=== PATIENT | female | born 1960 | race Hispanic/Latino ===

== ENCOUNTER 2018-11-07 22:07 | Emergency (ER) | payer BC ==
[2018-11-07] MEDS ORDERED: FENTANYL CITR 100 MCG/2 ML ONE (22:47)
[2018-11-07] MEDS ORDERED: ONDANSETRON 4 MG/2 ML VIAL ONE (22:47)
[2018-11-07 23:15] LABS: Protime INR 1.03
[2018-11-07 23:16] LABS: Absolute Lymphocytes (CBC) 1.2 K/uL (0.7-4.9); Absolute Monocytes 0.6 K/uL (0.1-1.3); Absolute Neutrophil 8.6 K/uL (1.8-8.0); Basophils % 0.6 % (0-1.3); Eosinophils % 0.1 % (0-4.4); Hematocrit 49.8 % (36.0-45.0); Lymphocytes % 11.4 % (15.3-44.8); Monocytes % 5.4 % (3.3-12.3); RBC Red Blood Cell Count 5.77 M/uL (3.86-4.86)
[2018-11-07 23:27] LABS: ALT/SGPT 94 U/L (12-78); AST/SGOT 112 U/L (15-37); Albumin 3.6 g/dL (3.4-5.0); Alkaline Phosphatase 303 U/L (45-117); BUN Blood Urea Nitrogen 16 mg/dL (7-18); Bicarbonate 27 mmol/L (21-32); Bilirubin Direct 0.3 mg/dL (0-0.2); Glucose Level 127 mg/dL (74-106); Magnesium 2.2 mg/dL (1.8-2.4); NT PRO-BNP 5080 pg/mL (<125); Potassium 3.8 mmol/L (3.5-5.1); Protein, Total 8.1 g/dL (6.4-8.2); Sodium Level 140 mmol/L (136-145); Troponin (Emerg Dept Use Only) < 0.02 ng/mL (0.0-0.045)
[2018-11-07] MEDS ORDERED: ENALAPRILAT 1.25 MG/ML VIAL IV ONE (23:34)
[2018-11-07] MEDS ORDERED: MEPERIDINE HCL 50 MG/ML AMP ONE (23:48)
[2018-11-08] MEDS ORDERED: Nicardipine/NS 25 MG/250 ML KIT IV ONE ×2 (00:12→02:16)
[2018-11-08] MEDS ORDERED: PROMETHAZINE 25 MG/ML VIAL ONE (00:42)
--- NOTE | 2018-11-08 01:25 | ER ---
Nurse's Notes [facility] Name: Cait Ying Age: 58 yrs Sex: Female : 1960 Arrival Date: 11/07/2018 Time: 22:08 Bed 2 Private MD: Diagnosis: Dissection of thoracoabdominal aorta Presentation: 11/07 22:23 Presenting complaint: Patient states: she was walking through her house about 2100 this aa1 evening and had a sudden onset of of midsternal CP that radiates between her shoulder pain/ C/O stabbing pain 8/10 and nausea. Transition of care: patient was not received from another setting of care. Onset of symptoms was November 07, 2018 at 21:00. Risk Assessment: Do you want to hurt yourself or someone else? Patient reports no desire to harm self or others. Initial Sepsis Screen: Does the patient meet any 2 criteria? No. Patient's initial sepsis screen is negative. Does the patient have a suspected source of infection? No. Patient's initial sepsis screen is negative. Care prior to arrival: Medication(s) given: ASA, 81 mg, x 4, Nitroglycerin, 0.4 mg SL x 1, zofran 4 mg, IV initiated. 20 GA, in the left antecubital area. 22:23 Method Of Arrival: EMS: [facility] aa1 22:23 Acuity: ONEYDA 2 aa1 Historical: - Allergies: 22:28 No Known Allergies; aa1 - Home Meds: 22:28 levothyroxine oral once daily [Active]; metoprolol tartrate 100 mg Oral tab 1 tab 2 aa1 times per day [Active]; - PMHx: 22:28 Hypertension; Hypothyroidism; aa1 - PSHx: 22:28 Cholecystectomy; Leg surgery for osteomyelitis; Knee surgery; aa1 - Immunization history:: Flu vaccine is not up to date. - Social history:: Smoking status: Patient uses tobacco products, smokes one-half pack cigarettes per day. - Ebola Screening: : No symptoms or risks identified at this time. Screenin:31 Abuse screen: Denies threats or abuse. Denies injuries from another. Nutritional aa1 screening: No deficits noted. Tuberculosis screening: No symptoms or risk factors identified. Fall Risk IV access (20 points). Assessment: 22:31 General: Appears in no apparent distress. uncomfortable, Behavior is cooperative, aa1 appropriate for age, restless. Pain: Complains of pain in mid-sternal area Pain radiates to thoracic area Pain currently is 8 out of 10 on a pain scale. Quality of pain is described as stabbing, Pain began suddenly, Is continuous. Neuro: Level of Consciousness is awake, alert, obeys commands, Oriented to person, place, time, situation, Moves all extremities. Speech is normal. Cardiovascular: Reports chest pain, nausea, Denies diaphoresis, lightheadedness, palpitations, Heart tones S1 S2 present Capillary refill < 3 seconds Clubbing of nail beds is absent JVD is absent Patient's skin is warm and dry. Rhythm is regular Chest pain is described as severe, quality is stabbing, is located in substernal area radiates scapula began 1 hour prior to arrival episodes are continuous. Respiratory: Airway is patent Respiratory effort is even, unlabored, Respiratory pattern is regular, symmetrical. GI: Reports nausea. : No signs and/or symptoms were reported regarding the genitourinary system. EENT: No signs and/or symptoms were reported regarding the EENT system. Derm: Skin is intact, is healthy with good turgor, Skin is pink, warm \T\ dry. Musculoskeletal: Circulation, motion, and sensation intact. Capillary refill < 3 seconds, Range of motion: intact in all extremities. 22:37 Reassessment: Pt c/o severe pain between shoulder blades that radiates around to aa1 epigastrium. Bilateral blood pressures obtained at this time. Dr. Mathews notified of pt complaint and negative bilateral BP results. Per MD, CT aorta will be ordered. 23:22 Reassessment: Patient appears in no apparent distress at this time. Patient and/or aa1 family updated on plan of care and expected duration. Pain level reassessed. Patient is alert, oriented x 3, equal unlabored respirations, skin warm/dry/pink. Awaiting lab results. 11/08 00:00 Reassessment: Patient appears in no apparent distress at this time. Patient and/or aa1 family updated on plan of care and expected duration. Pain level reassessed. Patient is alert, oriented x 3, equal unlabored respirations, skin warm/dry/pink. Pt back from CT. Reports pain improved after Demerol. PA notified that pt's BP has increased; will initiate Cardene drip at this time. 00:52 Reassessment: Patient appears in no apparent distress at this time. Patient and/or aa1 family updated on plan of care and expected duration. Pain level reassessed. Patient is alert, oriented x 3, equal unlabored respirations, skin warm/dry/pink. PA at bedside reassessing pt. 01:20 Reassessment: Patient appears in no apparent distress at this time. Patient and/or aa1 family updated on plan of care and expected duration. Pain level reassessed. Patient is alert, oriented x 3, equal unlabored respirations, skin warm/dry/pink. Pt moaning and reports that the pain in her back has returned; provider notified and order for pain medication received. 01:35 Reassessment: Patient appears in no apparent distress at this time. O2 sat decreased to aa1 88% on 2L n/c after dilaudid; provider notified and O2 rate increased to 4L. O2 sat improved to 91%. Pt sleeping but easily aroused. 01:44 Reassessment: Attempted to call report to [facility], was told by Jerrell jung they are still trying to determine which nurse will receive the pt and asked us to call back in 10 mins. 02:01 Reassessment: Patient appears in no apparent distress at this time. Patient and/or aa1 family updated on plan of care and expected duration. Pain level reassessed. Patient is alert, oriented x 3, equal unlabored respirations, skin warm/dry/pink. Report given to Kwasi Cook RN at [facility]. 02:51 Reassessment: Patient appears in no apparent distress at this time. Patient is alert, aa1 oriented x 3, equal unlabored respirations, skin warm/dry/pink. [facility] present for transfer to [facility]. Vital Signs: 11/07 22:28 BP 170 / 86; Pulse 67; Resp 20; Temp 97.1; Pulse Ox 94% on R/A; Weight 81.65 kg; Height aa1 5 ft. 8 in. (172.72 cm); Pain 8/10; 22:37 BP 214 / 96 LA; aa1 22:37 BP 198 / 97 RA; aa1 23:22 BP 182 / 79; Pulse 63; Resp 16; Pulse Ox 93% on R/A; aa1 11/08 00:00 BP 233 / 75; Pulse 62; Resp 16; Pulse Ox 93% on R/A; Pain 6/10; aa1 00:26 BP 164 / 70; Pulse 79; Resp 14; Pulse Ox 90% on 2 lpm NC; Pain 7/10; aa1 00:30 BP 152 / 68; Pulse 73; Resp 14; Pulse Ox 94% on 2 lpm NC; aa1 00:47 BP 166 / 76; Pulse 84; Resp 16; Pulse Ox 96% on 2 lpm NC; aa1 01:10 BP 138 / 72; Pulse 88; Resp 20; Pulse Ox 94% on 2 lpm NC; aa1 02:01 BP 147 / 63; Pulse 78; Resp 20; Temp 97.6; Pulse Ox 93% on 4 lpm NC; aa1 02:25 BP 153 / 62; Pulse 76; Resp 18; Pulse Ox 92% on 4 lpm NC; Pain 7/10; aa1 11/07 22:28 Body Mass Index 27.37 (81.65 kg, 172.72 cm) 1 ED Course: 11/07 22:08 Patient arrived in ED. al2 22:09 shelter monitor on. Pulse ox on. NIBP on. aa1 22:09 Maintain EMS IV. Dressing intact. Site clean \T\ dry. Gauge \T\ site: 20g LAC. aa 1 22:13 Matthew Mathews MD is Attending Physician. [facility] 22:13 [facility] jr8 22:14 Matthew Mathews MD is Attending Physician. jr8 22:20 EKG done, by ED staff, reviewed by Matthew Mathews MD. aa1 22:23 Becky Telles, PAT is Primary Nurse. aa1 22:26 Triage completed. aa1 22:28 Arm band placed on right wrist. aa1 22:31 Patient has correct armband on for positive identification. Placed in gown. Bed in low aa1 position. Call light in reach. Side rails up X2. 22:50 Radiology exam delayed due to lab results not completed at this time. (BUN/Creatinine). 2 11/08 00:04 CT completed. Patient tolerated procedure well. Patient moved to CT via stretcher. eh Patient moved back from CT. 00:05 Oxygen administration via nasal cannula \T\ 2L/min O2 via Pt O2 sat 90-92% on RA, placed aa1 on nasal cannula at this time. 00:10 Missed attempt(s): 20 gauge in right antecubital area. Bleeding controlled, band aid aa1 applied, catheter tip intact. 00:23 Inserted saline lock: 22 gauge in right upper arm, using aseptic technique. aa1 02:20 Assisted to bedside commode. aa1 02:51 No provider procedures requiring assistance completed. Patient transferred, IV remains aa1 in place. 04:13 XRAY Chest (1 view) In Process Unspecified. EDMS 04:14 CT Aorta for Dissection In Process Unspecified. EDMS Administered Medications: 11/07 22:45 Drug: fentaNYL (PF) 50 mcg Route: IVP; Site: left antecubital; aa1 23:42 Follow up: Response: No adverse reaction; Pain is unchanged, physician notified aa1 22:45 Drug: Zofran 4 mg Route: IVP; Site: left antecubital; aa1 23:43 Follow up: Response: No adverse reaction; Nausea is decreased aa1 23:29 Drug: Enalaprilat 1.25 mg Route: IV; Rate: calculated rate; Site: left antecubital; aa1 23:34 Follow up: IV Status: Completed infusion aa1 23:44 Drug: Demerol 50 mg Route: IVP; Site: left antecubital; aa1 11/08 00:39 Follow up: Response: No adverse reaction; Pain is decreased aa1 00:02 CANCELLED (Physician Discretion): Cardene 5 mg/min IV at calculated rate continuous; jr8 5mg/hr 00:05 Drug: Cardene 5 mg/hr Route: IV; Rate: calculated rate; Site: left antecubital; aa1 00:30 Follow up: Rate change 15 mg/hr aa1 02:53 Follow up: IV Status: Infusion continued upon transfer aa1 00:38 Drug: Phenergan 12.5 mg Route: IVP; Site: right upper arm; aa1 01:33 Follow up: Response: No adverse reaction; Nausea is decreased aa1 01:26 Drug: Dilaudid 0.5 mg Route: IVP; Site: right upper arm; aa1 02:00 Follow up: Response: No adverse reaction; Pain is decreased aa1 Outcome: 01:24 ER care complete, transfer ordered by . jr8 02:51 Transferred by ground EMS to [facility], Transfer form completed. aa1 X-rays sent w/ patient. 02:51 Condition: stable 02:51 Discharge instructions given to patient, Instructed on the need for admit, Demonstrated understanding of instructions. 02:56 Patient left the ED. aa1 Signatures: Dispatcher [employer] EDBecky Rojo, PAT RN aa1 Matthew Mathews MD MD cha Hagler, Jonatan Alves PA PA jr8 Lilly Dorsey2 Oma Estrella
--- NOTE | 2018-11-08 01:25 | EDPHYS ---
Physician Documentation [facility] Name: Cait Ying Age: 58 yrs Sex: Female : 1960 Arrival Date: 11/07/2018 Time: 22:08 Bed 2 Private MD: ED Physician Matthew Mathews HPI: 11/07 22:30 This 58 yrs old Female presents to ER via EMS with complaints of chest pain. jr8 22:30 Onset: acutely, today. The pain radiates to back. Associated signs and symptoms: jr8 Pertinent positives: nausea. The chest pain is described as sharp. Duration: The patient or guardian reports a single episode, that is still ongoing, but improving. Modifying factors: The symptoms are alleviated by nothing. the symptoms are aggravated by deep breath, movement. Severity of pain: At its worst the pain was moderate in the emergency department the pain has improved. The patient has not experienced similar symptoms in the past. The patient has not recently seen a physician. Patient stated that she felt sharp pain between shoulder blades that moved to chest. Had no relief at home so called EMS. Now feeling a little better . Historical: - Allergies: 22:28 No Known Allergies; aa1 - Home Meds: 22:28 levothyroxine oral once daily [Active]; metoprolol tartrate 100 mg Oral tab 1 tab 2 aa1 times per day [Active]; - PMHx: 22:28 Hypertension; Hypothyroidism; aa1 - PSHx: 22:28 Cholecystectomy; Leg surgery for osteomyelitis; Knee surgery; aa1 - Immunization history:: Flu vaccine is not up to date. - Social history:: Smoking status: Patient uses tobacco products, smokes one-half pack cigarettes per day. - Ebola Screening: : No symptoms or risks identified at this time. ROS: 22:30 Eyes: Negative for injury, pain, redness, and discharge, ENT: Negative for injury, jr8 pain, and discharge, Neck: Negative for injury, pain, and swelling, Respiratory: Negative for shortness of breath, cough, wheezing, and pleuritic chest pain, Abdomen/GI: Negative for abdominal pain, nausea, vomiting, diarrhea, and constipation, MS/Extremity: Negative for injury and deformity, Skin: Negative for injury, rash, and discoloration, Neuro: Negative for headache, weakness, numbness, tingling, and seizure. 22:30 Cardiovascular: Positive for chest pain, Negative for edema, orthopnea, palpitations, paroxysmal nocturnal dyspnea. 22:30 Back: Positive for pain at rest, of the thoracic area. Exam: 22:32 Eyes: Pupils equal round and reactive to light, extra-ocular motions intact. Lids and jr8 lashes normal. Conjunctiva and sclera are non-icteric and not injected. Cornea within normal limits. Periorbital areas with no swelling, redness, or edema. ENT: Nares patent. No nasal discharge, no septal abnormalities noted. Tympanic membranes are normal and external auditory canals are clear. Oropharynx with no redness, swelling, or masses, exudates, or evidence of obstruction, uvula midline. Mucous membranes moist. Neck: Trachea midline, no thyromegaly or masses palpated, and no cervical lymphadenopathy. Supple, full range of motion without nuchal rigidity, or vertebral point tenderness. No Meningismus. Chest/axilla: Normal chest wall appearance and motion. Nontender with no deformity. No lesions are appreciated. Cardiovascular: Regular rate and rhythm with a normal S1 and S2. No gallops, murmurs, or rubs. Normal PMI, no JVD. No pulse deficits. Respiratory: Lungs have equal breath sounds bilaterally, clear to auscultation and percussion. No rales, rhonchi or wheezes noted. No increased work of breathing, no retractions or nasal flaring. Abdomen/GI: Soft, non-tender, with normal bowel sounds. No distension or tympany. No guarding or rebound. No evidence of tenderness throughout. Skin: Warm, dry with normal turgor. Normal color with no rashes, no lesions, and no evidence of cellulitis. MS/ Extremity: Pulses equal, no cyanosis. Neurovascular intact. Full, normal range of motion. Neuro: Awake and alert, GCS 15, oriented to person, place, time, and situation. Cranial nerves II-XII grossly intact. Motor strength 5/5 in all extremities. Sensory grossly intact. Cerebellar exam normal. Normal gait. 22:32 Back: pain, that is moderate, of the left scapular area, right scapular area, left subscapular area and right subscapular area, ROM is normal, normal spinal alignment noted, CVA tenderness, is absent, vertebral tenderness, is not appreciated. Vital Signs: 22:28 BP 170 / 86; Pulse 67; Resp 20; Temp 97.1; Pulse Ox 94% on R/A; Weight 81.65 kg; Height aa1 5 ft. 8 in. (172.72 cm); Pain 8/10; 22:37 BP 214 / 96 LA; aa1 22:37 BP 198 / 97 RA; aa1 23:22 BP 182 / 79; Pulse 63; Resp 16; Pulse Ox 93% on R/A; aa1 11/08 00:00 BP 233 / 75; Pulse 62; Resp 16; Pulse Ox 93% on R/A; Pain 6/10; aa1 00:26 BP 164 / 70; Pulse 79; Resp 14; Pulse Ox 90% on 2 lpm NC; Pain 7/10; aa1 00:30 BP 152 / 68; Pulse 73; Resp 14; Pulse Ox 94% on 2 lpm NC; aa1 00:47 BP 166 / 76; Pulse 84; Resp 16; Pulse Ox 96% on 2 lpm NC; aa1 01:10 BP 138 / 72; Pulse 88; Resp 20; Pulse Ox 94% on 2 lpm NC; aa1 02:01 BP 147 / 63; Pulse 78; Resp 20; Temp 97.6; Pulse Ox 93% on 4 lpm NC; aa1 02:25 BP 153 / 62; Pulse 76; Resp 18; Pulse Ox 92% on 4 lpm NC; Pain 7/10; aa1 11/07 22:28 Body Mass Index 27.37 (81.65 kg, 172.72 cm) [facility] MDM: 11/07 22:14 Patient medically screened. [facility] 11/08 00:13 Data reviewed: vital signs, nurses notes, lab test result(s), EKG, radiologic studies, [facility] CT scan, plain films. Data interpreted: Pulse oximetry: on room air is 93 %. Interpretation: acceptable. Counseling: I had a detailed discussion with the patient and/or guardian regarding: the historical points, exam findings, and any diagnostic results supporting the discharge/admit diagnosis, lab results, radiology results, the need to transfer to another facility, [facility] does not immediately have the required specialist. 11/07 22:22 Order name: Basic Metabolic Panel [facility] 11/07 22:22 Order name: CBC with Diff [facility] 11/07 22:22 Order name: LFT's [facility] 11/07 22:22 Order name: Magnesium [facility] 11/07 22:22 Order name: NT PRO-BNP [facility] 11/07 22:22 Order name: PT-INR [facility] 11/07 22:22 Order name: Troponin (emerg Dept Use Only) [facility] 11/07 23:17 Order name: Protime (+INR); Complete Time: 23:34 EDMS 11/07 23:28 Order name: Basic Metabolic Panel; Complete Time: 23:34 EDMS 11/07 23:28 Order name: Liver (Hepatic) Function; Complete Time: 23:34 EDMS 11/07 23:28 Order name: Troponin (Emerg Dept Use Only); Complete Time: 23:34 EDMS 11/07 23:28 Order name: NT PRO-BNP; Complete Time: 23:34 EDMS 11/07 23:28 Order name: Magnesium; Complete Time: 23:34 EDMS 11/07 23:33 Order name: CBC with Automated Diff; Complete Time: 23:34 MS 11/07 22:22 Order name: XRAY Chest (1 view) [facility] 11/07 22:22 Order name: EKG; Complete Time: 22:24 [facility] 11/07 22:22 Order name: Cardiac monitoring; Complete Time: 22:23 [facility] 11/07 22:22 Order name: EKG - Nurse/Tech; Complete Time: 22:23 [facility] 11/07 22:22 Order name: IV Saline Lock; Complete Time: 22:23 [facility] 11/07 22:22 Order name: Labs collected and sent; Complete Time: 22:44 [facility] 11/07 22:22 Order name: O2 Per Protocol; Complete Time: 22:23 [facility] 11/07 22:48 Order name: CT Aorta for Dissection [facility] 11/07 22:22 Order name: O2 Sat Monitoring; Complete Time: 22:23 [facility] 11/07 22:48 Order name: Bilateral blood pressure; Complete Time: 22:55 [facility] Administered Medications: 11/07 22:45 Drug: fentaNYL (PF) 50 mcg Route: IVP; Site: left antecubital; aa1 23:42 Follow up: Response: No adverse reaction; Pain is unchanged, physician notified aa1 22:45 Drug: Zofran 4 mg Route: IVP; Site: left antecubital; aa1 23:43 Follow up: Response: No adverse reaction; Nausea is decreased aa1 23:29 Drug: Enalaprilat 1.25 mg Route: IV; Rate: calculated rate; Site: left antecubital; aa1 23:34 Follow up: IV Status: Completed infusion aa1 23:44 Drug: Demerol 50 mg Route: IVP; Site: left antecubital; aa1 11/08 00:39 Follow up: Response: No adverse reaction; Pain is decreased aa1 00:02 CANCELLED (Physician Discretion): Cardene 5 mg/min IV at calculated rate continuous; jr8 5mg/hr 00:05 Drug: Cardene 5 mg/hr Route: IV; Rate: calculated rate; Site: left antecubital; aa1 00:30 Follow up: Rate change 15 mg/hr aa1 02:53 Follow up: IV Status: Infusion continued upon transfer aa1 00:38 Drug: Phenergan 12.5 mg Route: IVP; Site: right upper arm; aa1 01:33 Follow up: Response: No adverse reaction; Nausea is decreased aa1 01:26 Drug: Dilaudid 0.5 mg Route: IVP; Site: right upper arm; aa1 02:00 Follow up: Response: No adverse reaction; Pain is decreased aa1 Disposition: 06:28 Co-signature as Attending Physician, Matthew Mathews MD I agree with the assessment and nidhi plan of care. Disposition: 11/08/18 01:24 Transfer ordered to [facility]. Diagnosis is Dissection of thoracoabdominal aorta. - Reason for transfer: Higher level of care. - Accepting physician is Skyler . - Condition is Fair. - Problem is new. - Symptoms have improved. Signatures: Dispatcher [employer] EDMS Becky Telles RN RN aa1 Anderson, Corey, MD MD cha Roszak, Josh, PA PA jr8 Corrections: (The following items were deleted from the chart) 00:02 00:01 Cardene 5 mg/min IV at calculated rate continuous; 5mg/hr ordered. jr8 jr8 02:56 01:24 11/08/2018 01:24 Transfer ordered to [facility]. Diagnosis is aa1 Dissection of thoracoabdominal aorta. Reason for transfer: Higher level of care. Accepting physician is Skyler . Condition is Fair. Problem is new. Symptoms have improved. jr8
[2018-11-08] MEDS ORDERED: HYDROMORPHONE HCL 0.5 MG/0.5 ML INJ ONE (01:30)
[2018-11-08 03:22] VITALS: TEMP 97.6
[2018-11-08 03:23] VITALS: BP 153/62; O2SAT 92
--- NOTE | 2018-11-08 07:56 | RAD REPORT ---
EXAM DESCRIPTION: Eryn Single View11/07/2018 10:40 pm CLINICAL HISTORY: Chest pain COMPARISON: 2013 FINDINGS: The lungs appear clear of acute infiltrate. The heart is normal size IMPRESSION: No acute abnormalities displayed
--- NOTE | 2018-11-08 08:08 | RAD REPORT ---
EXAM DESCRIPTION: CT - Angio Aorta For Dissection - 11/08/2018 3:29 am CLINICAL HISTORY: . Chest and abdominal pain COMPARISON: CT abdomen 2013 TECHNIQUE: Computed tomography angiography of the chest, abdomen pelvis were obtained. 100 cc Isovue 370 was administered intravenously. Coronal and sagittal reconstruction were performed.A preliminary report was generated by virtual radiologic and review prior to dictation MIP 3D reconstruction was performed All CT scans are performed using dose optimization technique as appropriate and may include automated exposure control or mA/KV adjustment according to patient size. FINDINGS: An aortic dissection involves the aortic arch distal to the takeoff of the left brachioce phalic artery and extends to the level of the diaphragmatic hiatus. Intramural hematoma is present th roughout the extent of the dissection The celiac, SMA and FALGUNI are patent . Moderate plaque is present within the abdominal aorta. A severe stenosis involves the right common il iac artery A lung consolidation is not present. A pericardial effusion is not seen. A pleural effusion is not n oted. The liver,spleen, pancreas adrenals kidneys demonstrate no significant abnormality. The appendix is normal. There no evidence diverticulitis. . 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
--- NOTE | 2018-11-08 10:23 | EKG ---
Test Date: 2018-11-07 Test Time: 22:11:40 Data Integration Developer: KACI MEASUREMENT RESULTS: Intervals: Rate: 72 AK: 160 QRSD: 78 QT: 470 QTc: 514 [place]: P: 46 AK: 160 QRS: 11 T: 60 INTERPRETIVE STATEMENTS: Normal sinus rhythm Prolonged QT Abnormal ECG Compared to ECG 03/05/2014 10:24:43 Prolonged QT interval now present Sinus bradycardia no longer present Sinus arrhythmia no longer present Myocardial infarct finding no longer present Electronically Signed On 11-08-18 10:21:49 MICROBIOLOGY TEACHER by Zaire Reis
== END 2018-11-08 02:56 | disposition short-term general hospital (02) ==
LOC: ER 22:07
DX: I71.03 Dissection of thoracoabdominal aorta (principal); I70.8 Atherosclerosis of other arteries; E03.9 Hypothyroidism, unspecified; I10 Essential (primary) hypertension; Z79.899 Other long term (current) drug therapy; F17.210 Nicotine dependence, cigarettes, uncomplicated
CPT/HCPCS: 36415; 71045; 71275; 74175; 80048; 80076; 83735; 83880; 84484; 85025; 85610; 93005; 99285; J1170; J2175; J2405; J2550; J3010; Q9967

== ENCOUNTER 2018-12-14 19:01 | Emergency (ER) | payer BC, OTHER ==
--- OUTSIDE RECORDS SUMMARY | 2018-12-14 19:04 | XMS REPORT | Clinical Summary ---
:1960 Author Organization [facility] Address [address] [place] [address] Care Team Providers Name Role Phone Lc Floresin Unavailable Allergies No Known Allergies Medications Medication Sig Dispensed Refills Start Date End Date Status levothyroxine Take 25 mcg 0 Active (SYNTHROID, by mouth LEVOTHROID) 25 MCG Every morning tabletIndications: on an empty hypothyroidism stomach. amLODIPine (NORVASC) Take 1 tablet 60 tablet 0 11/16/2018 Active 10 MG tablet (10 mg total) by mouth daily. nebivolol (BYSTOLIC) Take 1 tablet 60 tablet 0 11/16/2018 Active 5 MG tablet (5 mg total) by mouth daily. metoprolol Take 100 mg 0 11/15/2018 Discontinued (LOPRESSOR) 100 MG by mouth 2 tabletIndications: (two) times hypertension daily. 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 HTN (hypertension) chronic arterial 11/08/2018 Encounters Date Type Specialty Care Team Description 12/11/2018 Orders Only Osorio, May I 11/20/2018 Orders Only Osorio, May I 11/15/2018 Orders Only Osorio, May I Descending aortic aneurysm (HCC) (Primary Dx) 11/14/2018 Travel 11/10/2018 Anesthesia Event Itz Storm MD 11/10/2018 Surgery Preventza, REPAIR,TEVAR-THORACI [facility] ENDOVASCULAR MD Michelle ANEURYSM 11/08/2018 - Hospital Encounter Cardiology Quincy Mariee Dissection of 11/15/2018 MD Colette abdominal aorta (HCC) 11/08/2018 Orders Only General Internal Medicine after 12/13/2017 Social History Tobacco Use Types Packs/Day Years Used Date Never Assessed Sex Assigned at Date Recorded Not on file Job Start Date Occupation Industry Not on file Not on file Not on file Travel History Travel Start Travel End No recent travel history available. Last Filed Vital Signs Vital Sign Reading Time Taken Blood Pressure 134/76 11/15/2018 10:26 AM MEDICAL RESEARCH SCIENTIST Pulse 69 11/15/2018 10:26 AM MEDICAL RESEARCH SCIENTIST Temperature 36.4 C (97.6 F) 11/15/2018 7:00 AM MEDICAL RESEARCH SCIENTIST Respiratory Rate 18 11/15/2018 10:26 AM MEDICAL RESEARCH SCIENTIST Oxygen Saturation 93% 11/15/2018 10:26 AM MEDICAL RESEARCH SCIENTIST Inhaled Oxygen Concentration 50% 11/11/2018 6:15 AM MEDICAL RESEARCH SCIENTIST Weight 74.1 kg (163 lb 5.8 oz) 11/10/2018 5:30 AM MEDICAL RESEARCH SCIENTIST Height 172.7 cm (5' 8") 11/13/2018 9:05 AM MEDICAL RESEARCH SCIENTIST Body Mass Index - - Plan of Treatment Not on file Implants Implanted Type Area Terminal Operator Device Shelf Model / Identifier Expiration Serial / Date Lot Carlos Eduardo Ball Endo [id number] - [id number] CV Aneurysm Right: COOK: AORTIC 06/27/2020 [id number] / Implanted: Qty: 1 on 11/10/2018 by Quincy Mariee MD Groin INTERVENTION / [id number] Closure Sys Perclose Progl [id number] - [id number] Cardiovascular Left: FLETCHER LAB:VASC 07/23/2020 [id number] / Implanted: Qty: 2 on 11/10/2018 by Quincy Mariee MD Groin DEV / [id number] Procedures Procedure Name Priority Date/Time Associated Comments Diagnosis VASCULAR DIAGRAM 12/04/2018 2:50 -SCAN PM MEDICAL RESEARCH SCIENTIST RHYTHM STRIP - SCAN 12/04/2018 2:50 PM MEDICAL RESEARCH SCIENTIST XR CHEST 1 VIEW Routine 11/15/2018 9:48 Results for this PORTABLE/BEDSIDE AM MEDICAL RESEARCH SCIENTIST procedure are in the results section. APTT Routine 11/15/2018 4:41 Results for this AM MEDICAL RESEARCH SCIENTIST procedure are in the results section. PROTHROMBIN TIME/INR Routine 11/15/2018 4:41 Results for this AM MEDICAL RESEARCH SCIENTIST procedure are in the results section. PHOSPHORUS Routine 11/15/2018 4:41 Results for this AM MEDICAL RESEARCH SCIENTIST procedure are in the results section. MAGNESIUM Routine 11/15/2018 4:41 Results for this AM MEDICAL RESEARCH SCIENTIST procedure are in the results section. BASIC METABOLIC PANEL Routine 11/15/2018 4:41 Results for this (7) AM MEDICAL RESEARCH SCIENTIST procedure are in the results section. CBC (HEMOGRAM ONLY) Routine 11/15/2018 4:41 Results for this AM MEDICAL RESEARCH SCIENTIST procedure are in the results section. XR CHEST 1 VIEW Routine 11/14/2018 7:43 Results for this PORTABLE/BEDSIDE AM MEDICAL RESEARCH SCIENTIST procedure are in the results section. APTT Routine 11/14/2018 4:37 Results for this AM MEDICAL RESEARCH SCIENTIST procedure are in the results section. PROTHROMBIN TIME/INR Routine 11/14/2018 4:37 Results for this AM MEDICAL RESEARCH SCIENTIST procedure are in the results section. PHOSPHORUS Routine 11/14/2018 4:37 Results for this AM MEDICAL RESEARCH SCIENTIST procedure are in the results section. MAGNESIUM Routine 11/14/2018 4:37 Results for this AM MEDICAL RESEARCH SCIENTIST procedure are in the results section. BASIC METABOLIC PANEL Routine 11/14/2018 4:37 Results for this (7) AM MEDICAL RESEARCH SCIENTIST procedure are in the results section. CBC (HEMOGRAM ONLY) Routine 11/14/2018 4:37 Results for this AM MEDICAL RESEARCH SCIENTIST procedure are in the results section. TRANSFUSION SERVICE 11/13/2018 5:53 REPORT - SCAN PM MEDICAL RESEARCH SCIENTIST T4, FREE Routine 11/13/2018 10:23 Results for this AM MEDICAL RESEARCH SCIENTIST procedure are in the results section. TSH/FREE T4 IF Routine 11/13/2018 10:23 Results for this INDICATED AM MEDICAL RESEARCH SCIENTIST procedure are in the results section. XR CHEST 1 VIEW Routine 11/13/2018 5:41 Results for this PORTABLE/BEDSIDE AM MEDICAL RESEARCH SCIENTIST procedure are in the results section. PROTHROMBIN TIME/INR Routine 11/13/2018 3:35 Results for this AM MEDICAL RESEARCH SCIENTIST procedure are in the results section. APTT Routine 11/13/2018 3:35 Results for this AM MEDICAL RESEARCH SCIENTIST procedure are in the results section. PHOSPHORUS Routine 11/13/2018 3:35 Results for this AM MEDICAL RESEARCH SCIENTIST procedure are in the results section. MAGNESIUM Routine 11/13/2018 3:35 Results for this AM MEDICAL RESEARCH SCIENTIST procedure are in the results section. BASIC METABOLIC PANEL Routine 11/13/2018 3:35 Results for this (7) AM MEDICAL RESEARCH SCIENTIST procedure are in the results section. CBC (HEMOGRAM ONLY) Routine 11/13/2018 3:35 Results for this AM MEDICAL RESEARCH SCIENTIST procedure are in the results section. CTA CHEST,ABDOMEN & STAT 11/12/2018 8:47 Results for this PELVIS - FOR AM MEDICAL RESEARCH SCIENTIST procedure are in DISSECTION the results section. XR CHEST 1 VIEW Routine 11/12/2018 5:55 Results for this PORTABLE/BEDSIDE AM MEDICAL RESEARCH SCIENTIST procedure are in the results section. PROTHROMBIN TIME/INR Routine 11/12/2018 3:21 Results for this AM MEDICAL RESEARCH SCIENTIST procedure are in the results section. APTT Routine 11/12/2018 3:21 Results for this AM MEDICAL RESEARCH SCIENTIST procedure are in the results section. PHOSPHORUS Routine 11/12/2018 3:21 Results for this AM MEDICAL RESEARCH SCIENTIST procedure are in the results section. MAGNESIUM Routine 11/12/2018 3:21 Results for this AM MEDICAL RESEARCH SCIENTIST procedure are in the results section. BASIC METABOLIC PANEL Routine 11/12/2018 3:21 Results for this (7) AM MEDICAL RESEARCH SCIENTIST procedure are in the results section. CBC (HEMOGRAM ONLY) Routine 11/12/2018 3:21 Results for this AM MEDICAL RESEARCH SCIENTIST procedure are in the results section. PREPARE RBC STAT 11/12/2018 12:22 Results for this AM MEDICAL RESEARCH SCIENTIST procedure are in the results section. TRANSFUSION SERVICE 11/11/2018 5:52 REPORT - SCAN PM MEDICAL RESEARCH SCIENTIST XR CHEST 1 VIEW Routine 11/11/2018 5:00 Results for this PORTABLE/BEDSIDE AM MEDICAL RESEARCH SCIENTIST procedure are in the results section. PROTHROMBIN TIME/INR Routine 11/11/2018 4:13 Results for this AM MEDICAL RESEARCH SCIENTIST procedure are in the results section. APTT Routine 11/11/2018 4:13 Results for this AM MEDICAL RESEARCH SCIENTIST procedure are in the results section. BLOOD GAS, ARTERIAL Routine 11/11/2018 4:13 Results for this AM MEDICAL RESEARCH SCIENTIST procedure are in the results section. PHOSPHORUS Routine 11/11/2018 4:13 Results for this AM MEDICAL RESEARCH SCIENTIST procedure are in the results section. MAGNESIUM Routine 11/11/2018 4:13 Results for this AM MEDICAL RESEARCH SCIENTIST procedure are in the results section. BASIC METABOLIC PANEL Routine 11/11/2018 4:13 Results for this (7) AM MEDICAL RESEARCH SCIENTIST procedure are in the results section. CBC (HEMOGRAM ONLY) Routine 11/11/2018 4:13 Results for this AM MEDICAL RESEARCH SCIENTIST procedure are in the results section. PT/APTT Routine 11/10/2018 6:17 Results for this PM MEDICAL RESEARCH SCIENTIST procedure are in the results section. CALCIUM, IONIZED Routine 11/10/2018 6:17 Results for this PM MEDICAL RESEARCH SCIENTIST procedure are in the results section. BASIC METABOLIC PANEL Routine 11/10/2018 6:17 Results for this (7) PM MEDICAL RESEARCH SCIENTIST procedure are in the results section. BLOOD GAS, ARTERIAL Routine 11/10/2018 6:17 Results for this PM MEDICAL RESEARCH SCIENTIST procedure are in the results section. CBC (HEMOGRAM ONLY) STAT 11/10/2018 6:17 Results for this PM MEDICAL RESEARCH SCIENTIST procedure are in the results section. ANESTHESIA SCOOTER Routine 11/10/2018 5:13 Results for this PM MEDICAL RESEARCH SCIENTIST procedure are in the results section. POCT-ACT Routine 11/10/2018 4:58 Results for this PM MEDICAL RESEARCH SCIENTIST procedure are in the results section. POCT-ACT Routine 11/10/2018 4:31 Results for this PM MEDICAL RESEARCH SCIENTIST procedure are in the results section. HGB/HCT (H&H) - STAT STAT 11/10/2018 4:20 Results for this LAB PM MEDICAL RESEARCH SCIENTIST procedure are in the results section. GLUCOSE-STAT LAB STAT 11/10/2018 4:20 Results for this PM MEDICAL RESEARCH SCIENTIST procedure are in the results section. POTASSIUM-STAT LAB STAT 11/10/2018 4:20 Results for this PM MEDICAL RESEARCH SCIENTIST procedure are in the results section. SODIUM NA-STAT LAB STAT 11/10/2018 4:20 Results for this PM MEDICAL RESEARCH SCIENTIST procedure are in the results section. BLOOD GAS, ARTERIAL STAT 11/10/2018 4:20 Results for this PM MEDICAL RESEARCH SCIENTIST procedure are in the results section. RRL CRITICAL LABS STAT 11/10/2018 4:20 Results for this (ABG,NA,K,H&H,GLUCOSE PM MEDICAL RESEARCH SCIENTIST procedure are in ) the results section. HGB/HCT (H&H) - STAT STAT 11/10/2018 2:43 Results for this LAB PM MEDICAL RESEARCH SCIENTIST procedure are in the results section. GLUCOSE-STAT LAB STAT 11/10/2018 2:43 Results for this PM MEDICAL RESEARCH SCIENTIST procedure are in the results section. POTASSIUM-STAT LAB STAT 11/10/2018 2:43 Results for this PM MEDICAL RESEARCH SCIENTIST procedure are in the results section. SODIUM NA-STAT LAB STAT 11/10/2018 2:43 Results for this PM MEDICAL RESEARCH SCIENTIST procedure are in the results section. BLOOD GAS, ARTERIAL STAT 11/10/2018 2:43 Results for this PM MEDICAL RESEARCH SCIENTIST procedure are in the results section. CALCIUM, IONIZED STAT 11/10/2018 2:43 Results for this PM MEDICAL RESEARCH SCIENTIST procedure are in the results section. RRL CRITICAL LABS STAT 11/10/2018 2:43 Results for this (ABG,NA,K,H&H,GLUCOSE PM MEDICAL RESEARCH SCIENTIST procedure are in ) the results section. REPAIR,TEVAR-THORACIC 11/10/2018 11:41 Intramural aortic ENDOVASCULAR ANEURYSM AM MEDICAL RESEARCH SCIENTIST hematoma (HCC) Special Needs CSF XR CHEST 1 VIEW Routine 11/10/2018 3:33 AM MEDICAL RESEARCH SCIENTIST Results for this PORTABLE/BEDSIDE procedure are in the results section. PHOSPHORUS Routine 11/10/2018 3:10 AM MEDICAL RESEARCH SCIENTIST MAGNESIUM Routine 11/10/2018 3:10 AM MEDICAL RESEARCH SCIENTIST BASIC METABOLIC PANEL (7) Routine 11/10/2018 3:10 AM MEDICAL RESEARCH SCIENTIST CBC (HEMOGRAM ONLY) Routine 11/10/2018 3:10 AM MEDICAL RESEARCH SCIENTIST TRANSFUSION SERVICE REPORT - 11/09/2018 6:02 PM MEDICAL RESEARCH SCIENTIST SCAN TSH/FREE T4 IF INDICATED Routine 11/09/2018 10:07 AM MEDICAL RESEARCH SCIENTIST XR CHEST 1 VIEW Routine 11/09/2018 5:41 AM MEDICAL RESEARCH SCIENTIST Results for this PORTABLE/BEDSIDE procedure are in the results section. PHOSPHORUS Routine 11/09/2018 3:22 AM MEDICAL RESEARCH SCIENTIST MAGNESIUM Routine 11/09/2018 3:22 AM MEDICAL RESEARCH SCIENTIST BASIC METABOLIC PANEL (7) Routine 11/09/2018 3:22 AM MEDICAL RESEARCH SCIENTIST CBC (HEMOGRAM ONLY) Routine 11/09/2018 3:22 AM MEDICAL RESEARCH SCIENTIST ECG 12-LEAD Routine 11/08/2018 9:16 AM MEDICAL RESEARCH SCIENTIST Procedure Note - Interface, External Ris In - 11/08/2018 12:01 PM MEDICAL RESEARCH SCIENTIST Ventricular Rate 76 BPM Atrial Rate 76 BPM P-R Interval 170 ms QRS Duration 96 ms Q-T Interval 456 ms QTC Calculation(Bazett) 513 ms P [place] 44 degrees R [place] 13 degrees T [place] 72 degrees Normal sinus rhythm Prolonged QT Abnormal ECG No previous ECGs available ECG 12-LEAD Routine 11/08/2018 9:16 AM MEDICAL RESEARCH SCIENTIST XR CHEST 1 VIEW Routine 11/08/2018 6:17 AM MEDICAL RESEARCH SCIENTIST Results for this PORTABLE/BEDSIDE procedure are in the results section. ABORH, MANUAL STAT 11/08/2018 5:31 AM MEDICAL RESEARCH SCIENTIST CBC W/PLT COUNT & AUTO STAT 11/08/2018 5:06 AM MEDICAL RESEARCH SCIENTIST Results for this DIFFERENTIAL procedure are in the results section. TYPE AND SCREEN, AUTOMATED Routine 11/08/2018 5:06 AM MEDICAL RESEARCH SCIENTIST TROPONIN I Routine 11/08/2018 5:06 AM MEDICAL RESEARCH SCIENTIST HEPATIC FUNCTION PANEL Routine 11/08/2018 5:06 AM MEDICAL RESEARCH SCIENTIST CALCIUM, IONIZED STAT 11/08/2018 5:06 AM MEDICAL RESEARCH SCIENTIST PROTHROMBIN TIME/INR STAT 11/08/2018 5:06 AM MEDICAL RESEARCH SCIENTIST APTT STAT 11/08/2018 5:06 AM MEDICAL RESEARCH SCIENTIST PHOSPHORUS STAT 11/08/2018 5:06 AM MEDICAL RESEARCH SCIENTIST MAGNESIUM STAT 11/08/2018 5:06 AM MEDICAL RESEARCH SCIENTIST CBC W/PLT COUNT & AUTO STAT 11/08/2018 5:06 AM MEDICAL RESEARCH SCIENTIST Results for this DIFFERENTIAL procedure are in the results section. BASIC METABOLIC PANEL (7) STAT 11/08/2018 5:06 AM MEDICAL RESEARCH SCIENTIST after 12/13/2017 Results VASCULAR DIAGRAM -SCAN (12/04/2018 2:50 PM MEDICAL RESEARCH SCIENTIST) Narrative Performed At RHYTHM STRIP - SCAN (12/04/2018 2:50 PM MEDICAL RESEARCH SCIENTIST) Narrative Performed At XR chest 1 view portable / bedside (11/15/2018 9:48 AM MEDICAL RESEARCH SCIENTIST)Only the most recent of8 resultswithin the time period is included. Narrative Performed At FINAL REPORT [facility] Chest x-ray Clinical History: post op Comparison: November 14, 2018 Views: 1 Chest x-ray: The cardiac and mediastinal silhouettes are prominent.There is no evidence of a pneumothorax.There is evidence of a small left pleural effusion.There is no evidence of overt cardiac failure. The visible regional skeleton is intact.There is evidence of a left lower lobe retrocardiac space focal parenchymal opacity. Endovascular changes are visualized overlying the thoracic aorta. A right internal jugular catheter has been removed. Impression: Interval removal of a right internal jugular catheter. Decreased pulmonary vascular congestion. Signed: Alyssa Lee MD Report Verified Date/Time:11/15/2018 10:37:06 Reading Location: [facility] Radiology Reading Room Procedure Note Interface, External Ris In - 11/15/2018 10:39 AM MEDICAL RESEARCH SCIENTIST FINAL REPORT Chest x-ray Clinical History: post op Comparison: November 14, 2018 Views: 1 Chest x-ray: The cardiac and mediastinal silhouettes are prominent. There is no evidence of a pneumothorax. There is evidence of a small left pleural effusion. There is no evidence of overt cardiac failure. The visible regional skeleton is intact. There is evidence of a left lower lobe retrocardiac space focal parenchymal opacity. Endovascular changes are visualized overlying the thoracic aorta. A right internal jugular catheter has been removed. Impression: Interval removal of a right internal jugular catheter. Decreased pulmonary vascular congestion. Signed: Alyssa Lee MD Report Verified Date/Time: 11/15/2018 10:37:06 Reading Location: [facility] Radiology Reading Room Performing Organization Address City/[facility] Phone Number [facility] aPTT (11/15/2018 4:41 AM MEDICAL RESEARCH SCIENTIST)Only the most recent of6 resultswithin the time period is included. PTT 37.7 (H) 22.5 - 36.0 seconds [facility] Specimen Blood - Arm, Right Performing Organization Address City/[facility]/Zipcode Phone Number [facility] [address] [place] [address] CENTER Prothrombin time/INR (11/15/2018 4:41 AM MEDICAL RESEARCH SCIENTIST)Only the most recent of6 resultswithin the time period is included. Protime 13.3 11.7 - 14.7 seconds [facility] INR 1.0 <=5.9 [facility] Specimen Blood - Arm, Right Narrative Performed At RECOMMENDED COUMADIN/WARFARIN INR THERAPY [facility] RANGES STANDARD DOSE: 2.0 - 3.0 Includes: PROPHYLAXIS for venous thrombosis, systemic embolization; TREATMENT for venous thrombosis and/or pulmonary embolus. HIGH RISK: Target INR is 2.5-3.5 for patients with mechanical heart valves. Performing Organization Address [facility] Phone Number [address] [address] CENTER CBC (Hemogram only) (11/15/2018 4:41 AM MEDICAL RESEARCH SCIENTIST)Only the most recent of8 resultswithin the time period is included. WBC 11.4 (H) 3.5 - 10.5 K/L [facility] RBC 4.85 3.93 - 5.22 M/L [facility] Hemoglobin 13.9 11.2 - 15.7 GM/DL [facility] Hematocrit 42.6 34.1 - 44.9 % [facility] MCV 87.8 79.4 - 94.8 fL [facility] MCH 28.7 25.6 - 32.2 pg [facility] MCHC 32.6 32.2 - 35.5 GM/DL [facility] RDW 14.5 (H) 11.7 - 14.4 % [facility] Platelets 301 150 - 450 K/CU MM [facility] MPV 10.0 9.4 - 12.3 fL [facility] nRBC 0 0 - 0 /100 WBC [facility] Specimen Blood - Arm, Right Performing Organization Address City/[facility] Phone Number [facility] [address] [place] [address] [phone] CENTER Phosphorus (11/15/2018 4:41 AM MEDICAL RESEARCH SCIENTIST)Only the most recent of8 resultswithin the time period is included. Phosphorus 3.2 2.3 - 4.7 mg/dL [facility] Specimen Blood - Arm, Right Performing Organization Address City/[facility]/Zipcode Phone Number [address] [address] [place] Magnesium (11/15/2018 4:41 AM MEDICAL RESEARCH SCIENTIST)Only the most recent of8 resultswithin the time period is included. Magnesium 1.8 1.6 - 2.6 mg/dL [facility] Specimen Blood - Arm, Right Performing Organization Address [facility] Phone Number [address] [address] [place] Basic Metabolic Panel (11/15/2018 4:41 AM MEDICAL RESEARCH SCIENTIST)Only the most recent of9 resultswithin the time period is included. Sodium 137 136 - 145 meq/L [facility] Potassium 3.9 3.5 - 5.1 meq/L [facility] Chloride 102 98 - 107 meq/L [facility] CO2 25 22 - 29 meq/L [facility] BUN 14 7 - 21 mg/dL [facility] Creatinine 0.91 0.57 - 1.25 mg/dL [facility] Glucose 102 70 - 105 mg/dL [facility] Calcium 9.3 8.4 - 10.2 mg/dL [facility] EGFR Comment: INSUFFICIENT CLINICAL mL/min/1.73 sq m [facility] DATA TO CALCULATE ESTIMATED [facility] GFR. Specimen Blood - Arm, Right Performing Organization Address [facility] Phone Number [address] [address] [phone] [place] TRANSFUSION SERVICE REPORT - SCAN (11/13/2018 5:53 PM MEDICAL RESEARCH SCIENTIST)Only the most recent of3 resultswithin the time period is included. Narrative Performed At TSH/Free T4 If Indicated (11/13/2018 10:23 AM MEDICAL RESEARCH SCIENTIST)Only the most recent of2 resultswithin the time period is included. TSH 4.97 (H) 0.35 - 4.94 uIU/mL [facility] Specimen Blood Performing Organization Address City/State/Zipcode Phone Number [address] [address] [phone] CENTER T4, free (11/13/2018 10:23 AM MEDICAL RESEARCH SCIENTIST) Free T4 0.93 0.70 - 1.48 ng/dL [facility] Specimen Blood Performing Organization Address City/[facility]/Zipcode Phone Number [address] [phone] [place] CTA chest, abdomen & pelvis - for dissection (11/12/2018 8:47 AM MEDICAL RESEARCH SCIENTIST) Narrative Performed At Addendum Begins [employer] [facility] REPORT STATUS:A Addendum: November 14, 2018 at 2005 hours I have reviewed the CT images for this study and I concur with the nonvascular imaging findings as dictated. Signed: Martina Isbell MD Report Verified Date/Time:11/14/2018 20:11:33 Reading Location: [place] [address] Angio Body Reading Room Addendum Ends FINAL REPORT CT angiography of the thoracoabdominal aorta and pelvic arteries, 12 November 2018 INDICATION: This is a 58 years old female, post stenting presents for assessment.This study is performed in an attempt to avoid an invasive procedure. 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 TECHNIQUE: Spiral acquisition before and during intravenous contrast administration using a Jordon multidetector CT scanner. Images were obtained before and during the dynamic passage of intravenous contrast material.Multi-planar 3-D volume-rendering reconstruction was performed using an independent workstation interactively by the interpreting physician as well as the 3-D specialist for optimal visualisation of the thoracoabdominal aorta, the pelvic arteries as well as its proximal branches. Please refer to the contrast sheet scanned in the EPIC system for the amount and route of contrast given. This exam was performed according to our departmental dose-optimisation programme, which includes automated exposure control, adjustment of the mA and/or kV according to patient size and/or use of iterative reconstruction technique. Dose modulation, iterative reconstruction, and/or weight based adjustment of the mA/kV was utilized to reduce the radiation dose to as low as reasonably achievable. ECG gating was not utilised to minimize radiation exposure to patient. FINDINGS: VASCULAR: A central venous catheter is identified, with tip in the mid SVC. The central pulmonary artery is prominent. No evidence of central pulmonary artery embolism is identified. Correlate with appropriate aetiology. The cardiac chambers demonstrate normal atrioventricular and ventriculoarterial concordance, and systemic and pulmonary venous return. No pericardial effusion is identified. Coronary artery origins are normal. The ascending thoracic aorta and transverse arch is unremarkable. Arch vessel branching pattern is normal and the visualised arch vessels are seen to be widely patent proximally. Scattered calcification is seen in the proximal left subclavian artery. An endostent is identified, commencing at the level of the takeoff of left subclavian artery, extending through the proximal, mid, and terminates in the distal descending thoracic aorta. The endostent is well-positioned. No endoleak is identified. Thereafter, the most distal descending thoracic aorta, and the abdominal aorta is [place] band. There is likely a short segment of intramural haematoma identified in the most distal descending thoracic aorta at the level of the diaphragmatic hiatus, distal to the endostent. In the abdominal aorta, atherosclerosis is seen, and in the distal infrarenal abdominal aorta, some circumferential intraluminal thrombus is identified with no luminal obstruction. In addition, there is likely small atherosclerotic ulceration identified at the takeoff of the SMA, at image 216, posteriorly. No dissection flap is identified in the entire thoracoabdominal aorta. Quantitative dimensions of the aorta are as follows: 3.5 cm at the sinuses of Valsalva (the sino-tubular junction is preserved); 3.0 cm at the proximal ascending thoracic aorta; 3.0cm at the mid ascending aorta; 2.9cm at the distal ascending aorta; 2.6 cm at the mid transverse arch; 2.8 cm at the proximal descending aorta; 3.3 x 3.1 cm at the mid descending aorta; 2.9 cm at the diaphragmatic hiatus. In the abdomen,the aorta measures2.3 cm at the mesenteric segment; 2.2cm at the renal segment,; and 2.1 cm at the aortic bifurcation. The left common iliac artery is patent with calcific and noncalcific atherosclerosis. Increased calcification is seen in the distal left common iliac artery, image 326, with diameter of 5 to 6 mm. The left external iliac artery has some eccentric calcific and noncalcific atherosclerosis identified with [id number] disease present. The distal left common femoral artery has substantial noncalcific atherosclerosis identified, with moderate disease present, image 595, minimum luminal diameter is 4.2 x 3.3 mm. The left SFA also have moderate atherosclerosis identified. Severe stenosis/subtotal occlusion is seen at the takeoff of the right common iliac artery, image 308. Substantial calcification is seen distally. The right external iliac artery is patent with eccentric calcific atherosclerosis identified. The right common femoral artery is is remarkable for mixture of calcific and noncalcific atherosclerosis identified. No focal stenosis is seen. The right SFA is unremarkable. The appearance of the pelvic arteries unchanged when compared to outside facility examination in October 2018. The coeliac axis, SMA are widely patent. There is scattered calcific and noncalcific atherosclerosis seen in the course of the SMA. Single left renal arteries identified with eccentric nonobstructive calcification identified. The right renal artery has early branching. There is calcific atherosclerosis identified proximally, making accurate assessment limited. NON-VASCULAR: The visualised thyroid gland appears unremarkable. The chest wall and mediastinum appear normal. A number of small lymph nodes are seen, less than 1 cm in size, therefore considered nonspecific/reactive in nature. In the lung windows, no obvious endobronchial lesion is seen and bibasal pleural effusions identified, leftward the right with associated atelectatic changes identified. Some segmental atelectatic changes are seen especially in the left upper lobe. Pulmonary vasculature is prominent suggesting a degree of congestion. No pneumothorax is identified. Overall, no suspicious pulmonary nodule is noted. In the abdomen, the liver and spleen appears unremarkable. No abnormal enhancing structure is identified. Patient is postcholecystectomy, and pancreas appears grossly normal. The adrenal glands are not enlarged. The kidneys are normal in size and shape. Contrast is seen in the renal pelvis indicating recent contrast exposure. No hydronephrosis or perirenal fluid collection is identified. Bowel is not well assessed by CT angiography as enteric contrast is not given. No obvious bowel dilation is seen. The appendix appears unremarkable. Fat-containing left inguinal hernia is seen. Scattered colonic diverticulum with no inflow to change is identified. There is no significant retroperitoneal adenopathy. No free air is identified abdomen and pelvis. Trace free fluid is identified in the dependent portion of the pelvis in the right. A Franklin catheter is identified in the bladder. The uterus is present. There could be uterine fibroids identified at image 349 anteriorly, measure 3.4 x 4.1 cm in diameter. An addendum will be dictated thereafter, if needed. No obvious abnormal adnexal mass is seen. CT is not optimised assessment of pelvic gynecological structures. No acute bony pathology is seen; mild degenerative changes is identified. CONCLUSIONS: 1. Unremarkable ascending thoracic aorta and transverse arch. Endostent is placed, at the level of the takeoff of the left subclavian artery extending through to majority of the descending thoracic aorta, and terminates at the distal descending thoracic aorta. The stent has excellent position and no endoleak is identified. Tiny residual intramural haematoma is identified at the diaphragmatic hiatus level, distal to the endostent. In addition, there is likely small atherosclerotic ulceration identified at the takeoff of the SMA, at image 216, posteriorly. Some intraluminal thrombus is identified in the infrarenal abdominal aorta, with both calcific and noncalcific atherosclerosis identified. No acute dissection flap is identified. Quantitative dimension of the capitan grande band thoracoabdominal aorta are as described above. Peripheral vascular disease is identified in the pelvic arteries, as well as in the right common iliac level. See above for details. 2. Patent mesenteric arteries. Calcification is seen in the takeoff of the right renal artery. 3. The central pulmonary artery is prominent with no evidence of central pulmonary artery embolism. Correlate appropriate aetiology. Pulmonary vasculature is prominent indicating underlying cardiac congestion. Bibasal pleural effusions left greater than right. 4.Other findings as described above. 5.An addendum will be dictated regarding the non-vascular findings by the Regulatory Process Manager Radiologist. Signed: Mahad Muñoz MD Report Verified Date/Time:11/12/2018 09:28:12 Reading Location: [facility] P047 Cardiology MRI Procedure Note Interface, External Ris In - 11/14/2018 8:13 PM MEDICAL RESEARCH SCIENTIST Addendum Begins REPORT STATUS:A Addendum: November 14, 2018 at 2005 hours I have reviewed the CT images for this study and I concur with the nonvascular imaging findings as dictated. Signed: Martina Isbell MD Report Verified Date/Time: 11/14/2018 20:11:33 Reading Location: [facility] P048 Angio Body Reading Room Addendum Ends FINAL REPORT CT angiography of the thoracoabdominal aorta and pelvic arteries, 12 November 2018 INDICATION: This is a 58 years old female, post stenting presents for assessment. This study is performed in an attempt to avoid an invasive procedure. 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 TECHNIQUE: Spiral acquisition before and during intravenous contrast administration using a Jordon multidetector CT scanner. Images were obtained before and during the dynamic passage of intravenous contrast material. Multi-planar 3-D volume-rendering reconstruction was performed using an independent workstation interactively by the interpreting physician as well as the 3-D specialist for optimal visualisation of the thoracoabdominal aorta, the pelvic arteries as well as its proximal branches. Please refer to the contrast sheet scanned in the EPIC system for the amount and route of contrast given. This exam was performed according to our departmental dose-optimisation programme, which includes automated exposure control, adjustment of the mA and/or kV according to patient size and/or use of iterative reconstruction technique. Dose modulation, iterative reconstruction, and/or weight based adjustment of the mA/kV was utilized to reduce the radiation dose to as low as reasonably achievable. ECG gating was not utilised to minimize radiation exposure to patient. FINDINGS: VASCULAR: A central venous catheter is identified, with tip in the mid SVC. The central pulmonary artery is prominent. No evidence of central pulmonary artery embolism is identified. Correlate with appropriate aetiology. The cardiac chambers demonstrate normal atrioventricular and ventriculoarterial concordance, and systemic and pulmonary venous return. No pericardial effusion is identified. Coronary artery origins are normal. The ascending thoracic aorta and transverse arch is unremarkable. Arch vessel branching pattern is normal and the visualised arch vessels are seen to be widely patent proximally. Scattered calcification is seen in the proximal left subclavian artery. An endostent is identified, commencing at the level of the takeoff of left subclavian artery, extending through the proximal, mid, and terminates in the distal descending thoracic aorta. The endostent is well-positioned. No endoleak is identified. Thereafter, the most distal descending thoracic aorta, and the abdominal aorta is capitan grande band. There is likely a short segment of intramural haematoma identified in the most distal descending thoracic aorta at the level of the diaphragmatic hiatus, distal to the endostent. In the abdominal aorta, atherosclerosis is seen, and in the distal infrarenal abdominal aorta, some circumferential intraluminal thrombus is identified with no luminal obstruction. In addition, there is likely small atherosclerotic ulceration identified at the takeoff of the SMA, at image 216, posteriorly. No dissection flap is identified in the entire thoracoabdominal aorta. Quantitative dimensions of the aorta are as follows: 3.5 cm at the sinuses of Valsalva (the sino-tubular junction is preserved); 3.0 cm at the proximal ascending thoracic aorta; 3.0 cm at the mid ascending aorta; 2.9 cm at the distal ascending aorta; 2.6 cm at the mid transverse arch; 2.8 cm at the proximal descending aorta; 3.3 x 3.1 cm at the mid descending aorta; 2.9 cm at the diaphragmatic hiatus. In the abdomen, the aorta measures 2.3 cm at the mesenteric segment; 2.2 cm at the renal segment,; and 2.1 cm at the aortic bifurcation. The left common iliac artery is patent with calcific and noncalcific atherosclerosis. Increased calcification is seen in the distal left common iliac artery, image 326, with diameter of 5 to 6 mm. The left external iliac artery has some eccentric calcific and noncalcific atherosclerosis identified with [id number]-[id number] disease present. The distal left common femoral artery has substantial noncalcific atherosclerosis identified, with moderate disease present, image 595, minimum luminal diameter is 4.2 x 3.3 mm. The left SFA also have moderate atherosclerosis identified. Severe stenosis/subtotal occlusion is seen at the takeoff of the right common iliac artery, image 308. Substantial calcification is seen distally. The right external iliac artery is patent with eccentric calcific atherosclerosis identified. The right common femoral artery is is remarkable for mixture of calcific and noncalcific atherosclerosis identified. No focal stenosis is seen. The right SFA is unremarkable. The appearance of the pelvic arteries unchanged when compared to outside facility examination in October 2018. The coeliac axis, SMA are widely patent. There is scattered calcific and noncalcific atherosclerosis seen in the course of the SMA. Single left renal arteries identified with eccentric nonobstructive calcification identified. The right renal artery has early branching. There is calcific atherosclerosis identified proximally, making accurate assessment limited. NON-VASCULAR: The visualised thyroid gland appears unremarkable. The chest wall and mediastinum appear normal. A number of small lymph nodes are seen, less than 1 cm in size, therefore considered nonspecific/reactive in nature. In the lung windows, no obvious endobronchial lesion is seen and bibasal pleural effusions identified, leftward the right with associated atelectatic changes identified. Some segmental atelectatic changes are seen especially in the left upper lobe. Pulmonary vasculature is prominent suggesting a degree of congestion. No pneumothorax is identified. Overall, no suspicious pulmonary nodule is noted. In the abdomen, the liver and spleen appears unremarkable. No abnormal enhancing structure is identified. Patient is postcholecystectomy, and pancreas appears grossly normal. The adrenal glands are not enlarged. The kidneys are normal in size and shape. Contrast is seen in the renal pelvis indicating recent contrast exposure. No hydronephrosis or perirenal fluid collection is identified. Bowel is not well assessed by CT angiography as enteric contrast is not given. No obvious bowel dilation is seen. The appendix appears unremarkable. Fat-containing left inguinal hernia is seen. Scattered colonic diverticulum with no inflow to change is identified. There is no significant retroperitoneal adenopathy. No free air is identified abdomen and pelvis. Trace free fluid is identified in the dependent portion of the pelvis in the right. A Franklin catheter is identified in the bladder. The uterus is present. There could be uterine fibroids identified at image 349 anteriorly, measure 3.4 x 4.1 cm in diameter. An addendum will be dictated thereafter, if needed. No obvious abnormal adnexal mass is seen. CT is not optimised assessment of pelvic gynecological structures. No acute bony pathology is seen; mild degenerative changes is identified. CONCLUSIONS: 1. Unremarkable ascending thoracic aorta and transverse arch. Endostent is placed, at the level of the takeoff of the left subclavian artery extending through to majority of the descending thoracic aorta, and terminates at the distal descending thoracic aorta. The stent has excellent position and no endoleak is identified. Tiny residual intramural haematoma is identified at the diaphragmatic hiatus level, distal to the endostent. In addition, there is likely small atherosclerotic ulceration identified at the takeoff of the SMA, at image 216, posteriorly. Some intraluminal thrombus is identified in the infrarenal abdominal aorta, with both calcific and noncalcific atherosclerosis identified. No acute dissection flap is identified. Quantitative dimension of the cap[place] grande band thoracoabdominal aorta are as described above. Peripheral vascular disease is identified in the pelvic arteries, as well as in the right common iliac level. See above for details. 2. Patent mesenteric arteries. Calcification is seen in the takeoff of the right renal artery. 3. The central pulmonary artery is prominent with no evidence of central pulmonary artery embolism. Correlate appropriate aetiology. Pulmonary vasculature is prominent indicating underlying cardiac congestion. Bibasal pleural effusions left greater than right. 4. Other findings as described above. 5. An addendum will be dictated regarding the non-vascular findings by the Regulatory Process Manager Radiologist. Signed: Mahad Muñoz MD Report Verified Date/Time: 11/12/2018 09:28:12 Reading Location: [place] [address] Cardiology MRI Performing Organization Address City/[facility] Phone Number GE RIS Prepare RBC (11/12/2018 12:22 AM MEDICAL RESEARCH SCIENTIST) CROSSMATCH COMPATIBLE SAFETRACE TX Unit ABO O Pos SAFETRACE TX UNIT NUMBER [id number] SAFETRACE TX Status WORK IN PROGRESS SAFETRACE TX Blood Bank Product RED BLOOD CELLS SAFETRACE TX PRODUCT CODE [id number] SAFETRACE TX CROSSMATCH COMPATIBLE SAFETRACE TX Unit ABO O Pos SAFETRACE TX UNIT NUMBER [id number] SAFETRACE TX Status WORK IN PROGRESS SAFETRACE TX Blood Bank Product RED BLOOD CELLS SAFETRACE TX PRODUCT CODE [id number] SAFETRACE TX Performing Organization Address [facility] Phone Number SAFETRACE TX Blood gas, arterial (11/11/2018 4:13 AM MEDICAL RESEARCH SCIENTIST)Only the most recent of4 resultswithin the time period is included. pH, Arterial 7.46 (H) 7.35 - 7.45 [facility] pCO2, Arterial 34 (L) 35 - 45 mmHg [facility] pO2, Arterial 91 (H) 80 - 90 mmHg [facility] O2 Sat, Arterial 97.0 96.0 - 97.0 % [facility] HCO3, Arterial 23 21 - 29 mmol/L [facility] Base Excess, Arterial 0.3 -2.0 - 3.0 mmol/L [facility] Patient Temperature 38.2 C [facility] FIO2 50.0 % [facility] Specimen Blood, Arterial Narrative Performed At Daily ABG with morning labs while patient is [facility] intubated. Performing Organization Address [facility] Phone Number [address] [address] CENTER PT/aPTT (11/10/2018 6:17 PM MEDICAL RESEARCH SCIENTIST) Protime 13.4 11.7 - 14.7 seconds [facility] INR 1.0 <=5.9 [facility] PTT 31.7 22.5 - 36.0 seconds [facility] Specimen Blood Narrative Performed At RECOMMENDED COUMADIN/WARFARIN INR THERAPY [facility] RANGES STANDARD DOSE: 2.0 - 3.0 Includes: PROPHYLAXIS for venous thrombosis, systemic embolization; TREATMENT for venous thrombosis and/or pulmonary embolus. HIGH RISK: Target INR is 2.5-3.5 for patients with mechanical heart valves. Performing Organization Address [facility] Phone Number [address] [address] [place] Calcium, Ionized (11/10/2018 6:17 PM MEDICAL RESEARCH SCIENTIST)Only the most recent of3 resultswithin the time period is included. Calcium, Ion 1.09 (L) 1.12 - 1.27 mmol/L [facility] pH, Blood 7.42 [facility] Specimen Blood Performing Organization Address [facility] Phone Number [address] [address] [phone] CENTER SCOOTER (11/10/2018 5:13 PM MEDICAL RESEARCH SCIENTIST) Narrative Performed At Pia Rice MD 11/10/20185:16 PM SCOOTER Date: 11/10/2018 5:13 PM Sex: Female Location: OR Requesting Physician: Quincy Mariee MD Examiner: Pia Rice MD Indication: HypertensionIntubated Patient screened for esoph disease: Yes Insertion: easy Probe Type: multiplane Modalities: 2D Aorta Size Dissection Plaque Thick Plaque Mobile Ascending AoNo < 3mm No Ao ArchNo < 3mm No Descending AoNo < 3mm No Pre Intervention Summary: Post Intervention Summary:Focused SCOOTER: No dissection noted in ascending aorta. Procedure Note Pia Rice MD - 11/10/2018 5:13 PM MEDICAL RESEARCH SCIENTIST SCOOTER Date: 11/10/2018 5:13 PM Sex: Female Location: OR Requesting Physician: Quincy Mariee MD Examiner: Pia Rice MD Indication: Hypertension Intubated Patient screened for esoph disease: Yes Insertion: easy Probe Type: multiplane Modalities: 2D Aorta Size Dissection Plaque Thick Plaque Mobile Ascending Ao No < 3mm No Ao Arch No < 3mm No Descending Ao No < 3mm No Pre Intervention Summary: Post Intervention Summary: Focused SCOOTER: No dissection noted in ascending aorta. POC ACTIVATED CLOTTING TIME (11/10/2018 4:58 PM MEDICAL RESEARCH SCIENTIST)Only the most recent of2 resultswithin the time period is included. Activated Clotting Time 131Comment: TESTED AT sec [place] [address] Specimen Blood Performing Organization Address [facility] Phone Number [address] [address] [phone] CENTER Potassium-Stat Lab (11/10/2018 4:20 PM MEDICAL RESEARCH SCIENTIST)Only the most recent of2 resultswithin the time period is included. Potassium 3.8 3.6 - 5.5 meq/L [facility] Specimen Blood, Arterial Performing Organization Address [facility] Phone Number [address] [address] CENTER Sodium Na-Stat Lab (11/10/2018 4:20 PM MEDICAL RESEARCH SCIENTIST)Only the most recent of2 resultswithin the time period is included. Sodium 133 (L) 135 - 148 meq/L [facility] Specimen Blood, Arterial Performing Organization Address [facility] Phone Number [address] [address] [phone] [place] Glucose-Stat Lab (11/10/2018 4:20 PM MEDICAL RESEARCH SCIENTIST)Only the most recent of2 resultswithin the time period is included. Glucose 115 (H) 70 - 110 mg/dL [facility] Specimen Blood, Arterial Performing Organization Address [facility] Phone Number [address] [address] [place] HGB/HCT (H&H)-Stat Lab (11/10/2018 4:20 PM MEDICAL RESEARCH SCIENTIST)Only the most recent of2 resultswithin the time period is included. Hemoglobin 12.4 12.0 - 15.0 g/dL [facility] Hematocrit 36.0 36.0 - 45.0 % [facility] Specimen Blood, Arterial Performing Organization Address [facility] Phone Number [address] [address] [place] ECG 12 lead (11/08/2018 9:16 AM MEDICAL RESEARCH SCIENTIST) Narrative Performed At Ventricular Rate 76 BPM GE MUSE Atrial Rate 76 BPM P-R Interval 170 ms QRS Duration 96 ms Q-T Interval 456 ms QTC Calculation(Bazett) 513 ms P [place] 44 degrees R [place] 13 degrees T [place] 72 degrees Normal sinus rhythm Prolonged QT Abnormal ECG No previous ECGs available Confirmed by MD BAH JORGE ([id number]) on 11/08/2018 1:28:47 PM Procedure Note Interface, External Ris In - 11/08/2018 1:29 PM MEDICAL RESEARCH SCIENTIST Ventricular Rate 76 BPM Atrial Rate 76 BPM P-R Interval 170 ms QRS Duration 96 ms Q-T Interval 456 ms QTC Calculation(Bazett) 513 ms P [place] 44 degrees R [place] 13 degrees T [place] 72 degrees Normal sinus rhythm Prolonged QT Abnormal ECG No previous ECGs available Confirmed by MD BAH JORGE ([id number]) on 11/08/2018 1:28:47 PM Performing Organization Address [facility] Phone Number JASMIN HUBBARD, manual (11/08/2018 5:31 AM MEDICAL RESEARCH SCIENTIST) ABO Grouping O [facility] Rh Factor POS [facility] Specimen Blood Performing Organization Address [facility] Phone Number [facility] [address] [place] [phone] Type and screen, automated (11/08/2018 5:06 AM MEDICAL RESEARCH SCIENTIST) ABO/RH AUTOMATED (BEAKER) O POSITIVE [facility] Ab Scrn NEGATIVE [facility] Specimen Blood Performing Organization Address [facility] Phone Number [address] [address] CBC with platelet count + automated diff (11/08/2018 5:06 AM MEDICAL RESEARCH SCIENTIST) WBC 15.1 (H) 3.5 - 10.5 K/L [facility] RBC 5.36 (H) 3.93 - 5.22 M/L [facility] Hemoglobin 15.0 11.2 - 15.7 GM/DL [facility] Hematocrit 47.2 (H) 34.1 - 44.9 % [facility] MCV 88.1 79.4 - 94.8 fL [facility] MCH 28.0 25.6 - 32.2 pg [facility] MCHC 31.8 (L) 32.2 - 35.5 GM/DL [facility] RDW 14.7 (H) 11.7 - 14.4 % [facility] Platelets 239 150 - 450 K/CU MM [facility] MPV 10.0 9.4 - 12.3 fL [facility] nRBC 0 0 - 0 /100 WBC [facility] % Neutros 81 % [facility] % Lymphs 11 % [facility] % Monos 7 % [facility] % Eos 0 % [facility] % Baso 0 % [facility] # Neutros 12.22 (H) 1.56 - 6.13 K/L [facility] # Lymphs 1.62 1.18 - 3.74 K/L [facility] # Monos 1.12 (H) 0.24 - 0.36 K/L [facility] # Eos 0.01 (L) 0.04 - 0.36 K/L [facility] # Baso 0.06 0.01 - 0.08 K/L [facility] Immature 0 0 - 1 % [facility] Specimen Blood Performing Organization Address City/[facility]/Zipcode Phone Number [place] [phone] [place] [address] CENTER Troponin I (11/08/2018 5:06 AM MEDICAL RESEARCH SCIENTIST) Troponin I <0.01 0.00 - 0.03 ng/mL [facility] Specimen Blood Narrative Performed At Troponin I (TnI) levels must be interpreted [facility] in the context of the presenting symptoms and the clinical findings. Elevated TnI levels indicate myocardial damage, but are not specific for ischemic heart disease. Elevated TnI levels are seen in patients with other cardiac conditions (including myocarditis and congestive heart failure), and slight TnI elevations occur in patients with other conditions, including sepsis, renal failure, acidosis, acute neurological disease, and persistent tachyarrhythmia. Performing Organization Address City/State/Zipcode Phone Number [facility] [address] [place] [address] [phone] [place] Hepatic function panel (11/08/2018 5:06 AM MEDICAL RESEARCH SCIENTIST) Protein, Total 6.9Comment: Specimen 6.0 - 8.3 gm/dL [facility] slightly hemolyzed [facility] Albumin 3.6Comment: Specimen 3.5 - 5.0 g/dL [facility] slightly hemolyzed [facility] Total Bilirubin 2.3 (H)Comment: Specimen 0.2 - 1.2 mg/dL [facility], Direct 1.3 (H)Comment: Specimen 0.1 - 0.5 mg/dL [facility] hemolyzed [facility] Alkaline Phosphatase 266 (H) 40 - 150 U/L [facility] AST 152 (H)Comment: Specimen 5 - 34 U/L [facility] slightly hemolyzed [facility] ALT 99 (H)Comment: Specimen 6 - 55 U/L [facility] hemolyzed [facility] Specimen Blood Performing Organization Address City/State/Zipcode Phone Number [facility] [address] [place], [place] [phone] [place] after 12/13/2017 Insurance Payer Benefit Plan / Subscriber ID Type Phone Address Group MEDICARE MEDICARE PART A xxxxxxxxxxx Medicare BLUE CROSS/BLUE BCBS OS xxxxxxxxxxxx PPO [phone] [address] SHIELD POS/PPO/[place] [address] Advance Directives For more information, please contact:[address] [phone] Code Status Date Activated Date Inactivated Comments Full Code 11/08/2018 4:38 AM This code status was determined by: Patient
--- OUTSIDE RECORDS SUMMARY | 2018-12-14 19:05 | XMS REPORT ---
:1960 [facility] [address] [place] [address] Care Team Providers Name Role Phone KIMBERLI COOK Unavailable Unavailable Problems This patient has no known problems. Allergies, Adverse Reactions, Alerts This patient has no known allergies or adverse reactions. Medications This patient has no known medications. Results Test Description Test Time Test Comments Text Results Atomic Results Result Comments RAD, CHEST, 1 2018-11-15 10:37:00 Reason for exam:->post FINAL REPORT PATIENT ID: VIEW, NON DEPT opShould this be [id number] Chest x-ray performed at the Clinical History: post bedside?->Yes op Comparison: November 14, 2018 Views: 1 Chest x-ray:The cardiac and mediastinal silhouettes are prominent. There [...] Decreased pulmonary vascular congestion. Signed: Alyssa Lee MDReport Verified Date/Time: 11/15/2018 10:37:06 Reading Location: [facility] Radiology Reading Room C METABOLIC PANEL 2018-11-15 05:55:00 Test Item Value Reference Range Comments SODIUM (BEAKER) (test 137 meq/L 136-145 newr=640) POTASSIUM (BEAKER) (test 3.9 meq/L 3.5-5.1 zxfr=595) CHLORIDE (BEAKER) (test 102 meq/L 98-107 dtva=977) CO2 (BEAKER) (test hoyd=773) 25 meq/L 22-29 BLOOD UREA NITROGEN (BEAKER) 14 mg/dL 7-21 (test kegf=475) CREATININE (BEAKER) (test 0.91 mg/dL 0.57-1.25 mlyx=736) GLUCOSE RANDOM (BEAKER) 102 mg/dL 70-105 (test scyq=411) CALCIUM (BEAKER) (test 9.3 mg/dL 8.4-10.2 jaul=912) EGFR (BEAKER) (test mL/min/1.73 sq m INSUFFICIENT CLINICAL DATA TO pbrw=3400) CALCULATE ESTIMATED GFR. [id number] 05:34:00 Test Item Value Reference Range Comments PHOSPHORUS (BEAKER) (test mudr=076) 3.2 mg/dL 2.3-4.7 [id number] 05:34:00 Test Item Value Reference Range Comments MAGNESIUM (BEAKER) (test tlku=427) 1.8 mg/dL 1.6-2.6 [id number] 05:18:00 Test Item Value Reference Range Comments PARTIAL THROMBOPLASTIN TIME (BEAKER) (test 37.7 seconds 22.5-36.0 khmr=256) PROTHROMBIN TIME/[id number] 05:17:00 Test Item Value Reference Range Comments PROTIME (BEAKER) (test usau=349) 13.3 seconds 11.7-14.7 INR (BEAKER) (test kssv=936) 1.0 <=5.9 RECOMMENDED COUMADIN/WARFARIN INR THERAPY RANGESSTANDARD DOSE: 2.0 - 3.0 Includes: PROPHYLAXIS forvenous thrombosis, systemic embolization; TREATMENT for venous thrombosis and/or pulmonary embolus.HIGH RISK: Target INR is 2.5-3.5 for patients with mechanical heart valves.CBC (HEMOGRAM ONLY)2018-11-15 05:07:00 Test Item Value Reference Range Comments WHITE BLOOD CELL COUNT (BEAKER) (test ggxu=006) 11.4 K/ L 3.5-10.5 RED BLOOD CELL COUNT (BEAKER) (test xonf=282) 4.85 M/ L 3.93-5.22 HEMOGLOBIN (BEAKER) (test bqra=996) 13.9 GM/DL 11.2-15.7 HEMATOCRIT (BEAKER) (test irxr=303) 42.6 % 34.1-44.9 MEAN CORPUSCULAR VOLUME (BEAKER) (test kqoz=141) 87.8 fL 79.4-94.8 MEAN CORPUSCULAR HEMOGLOBIN (BEAKER) (test 28.7 pg 25.6-32.2 hcuo=356) MEAN CORPUSCULAR HEMOGLOBIN CONC (BEAKER) (test 32.6 GM/DL 32.2-35.5 foxj=085) RED CELL DISTRIBUTION WIDTH (BEAKER) (test 14.5 % 11.7-14.4 lhcf=474) PLATELET COUNT (BEAKER) (test tmbd=397) 301 K/CU MM 150-450 MEAN PLATELET VOLUME (BEAKER) (test vwvm=532) 10.0 fL 9.4-12.3 NUCLEATED RED BLOOD CELLS (BEAKER) (test 0 /100 WBC 0-0 wfbf=297) CTA, CHEST, ABDOMEN - PELVIS, FOR [id number] 20:11:00Reason for exam:- >s/p StentAddendum BeginsREPORT STATUS:A Addendum: November 14, 2018 at 2005 hours I have reviewed the CT images for this study and I concur with the nonvascular imaging findings as dictated. Signed: Martina Bailey MDReport Verified Date/Time: 11/14/2018 20:11:33 Reading Location: [place] [address] Angio Body Reading RoomAddendum EndsFINAL REPORT CT angiography of the thoracoabdominal aorta and pelvic arteries, 12 November 2018 INDICATION: This is a 58 years old female,post stenting presents for assessment. This study is performed in an attempt to avoid an invasive procedure. 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 No [...] descending thoracic aorta, and the abdominal aorta isnative. There is likely a short segment of intramural haematoma identified in the most distal descending thoracic aorta at the level of the diaphragmatic hiatus, distal to the endostent. In the abdominal aorta, atherosclerosis is seen, and in the distal infrarenal abdominal aorta, some circumferentialintraluminal thrombus is identified with no luminal obstruction. [...] diaphragmatic hiatus. In the abdomen, the aorta measures2.3 cm at the mesenteric segment; 2.2 cm at the renal segment,; and 2.1 cm at the aortic bifurcation. The left common iliac artery is patent with calcific and noncalcific atherosclerosis. Increased calcification is seen in the distal left common iliac artery, image 326, with diameter of 5 to 6 mm. The left external iliac artery has some eccentric calcific and noncalcific atherosclerosis identifiedwith [id number] disease present. The distal left common femoral artery has substantial noncalcific atherosclerosis identified, with moderate disease present, image 595, minimum luminal diameter is 4.2 x 3.3 mm. The left SFA also have moderate atherosclerosis identified. Severe stenosis/subtotalocclusion is seen at the takeoff of the [...] facility examination in October 2018. The coeliac axis , SMA are widely patent. There is scattered [...] vasculature is prominent suggesting a degree of congestion.No pneumothorax is identified. Overall, no suspicious pulmonary nodule is noted. In the abdomen, theliver and spleen appears unremarkable. No abnormal enhancing [...] dilation is seen. The appendix appears unremarkable. Fat- containing left inguinal hernia is seen. Scattered colonic diverticulum with noinflow to change is identified. There is no [...] acute bony pathology is seen; mild degenerative changesis identified. CONCLUSIONS: 1. Unremarkable ascending thoracic aorta and transverse arch. Endostent is placed, at the level of the takeoff of the left subclavian artery extending through to majority of the descending thoracic aorta, and terminates at the distal descending thoracic aorta. The stent has excellent position and no endoleak is identified. Tiny residual intramural haematoma is identifiedat the diaphragmatic hiatus level, distal to the endostent. In addition, there is likely small atherosclerotic ulceration identified at the takeoff of the SMA, at image 216, posteriorly. Some intraluminal thrombus is identified in the infrarenal abdominal aorta, with both calcific and noncalcific atherosclerosis identified. No acute dissection flap is identified. Quantitative dimension of the nativethoracoabdominal aorta are as described above. Peripheral vascular [...] An addendum will be dictated regarding the non- vascular findings by the [employer] Radiologist. Signed: Mahad Muñoz MDReport Verified Date/Time: 11/12/2018 09:28:12 Reading Location: [place] [address] Cardiology MRI Electronically signed by: MARTINA BAILEY M.D. on 2018 08:11 PMRAD, CHEST, 1 VIEW, NON [id number] 08:35:00Reason for exam:-&gt ;cardiac monitoringShould this be performed at the bedside?->YesFINAL REPORT TECHNIQUE: Frontal chest radiograph dated 11/14/2018. CLINICAL HISTORY: Cardiac monitoring COMPARISON STUDY: Chest radiograph dated IMPRESSION: Right-sidedvascular line is unchanged. Stable, small left pleural effusion with associated atelectasis. No pneumothorax. Cardiomediastinal silhouette is stable in size. Endovascular stent graft is again seen in the thoracic aorta. No pulmonary edema. No fracture. Signed: Beti Jurado MDReport Verified Date/Time: 11/14/2018 08:35:31 Reading Location: [facility] Radiology Reading Room BASIC METABOLIC [id number] 05: 24:00 Test Item Value Reference Range Comments SODIUM (BEAKER) (test 137 meq/L 136-145 tfse=154) POTASSIUM (BEAKER) (test 3.6 meq/L 3.5-5.1 qxkq=604) CHLORIDE (BEAKER) (test 102 meq/L 98-107 sugm=391) CO2 (BEAKER) (test 26 meq/L 22-29 mufz=100) BLOOD UREA NITROGEN 14 mg/dL 7-21 (BEAKER) (test kpmj=998) CREATININE (BEAKER) (test 0.87 mg/dL 0.57-1.25 iqav=554) GLUCOSE RANDOM (BEAKER) 101 mg/dL 70-105 (test cfgw=511) CALCIUM (BEAKER) (test 9.0 mg/dL 8.4-10.2 sofo=796) EGFR (BEAKER) (test mL/min/1.73 sq m INSUFFICIENT CLINICAL DATA zbsv=7795) TO CALCULATE ESTIMATED GFR. [id number] 05:22:00 Test Item Value Reference Range Comments PHOSPHORUS (BEAKER) (test orbj=704) 2.9 mg/dL 2.3-4.7 [id number] 05:22:00 Test Item Value Reference Range Comments MAGNESIUM (BEAKER) (test rsdo=056) 1.7 mg/dL 1.6-2.6 PROTHROMBIN TIME/[id number] 05:07:00 Test Item Value Reference Range Comments PROTIME (BEAKER) (test ckes=457) 13.1 seconds 11.7-14.7 INR (BEAKER) (test hqqj=844) 1.0 <=5.9 RECOMMENDED COUMADIN/WARFARIN INR THERAPY RANGESSTANDARD DOSE: 2.0 - 3.0 Includes: PROPHYLAXIS forvenous thrombosis, systemic embolization; TREATMENT for venous thrombosis and/or pulmonary embolus.HIGH RISK: Target INR is 2.5-3.5 for patients with mechanical heart valves.[id number] 05:07:00 Test Item Value Reference Range Comments PARTIAL THROMBOPLASTIN TIME (BEAKER) (test 42.0 seconds 22.5-36.0 nuon=698) CBC (HEMOGRAM ONLY)2018-11-14 05:00:00 Test Item Value Reference Range Comments WHITE BLOOD CELL COUNT (BEAKER) (test jiwf=943) 12.9 K/ L 3.5-10.5 RED BLOOD CELL COUNT (BEAKER) (test zkmq=906) 4.59 M/ L 3.93-5.22 HEMOGLOBIN (BEAKER) (test xilg=699) 13.0 GM/DL 11.2-15.7 HEMATOCRIT (BEAKER) (test adyo=734) 41.0 % 34.1-44.9 MEAN CORPUSCULAR VOLUME (BEAKER) (test lpte=225) 89.3 fL 79.4-94.8 MEAN CORPUSCULAR HEMOGLOBIN (BEAKER) (test 28.3 pg 25.6-32.2 ikcj=218) MEAN CORPUSCULAR HEMOGLOBIN CONC (BEAKER) (test 31.7 GM/DL 32.2-35.5 dasi=609) RED CELL DISTRIBUTION WIDTH (BEAKER) (test 14.6 % 11.7-14.4 gcdt=064) PLATELET COUNT (BEAKER) (test rbnd=708) 247 K/CU MM 150-450 MEAN PLATELET VOLUME (BEAKER) (test prqg=518) 10.3 fL 9.4-12.3 NUCLEATED RED BLOOD CELLS (BEAKER) (test 0 /100 WBC 0-0 duqq=951) T4, [id number] 12:30:00 Test Item Value Reference Range Comments FREE T4 (BEAKER) (test oirp=775) 0.93 ng/dL 0.70-1.48 TSH/FREE T4 IF [id number] 11:19:00 Test Item Value Reference Range Comments THYROID STIMULATING HORMONE (BEAKER) (test 4.97 uIU/mL 0.35-4.94 ccaz=533) RAD, CHEST, 1 VIEW, NON [id number] 05:20:00Reason for exam:->post opShould this be performed at the bedside?->YesFINAL REPORT RAD, CHEST, 1 VIEW, NON DEPT INDICATION: post op COMPARISON: Prior day' s exam FINDINGS: Portable frontal view of the chest. IMPRESSION: Support Lines: Stable. Lungs and pleura: Increased left basilar atelectasis. Small left pleural effusion. No pneumothorax.Heartand mediastinum: Stable contours. Stable surgical changes.Additional findings: None. Signed: Jian Escobareport Verified Date/Time: 11/13/2018 05:20:43 Reading Location: [address] Transitional Reading Room BASIC METABOLIC [id number] 05:01:00 Test Item Value Reference Range Comments SODIUM (BEAKER) (test 134 meq/L 136-145 plte=399) POTASSIUM (BEAKER) (test 3.9 meq/L 3.5-5.1 room=829) CHLORIDE (BEAKER) (test 103 meq/L 98-107 wybg=229) CO2 (BEAKER) (test 23 meq/L 22-29 hqee=155) BLOOD UREA NITROGEN 13 mg/dL 7-21 (BEAKER) (test lhum=801) CREATININE (BEAKER) (test 0.88 mg/dL 0.57-1.25 osbf=729) GLUCOSE RANDOM (BEAKER) 107 mg/dL 70-105 (test tigc=998) CALCIUM (BEAKER) (test 8.5 mg/dL 8.4-10.2 ctqu=578) EGFR (BEAKER) (test mL/min/1.73 sq m INSUFFICIENT CLINICAL DATA jfxk=3327) TO CALCULATE ESTIMATED GFR. [id number] 04:59:00 Test Item Value Reference Range Comments PHOSPHORUS (BEAKER) (test tzkn=633) 2.8 mg/dL 2.3-4.7 [id number] 04:59:00 Test Item Value Reference Range Comments MAGNESIUM (BEAKER) (test ghth=769) 2.0 mg/dL 1.6-2.6 PROTHROMBIN [id number] 03:58:00 Test Item Value Reference Range Comments PROTIME (BEAKER) (test puri=629) 13.6 seconds 11.7-14.7 INR (BEAKER) (test xqtu=154) 1.0 <=5.9 RECOMMENDED COUMADIN/WARFARIN INR THERAPY RANGESSTANDARD DOSE: 2.0 - 3.0 Includes: PROPHYLAXIS forvenous thrombosis, systemic embolization; TREATMENT for venous thrombosis and/or pulmonary embolus.HIGH RISK: Target INR is 2.5-3.5 for patients with mechanical heart valves.[id number] 03:58:00 Test Item Value Reference Range Comments PARTIAL THROMBOPLASTIN TIME (BEAKER) (test 33.3 seconds 22.5-36.0 gwci=993) CBC (HEMOGRAM ONLY)2018-11-13 03:51:00 Test Item Value Reference Range Comments WHITE BLOOD CELL COUNT (BEAKER) (test temy=648) 17.1 K/ L 3.5-10.5 RED BLOOD CELL COUNT (BEAKER) (test psmn=298) 4.40 M/ L 3.93-5.22 HEMOGLOBIN (BEAKER) (test jrhh=323) 12.5 GM/DL 11.2-15.7 HEMATOCRIT (BEAKER) (test jlwq=885) 38.5 % 34.1-44.9 MEAN CORPUSCULAR VOLUME (BEAKER) (test ciri=061) 87.5 fL 79.4-94.8 MEAN CORPUSCULAR HEMOGLOBIN (BEAKER) (test 28.4 pg 25.6-32.2 mbtt=477) MEAN CORPUSCULAR HEMOGLOBIN CONC (BEAKER) (test 32.5 GM/DL 32.2-35.5 pnvp=096) RED CELL DISTRIBUTION WIDTH (BEAKER) (test 14.7 % 11.7-14.4 bktn=454) PLATELET COUNT (BEAKER) (test wale=364) 192 K/CU MM 150-450 MEAN PLATELET VOLUME (BEAKER) (test meaj=074) 10.5 fL 9.4-12.3 NUCLEATED RED BLOOD CELLS (BEAKER) (test 0 /100 WBC 0-0 ojmh=977) RAD, CHEST, 1 VIEW, NON [id number] 04:32:00Reason for exam:->cardiac monitoringShould this be performed at the bedside?->YesFINAL REPORT RAD, CHEST, 1 VIEW, NON DEPT INDICATION: cardiac monitoring COMPARISON: Prior day's exam FINDINGS: Portable frontal view of the chest. IMPRESSION: Support Lines: Interval extubation. Otherwise unchanged support apparatus. Lungs and pleura: Mildly increased left basilar atelectasis. Increased reticular airspace opacities favored to represent worsening interstitial pulmonary edema. Small left pleural effusion. No pneumothorax.Heart and mediastinum: Stable contours. Stable surgical changes.Additional findings: None. Signed: Jian Escobar Verified Date/Time: 11/12/2018 04:32:55 Reading Location: [address] Transitional Reading Room BASIC METABOLIC [id number] 03:54:00 Test Item Value Reference Range Comments SODIUM (BEAKER) (test 137 meq/L 136-145 jdpl=704) POTASSIUM (BEAKER) (test 3.7 meq/L 3.5-5.1 klws=818) CHLORIDE (BEAKER) (test 105 meq/L 98-107 fvwt=522) CO2 (BEAKER) (test 22 meq/L 22-29 lhhj=162) BLOOD UREA NITROGEN 13 mg/dL 7-21 (BEAKER) (test umce=631) CREATININE (BEAKER) (test 0.85 mg/dL 0.57-1.25 oraj=347) GLUCOSE RANDOM (BEAKER) 98 mg/dL 70-105 (test vrxp=100) CALCIUM (BEAKER) (test 8.5 mg/dL 8.4-10.2 ayvk=932) EGFR (BEAKER) (test mL/min/1.73 sq m INSUFFICIENT CLINICAL DATA dgoz=0446) TO CALCULATE ESTIMATED GFR. [id number] 03:53:00 Test Item Value Reference Range Comments PHOSPHORUS (BEAKER) (test mbws=273) 3.1 mg/dL 2.3-4.7 [id number] 03:53:00 Test Item Value Reference Range Comments MAGNESIUM (BEAKER) (test ydrl=742) 2.0 mg/dL 1.6-2.6 PROTHROMBIN TIME/[id number] 03:48:00 Test Item Value Reference Range Comments PROTIME (BEAKER) (test fxkh=960) 14.2 seconds 11.7-14.7 INR (BEAKER) (test nbgy=409) 1.1 <=5.9 RECOMMENDED COUMADIN/WARFARIN INR THERAPY RANGESSTANDARD DOSE: 2.0 - 3.0 Includes: PROPHYLAXIS forvenous thrombosis, systemic embolization; TREATMENT for venous thrombosis and/or pulmonary embolus.HIGH RISK: Target INR is 2.5-3.5 for patients with mechanical heart valves.[id number] 03:48:00 Test Item Value Reference Range Comments PARTIAL THROMBOPLASTIN TIME (BEAKER) (test 37.2 seconds 22.5-36.0 zkyj=242) CBC (HEMOGRAM ONLY)2018-11-12 03:30:00 Test Item Value Reference Range Comments WHITE BLOOD CELL COUNT (BEAKER) (test boid=824) 22.8 K/ L 3.5-10.5 RED BLOOD CELL COUNT (BEAKER) (test bicb=227) 4.66 M/ L 3.93-5.22 HEMOGLOBIN (BEAKER) (test udrz=838) 13.3 GM/DL 11.2-15.7 HEMATOCRIT (BEAKER) (test aywr=646) 41.1 % 34.1-44.9 MEAN CORPUSCULAR VOLUME (BEAKER) (test bxuw=362) 88.2 fL 79.4-94.8 MEAN CORPUSCULAR HEMOGLOBIN (BEAKER) (test 28.5 pg 25.6-32.2 ngko=707) MEAN CORPUSCULAR HEMOGLOBIN CONC (BEAKER) (test 32.4 GM/DL 32.2-35.5 vogv=110) RED CELL DISTRIBUTION WIDTH (BEAKER) (test 15.1 % 11.7-14.4 jdfb=620) PLATELET COUNT (BEAKER) (test hmho=615) 197 K/CU MM 150-450 MEAN PLATELET VOLUME (BEAKER) (test vxvt=065) 10.1 fL 9.4-12.3 NUCLEATED RED BLOOD CELLS (BEAKER) (test 0 /100 WBC 0-0 sctv=787) RAD, CHEST, 1 VIEW, NON [id number] 06:15:00Reason for exam:->cardiac monitoringShould this be performed at the bedside?->YesFINAL REPORT RAD, CHEST, 1 VIEW, NON DEPT INDICATION: cardiac monitoring COMPARISON: Prior day's exam FINDINGS: Portable frontal view of the chest. IMPRESSION: Support Lines: Interval intubation with an endotracheal tube terminating 11.4 cm above the gabriel, above the level of the thoracic inlet, recommended advancing 4 to 5 cm. Interval placement of a right IJ central venous catheter with tip overlying the distal SVC. Additional catheter tubing overlies the right hemithorax, unclear location, possibly external to the patient, correlate clinically. Lungs and pleura: Unchanged airspace and pleural opacities. No pneumothorax.Heart and mediastinum: Stable contours. Interval post surgical changes of an vascular stent in the thoracic aorta. Additional findings: None. Signed: Jian Escobar MDReport Verified Date/Time: 2018 06:15:46 Reading Location: [facility] Transitional Reading Room BASIC METABOLIC [id number] 05:43:00 Test Item Value Reference Range Comments SODIUM (BEAKER) (test 138 meq/L 136-145 fbeq=643) POTASSIUM (BEAKER) (test 3.8 meq/L 3.5-5.1 iryh=309) CHLORIDE (BEAKER) (test 108 meq/L 98-107 ivnc=132) CO2 (BEAKER) (test 22 meq/L 22-29 naoa=215) BLOOD UREA NITROGEN 18 mg/dL 7-21 (BEAKER) (test mpnh=028) CREATININE (BEAKER) (test 0.99 mg/dL 0.57-1.25 qhcl=023) GLUCOSE RANDOM (BEAKER) 106 mg/dL 70-105 (test iifa=938) CALCIUM (BEAKER) (test 8.6 mg/dL 8.4-10.2 wnxt=965) EGFR (BEAKER) (test mL/min/1.73 sq m INSUFFICIENT CLINICAL DATA xtjb=8173) TO CALCULATE ESTIMATED GFR. [id number] 05:31:00 Test Item Value Reference Range Comments PHOSPHORUS (BEAKER) (test hgnd=912) 2.0 mg/dL 2.3-4.7 [id number] 05:31:00 Test Item Value Reference Range Comments MAGNESIUM (BEAKER) (test jvmw=247) 1.8 mg/dL 1.6-2.6 [id number] 05:22:00 Test Item Value Reference Range Comments PARTIAL THROMBOPLASTIN TIME (BEAKER) (test 34.4 seconds 22.5-36.0 wtuo=554) PROTHROMBIN TIME/[id number] 05:21:00 Test Item Value Reference Range Comments PROTIME (BEAKER) (test uylc=906) 13.1 seconds 11.7-14.7 INR (BEAKER) (test udzv=028) 1.0 <=5.9 RECOMMENDED COUMADIN/WARFARIN INR THERAPY RANGESSTANDARD DOSE: 2.0 - 3.0 Includes: PROPHYLAXIS forvenous thrombosis, systemic embolization; TREATMENT for venous thrombosis and/or pulmonary embolus.HIGH RISK: Target INR is 2.5-3.5 for patients with mechanical heart valves.BLOOD GAS, [id number] 05:05:00 Test Item Value Reference Range Comments PH ARTERIAL (BEAKER) (test xgco=830) 7.46 7.35-7.45 PCO2 ARTERIAL (BEAKER) (test dlpv=942) 34 mmHg 35-45 PO2 ARTERIAL (BEAKER) (test yxfb=955) 91 mmHg 80-90 O2 SATURATION ARTERIAL (BEAKER) (test agbj=885) 97.0 % 96.0-97.0 HCO3 ARTERIAL (BEAKER) (test brgw=749) 23 mmol/L 21-29 BASE EXCESS ARTERIAL (BEAKER) (test zmlw=535) 0.3 mmol/L -2.0-3.0 PATIENT TEMPERATURE (BEAKER) (test gmxt=9181) 38.2 C FIO2 (BEAKER) (test jrql=2325) 50.0 % Daily ABG with morning labs while patient is intubated.CBC (HEMOGRAM ONLY)11-11 04:52:00 Test Item Value Reference Range Comments WHITE BLOOD CELL COUNT (BEAKER) (test ersa=846) 15.1 K/ L 3.5-10.5 RED BLOOD CELL COUNT (BEAKER) (test oyzb=006) 4.53 M/ L 3.93-5.22 HEMOGLOBIN (BEAKER) (test ljmb=515) 12.9 GM/DL 11.2-15.7 HEMATOCRIT (BEAKER) (test ukig=070) 39.9 % 34.1-44.9 MEAN CORPUSCULAR VOLUME (BEAKER) (test ediu=463) 88.1 fL 79.4-94.8 MEAN CORPUSCULAR HEMOGLOBIN (BEAKER) (test 28.5 pg 25.6-32.2 qrdf=885) MEAN CORPUSCULAR HEMOGLOBIN CONC (BEAKER) (test 32.3 GM/DL 32.2-35.5 urwb=178) RED CELL DISTRIBUTION WIDTH (BEAKER) (test 15.3 % 11.7-14.4 xiuj=200) PLATELET COUNT (BEAKER) (test sido=271) 214 K/CU MM 150-450 MEAN PLATELET VOLUME (BEAKER) (test xpwy=398) 11.0 fL 9.4-12.3 NUCLEATED RED BLOOD CELLS (BEAKER) (test 0 /100 WBC 0-0 laxz=512) BASIC METABOLIC [id number] 18:59:00 Test Item Value Reference Range Comments SODIUM (BEAKER) (test 138 meq/L 136-145 ukaj=814) POTASSIUM (BEAKER) (test 3.9 meq/L 3.5-5.1 lgkj=955) CHLORIDE (BEAKER) (test 108 meq/L 98-107 xewo=149) CO2 (BEAKER) (test 21 meq/L 22-29 iyvg=066) BLOOD UREA NITROGEN 19 mg/dL 7-21 (BEAKER) (test vtdl=369) CREATININE (BEAKER) (test 0.94 mg/dL 0.57-1.25 tvtv=104) GLUCOSE RANDOM (BEAKER) 111 mg/dL 70-105 (test wfpr=836) CALCIUM (BEAKER) (test 8.3 mg/dL 8.4-10.2 xruf=522) EGFR (BEAKER) (test mL/min/1.73 sq m INSUFFICIENT CLINICAL DATA vqjk=4361) TO CALCULATE ESTIMATED GFR. [id number] 18:50:00 Test Item Value Reference Range Comments PROTIME (BEAKER) (test dmbv=250) 13.4 seconds 11.7-14.7 INR (BEAKER) (test rzqj=680) 1.0 <=5.9 PARTIAL THROMBOPLASTIN TIME (BEAKER) (test 31.7 seconds 22.5-36.0 uspq=057) RECOMMENDED COUMADIN/WARFARIN INR THERAPY RANGESSTANDARD DOSE: 2.0 - 3.0 Includes: PROPHYLAXIS forvenous thrombosis, systemic embolization; TREATMENT for venous thrombosis and/or pulmonary embolus.HIGH RISK: Target INR is 2.5-3.5 for patients with mechanical heart valves.CBC (HEMOGRAM ONLY)2018-11-10 18:34:00 Test Item Value Reference Range Comments WHITE BLOOD CELL COUNT (BEAKER) (test eltf=453) 14.5 K/ L 3.5-10.5 RED BLOOD CELL COUNT (BEAKER) (test ozsq=322) 4.64 M/ L 3.93-5.22 HEMOGLOBIN (BEAKER) (test tscj=036) 13.4 GM/DL 11.2-15.7 HEMATOCRIT (BEAKER) (test mzqv=488) 41.0 % 34.1-44.9 MEAN CORPUSCULAR VOLUME (BEAKER) (test sgzp=444) 88.4 fL 79.4-94.8 MEAN CORPUSCULAR HEMOGLOBIN (BEAKER) (test 28.9 pg 25.6-32.2 lzbs=473) MEAN CORPUSCULAR HEMOGLOBIN CONC (BEAKER) (test 32.7 GM/DL 32.2-35.5 zeao=150) RED CELL DISTRIBUTION WIDTH (BEAKER) (test 15.1 % 11.7-14.4 dmfp=017) PLATELET COUNT (BEAKER) (test xpgw=701) 178 K/CU MM 150-450 MEAN PLATELET VOLUME (BEAKER) (test kyvq=517) 10.3 fL 9.4-12.3 NUCLEATED RED BLOOD CELLS (BEAKER) (test 0 /100 WBC 0-0 bhde=688) CALCIUM, [id number] 18:32:00 Test Item Value Reference Range Comments CALCIUM IONIZED (BEAKER) (test giuc=679) 1.09 mmol/L 1.12-1.27 PH, BLOOD (BEAKER) (test pqmq=1731) 7.42 BLOOD GAS, [id number] 18:32:00 Test Item Value Reference Range Comments PH ARTERIAL (BEAKER) (test bivw=231) 7.42 7.35-7.45 PCO2 ARTERIAL (BEAKER) (test xnfj=844) 36 mmHg 35-45 PO2 ARTERIAL (BEAKER) (test hzoi=877) 123 mmHg 80-90 O2 SATURATION ARTERIAL (BEAKER) (test iqld=254) 98.6 % 96.0-97.0 HCO3 ARTERIAL (BEAKER) (test iwxj=599) 23 mmol/L 21-29 BASE EXCESS ARTERIAL (BEAKER) (test oinq=474) -1.1 mmol/L -2.0-3.0 PATIENT TEMPERATURE (BEAKER) (test afso=6952) 36.3 C FIO2 (BEAKER) (test qbcp=4016) 100.0 % [id number] 17:09:00 Test Item Value Reference Range Comments ACTIVATED CLOTTING TIME 131 sec TESTED AT [place] [address] [address] (BEAKER) (test nkqy=041) [place] [address] [id number] 17:09:00 Test Item Value Reference Range Comments ACTIVATED CLOTTING TIME 230 sec TESTED AT [address] (BEAKER) (test qasu=522) [facility] [address] HGB/HCT (H&H) - STAT [id number] 16:27:00 Test Item Value Reference Range Comments HEMOGLOBIN (BEAKER) (test igsd=870) 12.4 g/dL 12.0-15.0 HEMATOCRIT (BEAKER) (test ohpi=266) 36.0 % 36.0-45.0 SODIUM NA-STAT [id number] 16:27:00 Test Item Value Reference Range Comments SODIUM (BEAKER) (test jrds=012) 133 meq/L 135-148 BLOOD GAS, [id number] 16:25:00 Test Item Value Reference Range Comments PH ARTERIAL (BEAKER) (test qeku=479) 7.46 7.35-7.45 PCO2 ARTERIAL (BEAKER) (test fvdb=876) 34 mmHg 35-45 PO2 ARTERIAL (BEAKER) (test anqh=911) 112 mmHg 80-90 O2 SATURATION ARTERIAL (BEAKER) (test caad=939) 98.5 % 96.0-97.0 HCO3 ARTERIAL (BEAKER) (test oobb=209) 24 mmol/L 21-29 BASE EXCESS ARTERIAL (BEAKER) (test rura=794) 0.0 mmol/L -2.0-3.0 PATIENT TEMPERATURE (BEAKER) (test yqwu=0697) 35.6 C FIO2 (BEAKER) (test znhj=3401) 78.0 % GLUCOSE-STAT [id number] 16:25:00 Test Item Value Reference Range Comments GLUCOSE RANDOM (BEAKER) (test pkqr=933) 115 mg/dL 70-110 POTASSIUM-STAT [id number] 16:24:00 Test Item Value Reference Range Comments POTASSIUM (BEAKER) (test smdp=185) 3.8 meq/L 3.6-5.5 CALCIUM, [id number] 14:56:00 Test Item Value Reference Range Comments CALCIUM IONIZED (BEAKER) (test mlbm=960) 1.06 mmol/L 1.12-1.27 PH, BLOOD (BEAKER) (test ppay=8355) 7.41 BLOOD GAS, [id number] 14:56:00 Test Item Value Reference Range Comments PH ARTERIAL (BEAKER) (test flbs=021) 7.43 7.35-7.45 PCO2 ARTERIAL (BEAKER) (test alye=543) 36 mmHg 35-45 PO2 ARTERIAL (BEAKER) (test jwfj=807) 265 mmHg 80-90 O2 SATURATION ARTERIAL (BEAKER) (test rzdd=582) 99.6 % 96.0-97.0 HCO3 ARTERIAL (BEAKER) (test pxvh=972) 23 mmol/L 21-29 BASE EXCESS ARTERIAL (BEAKER) (test rgzs=556) -1.1 mmol/L -2.0-3.0 PATIENT TEMPERATURE (BEAKER) (test wnjt=9545) 36.2 C FIO2 (BEAKER) (test zadg=3571) 95.0 % SODIUM NA-STAT [id number] 14:56:00 Test Item Value Reference Range Comments SODIUM (BEAKER) (test wrqb=418) 134 meq/L 135-148 GLUCOSE-STAT [id number] 14:55:00 Test Item Value Reference Range Comments GLUCOSE RANDOM (BEAKER) (test dytl=921) 103 mg/dL 70-110 POTASSIUM-STAT [id number] 14:55:00 Test Item Value Reference Range Comments POTASSIUM (BEAKER) (test rqoo=019) 3.6 meq/L 3.6-5.5 HGB/HCT (H&H) - STAT [id number] 14:55:00 Test Item Value Reference Range Comments HEMOGLOBIN (BEAKER) (test axjr=112) 13.1 g/dL 12.0-15.0 HEMATOCRIT (BEAKER) (test svtb=598) 39.0 % 36.0-45.0 RAD, CHEST, 1 VIEW, NON [id number] 04:46:00Reason for exam:->cardiac monitoringShould this be performed at the bedside?->YesFINAL REPORT Chest one view. Clinical history: cardiac monitoring Comparison : Chest radiograph 11/09/2018. Technique: A single frontal view of the chest was obtained. Findings: The cardiomediastinal contours are stable. There is bilateral linear atelectasis/scarring. There is mild volume loss in the left hemithorax. There are small bilateral pleural effusions, decreased on theleft. There is no pneumothorax. Signed: [facility]in [facility]st[facility] Verified Date/Time: 11/10/2018 04:46:58 Reading Location: [address] Reading Room BASIC METABOLIC [id number] 03:57:00 Test Item Value Reference Range Comments SODIUM (BEAKER) (test 136 meq/L 136-145 hgym=257) POTASSIUM (BEAKER) (test 4.1 meq/L 3.5-5.1 takg=911) CHLORIDE (BEAKER) (test 105 meq/L 98-107 mqxs=457) CO2 (BEAKER) (test 26 meq/L 22-29 gcdj=910) BLOOD UREA NITROGEN 28 mg/dL 7-21 (BEAKER) (test pzbg=838) CREATININE (BEAKER) (test 1.27 mg/dL 0.57-1.25 vaof=372) GLUCOSE RANDOM (BEAKER) 122 mg/dL 70-105 (test pehf=628) CALCIUM (BEAKER) (test 8.6 mg/dL 8.4-10.2 szps=618) EGFR (BEAKER) (test mL/min/1.73 sq m INSUFFICIENT CLINICAL DATA vosu=4802) TO CALCULATE ESTIMATED GFR. [id number] 03:45:00 Test Item Value Reference Range Comments PHOSPHORUS (BEAKER) (test lloi=401) 3.3 mg/dL 2.3-4.7 [id number] 03:45:00 Test Item Value Reference Range Comments MAGNESIUM (BEAKER) (test txoy=542) 2.1 mg/dL 1.6-2.6 CBC (HEMOGRAM ONLY)2018-11-10 03:25:00 Test Item Value Reference Range Comments WHITE BLOOD CELL COUNT (BEAKER) (test ozxr=196) 10.0 K/ L 3.5-10.5 RED BLOOD CELL COUNT (BEAKER) (test zlcs=927) 4.36 M/ L 3.93-5.22 HEMOGLOBIN (BEAKER) (test ecxx=532) 12.4 GM/DL 11.2-15.7 HEMATOCRIT (BEAKER) (test lwzm=735) 39.1 % 34.1-44.9 MEAN CORPUSCULAR VOLUME (BEAKER) (test dkpr=928) 89.7 fL 79.4-94.8 MEAN CORPUSCULAR HEMOGLOBIN (BEAKER) (test 28.4 pg 25.6-32.2 nrka=994) MEAN CORPUSCULAR HEMOGLOBIN CONC (BEAKER) (test 31.7 GM/DL 32.2-35.5 hxyr=209) RED CELL DISTRIBUTION WIDTH (BEAKER) (test 15.1 % 11.7-14.4 dcke=143) PLATELET COUNT (BEAKER) (test yrui=564) 183 K/CU MM 150-450 MEAN PLATELET VOLUME (BEAKER) (test imoz=353) 10.2 fL 9.4-12.3 NUCLEATED RED BLOOD CELLS (BEAKER) (test 0 /100 WBC 0-0 vtak=990) TSH/FREE T4 IF [id number] 10:50:00 Test Item Value Reference Range Comments THYROID STIMULATING HORMONE (BEAKER) (test 0.84 uIU/mL 0.35-4.94 oxfn=507) RAD, CHEST, 1 VIEW, NON [id number] 08:37:00Reason for exam:->cardiac monitoringShould this be performed at the bedside?->YesFINAL REPORT Portable chest. CLINICAL HISTORY: cardiac monitoring. COMPARISONSTUDY: Chest x-ray from yesterday. FINDINGS: The cardiac silhouette is enlarged. The pulmonary parenchyma demonstrates interstitial markings in the left midlung field and atelectasis or consolidation of the left lung base with blunting of the left costophrenic angle, more pronounced than on previous No pneumothorax is seen. Degenerative changes are noted. IMPRESSION: Worsening opacities in the left lung. Signed: Gregory Jarviseport Verified Date/Time : 11/09/2018 08:37:21 Reading Location: [facility] Radiology Reading Room [id number] 04:02:00 Test Item Value Reference Range Comments PHOSPHORUS (BEAKER) (test uozb=217) 4.0 mg/dL 2.3-4.7 [id number] 04:02:00 Test Item Value Reference Range Comments MAGNESIUM (BEAKER) (test ggff=374) 1.9 mg/dL 1.6-2.6 BASIC METABOLIC [id number] 04:02:00 Test Item Value Reference Range Comments SODIUM (BEAKER) (test 139 meq/L 136-145 obxm=191) POTASSIUM (BEAKER) (test 3.4 meq/L 3.5-5.1 jwts=004) CHLORIDE (BEAKER) (test 105 meq/L 98-107 qngm=280) CO2 (BEAKER) (test 27 meq/L 22-29 qvtn=601) BLOOD UREA NITROGEN 23 mg/dL 7-21 (BEAKER) (test evjn=139) CREATININE (BEAKER) (test 1.41 mg/dL 0.57-1.25 otfc=985) GLUCOSE RANDOM (BEAKER) 124 mg/dL 70-105 (test ftoe=125) CALCIUM (BEAKER) (test 8.5 mg/dL 8.4-10.2 lecr=817) EGFR (BEAKER) (test mL/min/1.73 sq m INSUFFICIENT CLINICAL DATA ylpr=7685) TO CALCULATE ESTIMATED GFR. CBC (HEMOGRAM ONLY)2018-11-09 03:45:00 Test Item Value Reference Range Comments WHITE BLOOD CELL COUNT (BEAKER) (test qprd=619) 13.6 K/ L 3.5-10.5 RED BLOOD CELL COUNT (BEAKER) (test olni=330) 4.60 M/ L 3.93-5.22 HEMOGLOBIN (BEAKER) (test ahsz=540) 13.1 GM/DL 11.2-15.7 HEMATOCRIT (BEAKER) (test keer=744) 41.2 % 34.1-44.9 MEAN CORPUSCULAR VOLUME (BEAKER) (test ifyj=898) 89.6 fL 79.4-94.8 MEAN CORPUSCULAR HEMOGLOBIN (BEAKER) (test 28.5 pg 25.6-32.2 hpbr=487) MEAN CORPUSCULAR HEMOGLOBIN CONC (BEAKER) (test 31.8 GM/DL 32.2-35.5 kpxq=506) RED CELL DISTRIBUTION WIDTH (BEAKER) (test 15.3 % 11.7-14.4 mdnk=737) PLATELET COUNT (BEAKER) (test ygvk=750) 195 K/CU MM 150-450 MEAN PLATELET VOLUME (BEAKER) (test vccn=912) 10.2 fL 9.4-12.3 NUCLEATED RED BLOOD CELLS (BEAKER) (test 0 /100 WBC 0-0 opaw=035) RAD, CHEST, 1 VIEW, NON [id number] 08:05:00Reason for exam:->Potential aortic dissectionIs the patient ?->N/AShould this be performed at the bedside?->YesFINAL REPORT Chest x-ray Clinical History: Potential aortic dissection Comparison: No comparison Views: One AP lordotic Chest x-ray:The cardiac and mediastinal silhouettes are within normal limits. There is no evidence of a pneumothorax. There is no evidence of a pleural effusion. There is no evidence of overt cardiac failure. The visible regional skeleton is intact. There is evidence of a left lower lobe lateral focal parenchymal opacity. Impression: Moderate cardiomegaly with nonspecific increased interstitial findings and atelectasis suspected in the left lower lobe laterally. Signed: Alyssa Leeort Verified Date/Time: 08:05:30 Reading Location: [facility] Radiology Reading Room JACQUELYNN [id number] 07:51:00 Test Item Value Reference Range Comments TROPONIN I (BEAKER) (test djsi=189) < ng/mL 0.00-0.03 Troponin I (TnI) levels must be interpreted in the context of the presenting symptoms and the clinical findings. Elevated TnI levels indicate myocardial damage, but are not specific for ischemic heart disease. Elevated TnI levels are seen in patients with other cardiac conditions (including myocarditis and congestive heart failure), and slight TnI elevations occur in patients with other conditions, including sepsis, renal failure, acidosis, acute neurological disease, and persistent tachyarrhythmia.BASIC METABOLIC [id number] 05:45:00 Test Item Value Reference Range Comments SODIUM (BEAKER) (test 138 meq/L 136-145 ffdb=161) POTASSIUM (BEAKER) (test 3.7 meq/L 3.5-5.1 Specimen slightly snxt=031) hemolyzed CHLORIDE (BEAKER) (test 105 meq/L 98-107 tdhi=475) CO2 (BEAKER) (test 22 meq/L 22-29 tgpv=461) BLOOD UREA NITROGEN 17 mg/dL 7-21 (BEAKER) (test qyvd=930) CREATININE (BEAKER) (test 1.07 mg/dL 0.57-1.25 Specimen slightly agqp=851) hemolyzed GLUCOSE RANDOM (BEAKER) 138 mg/dL 70-105 (test knjy=113) CALCIUM (BEAKER) (test 9.1 mg/dL 8.4-10.2 ckzx=633) EGFR (BEAKER) (test mL/min/1.73 sq m INSUFFICIENT CLINICAL DATA xpya=7197) TO CALCULATE ESTIMATED GFR. [id number] 05:42:00 Test Item Value Reference Range Comments MAGNESIUM (BEAKER) (test 2.2 mg/dL 1.6-2.6 Specimen slightly hemolyzed yaix=894) [id number] 05:42:00 Test Item Value Reference Range Comments PHOSPHORUS (BEAKER) (test 3.8 mg/dL 2.3-4.7 Specimen slightly hemolyzed bxfm=112) HEPATIC FUNCTION [id number] 05:42:00 Test Item Value Reference Range Comments TOTAL PROTEIN (BEAKER) (test 6.9 gm/dL 6.0-8.3 Specimen slightly hemolyzed fiqw=904) ALBUMIN (BEAKER) (test 3.6 g/dL 3.5-5.0 Specimen slightly hemolyzed dghb=7093) BILIRUBIN TOTAL (BEAKER) (test 2.3 mg/dL 0.2-1.2 Specimen slightly hemolyzed cnnm=919) BILIRUBIN DIRECT (BEAKER) (test 1.3 mg/dL 0.1-0.5 Specimen slightly hemolyzed uyuh=754) ALKALINE PHOSPHATASE (BEAKER) 266 U/L 40-150 (test oljf=163) AST (SGOT) (BEAKER) (test 152 U/L 5-34 Specimen slightly hemolyzed uzew=068) ALT (SGPT) (BEAKER) (test 99 U/L 6-55 Specimen slightly hemolyzed abzi=013) CBC W/PLT COUNT & AUTO [id number] 05:26:00 Test Item Value Reference Range Comments WHITE BLOOD CELL COUNT (BEAKER) (test rkoy=721) 15.1 K/ L 3.5-10.5 RED BLOOD CELL COUNT (BEAKER) (test zwbd=802) 5.36 M/ L 3.93-5.22 HEMOGLOBIN (BEAKER) (test acmx=886) 15.0 GM/DL 11.2-15.7 HEMATOCRIT (BEAKER) (test lnuj=603) 47.2 % 34.1-44.9 MEAN CORPUSCULAR VOLUME (BEAKER) (test mess=041) 88.1 fL 79.4-94.8 MEAN CORPUSCULAR HEMOGLOBIN (BEAKER) (test 28.0 pg 25.6-32.2 qavt=566) MEAN CORPUSCULAR HEMOGLOBIN CONC (BEAKER) (test 31.8 GM/DL 32.2-35.5 omun=700) RED CELL DISTRIBUTION WIDTH (BEAKER) (test 14.7 % 11.7-14.4 glpk=836) PLATELET COUNT (BEAKER) (test ewub=631) 239 K/CU MM 150-450 MEAN PLATELET VOLUME (BEAKER) (test thtt=472) 10.0 fL 9.4-12.3 NUCLEATED RED BLOOD CELLS (BEAKER) (test 0 /100 WBC 0-0 eymn=567) NEUTROPHILS RELATIVE PERCENT (BEAKER) (test 81 % hbkv=059) LYMPHOCYTES RELATIVE PERCENT (BEAKER) (test 11 % uabp=162) MONOCYTES RELATIVE PERCENT (BEAKER) (test 7 % hwwo=329) EOSINOPHILS RELATIVE PERCENT (BEAKER) (test 0 % talj=023) BASOPHILS RELATIVE PERCENT (BEAKER) (test 0 % dhsm=434) NEUTROPHILS ABSOLUTE COUNT (BEAKER) (test 12.22 K/ L 1.56-6.13 vrbu=391) LYMPHOCYTES ABSOLUTE COUNT (BEAKER) (test 1.62 K/ L 1.18-3.74 fxtk=004) MONOCYTES ABSOLUTE COUNT (BEAKER) (test 1.12 K/ L 0.24-0.36 hkol=240) EOSINOPHILS ABSOLUTE COUNT (BEAKER) (test 0.01 K/ L 0.04-0.36 xovj=439) BASOPHILS ABSOLUTE COUNT (BEAKER) (test 0.06 K/ L 0.01-0.08 qizt=263) IMMATURE GRANULOCYTES-RELATIVE PERCENT (BEAKER) 0 % 0-1 (test fniz=6598) [id number] 05:26:00 Test Item Value Reference Range Comments PARTIAL THROMBOPLASTIN TIME (BEAKER) (test 25.2 seconds 22.5-36.0 gopo=366) PROTHROMBIN TIME/[id number] 05:25:00 Test Item Value Reference Range Comments PROTIME (BEAKER) (test mqrt=599) 13.5 seconds 11.7-14.7 INR (BEAKER) (test fwtc=598) 1.0 <=5.9 RECOMMENDED COUMADIN/WARFARIN INR THERAPY RANGESSTANDARD DOSE: 2.0 - 3.0 Includes: PROPHYLAXIS forvenous thrombosis, systemic embolization; TREATMENT for venous thrombosis and/or pulmonary embolus.HIGH RISK: Target INR is 2.5-3.5 for patients with mechanical heart valves.CALCIUM, [id number] 05:20:00 Test Item Value Reference Range Comments CALCIUM IONIZED (BEAKER) (test cuvi=478) 1.13 mmol/L 1.12-1.27 PH, BLOOD (BEAKER) (test qqns=9319) 7.38
[2018-12-14 20:12] LABS: Absolute Lymphocytes (CBC) 1.7 K/uL (0.7-4.9); Absolute Monocytes 0.6 K/uL (0.1-1.3); Basophils % 0.7 % (0-1.3); Eosinophils % 0.2 % (0-4.4); Hematocrit 48.2 % (36.0-45.0); Monocytes % 5.9 % (3.3-12.3); RBC Red Blood Cell Count 5.63 M/uL (3.86-4.86)
--- NOTE | 2018-12-14 20:20 | RAD REPORT ---
EXAM DESCRIPTION: RAD - Chest Single View - 12/14/2018 8:11 pm CLINICAL HISTORY: CHEST PAIN Chest pain. COMPARISON: Chest Single View dated 11/07/2018; CHEST SINGLE VIEW dated 03/05/2014; CHEST SINGLE VIEW dated 05/22/2011; ABDOMEN ACUTE SERIES dated 04/10/2008 FINDINGS: Portable technique limits examination quality. The lungs are grossly clear. The heart is normal in size. Stent material is present in the thoracic a jana.No displaced fracture evident. IMPRESSION: No acute intrathoracic process suspected.
[2018-12-14 20:28] LABS: ALT/SGPT 73 U/L (12-78); AST/SGOT 35 U/L (15-37); Albumin 3.7 g/dL (3.4-5.0); Alkaline Phosphatase 511 U/L (45-117); BUN Blood Urea Nitrogen 20 mg/dL (7-18); Bicarbonate 25 mmol/L (21-32); Bilirubin Direct 0.2 mg/dL (0-0.2); Bilirubin Total 0.6 mg/dL (0.2-1.0); Glucose Level 118 mg/dL (74-106); Magnesium 2.2 mg/dL (1.8-2.4); NT PRO-BNP 1534 pg/mL (<125); Potassium 3.9 mmol/L (3.5-5.1); Protein, Total 8.5 g/dL (6.4-8.2); Sodium Level 139 mmol/L (136-145); Troponin (Emerg Dept Use Only) < 0.02 ng/mL (0.0-0.045)
[2018-12-14] MEDS ORDERED: ONDANSETRON 4 MG/2 ML VIAL ONE ×2 (21:09→23:28)
[2018-12-14 21:24] LABS: Protime INR 1.04
[2018-12-14] MEDS ORDERED: FENTANYL CITR 100 MCG/2 ML ONE (22:31)
[2018-12-15] MEDS ORDERED: LABETALOL 20 MG/4ML SYRINGE IV ONE (01:19)
[2018-12-15] MEDS ORDERED: LORazepam 2 MG/ML VIAL ONE (01:38)
--- NOTE | 2018-12-15 03:18 | ER ---
Nurse's Notes [facility] Name: Cait Ying Age: 58 yrs Sex: Female : 1960 Arrival Date: 12/14/2018 Time: 19:03 Bed 18 Private MD: Wilfred Redd R Diagnosis: Dorsalgia;Vomiting Presentation: 12/14 19:27 Presenting complaint: Patient states: Sharp pain between her shoulders that started ea yesterday morning. Pt reports she has a history of aortic aneurism and was transferred to [place] for treatment about a month ago. Transition of care: patient was not received from another setting of care. Onset of symptoms was December 14, 2018. Risk Assessment: Do you want to hurt yourself or someone else? Patient reports no desire to harm self or others. Initial Sepsis Screen: Does the patient meet any 2 criteria? No. Patient's initial sepsis screen is negative. Does the patient have a suspected source of infection? No. Patient's initial sepsis screen is negative. Care prior to arrival: None. 19:27 Method Of Arrival: Wheelchair ea 19:27 Acuity: ONEYDA 2 ea Triage Assessment: 19:30 General: Appears uncomfortable, Behavior is restless. Pain: Complains of pain in ea thoracic area Pain currently is 10 out of 10 on a pain scale. Neuro: Level of Consciousness is awake, alert, obeys commands, Oriented to person, place, time, situation. Respiratory: Airway is patent Respiratory effort is even, unlabored, Respiratory pattern is regular, symmetrical. Musculoskeletal: Circulation, motion, and sensation intact. Historical: - Allergies: 19:30 No Known Allergies; ea - Home Meds: 19:30 metoprolol tartrate 100 mg Oral tab 1 tab 2 times per day [Active]; levothyroxine oral ea once daily [Active]; - PMHx: 19:30 Hypothyroidism; Hypertension; ea - PSHx: 19:30 Cholecystectomy; Leg surgery for osteomyelitis; Knee surgery; ea - Immunization history:: Adult Immunizations up to date. - Social history:: Smoking status: Patient/guardian denies using tobacco. - Ebola Screening: : No symptoms or risks identified at this time. Screenin:36 Abuse screen: Denies threats or abuse. Denies injuries from another. Nutritional cc3 screening: No deficits noted. Tuberculosis screening: No symptoms or risk factors identified. Fall Risk Ambulatory Aid- None/Bed Rest/Nurse Assist (0 pts). Gait- Normal/Bed Rest/Wheelchair (0 pts) Mental Status- Oriented to own ability (0 pts). Assessment: 19:36 General: see triage assessment. cc3 20:18 Reassessment: Patient appears in no apparent distress at this time. Patient and/or cc3 family updated on plan of care and expected duration. Pain level reassessed. Patient is alert, oriented x 3, equal unlabored respirations, skin warm/dry/pink. 21:12 Reassessment: Patient appears in no apparent distress at this time. Patient and/or cc3 family updated on plan of care and expected duration. Pain level reassessed. Patient is alert, oriented x 3, equal unlabored respirations, skin warm/dry/pink. Neuro: Level of Consciousness is awake, alert, obeys commands, Oriented to person, place, time, situation, Appropriate for age. 22:25 Reassessment: Patient appears in no apparent distress at this time. Patient and/or cc3 family updated on plan of care and expected duration. Pain level reassessed. Patient is alert, oriented x 3, equal unlabored respirations, skin warm/dry/pink. 23:40 Reassessment: Patient appears in no apparent distress at this time. Patient and/or cc3 family updated on plan of care and expected duration. Pain level reassessed. Patient is alert, oriented x 3, equal unlabored respirations, skin warm/dry/pink. 12/15 00:12 Reassessment: Patient appears in no apparent distress at this time. Patient and/or cc3 family updated on plan of care and expected duration. Pain level reassessed. Patient is alert, oriented x 3, equal unlabored respirations, skin warm/dry/pink. 01:18 Reassessment: Patient appears in no apparent distress at this time. Patient and/or cc3 family updated on plan of care and expected duration. Pain level reassessed. Patient is alert, oriented x 3, equal unlabored respirations, skin warm/dry/pink. 02:25 Reassessment: Patient appears in no apparent distress at this time. Patient and/or cc3 family updated on plan of care and expected duration. Pain level reassessed. Patient is alert, oriented x 3, equal unlabored respirations, skin warm/dry/pink. 03:25 Reassessment: Patient appears in no apparent distress at this time. Patient and/or cc3 family updated on plan of care and expected duration. Pain level reassessed. Patient is alert, oriented x 3, equal unlabored respirations, skin warm/dry/pink. 04:00 Reassessment: Patient appears in no apparent distress at this time. Patient and/or cc3 family updated on plan of care and expected duration. Pain level reassessed. Patient is alert, oriented x 3, equal unlabored respirations, skin warm/dry/pink. Dr. Flynn discharged the patient home with prescription given. IV cannula removed and patient left ER vitally stable and ambulatory. Vital Signs: 12/14 21:10 BP 158 / 112; Pulse 99; Resp 15 S; Pulse Ox 96% on R/A; cc3 22:00 BP 177 / 137; Pulse 98; Resp 16 S; Pulse Ox 96% on R/A; cc3 23:18 BP 173 / 109; Pulse 96; Resp 16 S; Pulse Ox 97% on R/A; cc3 12/15 00:26 BP 163 / 97; Pulse 95; Resp 18 S; Pulse Ox 97% on R/A; cc3 01:45 BP 159 / 100; Pulse 93; Resp 19 S; Pulse Ox 97% on R/A; cc3 02:30 BP 153 / 93; Pulse 106; Resp 18 S; Pulse Ox 96% on R/A; cc3 03:45 BP 155 / 96; Pulse 97; Resp 19 S; Pulse Ox 97% on R/A; cc3 ED Course: 12/14 19:03 Patient arrived in ED. mr 19:03 Wilfred Redd MD is Private Physician. mr 19:29 Triage completed. ea 19:30 Arm band placed on right wrist. Patient placed in an exam room, on a stretcher, on ea electronic device monitor. 19:31 Aravind Flynn MD is Attending Physician. 19:36 Luda Hernandez is Primary Nurse. cc3 19:36 Patient has correct armband on for positive identification. Placed in gown. Bed in low cc3 position. Call light in reach. Side rails up X 1. bus driver/monitor on. Pulse ox on. NIBP on. 20:00 Radiology exam delayed due to lab results not completed at this time. (BUN/Creatinine). oralia 20:00 Inserted saline lock: 20 gauge in left antecubital area, using aseptic technique. Blood cc3 collected. inserted by PAT Tony. 20:14 XRAY Chest (1 view) In Process Unspecified. [facility] 20:23 Radiology exam delayed due to lab results not completed at this time. (BUN/Creatinine). 2 21:[address] via wheelchair. 2 21:22 CT completed. Patient tolerated procedure well. Patient moved back from [facility] 12/15 04:00 No provider procedures requiring assistance completed. IV discontinued, intact, cc3 bleeding controlled, No redness/swelling at site. Pressure dressing applied. Administered Medications: 12/14 21:05 Drug: Zofran 4 mg Route: IVP; Site: left antecubital; cc3 21:30 Follow up: Response: No adverse reaction cc3 22:20 Drug: fentaNYL (PF) 50 mcg Route: IVP; Site: left antecubital; cc3 23:00 Follow up: Response: No adverse reaction; Pain is decreased cc3 23:40 Drug: Zofran 4 mg Route: IVP; Site: left antecubital; cc3 23:42 Follow up: Response: No adverse reaction cc3 12/15 01:10 Drug: Labetalol 10 mg Route: IVP; Infused Over: 2 mins; Site: left antecubital; cc3 02:30 Follow up: Response: No adverse reaction; Blood pressure is lowered cc3 01:40 Drug: Ativan 1 mg Route: IVP; Site: left antecubital; cc3 02:00 Follow up: Response: No adverse reaction cc3 03:50 Drug: Glady 5 mg-325 mg 1 tabs Route: PO; cc3 04:00 Follow up: Response: No adverse reaction; Pain is decreased cc3 Outcome: 03:17 Discharge ordered by MD. soto 04:00 Discharged to home ambulatory, with family. cc3 04:00 Condition: stable 04:00 Discharge instructions given to patient, Instructed on discharge instructions, follow up and referral plans. medication usage, Demonstrated understanding of instructions, follow-up care, medications, Prescriptions given X 2. 04:08 Patient left the ED. cc3 Signatures: Dispatcher [employer] [facility] Alyssa Key, Lilly Hyde [facility] Wendi Wood, RN RN Aravind Arreola MD MD Luda Hernandez cc3
--- NOTE | 2018-12-15 03:18 | EDPHYS ---
Physician Documentation [facility] Name: Cait Ying Age: 58 yrs Sex: Female : 1960 Arrival Date: 12/14/2018 Time: 19:03 Bed 18 Private MD: Wilfred Redd R ED Physician Aravind Flynn HPI: 12/15 02:13 This 58 yrs old Female presents to ER via Wheelchair with complaints of Back gs Pain, Abdominal Pain. 02:14 The patient presents with pain that is acute. The symptoms are located in the thoracic gs area. Onset: The symptoms/episode began/occurred yesterday. The pain does not radiate. Associated signs and symptoms: Pertinent positives: abdominal pain, vomiting. Severity of symptoms: At their worst the symptoms were moderate, in the emergency department the symptoms are unchanged. The patient has experienced a previous episode, SAYS FEELS LIKE WHEN SHE HAD PROBLEMS WITH HER ANEURYSM IN HER AORTA. Historical: - Allergies: 12/14 19:30 No Known Allergies; ea - Home Meds: 19:30 metoprolol tartrate 100 mg Oral tab 1 tab 2 times per day [Active]; levothyroxine oral ea once daily [Active]; - PMHx: 19:30 Hypothyroidism; Hypertension; ea - PSHx: 19:30 Cholecystectomy; Leg surgery for osteomyelitis; Knee surgery; ea - Immunization history:: Adult Immunizations up to date. - Social history:: Smoking status: Patient/guardian denies using tobacco. - Ebola Screening: : No symptoms or risks identified at this time. ROS: 12/15 02:14 All other systems are negative. gs Exam: 02:14 Head/Face: Normocephalic, atraumatic. Eyes: Pupils equal round and reactive to light, gs extra-ocular motions intact. Lids and lashes normal. Conjunctiva and sclera are non-icteric and not injected. Cornea within normal limits. Periorbital areas with no swelling, redness, or edema. ENT: Nares patent. No nasal discharge, no septal abnormalities noted. Tympanic membranes are normal and external auditory canals are clear. Oropharynx with no redness, swelling, or masses, exudates, or evidence of obstruction, uvula midline. Mucous membranes moist. Neck: Trachea midline, no thyromegaly or masses palpated, and no cervical lymphadenopathy. Supple, full range of motion without nuchal rigidity, or vertebral point tenderness. No Meningismus. Chest/axilla: Normal chest wall appearance and motion. Nontender with no deformity. No lesions are appreciated. Cardiovascular: Regular rate and rhythm with a normal S1 and S2. No gallops, murmurs, or rubs. Normal PMI, no JVD. No pulse deficits. Respiratory: Lungs have equal breath sounds bilaterally, clear to auscultation and percussion. No rales, rhonchi or wheezes noted. No increased work of breathing, no retractions or nasal flaring. Abdomen/GI: Soft, non-tender, with normal bowel sounds. No distension or tympany. No guarding or rebound. No evidence of tenderness throughout. Back: No spinal tenderness. No costovertebral tenderness. Full range of motion. Skin: Warm, dry with normal turgor. Normal color with no rashes, no lesions, and no evidence of cellulitis. MS/ Extremity: Pulses equal, no cyanosis. Neurovascular intact. Full, normal range of motion. Neuro: Awake and alert, GCS 15, oriented to person, place, time, and situation. Cranial nerves II-XII grossly intact. Motor strength 5/5 in all extremities. Sensory grossly intact. Cerebellar exam normal. Normal gait. 02:14 Constitutional: The patient appears alert, awake. 02:14 Constitutional: The patient appears uncomfortable. 02:14 ECG was reviewed by the Attending Physician. Vital Signs: 12/14 21:10 BP 158 / 112; Pulse 99; Resp 15 S; Pulse Ox 96% on R/A; cc3 22:00 BP 177 / 137; Pulse 98; Resp 16 S; Pulse Ox 96% on R/A; cc3 23:18 BP 173 / 109; Pulse 96; Resp 16 S; Pulse Ox 97% on R/A; cc3 12/15 00:26 BP 163 / 97; Pulse 95; Resp 18 S; Pulse Ox 97% on R/A; cc3 01:45 BP 159 / 100; Pulse 93; Resp 19 S; Pulse Ox 97% on R/A; cc3 02:30 BP 153 / 93; Pulse 106; Resp 18 S; Pulse Ox 96% on R/A; cc3 03:45 BP 155 / 96; Pulse 97; Resp 19 S; Pulse Ox 97% on R/A; cc3 MDM: 12/14 19:48 Patient medically screened. 12/15 02:14 Differential diagnosis: Abdominal Aortic Aneurysm chronic back pain, Leaking Aortic gs Aneurysm. Data reviewed: vital signs, nurses notes, lab test result(s), EKG, radiologic studies. Counseling: I had a detailed discussion with the patient and/or guardian regarding: the historical points, exam findings, and any diagnostic results supporting the discharge/admit diagnosis, the need for outpatient follow up, to return to the emergency department if symptoms worsen or persist or if there are any questions or concerns that arise at home. Response to treatment: the patient's symptoms have markedly improved after treatment, patient is well hydrated. and as a result, I will discharge patient. ED course: RADIOLOGY REVIEWED NEW OLD CT NO PROBLEMS WITH LEAK OR OLD FINDINGS ARE STABLE. PT BETTER NO EMESIS DISCUSSED FINDINGS WANTS TO GO HOME. 12/14 19:56 Order name: Basic Metabolic Panel; Complete Time: 21:57 12/14 19:56 Order name: CBC with Diff; Complete Time: 21:57 12/14 19:56 Order name: LFT's; Complete Time: 21:57 12/14 19:56 Order name: Magnesium; Complete Time: 21:57 12/14 19:56 Order name: NT PRO-BNP; Complete Time: 21:57 12/14 19:56 Order name: PT-INR; Complete Time: 21:57 12/14 19:56 Order name: Troponin (emerg Dept Use Only); Complete Time: 21:57 12/14 19:56 Order name: XRAY Chest (1 view); Complete Time: 21:57 12/14 19:56 Order name: CT Aorta for Dissection 12/15 02:20 Order name: Lipase 12/15 03:14 Order name: Lipase; Complete Time: 03:17 EDMS 12/14 19:56 Order name: EKG; Complete Time: 19:57 12/14 19:56 Order name: Cardiac monitoring; Complete Time: 20:09 12/14 19:56 Order name: EKG - Nurse/Tech; Complete Time: 20:19 12/14 19:56 Order name: IV Saline Lock; Complete Time: 20:06 12/14 19:56 Order name: Labs collected and sent; Complete Time: 20:08 12/14 19:56 Order name: O2 Per Protocol; Complete Time: 20: gs 12/14 19:56 Order name: O2 Sat Monitoring; Complete Time: 20: EC:14 Rate is 97 beats/min. Rhythm is regular. RI interval is normal. QRS interval is normal. gs QT interval is prolonged. Q waves are Old. T waves are Flattened. Clinical impression: NSR w/ Non-specific ST/T Changes and Abnormal EKG without significant change. Interpreted by me. Administered Medications: 12/14 21:05 Drug: Zofran 4 mg Route: IVP; Site: left antecubital; cc3 21:30 Follow up: Response: No adverse reaction cc3 22:20 Drug: fentaNYL (PF) 50 mcg Route: IVP; Site: left antecubital; cc3 23:00 Follow up: Response: No adverse reaction; Pain is decreased cc3 23:40 Drug: Zofran 4 mg Route: IVP; Site: left antecubital; cc3 23:42 Follow up: Response: No adverse reaction cc3 12/15 01:10 Drug: Labetalol 10 mg Route: IVP; Infused Over: 2 mins; Site: left antecubital; cc3 02:30 Follow up: Response: No adverse reaction; Blood pressure is lowered cc3 01:40 Drug: Ativan 1 mg Route: IVP; Site: left antecubital; cc3 02:00 Follow up: Response: No adverse reaction cc3 03:50 Drug: [place] 5 mg-325 mg 1 tabs Route: PO; cc3 04:00 Follow up: Response: No adverse reaction; Pain is decreased cc3 Disposition: 12/15/18 03:17 Discharged to Home. Impression: Dorsalgia, Vomiting. - Condition is Stable. - Discharge Instructions: Nausea and Vomiting, Adult. - Prescriptions for Tylenol- Codeine #4 300-60 mg Oral Tablet - take 1 tablet by ORAL route every 6 hours As needed; 6 tablet. Zofran 4 mg Oral Tablet - take 1 tablet by ORAL route every 12 hours As needed; 6 tablet. - Medication Reconciliation Form, Thank You Letter, Antibiotic Education, Prescription Opioid Use form. - Follow up: Private Physician; When: 1 - 2 days; Reason: Re-evaluation by your physician. Signatures: Dispatcher [employer] EDWendi Alvarez, Aravind Valdes RN, ea, MD MD Luda Hernandez cc3 Corrections: (The following items were deleted from the chart) 04:08 03:17 12/15/2018 03:17 Discharged to Home. Impression: Dorsalgia; Vomiting. Condition cc3 is Stable. Forms are Medication Reconciliation Form, Thank You Letter, Antibiotic Education, Prescription Opioid Use. Follow up: Private Physician; When: 1 - 2 days; Reason: Re-evaluation by your physician. gs
[2018-12-15] MEDS ORDERED: HYDROCODONE/APAP 5/325 MG TAB ONE (03:58)
[2018-12-15 05:06] VITALS: BP 153/93; O2SAT 96
--- NOTE | 2018-12-15 07:06 | EKG ---
Test Date: 2018-12-14 Test Time: 20:16:01 Contact Acid Plant Operator: RODOLFO MEASUREMENT RESULTS: Intervals: Rate: 97 OH: 158 QRSD: 86 QT: 396 QTc: 502 [place]: P: 38 OH: 158 QRS: 46 T: 63 INTERPRETIVE STATEMENTS: Normal sinus rhythm Cannot rule out Anterior infarct, age undetermined Prolonged QT Abnormal ECG Compared to ECG 11/07/2018 22:11:40 Myocardial infarct finding now present Electronically Signed On 12-15-18 07:06:02 PLANT BIOLOGY PROFESSOR by Zaire Reis
--- NOTE | 2018-12-15 21:21 | RAD REPORT ---
ADDENDUM: Comparison: CTA chest abdomen and pelvis, dissection protocol dated November 07, 2018 Findings stated below in the impression of original report were present and are unchanged when compar ed to prior examination. THE REPORT CONTAINS FINDINGS THAT MAY BE CRITICAL TO PATIENT'S CARE: The findings were verbally discussed via telephone conference with Aravind Flynn by Dr. Mcginnis on 0 12/15/2018 12:18 AM SOFTWARE CONTROLS ENGINEER. The results were acknowledged and understood. EXAM DESCRIPTION: CT - Angio Aorta For Dissection - 12/15/2018 5:39 am CLINICAL HISTORY: The patient is 58 years old and is Female; CHEST PAIN COMPARISON: None. TECHNIQUE: Axial computed tomography images of the chest, abdomen and pelvis with intravenous contrast. Sagittal and coronal reformatted images were created and reviewed. This CT exam was performed using one or mo re of the following dose reduction techniques: automated exposure control, adjustment of the mA and/o r kV according to patient size and/or less of iterative reconstruction technique. FINDINGS: VASCULATURE: AORTA: Prior endovascular stent. Placement of the aortic arch and distending aorta. No endovascular l eaks. Irregular contour of the anterior aspect of the proximal abdominal aorta. (series 401, image 91 ). No aortic aneurysms. No dissection. PULMONARY ARTERIES: No pulmonary arterial filling defect. GREAT VESSELS OF AORTIC ARCH: No acute findings. No dissection. No arterial occlusion or significant stenosis. CELIAC TRUNK AND MESENTERIC ARTERIES: No acute findings. No occlusion or significant stenosis. RENAL ARTERIES: No acute findings. No occlusion or significant stenosis. ILIAC ARTERIES: Thrombosed aneurysmal dilatation of the right common iliac arteries (series 401, imag e 163). CHEST: LUNGS: Normal opacification of the superior mesenteric artery. Normal opacification of the vessels. PLEURAL SPACE: Mild scattered mosaic attenuation of the lung parenchyma bilaterally chronic edema. No consolidation, pleural effusion or pneumothorax. HEART: The heart is normal in size. No pericardial effusion. MEDIASTINUM: Small hiatal hernia. ABDOMEN: LIVER: Hepatic steatosis. GALLBLADDER AND BILE DUCTS: Prior cholecystectomy with mild intra and extra hepatic biliary ductal di latation. PANCREAS: Unremarkable. No ductal dilation. No mass. SPLEEN: Unremarkable. No splenomegaly. ADRENALS: Unremarkable. No mass. KIDNEYS AND URETERS: Unremarkable. No hydronephrosis. No solid mass. STOMACH AND BOWEL: Colonic diverticulosis without CT evidence of acute diverticulitis. No obstruction . PELVIS: APPENDIX: The appendix is seen and within normal limits. BLADDER: Decompressed bladder. REPRODUCTIVE: Leiomyomatous uterus. ABDOMEN and PELVIS: INTRAPERITONEAL SPACE: Unremarkable. No significant fluid collection. No free air. BONE/JOINTS: Normal opacification of the celiac axis. No acute fracture. No dislocation. SOFT TISSUES: Fat containing inguinal hernia. LYMPH NODES:Unremarkable. No enlarged lymph. TUBES. LINES AND DEVICES: Partially thrombosed aneurysmal dilatation of the infrarenal abdominal aort a measuring 2.4 cm where the residual lumen measuring 1.2 cm. IMPRESSION: 1. Prior stent placement of the aortic arch and descending aorta without enovascular caio k. 2. Thrombosed aneurysmal right common iliac artery. 3. Irregular contour of the proximal abdominal aorta concerning for penetrating ulcer or ulcerated pl aque. 4. Partially thrombosed 2.4 cm infrarenal abdominal aortic aneurysm. 5. Cardiomegaly and mild interstitial edema. 6. Prior cholecystectomy with mild intra and extra hepatic biliary ductal dilation. 7. Hepatic steatosis. 8. Leiomyomatous uterus. Electronically signed by marlon Mcginnis DO 12/14/2018 11:30 PM SOFTWARE CONTROLS ENGINEER Due to temporary technical issues with the PACS/Fluency reporting system, reports are being signed by the in house radiologist as a courtesy to ensure prompt reporting. The interpreting radiologist is f ully responsible for the content of the report.
== END 2018-12-15 04:08 | disposition home or self-care (01) ==
LOC: ER 19:01
DX: R11.10 Vomiting, unspecified (principal); I10 Essential (primary) hypertension; E03.9 Hypothyroidism, unspecified
CPT/HCPCS: 36415; 71045; 71275; 74175; 80048; 80076; 83690; 83735; 83880; 84484; 85025; 85610; 93005; 96374; 96375; 99285; J2405; J3010; Q9967

== ENCOUNTER 2019-12-05 06:25 | Day surgery (SDC) | payer OTHER ==
--- OUTSIDE RECORDS SUMMARY | 2019-12-05 06:38 | XMS REPORT ---
:1960 [facility] Address [address] [place] [address] Dr. [address] [place] [id number] Care Team Providers Name Role Phone KIMBERLI [...] ID: VIEW, NON DEPT opShould this be [phone] Chest x-ray performed at the Clinical History: [...] catheter. Decreased pulmonary vascular congestion. Signed: Alyssa Leeeport Verified Date/Time: 11/15/2018 10:37:06 Reading Location: [facility] Radiology Reading Room C METABOLIC PANEL 2018-11-15 05:55:00 Test Item Value Reference Range Comments SODIUM (BEAKER) (test 137 meq/L 136-145 sgps=604) POTASSIUM (BEAKER) (test 3.9 meq/L 3.5-5.1 yhff=528) CHLORIDE (BEAKER) (test 102 meq/L 98-107 ujvo=783) CO2 (BEAKER) (test acps=089) 25 meq/L 22-29 BLOOD UREA NITROGEN (BEAKER) 14 mg/dL 7-21 (test gwvz=792) CREATININE (BEAKER) (test 0.91 mg/dL 0.57-1.25 oeum=724) GLUCOSE RANDOM (BEAKER) 102 mg/dL 70-105 (test ovzd=362) CALCIUM (BEAKER) (test 9.3 mg/dL 8.4-10.2 haiq=705) EGFR (BEAKER) (test mL/min/1.73 sq m INSUFFICIENT CLINICAL DATA TO wipx=5723) CALCULATE ESTIMATED GFR. [id number] 05:34:00 Test Item Value Reference Range Comments PHOSPHORUS (BEAKER) (test qzsg=963) 3.2 mg/dL 2.3-4.7 [id number] 05:34:00 Test Item Value Reference Range Comments MAGNESIUM (BEAKER) (test mucy=876) 1.8 mg/dL 1.6-2.6 [id number] 05:18:00 Test Item Value Reference Range Comments PARTIAL THROMBOPLASTIN TIME (BEAKER) (test 37.7 seconds 22.5-36.0 lohl=739) PROTHROMBIN TIME/[id number] 05:17:00 Test Item Value Reference Range Comments PROTIME (BEAKER) (test lllj=771) 13.3 seconds 11.7-14.7 INR (BEAKER) (test dnvq=984) 1.0 <=5.9 RECOMMENDED COUMADIN/WARFARIN INR THERAPY RANGESSTANDARD DOSE: 2.0 - 3.0 Includes: PROPHYLAXIS forvenous thrombosis, systemic embolization; TREATMENT for venous thrombosis and/or pulmonary embolus.HIGH RISK: Target INR is 2.5-3.5 for patients with mechanical heart valves.CBC (HEMOGRAM ONLY)2018-11-15 05:07:00 Test Item Value Reference Range Comments WHITE BLOOD CELL COUNT (BEAKER) (test zstx=428) 11.4 K/ L 3.5-10.5 RED BLOOD CELL COUNT (BEAKER) (test enjn=548) 4.85 M/ L 3.93-5.22 HEMOGLOBIN (BEAKER) (test gova=689) 13.9 GM/DL 11.2-15.7 HEMATOCRIT (BEAKER) (test yneg=188) 42.6 % 34.1-44.9 MEAN CORPUSCULAR VOLUME (BEAKER) (test yzju=555) 87.8 fL 79.4-94.8 MEAN CORPUSCULAR HEMOGLOBIN (BEAKER) (test 28.7 pg 25.6-32.2 ektd=597) MEAN CORPUSCULAR HEMOGLOBIN CONC (BEAKER) (test 32.6 GM/DL 32.2-35.5 iwug=124) RED CELL DISTRIBUTION WIDTH (BEAKER) (test 14.5 % 11.7-14.4 ehwk=734) PLATELET COUNT (BEAKER) (test hqbu=125) 301 K/CU MM 150-450 MEAN PLATELET VOLUME (BEAKER) (test gwxn=923) 10.0 fL 9.4-12.3 NUCLEATED RED BLOOD CELLS (BEAKER) (test 0 /100 WBC 0-0 wnkc=737) CTA, CHEST, ABDOMEN - PELVIS, FOR [id number] 20:11:00Reason for exam:- >s/p StentAddendum BeginsREPORT STATUS:A Addendum: November 14, 2018 at 2005 hours I have reviewed the CT images for this study and I concur with the nonvascular imaging findings as dictated. Signed: Martina Bailey MDReport Verified Date/Time: 11/14/2018 20:11:33 Reading Location: [place] [address] Angio Body Reading RoomAddendum EndsFINAL REPORT CT [...] some eccentric calcific and noncalcific atherosclerosis identifiedwith ispe-pq-idggsdzh disease present. The distal left common femoral [...] regarding the non- vascular findings by the Etcher Apprentice Photoengraving Radiologist. Signed: Mahad Muñoz Verified Date/Time: 11/12/2018 09:28:12 Reading Location: [facility] P047 Cardiology MRI Electronically signed by: MARTINA BAILEY M.D. on 2018 08:11 PMRAD, CHEST, 1 VIEW, NON [id number] 08:35:00Reason for exam:-&gt ;cardiac monitoringShould this be [...] MDReport Verified Date/Time: 11/14/2018 08:35:31 Reading Location: [facility] Radiology Reading Room BASIC METABOLIC [id number] 05: 24:00 Test Item Value Reference Range Comments SODIUM (BEAKER) (test 137 meq/L 136-145 afkm=078) POTASSIUM (BEAKER) (test 3.6 meq/L 3.5-5.1 cfxn=582) CHLORIDE (BEAKER) (test 102 meq/L 98-107 nfrd=938) CO2 (BEAKER) (test 26 meq/L 22-29 quhu=225) BLOOD UREA NITROGEN 14 mg/dL 7-21 (BEAKER) (test oost=059) CREATININE (BEAKER) (test 0.87 mg/dL 0.57-1.25 qvka=591) GLUCOSE RANDOM (BEAKER) 101 mg/dL 70-105 (test esiq=879) CALCIUM (BEAKER) (test 9.0 mg/dL 8.4-10.2 lmpi=268) EGFR (BEAKER) (test mL/min/1.73 sq m INSUFFICIENT CLINICAL DATA hqzy=5771) TO CALCULATE ESTIMATED GFR. [id number] 05:22:00 Test Item Value Reference Range Comments PHOSPHORUS (BEAKER) (test dzeo=122) 2.9 mg/dL 2.3-4.7 [id number] 05:22:00 Test Item Value Reference Range Comments MAGNESIUM (BEAKER) (test ufvd=881) 1.7 mg/dL 1.6-2.6 PROTHROMBIN TIME/[id number] 05:07:00 Test Item Value Reference Range Comments PROTIME (BEAKER) (test qgij=823) 13.1 seconds 11.7-14.7 INR (BEAKER) (test oist=457) 1.0 <=5.9 RECOMMENDED COUMADIN/WARFARIN INR THERAPY RANGESSTANDARD DOSE: 2.0 - 3.0 Includes: PROPHYLAXIS forvenous thrombosis, systemic embolization; TREATMENT for venous thrombosis and/or pulmonary embolus.HIGH RISK: Target INR is 2.5-3.5 for patients with mechanical heart valves.[id number] 05:07:00 Test Item Value Reference Range Comments PARTIAL THROMBOPLASTIN TIME (BEAKER) (test 42.0 seconds 22.5-36.0 obgh=278) CBC (HEMOGRAM ONLY)2018-11-14 05:00:00 Test Item Value Reference Range Comments WHITE BLOOD CELL COUNT (BEAKER) (test epin=683) 12.9 K/ L 3.5-10.5 RED BLOOD CELL COUNT (BEAKER) (test hkqt=661) 4.59 M/ L 3.93-5.22 HEMOGLOBIN (BEAKER) (test wiwk=207) 13.0 GM/DL 11.2-15.7 HEMATOCRIT (BEAKER) (test dekg=155) 41.0 % 34.1-44.9 MEAN CORPUSCULAR VOLUME (BEAKER) (test memt=500) 89.3 fL 79.4-94.8 MEAN CORPUSCULAR HEMOGLOBIN (BEAKER) (test 28.3 pg 25.6-32.2 xzyl=051) MEAN CORPUSCULAR HEMOGLOBIN CONC (BEAKER) (test 31.7 GM/DL 32.2-35.5 olrh=178) RED CELL DISTRIBUTION WIDTH (BEAKER) (test 14.6 % 11.7-14.4 shes=647) PLATELET COUNT (BEAKER) (test hvhs=579) 247 K/CU MM 150-450 MEAN PLATELET VOLUME (BEAKER) (test mvlb=793) 10.3 fL 9.4-12.3 NUCLEATED RED BLOOD CELLS (BEAKER) (test 0 /100 WBC 0-0 pjyb=546) T4, [id number] 12:30:00 Test Item Value Reference Range Comments FREE T4 (BEAKER) (test znes=711) 0.93 ng/dL 0.70-1.48 TSH/FREE T4 IF [id number] 11:19:00 Test Item Value Reference Range Comments THYROID STIMULATING HORMONE (BEAKER) (test 4.97 uIU/mL 0.35-4.94 susa=026) RAD, CHEST, 1 VIEW, NON [id number] 05:20:00Reason for exam:->post opShould this be performed at the bedside?->YesFINAL REPORT RAD, CHEST, 1 VIEW, NON DEPT INDICATION: post op COMPARISON: Prior day' s exam FINDINGS: Portable frontal view of the chest. IMPRESSION: Support Lines: Stable. Lungs and pleura: Increased left basilar atelectasis. Small left pleural effusion. No pneumothorax.Heartand mediastinum: Stable contours. Stable surgical changes.Additional findings: None. Signed: Jian Escobar Verified Date/Time: 11/13/2018 05:20:43 Reading Location: [address] Transitional Reading Room BASIC METABOLIC [id number] 05:01:00 Test Item Value Reference Range Comments SODIUM (BEAKER) (test 134 meq/L 136-145 ejtl=415) POTASSIUM (BEAKER) (test 3.9 meq/L 3.5-5.1 ygrz=068) CHLORIDE (BEAKER) (test 103 meq/L 98-107 tyaj=799) CO2 (BEAKER) (test 23 meq/L 22-29 ubnf=029) BLOOD UREA NITROGEN 13 mg/dL 7-21 (BEAKER) (test kcet=899) CREATININE (BEAKER) (test 0.88 mg/dL 0.57-1.25 suco=976) GLUCOSE RANDOM (BEAKER) 107 mg/dL 70-105 (test szff=419) CALCIUM (BEAKER) (test 8.5 mg/dL 8.4-10.2 bwss=858) EGFR (BEAKER) (test mL/min/1.73 sq m INSUFFICIENT CLINICAL DATA gwrf=0418) TO CALCULATE ESTIMATED GFR. [id number] 04:59:00 Test Item Value Reference Range Comments PHOSPHORUS (BEAKER) (test nfrg=343) 2.8 mg/dL 2.3-4.7 [id number] 04:59:00 Test Item Value Reference Range Comments MAGNESIUM (BEAKER) (test psnm=118) 2.0 mg/dL 1.6-2.6 PROTHROMBIN TIME/[id number] 03:58:00 Test Item Value Reference Range Comments PROTIME (BEAKER) (test vqrn=608) 13.6 seconds 11.7-14.7 INR (BEAKER) (test gwic=565) 1.0 <=5.9 RECOMMENDED COUMADIN/WARFARIN INR THERAPY RANGESSTANDARD DOSE: 2.0 - 3.0 Includes: PROPHYLAXIS forvenous thrombosis, systemic embolization; TREATMENT for venous thrombosis and/or pulmonary embolus.HIGH RISK: Target INR is 2.5-3.5 for patients with mechanical heart valves.[id number] 03:58:00 Test Item Value Reference Range Comments PARTIAL THROMBOPLASTIN TIME (BEAKER) (test 33.3 seconds 22.5-36.0 vbla=003) CBC (HEMOGRAM ONLY)2018-11-13 03:51:00 Test Item Value Reference Range Comments WHITE BLOOD CELL COUNT (BEAKER) (test bunu=259) 17.1 K/ L 3.5-10.5 RED BLOOD CELL COUNT (BEAKER) (test dzgx=271) 4.40 M/ L 3.93-5.22 HEMOGLOBIN (BEAKER) (test pssl=219) 12.5 GM/DL 11.2-15.7 HEMATOCRIT (BEAKER) (test vtsj=206) 38.5 % 34.1-44.9 MEAN CORPUSCULAR VOLUME (BEAKER) (test xlot=262) 87.5 fL 79.4-94.8 MEAN CORPUSCULAR HEMOGLOBIN (BEAKER) (test 28.4 pg 25.6-32.2 kocu=491) MEAN CORPUSCULAR HEMOGLOBIN CONC (BEAKER) (test 32.5 GM/DL 32.2-35.5 bppy=861) RED CELL DISTRIBUTION WIDTH (BEAKER) (test 14.7 % 11.7-14.4 yqbt=148) PLATELET COUNT (BEAKER) (test wqsq=221) 192 K/CU MM 150-450 MEAN PLATELET VOLUME (BEAKER) (test arta=586) 10.5 fL 9.4-12.3 NUCLEATED RED BLOOD CELLS (BEAKER) (test 0 /100 WBC 0-0 xdnr=465) RAD, CHEST, 1 VIEW, NON [id number] 04:32:00Reason for exam:->cardiac monitoringShould this be performed [...] Escobar Verified Date/Time: 11/12/2018 04:32:55 Reading Location: [address] Transitional Reading Room BASIC METABOLIC [id number] 03:54:00 Test Item Value Reference Range Comments SODIUM (BEAKER) (test 137 meq/L 136-145 dtmw=518) POTASSIUM (BEAKER) (test 3.7 meq/L 3.5-5.1 phex=502) CHLORIDE (BEAKER) (test 105 meq/L 98-107 wtik=724) CO2 (BEAKER) (test 22 meq/L 22-29 yxbo=500) BLOOD UREA NITROGEN 13 mg/dL 7-21 (BEAKER) (test mpnt=836) CREATININE (BEAKER) (test 0.85 mg/dL 0.57-1.25 ltcp=641) GLUCOSE RANDOM (BEAKER) 98 mg/dL 70-105 (test hedp=374) CALCIUM (BEAKER) (test 8.5 mg/dL 8.4-10.2 hrxe=423) EGFR (BEAKER) (test mL/min/1.73 sq m INSUFFICIENT CLINICAL DATA qvnv=7834) TO CALCULATE ESTIMATED GFR. [id number] 03:53:00 Test Item Value Reference Range Comments PHOSPHORUS (BEAKER) (test cgww=715) 3.1 mg/dL 2.3-4.7 [id number] 03:53:00 Test Item Value Reference Range Comments MAGNESIUM (BEAKER) (test hxie=097) 2.0 mg/dL 1.6-2.6 PROTHROMBIN [id number] 03:48:00 Test Item Value Reference Range Comments PROTIME (BEAKER) (test dfbz=397) 14.2 seconds 11.7-14.7 INR (BEAKER) (test gaso=086) 1.1 <=5.9 RECOMMENDED COUMADIN/WARFARIN INR THERAPY RANGESSTANDARD DOSE: 2.0 - 3.0 Includes: PROPHYLAXIS forvenous thrombosis, systemic embolization; TREATMENT for venous thrombosis and/or pulmonary embolus.HIGH RISK: Target INR is 2.5-3.5 for patients with mechanical heart valves.[id number] 03:48:00 Test Item Value Reference Range Comments PARTIAL THROMBOPLASTIN TIME (BEAKER) (test 37.2 seconds 22.5-36.0 qkvx=207) CBC (HEMOGRAM ONLY)2018-11-12 03:30:00 Test Item Value Reference Range Comments WHITE BLOOD CELL COUNT (BEAKER) (test ielq=508) 22.8 K/ L 3.5-10.5 RED BLOOD CELL COUNT (BEAKER) (test rysh=455) 4.66 M/ L 3.93-5.22 HEMOGLOBIN (BEAKER) (test oqff=869) 13.3 GM/DL 11.2-15.7 HEMATOCRIT (BEAKER) (test pyvc=726) 41.1 % 34.1-44.9 MEAN CORPUSCULAR VOLUME (BEAKER) (test fsdg=947) 88.2 fL 79.4-94.8 MEAN CORPUSCULAR HEMOGLOBIN (BEAKER) (test 28.5 pg 25.6-32.2 cwtb=395) MEAN CORPUSCULAR HEMOGLOBIN CONC (BEAKER) (test 32.4 GM/DL 32.2-35.5 huxm=914) RED CELL DISTRIBUTION WIDTH (BEAKER) (test 15.1 % 11.7-14.4 dfgg=506) PLATELET COUNT (BEAKER) (test schf=330) 197 K/CU MM 150-450 MEAN PLATELET VOLUME (BEAKER) (test lako=006) 10.1 fL 9.4-12.3 NUCLEATED RED BLOOD CELLS (BEAKER) (test 0 /100 WBC 0-0 owmg=590) RAD, CHEST, 1 VIEW, NON [id number] 06:15:00Reason for exam:->cardiac monitoringShould this be performed [...] MDReport Verified Date/Time: 2018 06:15:46 Reading Location: [address] Transitional Reading Room BASIC METABOLIC [id number] 05:43:00 Test Item Value Reference Range Comments SODIUM (BEAKER) (test 138 meq/L 136-145 axqr=877) POTASSIUM (BEAKER) (test 3.8 meq/L 3.5-5.1 zzbn=087) CHLORIDE (BEAKER) (test 108 meq/L 98-107 uovs=717) CO2 (BEAKER) (test 22 meq/L 22-29 pses=509) BLOOD UREA NITROGEN 18 mg/dL 7-21 (BEAKER) (test lyxb=540) CREATININE (BEAKER) (test 0.99 mg/dL 0.57-1.25 fued=645) GLUCOSE RANDOM (BEAKER) 106 mg/dL 70-105 (test lwsr=821) CALCIUM (BEAKER) (test 8.6 mg/dL 8.4-10.2 jbzg=914) EGFR (BEAKER) (test mL/min/1.73 sq m INSUFFICIENT CLINICAL DATA haod=6974) TO CALCULATE ESTIMATED GFR. [id number] 05:31:00 Test Item Value Reference Range Comments PHOSPHORUS (BEAKER) (test jqiz=106) 2.0 mg/dL 2.3-4.7 [id number] 05:31:00 Test Item Value Reference Range Comments MAGNESIUM (BEAKER) (test uomk=772) 1.8 mg/dL 1.6-2.6 [id number] 05:22:00 Test Item Value Reference Range Comments PARTIAL THROMBOPLASTIN TIME (BEAKER) (test 34.4 seconds 22.5-36.0 yrrd=967) PROTHROMBIN [id number] 05:21:00 Test Item Value Reference Range Comments PROTIME (BEAKER) (test qolb=224) 13.1 seconds 11.7-14.7 INR (BEAKER) (test utue=109) 1.0 <=5.9 RECOMMENDED COUMADIN/WARFARIN INR THERAPY RANGESSTANDARD DOSE: 2.0 - 3.0 Includes: PROPHYLAXIS forvenous thrombosis, systemic embolization; TREATMENT for venous thrombosis and/or pulmonary embolus.HIGH RISK: Target INR is 2.5-3.5 for patients with mechanical heart valves.BLOOD GAS, [id number] 05:05:00 Test Item Value Reference Range Comments PH ARTERIAL (BEAKER) (test fkri=495) 7.46 7.35-7.45 PCO2 ARTERIAL (BEAKER) (test nytd=922) 34 mmHg 35-45 PO2 ARTERIAL (BEAKER) (test kcer=269) 91 mmHg 80-90 O2 SATURATION ARTERIAL (BEAKER) (test lvuv=510) 97.0 % 96.0-97.0 HCO3 ARTERIAL (BEAKER) (test qvwl=580) 23 mmol/L 21-29 BASE EXCESS ARTERIAL (BEAKER) (test efif=254) 0.3 mmol/L -2.0-3.0 PATIENT TEMPERATURE (BEAKER) (test bxjr=0180) 38.2 C FIO2 (BEAKER) (test rcjn=9707) 50.0 % Daily ABG with morning labs while patient is intubated.CBC (HEMOGRAM ONLY)11-11 04:52:00 Test Item Value Reference Range Comments WHITE BLOOD CELL COUNT (BEAKER) (test prjs=125) 15.1 K/ L 3.5-10.5 RED BLOOD CELL COUNT (BEAKER) (test nrsu=573) 4.53 M/ L 3.93-5.22 HEMOGLOBIN (BEAKER) (test bxzl=564) 12.9 GM/DL 11.2-15.7 HEMATOCRIT (BEAKER) (test ryyx=656) 39.9 % 34.1-44.9 MEAN CORPUSCULAR VOLUME (BEAKER) (test ehtg=855) 88.1 fL 79.4-94.8 MEAN CORPUSCULAR HEMOGLOBIN (BEAKER) (test 28.5 pg 25.6-32.2 wjbi=649) MEAN CORPUSCULAR HEMOGLOBIN CONC (BEAKER) (test 32.3 GM/DL 32.2-35.5 sata=368) RED CELL DISTRIBUTION WIDTH (BEAKER) (test 15.3 % 11.7-14.4 cumt=681) PLATELET COUNT (BEAKER) (test vcly=908) 214 K/CU MM 150-450 MEAN PLATELET VOLUME (BEAKER) (test bwtc=224) 11.0 fL 9.4-12.3 NUCLEATED RED BLOOD CELLS (BEAKER) (test 0 /100 WBC 0-0 vebf=732) BASIC METABOLIC [id number] 18:59:00 Test Item Value Reference Range Comments SODIUM (BEAKER) (test 138 meq/L 136-145 ielk=955) POTASSIUM (BEAKER) (test 3.9 meq/L 3.5-5.1 friq=407) CHLORIDE (BEAKER) (test 108 meq/L 98-107 knpy=585) CO2 (BEAKER) (test 21 meq/L 22-29 tcad=871) BLOOD UREA NITROGEN 19 mg/dL 7-21 (BEAKER) (test fkox=393) CREATININE (BEAKER) (test 0.94 mg/dL 0.57-1.25 gdlb=453) GLUCOSE RANDOM (BEAKER) 111 mg/dL 70-105 (test zyuj=035) CALCIUM (BEAKER) (test 8.3 mg/dL 8.4-10.2 jthz=193) EGFR (BEAKER) (test mL/min/1.73 sq m INSUFFICIENT CLINICAL DATA mhzg=2780) TO CALCULATE ESTIMATED GFR. [id number] 18:50:00 Test Item Value Reference Range Comments PROTIME (BEAKER) (test cbir=956) 13.4 seconds 11.7-14.7 INR (BEAKER) (test wcox=431) 1.0 <=5.9 PARTIAL THROMBOPLASTIN TIME (BEAKER) (test 31.7 seconds 22.5-36.0 sxut=683) RECOMMENDED COUMADIN/WARFARIN INR THERAPY RANGESSTANDARD DOSE: 2.0 - 3.0 Includes: PROPHYLAXIS forvenous thrombosis, systemic embolization; TREATMENT for venous thrombosis and/or pulmonary embolus.HIGH RISK: Target INR is 2.5-3.5 for patients with mechanical heart valves.CBC (HEMOGRAM ONLY)2018-11-10 18:34:00 Test Item Value Reference Range Comments WHITE BLOOD CELL COUNT (BEAKER) (test jkoa=979) 14.5 K/ L 3.5-10.5 RED BLOOD CELL COUNT (BEAKER) (test uakh=907) 4.64 M/ L 3.93-5.22 HEMOGLOBIN (BEAKER) (test ewva=712) 13.4 GM/DL 11.2-15.7 HEMATOCRIT (BEAKER) (test mjeo=824) 41.0 % 34.1-44.9 MEAN CORPUSCULAR VOLUME (BEAKER) (test swyp=189) 88.4 fL 79.4-94.8 MEAN CORPUSCULAR HEMOGLOBIN (BEAKER) (test 28.9 pg 25.6-32.2 avqx=472) MEAN CORPUSCULAR HEMOGLOBIN CONC (BEAKER) (test 32.7 GM/DL 32.2-35.5 dmnq=606) RED CELL DISTRIBUTION WIDTH (BEAKER) (test 15.1 % 11.7-14.4 qdfa=543) PLATELET COUNT (BEAKER) (test eklj=304) 178 K/CU MM 150-450 MEAN PLATELET VOLUME (BEAKER) (test uwab=560) 10.3 fL 9.4-12.3 NUCLEATED RED BLOOD CELLS (BEAKER) (test 0 /100 WBC 0-0 kksi=363) CALCIUM, [id number] 18:32:00 Test Item Value Reference Range Comments CALCIUM IONIZED (BEAKER) (test cbul=670) 1.09 mmol/L 1.12-1.27 PH, BLOOD (BEAKER) (test geix=1943) 7.42 BLOOD GAS, [id number] 18:32:00 Test Item Value Reference Range Comments PH ARTERIAL (BEAKER) (test fplw=007) 7.42 7.35-7.45 PCO2 ARTERIAL (BEAKER) (test fbpo=434) 36 mmHg 35-45 PO2 ARTERIAL (BEAKER) (test blyf=710) 123 mmHg 80-90 O2 SATURATION ARTERIAL (BEAKER) (test kezo=604) 98.6 % 96.0-97.0 HCO3 ARTERIAL (BEAKER) (test kvtr=070) 23 mmol/L 21-29 BASE EXCESS ARTERIAL (BEAKER) (test drzf=112) -1.1 mmol/L -2.0-3.0 PATIENT TEMPERATURE (BEAKER) (test eszv=1952) 36.3 C FIO2 (BEAKER) (test rvlr=5126) 100.0 % [id number] 17:09:00 Test Item Value Reference Range Comments ACTIVATED CLOTTING TIME 131 sec TESTED AT [place] [id number] [address] (BEAKER) (test sfyu=540) [place] [address] [id number] 17:09:00 Test Item Value Reference Range Comments ACTIVATED CLOTTING TIME 230 sec TESTED AT [address] (BEAKER) (test xeqi=290) [place] [address] HGB/HCT (H&H) - STAT [id number] 16:27:00 Test Item Value Reference Range Comments HEMOGLOBIN (BEAKER) (test euee=590) 12.4 g/dL 12.0-15.0 HEMATOCRIT (BEAKER) (test rryx=490) 36.0 % 36.0-45.0 SODIUM NA-STAT [id number] 16:27:00 Test Item Value Reference Range Comments SODIUM (BEAKER) (test sofz=848) 133 meq/L 135-148 BLOOD GAS, [id number] 16:25:00 Test Item Value Reference Range Comments PH ARTERIAL (BEAKER) (test xbqc=792) 7.46 7.35-7.45 PCO2 ARTERIAL (BEAKER) (test fghc=138) 34 mmHg 35-45 PO2 ARTERIAL (BEAKER) (test hrpy=314) 112 mmHg 80-90 O2 SATURATION ARTERIAL (BEAKER) (test yxnv=079) 98.5 % 96.0-97.0 HCO3 ARTERIAL (BEAKER) (test roxr=719) 24 mmol/L 21-29 BASE EXCESS ARTERIAL (BEAKER) (test esxu=300) 0.0 mmol/L -2.0-3.0 PATIENT TEMPERATURE (BEAKER) (test ysnk=3348) 35.6 C FIO2 (BEAKER) (test uzet=9845) 78.0 % GLUCOSE-STAT [id number] 16:25:00 Test Item Value Reference Range Comments GLUCOSE RANDOM (BEAKER) (test hddz=963) 115 mg/dL 70-110 POTASSIUM-STAT [id number] 16:24:00 Test Item Value Reference Range Comments POTASSIUM (BEAKER) (test nwfp=022) 3.8 meq/L 3.6-5.5 CALCIUM, [id number] 14:56:00 Test Item Value Reference Range Comments CALCIUM IONIZED (BEAKER) (test lnic=136) 1.06 mmol/L 1.12-1.27 PH, BLOOD (BEAKER) (test ukor=6425) 7.41 BLOOD GAS, [id number] 14:56:00 Test Item Value Reference Range Comments PH ARTERIAL (BEAKER) (test cfqe=917) 7.43 7.35-7.45 PCO2 ARTERIAL (BEAKER) (test ghkd=864) 36 mmHg 35-45 PO2 ARTERIAL (BEAKER) (test nqhl=377) 265 mmHg 80-90 O2 SATURATION ARTERIAL (BEAKER) (test oytr=578) 99.6 % 96.0-97.0 HCO3 ARTERIAL (BEAKER) (test vmxw=910) 23 mmol/L 21-29 BASE EXCESS ARTERIAL (BEAKER) (test utoh=123) -1.1 mmol/L -2.0-3.0 PATIENT TEMPERATURE (BEAKER) (test vcdh=8774) 36.2 C FIO2 (BEAKER) (test akfn=4100) 95.0 % SODIUM NA-STAT [id number] 14:56:00 Test Item Value Reference Range Comments SODIUM (BEAKER) (test rahf=239) 134 meq/L 135-148 GLUCOSE-STAT [id number] 14:55:00 Test Item Value Reference Range Comments GLUCOSE RANDOM (BEAKER) (test ztym=735) 103 mg/dL 70-110 POTASSIUM-STAT [id number] 14:55:00 Test Item Value Reference Range Comments POTASSIUM (BEAKER) (test dozc=500) 3.6 meq/L 3.6-5.5 HGB/HCT (H&H) - STAT [id number] 14:55:00 Test Item Value Reference Range Comments HEMOGLOBIN (BEAKER) (test wvnd=229) 13.1 g/dL 12.0-15.0 HEMATOCRIT (BEAKER) (test ndtb=849) 39.0 % 36.0-45.0 RAD, CHEST, 1 VIEW, NON [id number] 04:46:00Reason for exam:->cardiac monitoringShould this be performed [...] theleft. There is no pneumothorax. Signed: Katherin [place] Verified Date/Time: 11/10/2018 04:46:58 Reading Location: [address] Reading Room BASIC METABOLIC [id number] 03:57:00 Test Item Value Reference Range Comments SODIUM (BEAKER) (test 136 meq/L 136-145 wkln=570) POTASSIUM (BEAKER) (test 4.1 meq/L 3.5-5.1 dndh=282) CHLORIDE (BEAKER) (test 105 meq/L 98-107 hfcn=701) CO2 (BEAKER) (test 26 meq/L 22-29 jfez=981) BLOOD UREA NITROGEN 28 mg/dL 7-21 (BEAKER) (test zrmz=199) CREATININE (BEAKER) (test 1.27 mg/dL 0.57-1.25 cqio=893) GLUCOSE RANDOM (BEAKER) 122 mg/dL 70-105 (test ejjn=630) CALCIUM (BEAKER) (test 8.6 mg/dL 8.4-10.2 xprz=457) EGFR (BEAKER) (test mL/min/1.73 sq m INSUFFICIENT CLINICAL DATA anth=5565) TO CALCULATE ESTIMATED GFR. [id number] 03:45:00 Test Item Value Reference Range Comments PHOSPHORUS (BEAKER) (test djlv=968) 3.3 mg/dL 2.3-4.7 [id number] 03:45:00 Test Item Value Reference Range Comments MAGNESIUM (BEAKER) (test atzq=599) 2.1 mg/dL 1.6-2.6 CBC (HEMOGRAM ONLY)2018-11-10 03:25:00 Test Item Value Reference Range Comments WHITE BLOOD CELL COUNT (BEAKER) (test kbqk=159) 10.0 K/ L 3.5-10.5 RED BLOOD CELL COUNT (BEAKER) (test uymt=298) 4.36 M/ L 3.93-5.22 HEMOGLOBIN (BEAKER) (test agjv=216) 12.4 GM/DL 11.2-15.7 HEMATOCRIT (BEAKER) (test bufw=466) 39.1 % 34.1-44.9 MEAN CORPUSCULAR VOLUME (BEAKER) (test vdnr=547) 89.7 fL 79.4-94.8 MEAN CORPUSCULAR HEMOGLOBIN (BEAKER) (test 28.4 pg 25.6-32.2 dbpm=068) MEAN CORPUSCULAR HEMOGLOBIN CONC (BEAKER) (test 31.7 GM/DL 32.2-35.5 yhxn=363) RED CELL DISTRIBUTION WIDTH (BEAKER) (test 15.1 % 11.7-14.4 skzp=045) PLATELET COUNT (BEAKER) (test jucu=588) 183 K/CU MM 150-450 MEAN PLATELET VOLUME (BEAKER) (test amni=192) 10.2 fL 9.4-12.3 NUCLEATED RED BLOOD CELLS (BEAKER) (test 0 /100 WBC 0-0 uagj=414) TSH/FREE T4 IF [id number] 10:50:00 Test Item Value Reference Range Comments THYROID STIMULATING HORMONE (BEAKER) (test 0.84 uIU/mL 0.35-4.94 wfjv=143) RAD, CHEST, 1 VIEW, NON [id number] 08:37:00Reason for exam:->cardiac monitoringShould this be performed [...] Verified Date/Time : 11/09/2018 08:37:21 Reading Location: [facility] Reading Room [id number] 04:02:00 Test Item Value Reference Range Comments PHOSPHORUS (BEAKER) (test sntd=188) 4.0 mg/dL 2.3-4.7 [id number] 04:02:00 Test Item Value Reference Range Comments MAGNESIUM (BEAKER) (test zycu=732) 1.9 mg/dL 1.6-2.6 BASIC METABOLIC [id number] 04:02:00 Test Item Value Reference Range Comments SODIUM (BEAKER) (test 139 meq/L 136-145 sstu=480) POTASSIUM (BEAKER) (test 3.4 meq/L 3.5-5.1 wfdv=561) CHLORIDE (BEAKER) (test 105 meq/L 98-107 sikx=243) CO2 (BEAKER) (test 27 meq/L 22-29 qvmo=299) BLOOD UREA NITROGEN 23 mg/dL 7-21 (BEAKER) (test jeee=994) CREATININE (BEAKER) (test 1.41 mg/dL 0.57-1.25 loci=317) GLUCOSE RANDOM (BEAKER) 124 mg/dL 70-105 (test rxzu=230) CALCIUM (BEAKER) (test 8.5 mg/dL 8.4-10.2 xyov=346) EGFR (BEAKER) (test mL/min/1.73 sq m INSUFFICIENT CLINICAL DATA eyhr=2012) TO CALCULATE ESTIMATED GFR. CBC (HEMOGRAM ONLY)2018-11-09 03:45:00 Test Item Value Reference Range Comments WHITE BLOOD CELL COUNT (BEAKER) (test hair=405) 13.6 K/ L 3.5-10.5 RED BLOOD CELL COUNT (BEAKER) (test xqkz=235) 4.60 M/ L 3.93-5.22 HEMOGLOBIN (BEAKER) (test uwii=016) 13.1 GM/DL 11.2-15.7 HEMATOCRIT (BEAKER) (test eybe=516) 41.2 % 34.1-44.9 MEAN CORPUSCULAR VOLUME (BEAKER) (test sleb=897) 89.6 fL 79.4-94.8 MEAN CORPUSCULAR HEMOGLOBIN (BEAKER) (test 28.5 pg 25.6-32.2 llkn=392) MEAN CORPUSCULAR HEMOGLOBIN CONC (BEAKER) (test 31.8 GM/DL 32.2-35.5 taso=631) RED CELL DISTRIBUTION WIDTH (BEAKER) (test 15.3 % 11.7-14.4 ymop=626) PLATELET COUNT (BEAKER) (test huow=749) 195 K/CU MM 150-450 MEAN PLATELET VOLUME (BEAKER) (test liya=201) 10.2 fL 9.4-12.3 NUCLEATED RED BLOOD CELLS (BEAKER) (test 0 /100 WBC 0-0 ephl=758) RAD, CHEST, 1 VIEW, NON [id number] 08:05:00Reason for exam:->Potential aortic dissectionIs the patient [...] the left lower lobe laterally. Signed: Alyssa Lee MDReport Verified Date/Time: 08:05:30 Reading Location: [facility] Radiology Reading Room IN [id number] 07:51:00 Test Item Value Reference Range Comments TROPONIN I (BEAKER) (test oueg=253) < ng/mL 0.00-0.03 Troponin I (TnI) levels [...] acute neurological disease, and persistent tachyarrhythmia.BASIC METABOLIC [id number] 05:45:00 Test Item Value Reference Range Comments SODIUM (BEAKER) (test 138 meq/L 136-145 qrwb=713) POTASSIUM (BEAKER) (test 3.7 meq/L 3.5-5.1 Specimen slightly erxd=139) hemolyzed CHLORIDE (BEAKER) (test 105 meq/L 98-107 ghew=963) CO2 (BEAKER) (test 22 meq/L 22-29 skey=451) BLOOD UREA NITROGEN 17 mg/dL 7-21 (BEAKER) (test iauw=025) CREATININE (BEAKER) (test 1.07 mg/dL 0.57-1.25 Specimen slightly ytil=777) hemolyzed GLUCOSE RANDOM (BEAKER) 138 mg/dL 70-105 (test qhju=535) CALCIUM (BEAKER) (test 9.1 mg/dL 8.4-10.2 wrzb=002) EGFR (BEAKER) (test mL/min/1.73 sq m INSUFFICIENT CLINICAL DATA mzas=1283) TO CALCULATE ESTIMATED GFR. [id number] 05:42:00 Test Item Value Reference Range Comments MAGNESIUM (BEAKER) (test 2.2 mg/dL 1.6-2.6 Specimen slightly hemolyzed vpgc=433) [id number] 05:42:00 Test Item Value Reference Range Comments PHOSPHORUS (BEAKER) (test 3.8 mg/dL 2.3-4.7 Specimen slightly hemolyzed ioze=275) HEPATIC FUNCTION [id number] 05:42:00 Test Item Value Reference Range Comments TOTAL PROTEIN (BEAKER) (test 6.9 gm/dL 6.0-8.3 Specimen slightly hemolyzed qptu=968) ALBUMIN (BEAKER) (test 3.6 g/dL 3.5-5.0 Specimen slightly hemolyzed gzao=4633) BILIRUBIN TOTAL (BEAKER) (test 2.3 mg/dL 0.2-1.2 Specimen slightly hemolyzed acgr=396) BILIRUBIN DIRECT (BEAKER) (test 1.3 mg/dL 0.1-0.5 Specimen slightly hemolyzed xhns=303) ALKALINE PHOSPHATASE (BEAKER) 266 U/L 40-150 (test olxo=251) AST (SGOT) (BEAKER) (test 152 U/L 5-34 Specimen slightly hemolyzed asgq=562) ALT (SGPT) (BEAKER) (test 99 U/L 6-55 Specimen slightly hemolyzed wgdb=635) CBC W/PLT COUNT & AUTO [id number] 05:26:00 Test Item Value Reference Range Comments WHITE BLOOD CELL COUNT (BEAKER) (test ieiw=742) 15.1 K/ L 3.5-10.5 RED BLOOD CELL COUNT (BEAKER) (test oloc=433) 5.36 M/ L 3.93-5.22 HEMOGLOBIN (BEAKER) (test vxtv=092) 15.0 GM/DL 11.2-15.7 HEMATOCRIT (BEAKER) (test qigo=855) 47.2 % 34.1-44.9 MEAN CORPUSCULAR VOLUME (BEAKER) (test qhze=180) 88.1 fL 79.4-94.8 MEAN CORPUSCULAR HEMOGLOBIN (BEAKER) (test 28.0 pg 25.6-32.2 nxmg=628) MEAN CORPUSCULAR HEMOGLOBIN CONC (BEAKER) (test 31.8 GM/DL 32.2-35.5 fkbb=570) RED CELL DISTRIBUTION WIDTH (BEAKER) (test 14.7 % 11.7-14.4 qjmi=738) PLATELET COUNT (BEAKER) (test vwtd=871) 239 K/CU MM 150-450 MEAN PLATELET VOLUME (BEAKER) (test zlwn=265) 10.0 fL 9.4-12.3 NUCLEATED RED BLOOD CELLS (BEAKER) (test 0 /100 WBC 0-0 lrxt=178) NEUTROPHILS RELATIVE PERCENT (BEAKER) (test 81 % xvzt=563) LYMPHOCYTES RELATIVE PERCENT (BEAKER) (test 11 % zwpl=455) MONOCYTES RELATIVE PERCENT (BEAKER) (test 7 % kpip=255) EOSINOPHILS RELATIVE PERCENT (BEAKER) (test 0 % wshu=714) BASOPHILS RELATIVE PERCENT (BEAKER) (test 0 % ogmf=503) NEUTROPHILS ABSOLUTE COUNT (BEAKER) (test 12.22 K/ L 1.56-6.13 dihu=255) LYMPHOCYTES ABSOLUTE COUNT (BEAKER) (test 1.62 K/ L 1.18-3.74 leue=654) MONOCYTES ABSOLUTE COUNT (BEAKER) (test 1.12 K/ L 0.24-0.36 vfmt=913) EOSINOPHILS ABSOLUTE COUNT (BEAKER) (test 0.01 K/ L 0.04-0.36 mjis=061) BASOPHILS ABSOLUTE COUNT (BEAKER) (test 0.06 K/ L 0.01-0.08 yuyr=659) IMMATURE GRANULOCYTES-RELATIVE PERCENT (BEAKER) 0 % 0-1 (test bosz=4881) [id number] 05:26:00 Test Item Value Reference Range Comments PARTIAL THROMBOPLASTIN TIME (BEAKER) (test 25.2 seconds 22.5-36.0 waqj=487) PROTHROMBIN [id number] 05:25:00 Test Item Value Reference Range Comments PROTIME (BEAKER) (test lers=829) 13.5 seconds 11.7-14.7 INR (BEAKER) (test htek=008) 1.0 <=5.9 RECOMMENDED COUMADIN/WARFARIN INR THERAPY RANGESSTANDARD DOSE: 2.0 - 3.0 Includes: PROPHYLAXIS forvenous thrombosis, systemic embolization; TREATMENT for venous thrombosis and/or pulmonary embolus.HIGH RISK: Target INR is 2.5-3.5 for patients with mechanical heart valves.CALCIUM, [id number] 05:20:00 Test Item Value Reference Range Comments CALCIUM IONIZED (BEAKER) (test ysfe=997) 1.13 mmol/L 1.12-1.27 PH, BLOOD (BEAKER) (test omhp=0235) 7.38
[2019-12-05] MEDS ORDERED: Ringers Lactate 1,000 ML IV ONE (06:46)
[2019-12-05] MEDS ORDERED: propofoL 200 MG/20 ML VIAL IV ONE (06:57)
[2019-12-05] MEDS ORDERED: LIDOCAINE 2% MPF 5 ML VIAL ONE ×2 (06:57→07:00)
[2019-12-05] MEDS ORDERED: MIDAZOLAM HCL 2 MG/2 ML INJ ONE (06:58)
[2019-12-05] MEDS ORDERED: FENTANYL CITR 100 MCG/2 ML ONE (06:58)
[2019-12-05] MEDS ORDERED: ONDANSETRON 4 MG/2 ML VIAL ONE ×2 (06:58→08:49)
[2019-12-05] MEDS ORDERED: NA CHLORIDE 0.9% 1,000 ML ONE (07:05)
[2019-12-05] MEDS: LIDOCAINE 1% W/EPI 1:100,000 MDV 20 ML VIAL ONE ×2 (07:28→07:54)
[2019-12-05] MEDS ORDERED: EPHEDRINE SULF 50 MG/ML VIAL ONE (08:12)
[2019-12-05] MEDS: HYDROMORPHONE HCL 1 MG/ML INJ ONE ×2 (08:34→08:48)
[2019-12-05 08:58] VITALS: BP 137/64; TEMP 97.9; O2SAT 95
--- NOTE | 2019-12-05 10:03 | OP ---
Date of Procedure: 12/05/2019 Surgeon: Adriana Jaimes MD Preoperative Diagnosis: Postmenopausal bleeding. Postoperative Diagnosis: Postmenopausal bleeding. Procedure Performed: Hysteroscopy, dilation and curettage. Anesthesia: General. Specimens: Endometrial curettings and tumor. Estimated Blood Loss: Minimal. Complications: No complications. Drains: No drains. Condition: Stable. 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 No open cavity was noted. Tubal ostia could not be identified because the tumor covered the en tire cavity. After the scope was removed, adequate sampling was performed. Indications: Patient is a 59-year-old presented as a new patient yesterday for postmenopausal bleedi ng for 8 months. She has been having mostly daily reddish discharge with intermittent 2 to 3 day of heavy bright red bleeding. 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 She has significant medical history for chronic pancreatitis with a recent common bile duct stenosis for which she had a stent placed via an ERCP at [place] in [facility]. She has been doing well after emily t. She also has significant vasculopathic history. Most recently in November of 2018, she had sympt omatic chest pain, noted to have aortic aneurysm that was treated by using a patch or stent, history unclear, no documents present at the time I evaluated the patient. No acute chest pain or shortness of breath. She also has history of drug use and alcohol abuse in the past. Denied any current use a t this time. After evaluation of the patient, the uterus appeared to be enlarged slightly. No other abnormalities were noted on the pelvic exam. Definitely presence of blood was noted in the vaginal canal, so proceeded to consent the patient for hysteroscopic evaluation of her bleeding and sampling to rule out endometrial cancer or atypia. She was counseled on her procedure. Preoperative evaluati on did not need a cardiac clearance after discussion with her primary care and our anesthesiologist toño garcia, so she was consented and brought to the OR. Description Of Procedure: After informed consent was re-verified, she was brought back to the OR. S he was a hard stick, had about 6 sticks before her IV was placed in the left antecubital fossa, which was functional. After the patient was in the OR, she was given general anesthesia with LMA, placed in the dorsal lithotomy position. Pelvic exam performed. Prep x3 with Betadine was done on the vulv a and vagina. Speculum was placed to expose the cervix. Anterior lip was grasped with a single-toot h tenaculum. Then, the external os opened with the help of a hemostat. Then, a SlimLine diagnostic hysteroscope was used to enter the cervical canal and traversed directly into the uterine cavity. Th ere was tumor as noted in the findings in the entire cavity. The scope was pulled out after irrigati ng the cavity for visualization. A picture was taken. Then, endometrial curettings were performed w ith a #2 curette. The cervix had to be dilated to 16-Ukrainian in order for me to introduce the head of the curette. Sampling was adequate, handed out for permanent pathology. All instruments were remov ed. Instrument, needle, and sponge counts were done and were correct at the end of the case. Peewee cornejo was recovered from anesthesia and taken to PACU in stable condition. Estimated Blood Loss: Minimal. Plan: She will follow up with me in 1 week in my office for pathology review. IRIS/IMMANUEL Voice ID: [id number] Report ID: [id number]
== END 2019-12-05 09:50 | disposition home or self-care (01) ==
LOC: OR 06:25
PROVIDERS: ATTEND Obstetrics & Gynecology
PROC: 0UJD8ZZ Inspection of Uterus and Cervix, Via Natural or Artificial Opening Endoscopic (ICD-10-PCS; 2019-12-05)
PROC: 0UDB7ZX Extraction of Endometrium, Via Natural or Artificial Opening, Diagnostic (ICD-10-PCS; principal; 2019-12-05 07:30)
DX: N95.0 Postmenopausal bleeding (principal); I10 Essential (primary) hypertension; I25.10 Atherosclerotic heart disease of native coronary artery without angina pectoris; E03.9 Hypothyroidism, unspecified; F41.9 Anxiety disorder, unspecified; F17.210 Nicotine dependence, cigarettes, uncomplicated; Z80.3 Family history of malignant neoplasm of breast; Z83.3 Family history of diabetes mellitus
CPT/HCPCS: 58558; 88305; J2704; J2250; J3010; J1170; J7120; J7030; J2405 ×2

== ENCOUNTER 2020-02-16 11:02 | Emergency (ER) | payer BC, OTHER ==
--- OUTSIDE RECORDS SUMMARY | 2020-02-16 11:05 | XMS REPORT ---
:1960 Author Organization [facility] t Address [address] [place] [address] [address]. [address] [place] [address] Care Team Providers Name Role Phone KEDAR COOK Unavailable Unavailable Problems This patient has no known problems. Allergies, Adverse Reactions, Alerts This patient has no known allergies or adverse reactions. Medications This patient has no known medications. Results Test Description Test Time Test Comments Text Results Atomic Results Result Comments RAD, CHEST, 1 2018-11-15 10:37:00 Reason for exam:->post FINAL REPORT PATIENT ID: VIEW, NON DEPT opShould this be [id number] Chest x-ray performed at the Clinical History: [...] [place] Verified Date/Time: 11/15/2018 10:37:06 Reading Location: [facility] Radiology Reading Room C METABOLIC PANEL 2018-11-15 05:55:00 Test Item Value Reference Range Comments SODIUM (BEAKER) (test code = 137 meq/L 136-145 381) POTASSIUM (BEAKER) (test 3.9 meq/L 3.5-5.1 code = 379) CHLORIDE (BEAKER) (test code 102 meq/L 98-107 = 382) CO2 (BEAKER) (test code = 25 meq/L 22-29 355) BLOOD UREA NITROGEN (BEAKER) 14 mg/dL 7-21 (test code = 354) CREATININE (BEAKER) (test 0.91 mg/dL 0.57-1.25 code = 358) GLUCOSE RANDOM (BEAKER) 102 mg/dL 70-105 (test code = 652) CALCIUM (BEAKER) (test code 9.3 mg/dL 8.4-10.2 = 697) EGFR (BEAKER) (test code = mL/min/1.73 sq m INS UFFICIENT CLINICAL DATA TO 1092) CALCULATE ESTIMA MARCIAL GFR. [id number] 05:34:00 Test Item Value Reference Range Comments PHOSPHORUS (BEAKER) (test code = 604) 3.2 mg/dL 2.3-4.7 [id number] 05:34:00 Test Item Value Reference Range Comments MAGNESIUM (BEAKER) (test code = 627) 1.8 mg/dL 1.6-2.6 [id number] 05:18:00 Test Item Value Reference Range Comments PARTIAL THROMBOPLASTIN TIME (BEAKER) (test code 37.7 seconds 22.5-36.0 = 760) PROTHROMBIN TIME/[id number] 05:17:00 Test Item Value Reference Range Comments PROTIME (BEAKER) (test code = 759) 13.3 seconds 11.7-14.7 INR (BEAKER) (test code = 370) 1.0 <=5.9 RECOMMENDED COUMADIN/WARFARIN INR THERAPY RANGESSTANDARD DOSE: 2.0 - 3.0 Includes: PROPHYLAXIS forvenous thrombosis, systemic embolization; TREATMENT for venous thrombosis and/or pulmonary embolus.HIGH RISK: Target INR is 2.5-3.5 for patients with mechanical heart valves.CBC (HEMOGRAM ONLY)2018-11-15 05:07:00 Test Item Value Reference Range Comments WHITE BLOOD CELL COUNT (BEAKER) (test code = 11.4 K/ L 3.5 -10.5 775) RED BLOOD CELL COUNT (BEAKER) (test code = 761) 4.85 M/ L 3.93-5.22 HEMOGLOBIN (BEAKER) (test code = 410) 13.9 GM/DL 11.2-15.7 HEMATOCRIT (BEAKER) (test code = 411) 42.6 % 34.1-44.9 MEAN CORPUSCULAR VOLUME (BEAKER) (test code = 87.8 fL 79 .4-94.8 753) MEAN CORPUSCULAR HEMOGLOBIN (BEAKER) (test code 28.7 pg 25.6-32.2 = 751) MEAN CORPUSCULAR HEMOGLOBIN CONC (BEAKER) (test 32.6 GM/DL 32.2-35.5 code = 752) RED CELL DISTRIBUTION WIDTH (BEAKER) (test code 14.5 % 11.7-14.4 = 412) PLATELET COUNT (BEAKER) (test code = 756) 301 K/CU MM 150-45 0 MEAN PLATELET VOLUME (BEAKER) (test code = 754) 10.0 fL 9.4-12.3 NUCLEATED RED BLOOD CELLS (BEAKER) (test code = 0 /100 WBC 0-0 413) CTA, CHEST, ABDOMEN - PELVIS, FOR [id number] 20:11:00Reason for exam:- >s/p StentAddendum BeginsREPORT STATUS:A Addendum: November 14, 2018 at 2005 hours I have reviewed the CT images for this study and I concur with the nonvascular imaging findings as dictated. Signed: Martina Bailey MDReport Verified Date/Time: 11/14/2018 20:11:33 Reading Location: [place] [address] Angio Body Reading RoomAddendum EndsFINAL REPORT CT [...] distal descending thoracic aorta. The endostent is well- positioned. No endoleak is identified. Thereafter, the most [...] obstruction. In addition, there is likely small a therosclerotic ulceration identified at the takeoff of the [...] some eccentric calcific and noncalcific atherosclerosis identifiedwith [id number] disease present. The distal left common femoral [...] the SMA, at image 216, posteriorly. Some intralumin al thrombus is identified in the infrarenal abdominal [...] dictated regarding the non-vascular findings by the [employer] Worker Radiologist. Signed: Mahad Muñoz MDReport Verified Date/Time: 11/12/2018 09:28:12 Reading Location: [facility] P047 Cardiology MRI RAD, CHEST, 1 VIEW, NON [id number] 08:35:00Reason for exam:->cardiac monitoringShould this be performed at the bedside?->YesFINAL REPORT TECHNIQUE: Frontal chest radiograph dated 11/14/2018. CLINICAL HI STORY: Cardiac monitoring COMPARISON STUDY: Chest radiograph dated 11/13/2018 IMPRESSION: Right-sidedvascular line is unchanged. Stable, small left pleural effusion with associated atelectasis. No pneumothorax. Cardiomediastinal silhouette is stable in size. Endovascular stent graft is again seen in the thoracic aorta. No pulmonary edema. No fracture. Signed: Beti Jurado MDReport Verified Date/Time: 11/14/2018 08:35:31 Reading Location: [facility] Radiology Reading Room BASIC METABOLIC [id number] 05:24:00 Test Item Value Reference Range Comments SODIUM (BEAKER) (test 137 meq/L 136-145 code = 381) POTASSIUM (BEAKER) (test 3.6 meq/L 3.5-5.1 code = 379) CHLORIDE (BEAKER) (test 102 meq/L 98-107 code = 382) CO2 (BEAKER) (test code = 26 meq/L 22-29 355) BLOOD UREA NITROGEN 14 mg/dL 7-21 (BEAKER) (test code = 354) CREATININE (BEAKER) (test 0.87 mg/dL 0.57-1.25 code = 358) GLUCOSE RANDOM (BEAKER) 101 mg/dL 70-105 (test code = 652) CALCIUM (BEAKER) (test 9.0 mg/dL 8.4-10.2 code = 697) EGFR (BEAKER) (test code mL/min/1.73 sq m INSUF FICIENT CLINICAL DATA = 1092) TO CALCULATE EST IMATED GFR. [id number] 05:22:00 Test Item Value Reference Range Comments PHOSPHORUS (BEAKER) (test code = 604) 2.9 mg/dL 2.3-4.7 [id number] 05:22:00 Test Item Value Reference Range Comments MAGNESIUM (BEAKER) (test code = 627) 1.7 mg/dL 1.6-2.6 PROTHROMBIN TIME/[id number] 05:07:00 Test Item Value Reference Range Comments PROTIME (BEAKER) (test code = 759) 13.1 seconds 11.7-14.7 INR (BEAKER) (test code = 370) 1.0 <=5.9 RECOMMENDED COUMADIN/WARFARIN INR THERAPY RANGESSTANDARD DOSE: 2.0 - 3.0 Includes: PROPHYLAXIS forvenous thrombosis, systemic embolization; TREATMENT for venous thrombosis and/or pulmonary embolus.HIGH RISK: Target INR is 2.5-3.5 for patients with mechanical heart valves.[id number] 05:07:00 Test Item Value Reference Range Comments PARTIAL THROMBOPLASTIN TIME (BEAKER) (test code 42.0 seconds 22.5-36.0 = 760) CBC (HEMOGRAM ONLY)2018-11-14 05:00:00 Test Item Value Reference Range Comments WHITE BLOOD CELL COUNT (BEAKER) (test code = 12.9 K/ L 3.5 -10.5 775) RED BLOOD CELL COUNT (BEAKER) (test code = 761) 4.59 M/ L 3.93-5.22 HEMOGLOBIN (BEAKER) (test code = 410) 13.0 GM/DL 11.2-15.7 HEMATOCRIT (BEAKER) (test code = 411) 41.0 % 34.1-44.9 MEAN CORPUSCULAR VOLUME (BEAKER) (test code = 89.3 fL 79 .4-94.8 753) MEAN CORPUSCULAR HEMOGLOBIN (BEAKER) (test code 28.3 pg 25.6-32.2 = 751) MEAN CORPUSCULAR HEMOGLOBIN CONC (BEAKER) (test 31.7 GM/DL 32.2-35.5 code = 752) RED CELL DISTRIBUTION WIDTH (BEAKER) (test code 14.6 % 11.7-14.4 = 412) PLATELET COUNT (BEAKER) (test code = 756) 247 K/CU MM 150-45 0 MEAN PLATELET VOLUME (BEAKER) (test code = 754) 10.3 fL 9.4-12.3 NUCLEATED RED BLOOD CELLS (BEAKER) (test code = 0 /100 WBC 0-0 413) T4, [id number] 12:30:00 Test Item Value Reference Range Comments FREE T4 (BEAKER) (test code = 655) 0.93 ng/dL 0.70-1.48 TSH/FREE T4 IF [id number] 11:19:00 Test Item Value Reference Range Comments THYROID STIMULATING HORMONE (BEAKER) (test code 4.97 uIU/mL 0.35-4.94 = 772) RAD, CHEST, 1 VIEW, NON [id number] 05:20:00Reason for exam:->post opShould this be performed at the bedside?->YesFINAL REPORT RAD, CHEST, 1 VIEW, NON DEPT INDICATION: post op COMPARISON: Prior day's exam FINDINGS: Portable frontal view of the chest. IMPRESSION: Support Lines: Stable. Lungs and pleura: Increased left basilar atelectasis. Small left pleural effusion. No pneumothorax.Heartand mediastinum: Stable contours. Stable surgical changes.Additional findings: None. Signed: Jian Escobar Verified Date/Time: 11/13/2018 05:20:43 Reading Location: [address] Reading Room BASIC METABOLIC [id number] 05:01:00 Test Item Value Reference Range Comments SODIUM (BEAKER) (test 134 meq/L 136-145 code = 381) POTASSIUM (BEAKER) (test 3.9 meq/L 3.5-5.1 code = 379) CHLORIDE (BEAKER) (test 103 meq/L 98-107 code = 382) CO2 (BEAKER) (test code = 23 meq/L 22-29 355) BLOOD UREA NITROGEN 13 mg/dL 7-21 (BEAKER) (test code = 354) CREATININE (BEAKER) (test 0.88 mg/dL 0.57-1.25 code = 358) GLUCOSE RANDOM (BEAKER) 107 mg/dL 70-105 (test code = 652) CALCIUM (BEAKER) (test 8.5 mg/dL 8.4-10.2 code = 697) EGFR (BEAKER) (test code mL/min/1.73 sq m INSUF FICIENT CLINICAL DATA = 1092) TO CALCULATE EST IMATED GFR. [id number] 04:59:00 Test Item Value Reference Range Comments PHOSPHORUS (BEAKER) (test code = 604) 2.8 mg/dL 2.3-4.7 [id number] 04:59:00 Test Item Value Reference Range Comments MAGNESIUM (BEAKER) (test code = 627) 2.0 mg/dL 1.6-2.6 PROTHROMBIN TIME/[id number] 03:58:00 Test Item Value Reference Range Comments PROTIME (BEAKER) (test code = 759) 13.6 seconds 11.7-14.7 INR (BEAKER) (test code = 370) 1.0 <=5.9 RECOMMENDED COUMADIN/WARFARIN INR THERAPY RANGESSTANDARD DOSE: 2.0 - 3.0 Includes: PROPHYLAXIS forvenous thrombosis, systemic embolization; TREATMENT for venous thrombosis and/or pulmonary embolus.HIGH RISK: Target INR is 2.5-3.5 for patients with mechanical heart valves.[id number] 03:58:00 Test Item Value Reference Range Comments PARTIAL THROMBOPLASTIN TIME (BEAKER) (test code 33.3 seconds 22.5-36.0 = 760) CBC (HEMOGRAM ONLY)2018-11-13 03:51:00 Test Item Value Reference Range Comments WHITE BLOOD CELL COUNT (BEAKER) (test code = 17.1 K/ L 3.5 -10.5 775) RED BLOOD CELL COUNT (BEAKER) (test code = 761) 4.40 M/ L 3.93-5.22 HEMOGLOBIN (BEAKER) (test code = 410) 12.5 GM/DL 11.2-15.7 HEMATOCRIT (BEAKER) (test code = 411) 38.5 % 34.1-44.9 MEAN CORPUSCULAR VOLUME (BEAKER) (test code = 87.5 fL 79 .4-94.8 753) MEAN CORPUSCULAR HEMOGLOBIN (BEAKER) (test code 28.4 pg 25.6-32.2 = 751) MEAN CORPUSCULAR HEMOGLOBIN CONC (BEAKER) (test 32.5 GM/DL 32.2-35.5 code = 752) RED CELL DISTRIBUTION WIDTH (BEAKER) (test code 14.7 % 11.7-14.4 = 412) PLATELET COUNT (BEAKER) (test code = 756) 192 K/CU MM 150-45 0 MEAN PLATELET VOLUME (BEAKER) (test code = 754) 10.5 fL 9.4-12.3 NUCLEATED RED BLOOD CELLS (BEAKER) (test code = 0 /100 WBC 0-0 413) RAD, CHEST, 1 VIEW, NON [id number] 04:32:00Reason for exam:->cardiac monitoringShould this be performed at the bedside?->YesFINAL REPORT RAD, CHEST, 1 VIEW, NON DEPT INDICATION: cardiac monitoring MANSOOR RISON: Prior day's exam FINDINGS: Portable frontal view of the chest. IMPRESSION: Support Lines: Interval extubation. Otherwise unchanged support apparatus. Lungs and pleura: Mildly increased left basilar atelectasis. Increased reticular airspace opacities favored to represent worsening interstitial pulmonary edema. Small left pleural effusion. No pneumothorax.Heart and mediastinum: Stable contours. Stable surgical changes.Additional findings: None. Signed: Jian Escobar MDReport Verified Date/Time: 11/12/2018 04:32:55 Reading Location: [address] Transitional Reading Room [facility] y signed by: JIAN ESCOBAR MD on 11/12/2018 04:32 AMBASIC METABOLIC [id number] 03:54:00 Test Item Value Reference Range Comments SODIUM (BEAKER) (test 137 meq/L 136-145 code = 381) POTASSIUM (BEAKER) (test 3.7 meq/L 3.5-5.1 code = 379) CHLORIDE (BEAKER) (test 105 meq/L 98-107 code = 382) CO2 (BEAKER) (test code = 22 meq/L 22-29 355) BLOOD UREA NITROGEN 13 mg/dL 7-21 (BEAKER) (test code = 354) CREATININE (BEAKER) (test 0.85 mg/dL 0.57-1.25 code = 358) GLUCOSE RANDOM (BEAKER) 98 mg/dL 70-105 (test code = 652) CALCIUM (BEAKER) (test 8.5 mg/dL 8.4-10.2 code = 697) EGFR (BEAKER) (test code mL/min/1.73 sq m INSUF FICIENT CLINICAL DATA = 1092) TO CALCULATE EST IMATED GFR. [id number] 03:53:00 Test Item Value Reference Range Comments PHOSPHORUS (BEAKER) (test code = 604) 3.1 mg/dL 2.3-4.7 [id number] 03:53:00 Test Item Value Reference Range Comments MAGNESIUM (BEAKER) (test code = 627) 2.0 mg/dL 1.6-2.6 PROTHROMBIN TIME/[id number] 03:48:00 Test Item Value Reference Range Comments PROTIME (BEAKER) (test code = 759) 14.2 seconds 11.7-14.7 INR (BEAKER) (test code = 370) 1.1 <=5.9 RECOMMENDED COUMADIN/WARFARIN INR THERAPY RANGESSTANDARD DOSE: 2.0 - 3.0 Includes: PROPHYLAXIS forvenous thrombosis, systemic embolization; TREATMENT for venous thrombosis and/or pulmonary embolus.HIGH RISK: Target INR is 2.5-3.5 for patients with mechanical heart valves.[id number] 03:48:00 Test Item Value Reference Range Comments PARTIAL THROMBOPLASTIN TIME (BEAKER) (test code 37.2 seconds 22.5-36.0 = 760) CBC (HEMOGRAM ONLY)2018-11-12 03:30:00 Test Item Value Reference Range Comments WHITE BLOOD CELL COUNT (BEAKER) (test code = 22.8 K/ L 3.5 -10.5 775) RED BLOOD CELL COUNT (BEAKER) (test code = 761) 4.66 M/ L 3.93-5.22 HEMOGLOBIN (BEAKER) (test code = 410) 13.3 GM/DL 11.2-15.7 HEMATOCRIT (BEAKER) (test code = 411) 41.1 % 34.1-44.9 MEAN CORPUSCULAR VOLUME (BEAKER) (test code = 88.2 fL 79 .4-94.8 753) MEAN CORPUSCULAR HEMOGLOBIN (BEAKER) (test code 28.5 pg 25.6-32.2 = 751) MEAN CORPUSCULAR HEMOGLOBIN CONC (BEAKER) (test 32.4 GM/DL 32.2-35.5 code = 752) RED CELL DISTRIBUTION WIDTH (BEAKER) (test code 15.1 % 11.7-14.4 = 412) PLATELET COUNT (BEAKER) (test code = 756) 197 K/CU MM 150-45 0 MEAN PLATELET VOLUME (BEAKER) (test code = 754) 10.1 fL 9.4-12.3 NUCLEATED RED BLOOD CELLS (BEAKER) (test code = 0 /100 WBC 0-0 413) RAD, CHEST, 1 VIEW, NON [id number] 06:15:00Reason for exam:->cardiac monitoringShould this be performed at the bedside?->YesFINAL REPORT RAD, CHEST, 1 VIEW, NON DEPT INDICATION: cardiac monitoring MANSOOR RISON: Prior day's exam FINDINGS: Portable frontal view [...] None. Signed: Jian Escobar MDReport Verified Date/Time: 11/11/2018 06:15:46 Reading Location: [address] Transitional Reading Room C METABOLIC [id number] 05:43:00 Test Item Value Reference Range Comments SODIUM (BEAKER) (test 138 meq/L 136-145 code = 381) POTASSIUM (BEAKER) (test 3.8 meq/L 3.5-5.1 code = 379) CHLORIDE (BEAKER) (test 108 meq/L 98-107 code = 382) CO2 (BEAKER) (test code = 22 meq/L 22-29 355) BLOOD UREA NITROGEN 18 mg/dL 7-21 (BEAKER) (test code = 354) CREATININE (BEAKER) (test 0.99 mg/dL 0.57-1.25 code = 358) GLUCOSE RANDOM (BEAKER) 106 mg/dL 70-105 (test code = 652) CALCIUM (BEAKER) (test 8.6 mg/dL 8.4-10.2 code = 697) EGFR (BEAKER) (test code mL/min/1.73 sq m INSUF FICIENT CLINICAL DATA = 1092) TO CALCULATE EST IMATED GFR. [id number] 05:31:00 Test Item Value Reference Range Comments PHOSPHORUS (BEAKER) (test code = 604) 2.0 mg/dL 2.3-4.7 [id number] 05:31:00 Test Item Value Reference Range Comments MAGNESIUM (BEAKER) (test code = 627) 1.8 mg/dL 1.6-2.6 [id number] 05:22:00 Test Item Value Reference Range Comments PARTIAL THROMBOPLASTIN TIME (BEAKER) (test code 34.4 seconds 22.5-36.0 = 760) PROTHROMBIN TIME/[id number] 05:21:00 Test Item Value Reference Range Comments PROTIME (BEAKER) (test code = 759) 13.1 seconds 11.7-14.7 INR (BEAKER) (test code = 370) 1.0 <=5.9 RECOMMENDED COUMADIN/WARFARIN INR THERAPY RANGESSTANDARD DOSE: 2.0 - 3.0 Includes: PROPHYLAXIS forvenous thrombosis, systemic embolization; TREATMENT for venous thrombosis and/or pulmonary embolus.HIGH RISK: Target INR is 2.5-3.5 for patients with mechanical heart valves.BLOOD GAS, [id number] 05:05:00 Test Item Value Reference Range Comments PH ARTERIAL (BEAKER) (test code = 383) 7.46 7.35-7.45 PCO2 ARTERIAL (BEAKER) (test code = 384) 34 mmHg 35-45 PO2 ARTERIAL (BEAKER) (test code = 385) 91 mmHg 80-90 O2 SATURATION ARTERIAL (BEAKER) (test code = 386) 97.0 % 96.0-97.0 HCO3 ARTERIAL (BEAKER) (test code = 388) 23 mmol/L 21-29 BASE EXCESS ARTERIAL (BEAKER) (test code = 387) 0.3 mmol/L -2.0-3.0 PATIENT TEMPERATURE (BEAKER) (test code = 1818) 38.2 C FIO2 (BEAKER) (test code = 1819) 50.0 % Daily ABG with morning labs while patient is intubated.CBC (HEMOGRAM ONLY) 2018-11-11 04:52:00 Test Item Value Reference Range Comments WHITE BLOOD CELL COUNT (BEAKER) (test code = 15.1 K/ L 3.5 -10.5 775) RED BLOOD CELL COUNT (BEAKER) (test code = 761) 4.53 M/ L 3.93-5.22 HEMOGLOBIN (BEAKER) (test code = 410) 12.9 GM/DL 11.2-15.7 HEMATOCRIT (BEAKER) (test code = 411) 39.9 % 34.1-44.9 MEAN CORPUSCULAR VOLUME (BEAKER) (test code = 88.1 fL 79 .4-94.8 753) MEAN CORPUSCULAR HEMOGLOBIN (BEAKER) (test code 28.5 pg 25.6-32.2 = 751) MEAN CORPUSCULAR HEMOGLOBIN CONC (BEAKER) (test 32.3 GM/DL 32.2-35.5 code = 752) RED CELL DISTRIBUTION WIDTH (BEAKER) (test code 15.3 % 11.7-14.4 = 412) PLATELET COUNT (BEAKER) (test code = 756) 214 K/CU MM 150-45 0 MEAN PLATELET VOLUME (BEAKER) (test code = 754) 11.0 fL 9.4-12.3 NUCLEATED RED BLOOD CELLS (BEAKER) (test code = 0 /100 WBC 0-0 413) BASIC METABOLIC [id number] 18:59:00 Test Item Value Reference Range Comments SODIUM (BEAKER) (test 138 meq/L 136-145 code = 381) POTASSIUM (BEAKER) (test 3.9 meq/L 3.5-5.1 code = 379) CHLORIDE (BEAKER) (test 108 meq/L 98-107 code = 382) CO2 (BEAKER) (test code = 21 meq/L 22-29 355) BLOOD UREA NITROGEN 19 mg/dL 7-21 (BEAKER) (test code = 354) CREATININE (BEAKER) (test 0.94 mg/dL 0.57-1.25 code = 358) GLUCOSE RANDOM (BEAKER) 111 mg/dL 70-105 (test code = 652) CALCIUM (BEAKER) (test 8.3 mg/dL 8.4-10.2 code = 697) EGFR (BEAKER) (test code mL/min/1.73 sq m INSUF FICIENT CLINICAL DATA = 1092) TO CALCULATE EST IMATED GFR. [id number] 18:50:00 Test Item Value Reference Range Comments PROTIME (BEAKER) (test code = 759) 13.4 seconds 11.7-14.7 INR (BEAKER) (test code = 370) 1.0 <=5.9 PARTIAL THROMBOPLASTIN TIME (BEAKER) (test code 31.7 seconds 22.5-36.0 = 760) RECOMMENDED COUMADIN/WARFARIN INR THERAPY RANGESSTANDARD DOSE: 2.0 - 3.0 Includes: PROPHYLAXIS forvenous thrombosis, systemic embolization; TREATMENT for venous thrombosis and/or pulmonary embolus.HIGH RISK: Target INR is 2.5-3.5 for patients with mechanical heart valves.CBC (HEMOGRAM ONLY)2018-11-10 18:34:00 Test Item Value Reference Range Comments WHITE BLOOD CELL COUNT (BEAKER) (test code = 14.5 K/ L 3.5 -10.5 775) RED BLOOD CELL COUNT (BEAKER) (test code = 761) 4.64 M/ L 3.93-5.22 HEMOGLOBIN (BEAKER) (test code = 410) 13.4 GM/DL 11.2-15.7 HEMATOCRIT (BEAKER) (test code = 411) 41.0 % 34.1-44.9 MEAN CORPUSCULAR VOLUME (BEAKER) (test code = 88.4 fL 79 .4-94.8 753) MEAN CORPUSCULAR HEMOGLOBIN (BEAKER) (test code 28.9 pg 25.6-32.2 = 751) MEAN CORPUSCULAR HEMOGLOBIN CONC (BEAKER) (test 32.7 GM/DL 32.2-35.5 code = 752) RED CELL DISTRIBUTION WIDTH (BEAKER) (test code 15.1 % 11.7-14.4 = 412) PLATELET COUNT (BEAKER) (test code = 756) 178 K/CU MM 150-45 0 MEAN PLATELET VOLUME (BEAKER) (test code = 754) 10.3 fL 9.4-12.3 NUCLEATED RED BLOOD CELLS (BEAKER) (test code = 0 /100 WBC 0-0 413) CALCIUM, [id number] 18:32:00 Test Item Value Reference Range Comments CALCIUM IONIZED (BEAKER) (test code = 698) 1.09 mmol/L 1.12- 1.27 PH, BLOOD (BEAKER) (test code = 1810) 7.42 BLOOD GAS, [id number] 18:32:00 Test Item Value Reference Range Comments PH ARTERIAL (BEAKER) (test code = 383) 7.42 7.35-7.45 PCO2 ARTERIAL (BEAKER) (test code = 384) 36 mmHg 35-45 PO2 ARTERIAL (BEAKER) (test code = 385) 123 mmHg 80-90 O2 SATURATION ARTERIAL (BEAKER) (test code = 98.6 % 96. 0-97.0 386) HCO3 ARTERIAL (BEAKER) (test code = 388) 23 mmol/L 21-29 BASE EXCESS ARTERIAL (BEAKER) (test code = 387) -1.1 mmol/L -2.0-3.0 PATIENT TEMPERATURE (BEAKER) (test code = 1818) 36.3 C FIO2 (BEAKER) (test code = 1819) 100.0 % [id number] 17:09:00 Test Item Value Reference Range Comments ACTIVATED CLOTTING TIME 131 sec TESTED A T [facility] [address] (BEAKER) (test code = 441) [place] [address] [id number] 17:09:00 Test Item Value Reference Range Comments ACTIVATED CLOTTING TIME 230 sec TESTED A T [facility] [address] (BEAKER) (test code = 441) [place] [address] HGB/HCT (H&H) - STAT [id number] 16:27:00 Test Item Value Reference Range Comments HEMOGLOBIN (BEAKER) (test code = 410) 12.4 g/dL 12.0-15.0 HEMATOCRIT (BEAKER) (test code = 411) 36.0 % 36.0-45.0 SODIUM NA-STAT [id number] 16:27:00 Test Item Value Reference Range Comments SODIUM (BEAKER) (test code = 381) 133 meq/L 135-148 BLOOD GAS, [id number] 16:25:00 Test Item Value Reference Range Comments PH ARTERIAL (BEAKER) (test code = 383) 7.46 7.35-7.45 PCO2 ARTERIAL (BEAKER) (test code = 384) 34 mmHg 35-45 PO2 ARTERIAL (BEAKER) (test code = 385) 112 mmHg 80-90 O2 SATURATION ARTERIAL (BEAKER) (test code = 386) 98.5 % 96.0-97.0 HCO3 ARTERIAL (BEAKER) (test code = 388) 24 mmol/L 21-29 BASE EXCESS ARTERIAL (BEAKER) (test code = 387) 0.0 mmol/L -2.0-3.0 PATIENT TEMPERATURE (BEAKER) (test code = 1818) 35.6 C FIO2 (BEAKER) (test code = 181) 78.0 % GLUCOSE-STAT [id number] 16:25:00 Test Item Value Reference Range Comments GLUCOSE RANDOM (BEAKER) (test code = 652) 115 mg/dL 70-110 POTASSIUM-STAT [id number] 16:24:00 Test Item Value Reference Range Comments POTASSIUM (BEAKER) (test code = 379) 3.8 meq/L 3.6-5.5 CALCIUM, [id number] 14:56:00 Test Item Value Reference Range Comments CALCIUM IONIZED (BEAKER) (test code = 698) 1.06 mmol/L 1.12- 1.27 PH, BLOOD (BEAKER) (test code = 1810) 7.41 BLOOD GAS, [id number] 14:56:00 Test Item Value Reference Range Comments PH ARTERIAL (BEAKER) (test code = 383) 7.43 7.35-7.45 PCO2 ARTERIAL (BEAKER) (test code = 384) 36 mmHg 35-45 PO2 ARTERIAL (BEAKER) (test code = 385) 265 mmHg 80-90 O2 SATURATION ARTERIAL (BEAKER) (test code = 99.6 % 96. 0-97.0 386) HCO3 ARTERIAL (BEAKER) (test code = 388) 23 mmol/L 21-29 BASE EXCESS ARTERIAL (BEAKER) (test code = 387) -1.1 mmol/L -2.0-3.0 PATIENT TEMPERATURE (BEAKER) (test code = 1818) 36.2 C FIO2 (BEAKER) (test code = 1819) 95.0 % SODIUM NA-STAT [id number] 14:56:00 Test Item Value Reference Range Comments SODIUM (BEAKER) (test code = 381) 134 meq/L 135-148 GLUCOSE-STAT [id number] 14:55:00 Test Item Value Reference Range Comments GLUCOSE RANDOM (BEAKER) (test code = 652) 103 mg/dL 70-110 POTASSIUM-STAT [id number] 14:55:00 Test Item Value Reference Range Comments POTASSIUM (BEAKER) (test code = 379) 3.6 meq/L 3.6-5.5 HGB/HCT (H&H) - STAT [id number] 14:55:00 Test Item Value Reference Range Comments HEMOGLOBIN (BEAKER) (test code = 410) 13.1 g/dL 12.0-15.0 HEMATOCRIT (BEAKER) (test code = 411) 39.0 % 36.0-45.0 RAD, CHEST, 1 VIEW, NON [id number] 04:46:00Reason for exam:->cardiac monitoringShould this be performed at the bedside?->YesFINAL REPORT Chest one view. Clinical history: cardiac monitoring Comparison: Chest radiograph 11/09/2018. Technique: A single frontal view of the chest was obtained. Findings: The cardiomediastinal contours are stable. There is bilateral linear atelectasis/scarring. There is mild volume loss in the left hemithorax. There are small bilateral pleural effusions, decreased on theleft. There is no pneumothorax. Signed: Katherin Hawk Verified Date/Time: 11/10/2018 04:46:58 Reading Location: [address] Reading Room BASIC METABOLIC [id number] 03:57:00 Test Item Value Reference Range Comments SODIUM (BEAKER) (test 136 meq/L 136-145 code = 381) POTASSIUM (BEAKER) (test 4.1 meq/L 3.5-5.1 code = 379) CHLORIDE (BEAKER) (test 105 meq/L 98-107 code = 382) CO2 (BEAKER) (test code = 26 meq/L 22-29 355) BLOOD UREA NITROGEN 28 mg/dL 7-21 (BEAKER) (test code = 354) CREATININE (BEAKER) (test 1.27 mg/dL 0.57-1.25 code = 358) GLUCOSE RANDOM (BEAKER) 122 mg/dL 70-105 (test code = 652) CALCIUM (BEAKER) (test 8.6 mg/dL 8.4-10.2 code = 697) EGFR (BEAKER) (test code mL/min/1.73 sq m INSUF FICIENT CLINICAL DATA = 1092) TO CALCULATE EST IMATED GFR. [id number] 03:45:00 Test Item Value Reference Range Comments PHOSPHORUS (BEAKER) (test code = 604) 3.3 mg/dL 2.3-4.7 [id number] 03:45:00 Test Item Value Reference Range Comments MAGNESIUM (BEAKER) (test code = 627) 2.1 mg/dL 1.6-2.6 CBC (HEMOGRAM ONLY)2018-11-10 03:25:00 Test Item Value Reference Range Comments WHITE BLOOD CELL COUNT (BEAKER) (test code = 10.0 K/ L 3.5 -10.5 775) RED BLOOD CELL COUNT (BEAKER) (test code = 761) 4.36 M/ L 3.93-5.22 HEMOGLOBIN (BEAKER) (test code = 410) 12.4 GM/DL 11.2-15.7 HEMATOCRIT (BEAKER) (test code = 411) 39.1 % 34.1-44.9 MEAN CORPUSCULAR VOLUME (BEAKER) (test code = 89.7 fL 79 .4-94.8 753) MEAN CORPUSCULAR HEMOGLOBIN (BEAKER) (test code 28.4 pg 25.6-32.2 = 751) MEAN CORPUSCULAR HEMOGLOBIN CONC (BEAKER) (test 31.7 GM/DL 32.2-35.5 code = 752) RED CELL DISTRIBUTION WIDTH (BEAKER) (test code 15.1 % 11.7-14.4 = 412) PLATELET COUNT (BEAKER) (test code = 756) 183 K/CU MM 150-45 0 MEAN PLATELET VOLUME (BEAKER) (test code = 754) 10.2 fL 9.4-12.3 NUCLEATED RED BLOOD CELLS (BEAKER) (test code = 0 /100 WBC 0-0 413) TSH/FREE T4 IF [id number] 10:50:00 Test Item Value Reference Range Comments THYROID STIMULATING HORMONE (BEAKER) (test code 0.84 uIU/mL 0.35-4.94 = 772) RAD, CHEST, 1 VIEW, NON [id number] 08:37:00Reason for exam:->cardiac monitoringShould this be performed at the bedside?->YesFINAL REPORT Portable chest. CLINICAL HISTORY: cardiac monitoring. COMPARISON STUDY: Chest x-ray from yesterday. FINDINGS: The cardiac silhouette is enlarged. The pulmonary parenchyma demonstrates interstitial markings in the left midlung field and atelectasis or consolidation of the left lung base with blunting of the left costophrenic angle, more pronounced than on previous No pneumothorax is seen. Degenerative changes are noted. IMPRESSION: Worsening opacities in the left lung. Signed: Gregory Jarvisepmateo Verified Date/Time: 11/09/2018 08:37:21 Reading Location: [facility] Radiology Reading Room PHOSPHORUS 2018-11-09 04:02:00 Test Item Value Reference Range Comments PHOSPHORUS (BEAKER) (test code = 604) 4.0 mg/dL 2.3-4.7 [id number] 04:02:00 Test Item Value Reference Range Comments MAGNESIUM (BEAKER) (test code = 627) 1.9 mg/dL 1.6-2.6 BASIC METABOLIC [id number] 04:02:00 Test Item Value Reference Range Comments SODIUM (BEAKER) (test 139 meq/L 136-145 code = 381) POTASSIUM (BEAKER) (test 3.4 meq/L 3.5-5.1 code = 379) CHLORIDE (BEAKER) (test 105 meq/L 98-107 code = 382) CO2 (BEAKER) (test code = 27 meq/L 22-29 355) BLOOD UREA NITROGEN 23 mg/dL 7-21 (BEAKER) (test code = 354) CREATININE (BEAKER) (test 1.41 mg/dL 0.57-1.25 code = 358) GLUCOSE RANDOM (BEAKER) 124 mg/dL 70-105 (test code = 652) CALCIUM (BEAKER) (test 8.5 mg/dL 8.4-10.2 code = 697) EGFR (BEAKER) (test code mL/min/1.73 sq m INSUF FICIENT CLINICAL DATA = 1092) TO CALCULATE EST IMATED GFR. CBC (HEMOGRAM ONLY)2018-11-09 03:45:00 Test Item Value Reference Range Comments WHITE BLOOD CELL COUNT (BEAKER) (test code = 13.6 K/ L 3.5 -10.5 775) RED BLOOD CELL COUNT (BEAKER) (test code = 761) 4.60 M/ L 3.93-5.22 HEMOGLOBIN (BEAKER) (test code = 410) 13.1 GM/DL 11.2-15.7 HEMATOCRIT (BEAKER) (test code = 411) 41.2 % 34.1-44.9 MEAN CORPUSCULAR VOLUME (BEAKER) (test code = 89.6 fL 79 .4-94.8 753) MEAN CORPUSCULAR HEMOGLOBIN (BEAKER) (test code 28.5 pg 25.6-32.2 = 751) MEAN CORPUSCULAR HEMOGLOBIN CONC (BEAKER) (test 31.8 GM/DL 32.2-35.5 code = 752) RED CELL DISTRIBUTION WIDTH (BEAKER) (test code 15.3 % 11.7-14.4 = 412) PLATELET COUNT (BEAKER) (test code = 756) 195 K/CU MM 150-45 0 MEAN PLATELET VOLUME (BEAKER) (test code = 754) 10.2 fL 9.4-12.3 NUCLEATED RED BLOOD CELLS (BEAKER) (test code = 0 /100 WBC 0-0 413) RAD, CHEST, 1 VIEW, NON [id number] 08:05:00Reason for exam:->Potential aortic dissectionIs the patient [...] in the left lower lobe laterally. Signed: Round, Alyssa MDReport Verified Date/Time: 11/08/2018 08:05:30 Reading Location: [facility] Radiology Reading Room TROPONIN [id number] 07:51:00 Test Item Value Reference Range Comments TROPONIN I (BEAKER) (test code = 397) < ng/mL 0.00-0.03 Troponin I (TnI) levels [...] acute neurological disease, and persistent tachyarrhythmia.BASIC METABOLIC [id number] 05:45:00 Test Item Value Reference Range Comments SODIUM (BEAKER) (test 138 meq/L 136-145 code = 381) POTASSIUM (BEAKER) (test 3.7 meq/L 3.5-5.1 Specime n slightly code = 379) hemolyzed CHLORIDE (BEAKER) (test 105 meq/L 98-107 code = 382) CO2 (BEAKER) (test code = 22 meq/L 22-29 355) BLOOD UREA NITROGEN 17 mg/dL 7-21 (BEAKER) (test code = 354) CREATININE (BEAKER) (test 1.07 mg/dL 0.57-1.25 Specim en slightly code = 358) hemolyzed GLUCOSE RANDOM (BEAKER) 138 mg/dL 70-105 (test code = 652) CALCIUM (BEAKER) (test 9.1 mg/dL 8.4-10.2 code = 697) EGFR (BEAKER) (test code mL/min/1.73 sq m INSUF FICIENT CLINICAL DATA = 1092) TO CALCULATE EST IMATED GFR. [id number] 05:42:00 Test Item Value Reference Range Comments MAGNESIUM (BEAKER) (test code = 2.2 mg/dL 1.6-2.6 Specimen slightly hemolyzed 627) [id number] 05:42:00 Test Item Value Reference Range Comments PHOSPHORUS (BEAKER) (test code 3.8 mg/dL 2.3-4.7 S pecimen slightly hemolyzed = 604) HEPATIC FUNCTION [id number] 05:42:00 Test Item Value Reference Range Comments TOTAL PROTEIN (BEAKER) (test 6.9 gm/dL 6.0-8.3 Spe cimen slightly hemolyzed code = 770) ALBUMIN (BEAKER) (test code = 3.6 g/dL 3.5-5.0 Sp ecimen slightly hemolyzed 1145) BILIRUBIN TOTAL (BEAKER) (test 2.3 mg/dL 0.2-1.2 S pecimen slightly hemolyzed code = 377) BILIRUBIN DIRECT (BEAKER) (test 1.3 mg/dL 0.1-0.5 Specimen slightly hemolyzed code = 706) ALKALINE PHOSPHATASE (BEAKER) 266 U/L 40-150 (test code = 346) AST (SGOT) (BEAKER) (test code 152 U/L 5-34 S pecimen slightly hemolyzed = 353) ALT (SGPT) (BEAKER) (test code 99 U/L 6-55 S pecimen slightly hemolyzed = 347) CBC W/PLT COUNT & AUTO [id number] 05:26:00 Test Item Value Reference Range Comments WHITE BLOOD CELL COUNT (BEAKER) (test code = 15.1 K/ L 3.5 -10.5 775) RED BLOOD CELL COUNT (BEAKER) (test code = 761) 5.36 M/ L 3.93-5.22 HEMOGLOBIN (BEAKER) (test code = 410) 15.0 GM/DL 11.2-15.7 HEMATOCRIT (BEAKER) (test code = 411) 47.2 % 34.1-44.9 MEAN CORPUSCULAR VOLUME (BEAKER) (test code = 88.1 fL 79 .4-94.8 753) MEAN CORPUSCULAR HEMOGLOBIN (BEAKER) (test code 28.0 pg 25.6-32.2 = 751) MEAN CORPUSCULAR HEMOGLOBIN CONC (BEAKER) (test 31.8 GM/DL 32.2-35.5 code = 752) RED CELL DISTRIBUTION WIDTH (BEAKER) (test code 14.7 % 11.7-14.4 = 412) PLATELET COUNT (BEAKER) (test code = 756) 239 K/CU MM 150-45 0 MEAN PLATELET VOLUME (BEAKER) (test code = 754) 10.0 fL 9.4-12.3 NUCLEATED RED BLOOD CELLS (BEAKER) (test code = 0 /100 WBC 0-0 413) NEUTROPHILS RELATIVE PERCENT (BEAKER) (test code 81 % = 429) LYMPHOCYTES RELATIVE PERCENT (BEAKER) (test code 11 % = 430) MONOCYTES RELATIVE PERCENT (BEAKER) (test code = 7 % 431) EOSINOPHILS RELATIVE PERCENT (BEAKER) (test code 0 % = 432) BASOPHILS RELATIVE PERCENT (BEAKER) (test code = 0 % 437) NEUTROPHILS ABSOLUTE COUNT (BEAKER) (test code = 12.22 K/ L 1.56-6.13 670) LYMPHOCYTES ABSOLUTE COUNT (BEAKER) (test code = 1.62 K/ L 1.18-3.74 414) MONOCYTES ABSOLUTE COUNT (BEAKER) (test code = 1.12 K/ L 0 .24-0.36 415) EOSINOPHILS ABSOLUTE COUNT (BEAKER) (test code = 0.01 K/ L 0.04-0.36 416) BASOPHILS ABSOLUTE COUNT (BEAKER) (test code = 0.06 K/ L 0 .01-0.08 417) IMMATURE GRANULOCYTES-RELATIVE PERCENT (BEAKER) 0 % 0-1 (test code = 2801) [id number] 05:26:00 Test Item Value Reference Range Comments PARTIAL THROMBOPLASTIN TIME (BEAKER) (test code 25.2 seconds 22.5-36.0 = 760) PROTHROMBIN TIME/[id number] 05:25:00 Test Item Value Reference Range Comments PROTIME (BEAKER) (test code = 759) 13.5 seconds 11.7-14.7 INR (BEAKER) (test code = 370) 1.0 <=5.9 RECOMMENDED COUMADIN/WARFARIN INR THERAPY RANGESSTANDARD DOSE: 2.0 - 3.0 Includes: PROPHYLAXIS forvenous thrombosis, systemic embolization; TREATMENT for venous thrombosis and/or pulmonary embolus.HIGH RISK: Target INR is 2.5-3.5 for patients with mechanical heart valves.CALCIUM, [id number] 05:20:00 Test Item Value Reference Range Comments CALCIUM IONIZED (BEAKER) (test code = 698) 1.13 mmol/L 1.12- 1.27 PH, BLOOD (BEAKER) (test code = 1810) 7.38
--- OUTSIDE RECORDS SUMMARY | 2020-02-16 11:06 | XMS REPORT | Summary of Care ---
:1960 Author Organization [facility] - [facility] Address [address] [place] [id number] Care Team Providers Name Role Phone Ethan Foster MD Primary Care Provider Encounter Details Date Type Department Care Team Description 12/06/2019 Orders Only [facility] Doctor Unassigned, No [address] [facility] [place] [address] [address] [place] [address] Allergies No Known Allergiesdocumented as of this encounter (statuses as of 01/08/2020) Medications Medication Sig Dispensed Refills Start Date End Date Status amLODIPine 10 mg tablet Take 10 mg by 0 Active mouth daily. levothyroxine 200 mcg Take 200 mcg by 0 Active tablet mouth every morning. SERTraline 50 mg tablet Take 50 mg by 0 Active mouth daily. carvedilol 25 mg Take 1 tablet by 30 tablet 1 10/12/2019 Active tabletIndications: mouth 2 (two) Biliary obstruction times daily with meals. documented as of this encounter (statuses as of 01/08/2020) Active Problems Problem Noted Date Biliary obstruction 10/05/2019 documented as of this encounter (statuses as of 01/08/2020) Social History Tobacco Use Types Packs/Day Years Used Date Never Assessed Sex Assigned at Date Recorded Not on file Job Start Date Occupation Industry Not on file Not on file Not on file Travel History Travel Start Travel End No recent travel history available. documented as of this encounter Last Filed Vital Signs Not on filedocumented in this encounter Plan of Treatment Health Maintenance Due Date Last Done Comments DTaP,Tdap,and Td Vaccines ( - 1969 Tdap) PAP SMEAR 1979 Breast Cancer Screening 1998 (MAMMOGRAM) COLONOSCOPY 01/23/2008 Zoster Recombinant Vaccine 01/23/2008 (SHINGRIX) (1 of 2) INFLUENZA VACCINE (#1) 2019 HEPATITIS C (HCV) SCREEN Completed 10/05/2019 PNEUMOCOCCAL 0-64 YEARS COMBINED Aged Out No longer eligible based on SERIES patient's age to complete this topic documented as of this encounter Implants Implanted Type Area Grain Shipper Device Shelf Model / Serial / Identifier Expiration Lot Date Advanix Biliary Duodenal Bend Stent 10f X 7 Cm [place] 05/14/2021 [id number] / Implanted: Qty: 1 on 10/09/[facility] [employer] GTIN [id number] / [id number] Stent Pancreatic Advanix 5fr X 5cml Gelacio on [employer] #[id number] - Sgtin [id number] [place] 06/25/2020 [id number] / Implanted: Qty: 1 on 10/09/2019 [facility] [employer] GTIN [id number] / [id number] documented as of this encounter Procedures Procedure Name Priority Date/Time Associated Diagnosis Comme nts AUTHORIZATION FOR RELEASE Routine 12/06/2019 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I X Medicare A & B nt [id number] [place] [id number] [facility] [id number] 2013-Prese [phone] [address] PPO/POS - OUT OF nt [id number] [place] [address] documented as of this encounter
[2020-02-16] MEDS ORDERED: NA CHLORIDE 0.9% 1,000 ML ONE (11:44)
[2020-02-16] MEDS ORDERED: KETOROLAC 30 MG/ML INJ ONE (11:44)
[2020-02-16 11:54] LABS: Absolute Lymphocytes (CBC) 2.3 K/uL (0.7-4.9); Hematocrit 41.6 % (36.0-45.0); Lymphocytes % 20.9 % (15.3-44.8)
--- NOTE | 2020-02-16 12:17 | RAD REPORT ---
EXAM DESCRIPTION: Erny Chávez And Lat (2 Views)02/16/2020 12:06 pm CLINICAL HISTORY: Chest COMPARISON: 2019 FINDINGS: The lungs appear clear of acute infiltrate. The heart is borderline enlarged. Aortic sten t has been placed IMPRESSION: No acute abnormalities displayed
[2020-02-16 12:20] LABS: Albumin 3.5 g/dL (3.4-5.0); Bilirubin Total 0.7 mg/dL (0.2-1.0); Potassium 3.1 mmol/L (3.5-5.1)
--- NOTE | 2020-02-16 12:29 | ER ---
Nurse's Notes [facility] Name: Cait Ying Age: 60 yrs Sex: Female : 1960 Arrival Date: 02/16/2020 Time: 11:12 Bed 18 Private MD: Diagnosis: Fall due to bumping against object;Contusion of unspecified back wall of thorax;Contusion of unspecified front wall of thorax;Hypokalemia Presentation: 02/15 11:02 Chief complaint: Patient states: attempted to sit down in her wheelchair and hit the floor. C/O pain to right rear ribs and right scapula. Coronavirus screen: Proceed with normal triage. Patient denies a cough. Patient denies shortness of breath or difficulty breathing. Patient denies measured and/or subjective temperature greater than 100.4F prior to today's visit. Patient denies travel on a cruise ship or to a country the [facility] currently lists as an affected area. Patient denies contact with known and/or suspected case of COVID-19. Ebola Screen: No symptoms or risks identified at this time. Initial Sepsis Screen: Does the patient meet any 2 criteria? No. Patient's initial sepsis screen is negative. Does the patient have a suspected source of infection? No. Patient's initial sepsis screen is negative. Risk Assessment: Do you want to hurt yourself or someone else? Patient reports no desire to harm self or others. Onset of symptoms was February 16, 2020. 11:02 Method Of Arrival: EMS: [facility] 11:02 Acuity: ONEYDA 3 11:23 Care prior to arrival: Medication(s) given: 50mg fentanyl IV initiated. 20 GA, in the left antecubital area. Historical: - Allergies: 11:21 No Known Allergies; - Home Meds: 11:21 levothyroxine oral [Active]; metoprolol tartrate 100 mg Oral tab 1 tab 2 times per day ah [Active]; Norvasc Oral [Active]; Aspirin Oral [Active]; - PMHx: 11:21 Hypertension; Hypothyroidism; uterine cancer; aortic aneurysm; Pancreatitis; - PSHx: 11:21 Hysterectomy; Cholecystectomy; - Immunization history:: Flu vaccine is not up to date. - Social history:: Smoking status: Patient/guardian denies using tobacco, Stopped _ months ago 3 Patient/guardian denies using alcohol, street drugs. - Family history:: not pertinent. Screenin:15 Abuse screen: Denies threats or abuse. Nutritional screening: No deficits noted. Tuberculosis screening: No symptoms or risk factors identified. Fall Risk None identified. Assessment: 11:05 General: Appears uncomfortable, Behavior is calm, cooperative. Pain: Complains of pain ah in right scapular area and right ribs Pain does not radiate. Pain currently is 8 out of 10 on a pain scale. Quality of pain is described as aching, Pain began 1 hour ago. Is continuous. Neuro: Level of Consciousness is awake, alert, Oriented to person, place, time, situation. Cardiovascular: Heart tones S1 S2 present Capillary refill < 3 seconds. Respiratory: Airway is patent Respiratory effort is even, unlabored, Respiratory pattern is regular, symmetrical. GI: No signs and/or symptoms were reported involving the gastrointestinal system. Bowel sounds present X 4 quads. : No signs and/or symptoms were reported regarding the genitourinary system. EENT: No signs and/or symptoms were reported regarding the EENT system. Derm: No signs and/or symptoms reported regarding the dermatologic system. Musculoskeletal: Circulation, motion, and sensation intact. Capillary refill < 3 seconds, Tenderness present in right scapular area. Injury Description: Pt fell out of wheelchair and hit the floor. 11:45 Reassessment: Toradol given IVP at this time and radiology here to take her to get ah xrays. 12:45 Reassessment: Discharge instructions given to Pt and educated on prescriptions. Pt voiced understanding. Pt denies needing incentive spirometer, she states that she has one at home. Educated Pt to use frequently to prevent pneumonia. Pt voiced understanding. Vital Signs: 11:02 BP 168 / 82; Pulse 79; Resp 16; Temp 98.3; Pulse Ox 97% on 2 lpm NC; Weight 80.74 kg; Height 5 ft. 8 in. (172.72 cm); Pain 8/10; 11:15 BP 172 / 75; Pulse 79; Resp 15; Pulse Ox 99% on 2 lpm NC; ah 12:37 BP 183 / 82; Pulse 82; Resp 15; Pulse Ox 100% on 2 lpm NC; 11:02 Body Mass Index 27.06 (80.74 kg, 172.72 cm) ED Course: 11:12 Patient arrived in ED. am2 11:13 Alicia Reis, RN is Primary Nurse. 11:16 Triage completed. 11:19 Matthew Mathews MD is Attending Physician. [facility] 12:06 Chest Pa And Lat (2 Views) XRAY In Process Unspecified. EDNJ 12:29 Arm band placed on right wrist. 12:41 Removal of peripheral IV. Catheter intact, dressing applied. 3 12:45 Patient has correct armband on for positive identification. Placed in gown. Bed in low ah position. Call light in reach. Side rails up X2. 12:45 No provider procedures requiring assistance completed. 12:56 INCENTIVE SPIROMETRY Sent. 13:00 IV discontinued, intact, bleeding controlled, No redness/swelling at site. Pressure ah dressing applied. Administered Medications: 11:45 Drug: TORadol 30 mg Route: IVP; Site: left antecubital; 12:47 Follow up: Response: No adverse reaction; Pain is decreased 12:09 Drug: NS 0.9% 500 ml Route: IV; Rate: bolus; Site: left antecubital; 12:46 Follow up: Response: No adverse reaction; IV Status: Completed infusion; IV Intake: 500ml Intake: 12:46 IV: 500ml; Total: 500ml. Outcome: 12:59 Discharged to home via wheelchair. 12:59 Condition: good 12:59 Discharge instructions given to patient, Instructed on discharge instructions, follow up and referral plans. medication usage, Demonstrated understanding of instructions, follow-up care, medications, Prescriptions given X 2. 13:04 Patient left the ED. Signatures: Dispatcher [employer] EDNJ Matthew Mathews MD MD cha Moreno, Amanda am2 Kelvin Carbone jp3 Alicia Reis, RN RN Corrections: (The following items were deleted from the chart) 12:30 11:25 Discharged to home ambulatory, [facility] 12:30 11:25 Condition: good [facility] 12:30 11:25 Discharge instructions given to patient, Instructed on discharge instructions, follow up and referral plans. medication usage, Demonstrated understanding of instructions, follow-up care, medications, Prescriptions given X 1, 12:30 12:29 Discharge ordered by MD. terrell
--- NOTE | 2020-02-16 12:30 | EDPHYS ---
Physician Documentation [facility] Name: Cait Ying Age: 60 yrs Sex: Female : 1960 Arrival Date: 02/16/2020 Time: 11:12 Bed 18 Private MD: ED Physician Matthew Mathews HPI: 02/15 11:28 This 60 yrs old Female presents to ER via EMS with complaints of fall nidhi transferring from chair to chair, right chest. 11:28 The patient or guardian reports chest pain that is located primarily in the anterior [facility] chest wall. Onset: The symptoms/episode began/occurred just prior to arrival. The pain does not radiate. Associated signs and symptoms: The patient has no apparent associated signs or symptoms. The chest pain is described as sharp. Modifying factors: The symptoms are alleviated by remaining still, the symptoms are aggravated by deep breath, movement. Historical: - Allergies: 11:21 No Known Allergies; ah - Home Meds: 11:21 levothyroxine oral [Active]; metoprolol tartrate 100 mg Oral tab 1 tab 2 times per day ah [Active]; Norvasc Oral [Active]; Aspirin Oral [Active]; - PMHx: 11:21 Hypertension; Hypothyroidism; uterine cancer; aortic aneurysm; Pancreatitis; ah - PSHx: 11:21 Hysterectomy; Cholecystectomy; - Immunization history:: Flu vaccine is not up to date. - Social history:: Smoking status: Patient/guardian denies using tobacco, Stopped _ months ago 3 Patient/guardian denies using alcohol, street drugs. - Family history:: not pertinent. ROS: 11:28 Constitutional: Negative for fever, chills, and weight loss, Eyes: Negative for injury, nidhi pain, redness, and discharge, ENT: Negative for injury, pain, and discharge, Neck: Negative for injury, pain, and swelling, Cardiovascular: Negative for chest pain, palpitations, and edema, Abdomen/GI: Negative for abdominal pain, nausea, vomiting, diarrhea, and constipation, Back: Negative for injury and pain, : Negative for injury, bleeding, discharge, and swelling, MS/Extremity: Negative for injury and deformity, Skin: Negative for injury, rash, and discoloration, Neuro: Negative for headache, weakness, numbness, tingling, and seizure. 11:28 Respiratory: Positive for right chest wall pain, no crepitus. Exam: 11:28 Constitutional: This is a well developed, well nourished patient who is awake, alert, nidhi and in no acute distress. Head/Face: Normocephalic, atraumatic. Eyes: Pupils equal round and reactive to light, extra-ocular motions intact. Lids and lashes normal. Conjunctiva and sclera are non-icteric and not injected. Cornea within normal limits. Periorbital areas with no swelling, redness, or edema. ENT: Nares patent. No nasal discharge, no septal abnormalities noted. Tympanic membranes are normal and external auditory canals are clear. Oropharynx with no redness, swelling, or masses, exudates, or evidence of obstruction, uvula midline. Mucous membranes moist. Neck: Trachea midline, no thyromegaly or masses palpated, and no cervical lymphadenopathy. Supple, full range of motion without nuchal rigidity, or vertebral point tenderness. No Meningismus. Cardiovascular: Regular rate and rhythm with a normal S1 and S2. No gallops, murmurs, or rubs. Normal PMI, no JVD. No pulse deficits. Respiratory: Lungs have equal breath sounds bilaterally, clear to auscultation and percussion. No rales, rhonchi or wheezes noted. No increased work of breathing, no retractions or nasal flaring. Abdomen/GI: Soft, non-tender, with normal bowel sounds. No distension or tympany. No guarding or rebound. No evidence of tenderness throughout. Back: No spinal tenderness. No costovertebral tenderness. Full range of motion. Female : Normal external genitalia. Skin: Warm, dry with normal turgor. Normal color with no rashes, no lesions, and no evidence of cellulitis. MS/ Extremity: Pulses equal, no cyanosis. Neurovascular intact. Full, normal range of motion. Neuro: Awake and alert, GCS 15, oriented to person, place, time, and situation. Cranial nerves II-XII grossly intact. Motor strength 5/5 in all extremities. Sensory grossly intact. Cerebellar exam normal. Normal gait. Psych: Awake, alert, with orientation to person, place and time. Behavior, mood, and affect are within normal limits. 11:28 Chest/axilla: Inspection: normal, Palpation: tenderness, that is moderate, of the anterior aspect of right upper chest, right lateral posterior chest, right lateral anterior chest and right breast, Axilla: are normal, Breasts: are normal, Lymph nodes: lymphadenopathy is not appreciated. Vital Signs: 11:02 BP 168 / 82; Pulse 79; Resp 16; Temp 98.3; Pulse Ox 97% on 2 lpm NC; Weight 80.74 kg; Height 5 ft. 8 in. (172.72 cm); Pain 8/10; 11:15 BP 172 / 75; Pulse 79; Resp 15; Pulse Ox 99% on 2 lpm NC; ah 12:37 BP 183 / 82; Pulse 82; Resp 15; Pulse Ox 100% on 2 lpm NC; ah 11:02 Body Mass Index 27.06 (80.74 kg, 172.72 cm) MDM: 11:19 Patient medically screened. [facility] 11:36 Data reviewed: vital signs, nurses notes, lab test result(s), EKG, radiologic studies, [facility] plain films. 02/15 11:27 Order name: CBC with Diff; Complete Time: 12:26 [facility] 02/15 11:27 Order name: Comprehensive Metabolic Panel; Complete Time: 12:26 [facility] 02/15 11:27 Order name: Chest Pa And Lat (2 Views) XRAY; Complete Time: 12:26 [facility] 02/15 11:27 Order name: INCENTIVE SPIROMETRY [facility] 02/15 12:27 Order name: PO challenge: juice x2 , low potassium; Complete Time: 12:46 [facility] Administered Medications: 11:45 Drug: TORadol 30 mg Route: IVP; Site: left antecubital; 12:47 Follow up: Response: No adverse reaction; Pain is decreased 12:09 Drug: NS 0.9% 500 ml Route: IV; Rate: bolus; Site: left antecubital; 12:46 Follow up: Response: No adverse reaction; IV Status: Completed infusion; IV Intake: ah 500ml Disposition: 02/16/20 12:29 Discharged to Home. Impression: Fall due to bumping against object, Contusion of unspecified back wall of thorax, Contusion of unspecified front wall of thorax, Hypokalemia. - Condition is Stable. - Discharge Instructions: Nonspecific Chest Pain, Chest Wall Pain, Potassium Content of Foods, Incentive Spirometer, Chest Wall Pain, [id number], Fall Prevention in the Home, [id number], Hypokalemia. - Prescriptions for Tylenol- Codeine #3 300-30 mg Oral Tablet - take 2 tablets by ORAL route every 6 hours As needed; 26 tablet. Motrin IB 200 mg Oral Tablet - take 2 tablet by ORAL route every 6 hours As needed as needed with food; 30 tablet. - Medication Reconciliation Form, Thank You Letter, Antibiotic Education, Prescription Opioid Use form. - Follow up: Private Physician; When: 2 - 3 days; Reason: Recheck today's complaints, Continuance of care, Re-evaluation by your physician. - Problem is new. - Symptoms have improved. Signatures: Dispatcher [employer] EDMatthew Durham MD MD cha Harris, Amy RN RN Corrections: (The following items were deleted from the chart) 12:34 11:27 Urine Dipstick-Ancillary ordered. nidhi terrell 13:04 12:29 02/16/2020 12:29 Discharged to Home. Impression: Fall due to bumping against ah object; Contusion of unspecified back wall of thorax; Contusion of unspecified front wall of thorax; Hypokalemia. Condition is Stable. Forms are Medication Reconciliation Form, Thank You Letter, Antibiotic Education, Prescription Opioid Use. Follow up: Private Physician; When: 2 - 3 days; Reason: Recheck today's complaints, Continuance of care, Re-evaluation by your physician. Problem is new. Symptoms have improved. nidhi
[2020-02-16 13:10] VITALS: TEMP 98.3
[2020-02-16 13:13] VITALS: BP 183/82; O2SAT 100
== END 2020-02-16 13:04 | disposition home or self-care (01) ==
LOC: ER 11:02
DX: S20.219A Contusion of unspecified front wall of thorax, initial encounter (principal); S20.229A Contusion of unspecified back wall of thorax, initial encounter; E87.6 Hypokalemia; W18.00XA Striking against unspecified object with subsequent fall, initial encounter; Y93.89 Activity, other specified; Y92.9 Unspecified place or not applicable; I10 Essential (primary) hypertension; E03.9 Hypothyroidism, unspecified; Z79.82 Long term (current) use of aspirin; Z85.42 Personal history of malignant neoplasm of other parts of uterus
CPT/HCPCS: 96361; 85025; 36415; 80053; 71046; 96374; 99284; J7030

== ENCOUNTER 2020-04-12 12:43 | Emergency (ER) | payer OTHER ==
[2020-04-12] MEDS ORDERED: PROMETHAZINE INJ 25 MG/ML AMP ONE (13:09)
[2020-04-12] MEDS ORDERED: LORazepam 2 MG/ML VIAL ONE (13:09)
[2020-04-12] MEDS ORDERED: NA CHLORIDE 0.9% 1,000 ML ONE (13:10)
[2020-04-12 13:21] LABS: Absolute Lymphocytes (CBC) 0.6 K/uL (0.7-4.9); Basophils % 0.4 % (0-1.3); Hematocrit 35.7 % (36.0-45.0); Lymphocytes % 13.9 % (15.3-44.8); RBC Red Blood Cell Count 4.33 M/uL (3.86-4.86)
[2020-04-12 13:39] LABS: Albumin 3.1 g/dL (3.4-5.0); Bilirubin Direct 0.2 mg/dL (0-0.2); Bilirubin Total 0.8 mg/dL (0.2-1.0); Potassium 3.9 mmol/L (3.5-5.1); Protein, Total 7.4 g/dL (6.4-8.2)
--- OUTSIDE RECORDS SUMMARY | 2020-04-12 14:23 | XMS REPORT | Clinical Summary ---
:1960 Author Organization [facility] [place] [place] Address [address] [place] [address] Care Team Providers Name Role Phone Mark Bedolla Unavailable Allergies No Known Allergies Medications Medication Sig Dispensed Refills Start Date End Date Status levothyroxine Take 25 mcg by 0 A ctive (SYNTHROID, LEVOTHROID) mouth Every 25 MCG morning on an tabletIndications: a empty stomach. condition with low thyroid hormone levels amLODIPine (NORVASC) 10 Take 1 tablet (10 60 tablet 0 11/16/19 19 Active MG tablet mg total) by mouth daily. nebivolol (BYSTOLIC) 5 Take 1 tablet (5 60 tablet 0 11/16/2018 Active MG tablet mg total) by mouth daily. 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 Last Filed Vital Signs Not on file Plan of Treatment Not on file Implants Implanted Type [employer] Device Shelf Model / Identifier Expiration Serial / Date Lot Carlos Eduardo Ball Endo [id number] - [id number] CV Aneurysm Right: COOK:AORTIC 06/27/2020 [id number] / Implanted: Qty: 1 on 11/10/2018 by Quincy Mariee MD Groin INTERVENTION / [id number] Closure Sys Perclose Progl [id number] - [id number] Cardiovascul ar Left: FLETCHER LAB:VASC 07/23/2020 [id number] / Implanted: Qty: 2 on 11/10/2018 by Quincy Mariee MD Groin DEV / [id number] Results Not on fileafter 04/12/2019 Insurance Payer Benefit Plan / Subscriber ID Type Phone Address Group MEDICARE MEDICARE PART A xxxxxxxxxxx Medicare BLUE CROSS/BLUE BCBS OS xxxxxxxxxxxx PPO [phone] PO ADI X [id number] SHIELD POS/PPO/[place] [address] Advance Directives For more information, please contact:[address] [phone] Code Status Date Activated Date Inactivated Comments Full Code 11/08/2018 4:38 AM This code status was determined by: Patient
--- OUTSIDE RECORDS SUMMARY | 2020-04-12 14:24 | XMS REPORT | Continuity of Care Document ---
:1960 Author Organization [facility] t Address [address] 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 Social History Social Habit Start Date Stop Date Quantity Comments Source Sex Assigned At [facility] Medications Ordered Filled Start Stop Current Ordering Indication Dosage Frequency Signature Comments Components Source Medication Medication Date Date Medication? Clinician (SIG) Name Name amLODIPine 2019-0 Yes 10mg QD Take 1 [facility] (10 [facility] - 10 MG 00:00: mg total) Medical tablet 00 by mouth Center daily. nebivolol 2019-0 Yes 5mg QD Take [address] [facility] [address] (BYSTOLIC) 1-24 tablet (5 [facility] - 5 MG tablet 00:00: mg total) M edical 00 by mouth Center daily. levothyroxi 2019-0 Yes a condition 25ug Take [address] [facility] [address] ne 1-16 with low mcg by [facility] - (SYNTHROID, 04:41: thyroid mouth Me dical LEVOTHROID) 53 hormone Every Cent er 25 MCG levels morning on tablet an empty stomach. Procedures This patient has no known procedures. Encounters Start End Encounter Admission Attending Care Care Encounter Source Date/Time Date/Time Type Type Clinicians Facility Department ID 2019-12-06 2019-12-06 Orders Doctor MARTINA [id number] 00:00:00 00:00:00 Only Unassigned, ALE [id number] [facility] [id number] Results Test Description Test Time Test Comments Results Result [facility] e Comments RAD, CHEST, 1 2018-11-15 Reason for FINAL REPORT PATIENT VIEW, NON DEPT 10:37:00 exam:->post ID: [id number] Chest opShould this x-ray Clinical be performed at History: post op the Comparison: October bedside?->Yes 2018 Views: 1 Chest x-ray:The cardiac and [...] Decreased pulmonary vascular congestion. Signed: Alyssa Lee Verified Date/Time: 11/15/2018 10:37:06 Reading Location: [facility] Radiology Reading Room C METABOLIC PANEL 2018-11-15 05:55:00 Test Item Value Reference Range Interpretation Comme nts SODIUM (BEAKER) (test code 137 meq/L 136-145 = 381) POTASSIUM (BEAKER) (test 3.9 meq/L 3.5-5.1 code = 379) CHLORIDE (BEAKER) (test 102 meq/L 98-107 code = 382) CO2 (BEAKER) (test code = 25 meq/L 22-29 355) BLOOD UREA NITROGEN 14 mg/dL 7-21 (BEAKER) (test code = 354) CREATININE (BEAKER) (test 0.91 mg/dL 0.57-1.25 code = 358) GLUCOSE RANDOM (BEAKER) 102 mg/dL 70-105 (test code = 652) CALCIUM (BEAKER) (test code 9.3 mg/dL 8.4-10.2 = 697) EGFR (BEAKER) (test code = mL/min/1.73 sq m INSUFFICIENT CLINICAL DATA 1092) TO CALCULATE ES TIMATED GFR. [id number] 05:34:00 Test Item Value Reference Range Interpretation Comments PHOSPHORUS (BEAKER) (test code = 3.2 mg/dL 2.3-4.7 604) [id number] 05:34:00 Test Item Value Reference Range Interpretation Comments MAGNESIUM (BEAKER) (test code = 1.8 mg/dL 1.6-2.6 627) [id number] 05:18:00 Test Item Value Reference Range Interpretation Comments PARTIAL THROMBOPLASTIN TIME 37.7 seconds 22.5-36.0 H (BEAKER) (test code = 760) PROTHROMBIN TIME/[id number] 05:17:00 Test Item Value Reference Range Interpretation Comments PROTIME (BEAKER) (test code = 13.3 seconds 11.7-14.7 759) INR (BEAKER) (test code = 370) 1.0 <=5.9 RECOMMENDED COUMADIN/WARFARIN INR THERAPY RANGESSTANDARD DOSE: 2.0 - 3.0 Includes: PROPHYLAXIS forvenous thrombosis, systemic embolization; TREATMENT for venous thrombosis and/or pulmonary embolus.HIGH RISK: Target INR is 2.5-3.5 for patients with mechanical heart valves.CBC (HEMOGRAM ONLY)2018-11-15 05:07:00 Test Item Value Reference Range Interpretation Comments WHITE BLOOD CELL COUNT (BEAKER) 11.4 K/ L 3.5-10.5 H (test code = 775) RED BLOOD CELL COUNT (BEAKER) 4.85 M/ L 3.93-5.22 (test code = 761) HEMOGLOBIN (BEAKER) (test code = 13.9 GM/DL 11.2-15.7 410) HEMATOCRIT (BEAKER) (test code = 42.6 % 34.1-44.9 411) MEAN CORPUSCULAR VOLUME (BEAKER) 87.8 fL 79.4-94.8 (test code = 753) MEAN CORPUSCULAR HEMOGLOBIN 28.7 pg 25.6-32.2 (BEAKER) (test code = 751) MEAN CORPUSCULAR HEMOGLOBIN CONC 32.6 GM/DL 32.2-35.5 (BEAKER) (test code = 752) RED CELL DISTRIBUTION WIDTH 14.5 % 11.7-14.4 H (BEAKER) (test code = 412) PLATELET COUNT (BEAKER) (test 301 K/CU MM 150-450 code = 756) MEAN PLATELET VOLUME (BEAKER) 10.0 fL 9.4-12.3 (test code = 754) NUCLEATED RED BLOOD CELLS 0 /100 WBC 0-0 (BEAKER) (test code = 413) CTA, CHEST, ABDOMEN - PELVIS, FOR [id number] 20:11:00Reason for exam:- >s/p StentAddendum BeginsREPORT STATUS:A Addendum: November 14, 2018 at 2005 hours I have reviewed the CT images for this study and I concur with the nonvascular imaging findings as dictated. Signed: Martina Isbell MDReport Verified Date/Time: 11/14/2018 20:11:33 Reading Location: [facility] P048 Angio Body Reading RoomAddendum EndsFINAL REPORT CT [...] some eccentric calcific and noncalcific atherosclerosis identifiedwith oscz-mm-hzwjtquz disease present. The distal left common femoral [...] dictated regarding the non-vascular findings by the Installation Engineer Radiologist. Signed: Mahad Muñoz MDReport Verified Date/Time: 11/12/2018 09:28:12 Reading Location: [facility] B1 P047 Cardiology MRI RAD, CHEST, 1 VIEW, NON [id number] 08:35:00Reason for exam:->cardiac monitoringShould this be performed [...] No pulmonary edema. No fracture. Signed: Beti aHll MDReport Verified Date/Time: 11/14/2018 08:35:31 Reading Location: [facility] Radiology Reading Room BASIC METABOLIC [id number] 05:24:00 Test Item Value Reference Range Interpretation Comments SODIUM (BEAKER) 137 meq/L 136-145 (test code = 381) POTASSIUM (BEAKER) 3.6 meq/L 3.5-5.1 (test code = 379) CHLORIDE (BEAKER) 102 meq/L 98-107 (test code = 382) CO2 (BEAKER) (test 26 meq/L 22-29 code = 355) BLOOD UREA NITROGEN 14 mg/dL 7-21 (BEAKER) (test code = 354) CREATININE (BEAKER) 0.87 mg/dL 0.57-1.25 (test code = 358) GLUCOSE RANDOM 101 mg/dL 70-105 (BEAKER) (test code = 652) CALCIUM (BEAKER) 9.0 mg/dL 8.4-10.2 (test code = 697) EGFR (BEAKER) (test mL/min/1.73 INSUFFIC IENT CLINICAL code = 1092) sq m DATA TO CALCULA TE ESTIMATED GFR. [id number] 05:22:00 Test Item Value Reference Range Interpretation Comments PHOSPHORUS (BEAKER) (test code = 2.9 mg/dL 2.3-4.7 604) [id number] 05:22:00 Test Item Value Reference Range Interpretation Comments MAGNESIUM (BEAKER) (test code = 1.7 mg/dL 1.6-2.6 627) PROTHROMBIN [id number] 05:07:00 Test Item Value Reference Range Interpretation Comments PROTIME (BEAKER) (test code = 13.1 seconds 11.7-14.7 759) INR (BEAKER) (test code = 370) 1.0 <=5.9 RECOMMENDED COUMADIN/WARFARIN INR THERAPY RANGESSTANDARD DOSE: 2.0 - 3.0 Includes: PROPHYLAXIS forvenous thrombosis, systemic embolization; TREATMENT for venous thrombosis and/or pulmonary embolus.HIGH RISK: Target INR is 2.5-3.5 for patients with mechanical heart valves.[id number] 05:07:00 Test Item Value Reference Range Interpretation Comments PARTIAL THROMBOPLASTIN TIME 42.0 seconds 22.5-36.0 H (BEAKER) (test code = 760) CBC (HEMOGRAM ONLY)2018-11-14 05:00:00 Test Item Value Reference Range Interpretation Comments WHITE BLOOD CELL COUNT (BEAKER) 12.9 K/ L 3.5-10.5 H (test code = 775) RED BLOOD CELL COUNT (BEAKER) 4.59 M/ L 3.93-5.22 (test code = 761) HEMOGLOBIN (BEAKER) (test code = 13.0 GM/DL 11.2-15.7 410) HEMATOCRIT (BEAKER) (test code = 41.0 % 34.1-44.9 411) MEAN CORPUSCULAR VOLUME (BEAKER) 89.3 fL 79.4-94.8 (test code = 753) MEAN CORPUSCULAR HEMOGLOBIN 28.3 pg 25.6-32.2 (BEAKER) (test code = 751) MEAN CORPUSCULAR HEMOGLOBIN CONC 31.7 GM/DL 32.2-35.5 L (BEAKER) (test code = 752) RED CELL DISTRIBUTION WIDTH 14.6 % 11.7-14.4 H (BEAKER) (test code = 412) PLATELET COUNT (BEAKER) (test 247 K/CU MM 150-450 code = 756) MEAN PLATELET VOLUME (BEAKER) 10.3 fL 9.4-12.3 (test code = 754) NUCLEATED RED BLOOD CELLS 0 /100 WBC 0-0 (BEAKER) (test code = 413) T4, [id number] 12:30:00 Test Item Value Reference Range Interpretation Comments FREE T4 (BEAKER) (test code = 655) 0.93 ng/dL 0.70-1.48 TSH/FREE T4 IF [id number] 11:19:00 Test Item Value Reference Range Interpretation Comments THYROID STIMULATING HORMONE 4.97 uIU/mL 0.35-4.94 H (BEAKER) (test code = 772) RAD, CHEST, 1 VIEW, NON [id number] 05:20:00Reason for exam:->post opShould this be performed [...] Escobar Verified Date/Time: 11/13/2018 05:20:43 Reading Location: [address] on[place] Reading Room BASIC METABOLIC [id number] 05:01:00 Test Item Value Reference Range Interpretation Comments SODIUM (BEAKER) 134 meq/L 136-145 L (test code = 381) POTASSIUM (BEAKER) 3.9 meq/L 3.5-5.1 (test code = 379) CHLORIDE (BEAKER) 103 meq/L 98-107 (test code = 382) CO2 (BEAKER) (test 23 meq/L 22-29 code = 355) BLOOD UREA NITROGEN 13 mg/dL 7-21 (BEAKER) (test code = 354) CREATININE (BEAKER) 0.88 mg/dL 0.57-1.25 (test code = 358) GLUCOSE RANDOM 107 mg/dL 70-105 H (BEAKER) (test code = 652) CALCIUM (BEAKER) 8.5 mg/dL 8.4-10.2 (test code = 697) EGFR (BEAKER) (test mL/min/1.73 INSUFFIC IENT CLINICAL code = 1092) sq m DATA TO CALCULA TE ESTIMATED GFR. [id number] 04:59:00 Test Item Value Reference Range Interpretation Comments PHOSPHORUS (BEAKER) (test code = 2.8 mg/dL 2.3-4.7 604) [id number] 04:59:00 Test Item Value Reference Range Interpretation Comments MAGNESIUM (BEAKER) (test code = 2.0 mg/dL 1.6-2.6 627) PROTHROMBIN [id number] 03:58:00 Test Item Value Reference Range Interpretation Comments PROTIME (BEAKER) (test code = 13.6 seconds 11.7-14.7 759) INR (BEAKER) (test code = 370) 1.0 <=5.9 RECOMMENDED COUMADIN/WARFARIN INR THERAPY RANGESSTANDARD DOSE: 2.0 - 3.0 Includes: PROPHYLAXIS forvenous thrombosis, systemic embolization; TREATMENT for venous thrombosis and/or pulmonary embolus.HIGH RISK: Target INR is 2.5-3.5 for patients with mechanical heart valves.[id number] 03:58:00 Test Item Value Reference Range Interpretation Comments PARTIAL THROMBOPLASTIN TIME 33.3 seconds 22.5-36.0 (BEAKER) (test code = 760) CBC (HEMOGRAM ONLY)2018-11-13 03:51:00 Test Item Value Reference Range Interpretation Comments WHITE BLOOD CELL COUNT (BEAKER) 17.1 K/ L 3.5-10.5 H (test code = 775) RED BLOOD CELL COUNT (BEAKER) 4.40 M/ L 3.93-5.22 (test code = 761) HEMOGLOBIN (BEAKER) (test code = 12.5 GM/DL 11.2-15.7 410) HEMATOCRIT (BEAKER) (test code = 38.5 % 34.1-44.9 411) MEAN CORPUSCULAR VOLUME (BEAKER) 87.5 fL 79.4-94.8 (test code = 753) MEAN CORPUSCULAR HEMOGLOBIN 28.4 pg 25.6-32.2 (BEAKER) (test code = 751) MEAN CORPUSCULAR HEMOGLOBIN CONC 32.5 GM/DL 32.2-35.5 (BEAKER) (test code = 752) RED CELL DISTRIBUTION WIDTH 14.7 % 11.7-14.4 H (BEAKER) (test code = 412) PLATELET COUNT (BEAKER) (test 192 K/CU MM 150-450 code = 756) MEAN PLATELET VOLUME (BEAKER) 10.5 fL 9.4-12.3 (test code = 754) NUCLEATED RED BLOOD CELLS 0 /100 WBC 0-0 (BEAKER) (test code = 413) RAD, CHEST, 1 VIEW, NON [id number] 04:32:00Reason for exam:->cardiac monitoringShould this be performed [...] Escobar Verified Date/Time: 11/12/2018 04:32:55 Reading Location: [address] Transitional Reading Room Electronicall y signed by: JIAN ESCOBAR MD on 11/12/2018 04:32 AMBASIC METABOLIC [id number] 03:54:00 Test Item Value Reference Range Interpretation Comments SODIUM (BEAKER) 137 meq/L 136-145 (test code = 381) POTASSIUM (BEAKER) 3.7 meq/L 3.5-5.1 (test code = 379) CHLORIDE (BEAKER) 105 meq/L 98-107 (test code = 382) CO2 (BEAKER) (test 22 meq/L 22-29 code = 355) BLOOD UREA NITROGEN 13 mg/dL 7-21 (BEAKER) (test code = 354) CREATININE (BEAKER) 0.85 mg/dL 0.57-1.25 (test code = 358) GLUCOSE RANDOM 98 mg/dL 70-105 (BEAKER) (test code = 652) CALCIUM (BEAKER) 8.5 mg/dL 8.4-10.2 (test code = 697) EGFR (BEAKER) (test mL/min/1.73 INSUFFIC IENT CLINICAL code = 1092) sq m DATA TO CALCULA TE ESTIMATED GFR. [id number] 03:53:00 Test Item Value Reference Range Interpretation Comments PHOSPHORUS (BEAKER) (test code = 3.1 mg/dL 2.3-4.7 604) [id number] 03:53:00 Test Item Value Reference Range Interpretation Comments MAGNESIUM (BEAKER) (test code = 2.0 mg/dL 1.6-2.6 627) PROTHROMBIN [id number] 03:48:00 Test Item Value Reference Range Interpretation Comments PROTIME (BEAKER) (test code = 14.2 seconds 11.7-14.7 759) INR (BEAKER) (test code = 370) 1.1 <=5.9 RECOMMENDED COUMADIN/WARFARIN INR THERAPY RANGESSTANDARD DOSE: 2.0 - 3.0 Includes: PROPHYLAXIS forvenous thrombosis, systemic embolization; TREATMENT for venous thrombosis and/or pulmonary embolus.HIGH RISK: Target INR is 2.5-3.5 for patients with mechanical heart valves.[id number] 03:48:00 Test Item Value Reference Range Interpretation Comments PARTIAL THROMBOPLASTIN TIME 37.2 seconds 22.5-36.0 H (BEAKER) (test code = 760) CBC (HEMOGRAM ONLY)2018-11-12 03:30:00 Test Item Value Reference Range Interpretation Comments WHITE BLOOD CELL COUNT (BEAKER) 22.8 K/ L 3.5-10.5 H (test code = 775) RED BLOOD CELL COUNT (BEAKER) 4.66 M/ L 3.93-5.22 (test code = 761) HEMOGLOBIN (BEAKER) (test code = 13.3 GM/DL 11.2-15.7 410) HEMATOCRIT (BEAKER) (test code = 41.1 % 34.1-44.9 411) MEAN CORPUSCULAR VOLUME (BEAKER) 88.2 fL 79.4-94.8 (test code = 753) MEAN CORPUSCULAR HEMOGLOBIN 28.5 pg 25.6-32.2 (BEAKER) (test code = 751) MEAN CORPUSCULAR HEMOGLOBIN CONC 32.4 GM/DL 32.2-35.5 (BEAKER) (test code = 752) RED CELL DISTRIBUTION WIDTH 15.1 % 11.7-14.4 H (BEAKER) (test code = 412) PLATELET COUNT (BEAKER) (test 197 K/CU MM 150-450 code = 756) MEAN PLATELET VOLUME (BEAKER) 10.1 fL 9.4-12.3 (test code = 754) NUCLEATED RED BLOOD CELLS 0 /100 WBC 0-0 (BEAKER) (test code = 413) RAD, CHEST, 1 VIEW, NON [id number] 06:15:00Reason for exam:->cardiac monitoringShould this be performed [...] MDReport Verified Date/Time: 11/11/2018 06:15:46 Reading Location: [address] Transitional Reading Room C METABOLIC [id number] 05:43:00 Test Item Value Reference Range Interpretation Comments SODIUM (BEAKER) 138 meq/L 136-145 (test code = 381) POTASSIUM (BEAKER) 3.8 meq/L 3.5-5.1 (test code = 379) CHLORIDE (BEAKER) 108 meq/L 98-107 H (test code = 382) CO2 (BEAKER) (test 22 meq/L 22-29 code = 355) BLOOD UREA NITROGEN 18 mg/dL 7-21 (BEAKER) (test code = 354) CREATININE (BEAKER) 0.99 mg/dL 0.57-1.25 (test code = 358) GLUCOSE RANDOM 106 mg/dL 70-105 H (BEAKER) (test code = 652) CALCIUM (BEAKER) 8.6 mg/dL 8.4-10.2 (test code = 697) EGFR (BEAKER) (test mL/min/1.73 INSUFFIC IENT CLINICAL code = 1092) sq m DATA TO CALCULA TE ESTIMATED GFR. [id number] 05:31:00 Test Item Value Reference Range Interpretation Comments PHOSPHORUS (BEAKER) (test code = 2.0 mg/dL 2.3-4.7 L 604) [id number] 05:31:00 Test Item Value Reference Range Interpretation Comments MAGNESIUM (BEAKER) (test code = 1.8 mg/dL 1.6-2.6 627) [id number] 05:22:00 Test Item Value Reference Range Interpretation Comments PARTIAL THROMBOPLASTIN TIME 34.4 seconds 22.5-36.0 (BEAKER) (test code = 760) PROTHROMBIN [id number] 05:21:00 Test Item Value Reference Range Interpretation Comments PROTIME (BEAKER) (test code = 13.1 seconds 11.7-14.7 759) INR (BEAKER) (test code = 370) 1.0 <=5.9 RECOMMENDED COUMADIN/WARFARIN INR THERAPY RANGESSTANDARD DOSE: 2.0 - 3.0 Includes: PROPHYLAXIS forvenous thrombosis, systemic embolization; TREATMENT for venous thrombosis and/or pulmonary embolus.HIGH RISK: Target INR is 2.5-3.5 for patients with mechanical heart valves.BLOOD GAS, [id number] 05:05:00 Test Item Value Reference Range Interpretation Comments PH ARTERIAL (BEAKER) (test code = 7.46 7.35-7.45 H 383) PCO2 ARTERIAL (BEAKER) (test code 34 mmHg 35-45 L = 384) PO2 ARTERIAL (BEAKER) (test code = 91 mmHg 80-90 H 385) O2 SATURATION ARTERIAL (BEAKER) 97.0 % 96.0-97.0 (test code = 386) HCO3 ARTERIAL (BEAKER) (test code 23 mmol/L 21-29 = 388) BASE EXCESS ARTERIAL (BEAKER) 0.3 mmol/L -2.0-3.0 (test code = 387) PATIENT TEMPERATURE (BEAKER) (test 38.2 C code = 1818) FIO2 (BEAKER) (test code = 1819) 50.0 % Daily ABG with morning labs while patient is intubated.CBC (HEMOGRAM ONLY) 2018-11-11 04:52:00 Test Item Value Reference Range Interpretation Comments WHITE BLOOD CELL COUNT (BEAKER) 15.1 K/ L 3.5-10.5 H (test code = 775) RED BLOOD CELL COUNT (BEAKER) 4.53 M/ L 3.93-5.22 (test code = 761) HEMOGLOBIN (BEAKER) (test code = 12.9 GM/DL 11.2-15.7 410) HEMATOCRIT (BEAKER) (test code = 39.9 % 34.1-44.9 411) MEAN CORPUSCULAR VOLUME (BEAKER) 88.1 fL 79.4-94.8 (test code = 753) MEAN CORPUSCULAR HEMOGLOBIN 28.5 pg 25.6-32.2 (BEAKER) (test code = 751) MEAN CORPUSCULAR HEMOGLOBIN CONC 32.3 GM/DL 32.2-35.5 (BEAKER) (test code = 752) RED CELL DISTRIBUTION WIDTH 15.3 % 11.7-14.4 H (BEAKER) (test code = 412) PLATELET COUNT (BEAKER) (test 214 K/CU MM 150-450 code = 756) MEAN PLATELET VOLUME (BEAKER) 11.0 fL 9.4-12.3 (test code = 754) NUCLEATED RED BLOOD CELLS 0 /100 WBC 0-0 (BEAKER) (test code = 413) BASIC METABOLIC [id number] 18:59:00 Test Item Value Reference Range Interpretation Comments SODIUM (BEAKER) 138 meq/L 136-145 (test code = 381) POTASSIUM (BEAKER) 3.9 meq/L 3.5-5.1 (test code = 379) CHLORIDE (BEAKER) 108 meq/L 98-107 H (test code = 382) CO2 (BEAKER) (test 21 meq/L 22-29 L code = 355) BLOOD UREA NITROGEN 19 mg/dL 7-21 (BEAKER) (test code = 354) CREATININE (BEAKER) 0.94 mg/dL 0.57-1.25 (test code = 358) GLUCOSE RANDOM 111 mg/dL 70-105 H (BEAKER) (test code = 652) CALCIUM (BEAKER) 8.3 mg/dL 8.4-10.2 L (test code = 697) EGFR (BEAKER) (test mL/min/1.73 INSUFFIC IENT CLINICAL code = 1092) sq m DATA TO CALCULA TE ESTIMATED GFR. [id number] 18:50:00 Test Item Value Reference Range Interpretation Comments PROTIME (BEAKER) (test code = 13.4 seconds 11.7-14.7 759) INR (BEAKER) (test code = 370) 1.0 <=5.9 PARTIAL THROMBOPLASTIN TIME 31.7 seconds 22.5-36.0 (BEAKER) (test code = 760) RECOMMENDED COUMADIN/WARFARIN INR THERAPY RANGESSTANDARD DOSE: 2.0 - 3.0 Includes: PROPHYLAXIS forvenous thrombosis, systemic embolization; TREATMENT for venous thrombosis and/or pulmonary embolus.HIGH RISK: Target INR is 2.5-3.5 for patients with mechanical heart valves.CBC (HEMOGRAM ONLY)2018-11-10 18:34:00 Test Item Value Reference Range Interpretation Comments WHITE BLOOD CELL COUNT (BEAKER) 14.5 K/ L 3.5-10.5 H (test code = 775) RED BLOOD CELL COUNT (BEAKER) 4.64 M/ L 3.93-5.22 (test code = 761) HEMOGLOBIN (BEAKER) (test code = 13.4 GM/DL 11.2-15.7 410) HEMATOCRIT (BEAKER) (test code = 41.0 % 34.1-44.9 411) MEAN CORPUSCULAR VOLUME (BEAKER) 88.4 fL 79.4-94.8 (test code = 753) MEAN CORPUSCULAR HEMOGLOBIN 28.9 pg 25.6-32.2 (BEAKER) (test code = 751) MEAN CORPUSCULAR HEMOGLOBIN CONC 32.7 GM/DL 32.2-35.5 (BEAKER) (test code = 752) RED CELL DISTRIBUTION WIDTH 15.1 % 11.7-14.4 H (BEAKER) (test code = 412) PLATELET COUNT (BEAKER) (test 178 K/CU MM 150-450 code = 756) MEAN PLATELET VOLUME (BEAKER) 10.3 fL 9.4-12.3 (test code = 754) NUCLEATED RED BLOOD CELLS 0 /100 WBC 0-0 (BEAKER) (test code = 413) CALCIUM, [id number] 18:32:00 Test Item Value Reference Range Interpretation Comments CALCIUM IONIZED (BEAKER) (test 1.09 mmol/L 1.12-1.27 L code = 698) PH, BLOOD (BEAKER) (test code = 7.42 1810) BLOOD GAS, [id number] 18:32:00 Test Item Value Reference Range Interpretation Comments PH ARTERIAL (BEAKER) (test code = 7.42 7.35-7.45 383) PCO2 ARTERIAL (BEAKER) (test code 36 mmHg 35-45 = 384) PO2 ARTERIAL (BEAKER) (test code 123 mmHg 80-90 H = 385) O2 SATURATION ARTERIAL (BEAKER) 98.6 % 96.0-97.0 H (test code = 386) HCO3 ARTERIAL (BEAKER) (test code 23 mmol/L 21-29 = 388) BASE EXCESS ARTERIAL (BEAKER) -1.1 mmol/L -2.0-3.0 (test code = 387) PATIENT TEMPERATURE (BEAKER) 36.3 C (test code = 1818) FIO2 (BEAKER) (test code = 1819) 100.0 % [id number] 17:09:00 Test Item Value Reference Range Interpretation Comments ACTIVATED CLOTTING TIME 131 sec TEST ED AT [place] [address] ([facility]) (test code = [address] [place] [address]) [address] [id number] 17:09:00 Test Item Value Reference Range Interpretation Comments ACTIVATED CLOTTING TIME 230 sec TEST ED AT [place] [address] ([facility]) (test code = [address] [place] [address]) [address] HGB/HCT (H&H) - STAT [id number] 16:27:00 Test Item Value Reference Range Interpretation Comments HEMOGLOBIN (BEAKER) (test code = 12.4 g/dL 12.0-15.0 410) HEMATOCRIT (BEAKER) (test code = 36.0 % 36.0-45.0 411) SODIUM NA-STAT [id number] 16:27:00 Test Item Value Reference Range Interpretation Comments SODIUM (BEAKER) (test code = 381) 133 meq/L 135-148 L BLOOD GAS, [id number] 16:25:00 Test Item Value Reference Range Interpretation Comments PH ARTERIAL (BEAKER) (test code = 7.46 7.35-7.45 H 383) PCO2 ARTERIAL (BEAKER) (test code 34 mmHg 35-45 L = 384) PO2 ARTERIAL (BEAKER) (test code = 112 mmHg 80-90 H 385) O2 SATURATION ARTERIAL (BEAKER) 98.5 % 96.0-97.0 H (test code = 386) HCO3 ARTERIAL (BEAKER) (test code 24 mmol/L 21-29 = 388) BASE EXCESS ARTERIAL (BEAKER) 0.0 mmol/L -2.0-3.0 (test code = 387) PATIENT TEMPERATURE (BEAKER) (test 35.6 C code = 1818) FIO2 (BEAKER) (test code = 1819) 78.0 % GLUCOSE-STAT [id number] 16:25:00 Test Item Value Reference Range Interpretation Comments GLUCOSE RANDOM (BEAKER) (test code 115 mg/dL 70-110 H = 652) POTASSIUM-STAT [id number] 16:24:00 Test Item Value Reference Range Interpretation Comments POTASSIUM (BEAKER) (test code = 3.8 meq/L 3.6-5.5 379) CALCIUM, [id number] 14:56:00 Test Item Value Reference Range Interpretation Comments CALCIUM IONIZED (BEAKER) (test 1.06 mmol/L 1.12-1.27 L code = 698) PH, BLOOD (BEAKER) (test code = 7.41 1810) BLOOD GAS, [id number] 14:56:00 Test Item Value Reference Range Interpretation Comments PH ARTERIAL (BEAKER) (test code = 7.43 7.35-7.45 383) PCO2 ARTERIAL (BEAKER) (test code 36 mmHg 35-45 = 384) PO2 ARTERIAL (BEAKER) (test code 265 mmHg 80-90 H = 385) O2 SATURATION ARTERIAL (BEAKER) 99.6 % 96.0-97.0 H (test code = 386) HCO3 ARTERIAL (BEAKER) (test code 23 mmol/L 21-29 = 388) BASE EXCESS ARTERIAL (BEAKER) -1.1 mmol/L -2.0-3.0 (test code = 387) PATIENT TEMPERATURE (BEAKER) 36.2 C (test code = 1818) FIO2 (BEAKER) (test code = 1819) 95.0 % SODIUM NA-STAT [id number] 14:56:00 Test Item Value Reference Range Interpretation Comments SODIUM (BEAKER) (test code = 381) 134 meq/L 135-148 L GLUCOSE-STAT [id number] 14:55:00 Test Item Value Reference Range Interpretation Comments GLUCOSE RANDOM (BEAKER) (test code 103 mg/dL 70-110 = 652) POTASSIUM-STAT [id number] 14:55:00 Test Item Value Reference Range Interpretation Comments POTASSIUM (BEAKER) (test code = 3.6 meq/L 3.6-5.5 379) HGB/HCT (H&H) - STAT [id number] 14:55:00 Test Item Value Reference Range Interpretation Comments HEMOGLOBIN (BEAKER) (test code = 13.1 g/dL 12.0-15.0 410) HEMATOCRIT (BEAKER) (test code = 39.0 % 36.0-45.0 411) RAD, CHEST, 1 VIEW, NON [id number] 04:46:00Reason for exam:->cardiac monitoringShould this be performed [...] Hawk Verified Date/Time: 11/10/2018 04:46:58 Reading Location: [address] Reading Room BASIC METABOLIC [id number] 03:57:00 Test Item Value Reference Range Interpretation Comments SODIUM (BEAKER) 136 meq/L 136-145 (test code = 381) POTASSIUM (BEAKER) 4.1 meq/L 3.5-5.1 (test code = 379) CHLORIDE (BEAKER) 105 meq/L 98-107 (test code = 382) CO2 (BEAKER) (test 26 meq/L 22-29 code = 355) BLOOD UREA NITROGEN 28 mg/dL 7-21 H (BEAKER) (test code = 354) CREATININE (BEAKER) 1.27 mg/dL 0.57-1.25 H (test code = 358) GLUCOSE RANDOM 122 mg/dL 70-105 H (BEAKER) (test code = 652) CALCIUM (BEAKER) 8.6 mg/dL 8.4-10.2 (test code = 697) EGFR (BEAKER) (test mL/min/1.73 INSUFFIC IENT CLINICAL code = 1092) sq m DATA TO CALCULA TE ESTIMATED GFR. [id number] 03:45:00 Test Item Value Reference Range Interpretation Comments PHOSPHORUS (BEAKER) (test code = 3.3 mg/dL 2.3-4.7 604) [id number] 03:45:00 Test Item Value Reference Range Interpretation Comments MAGNESIUM (BEAKER) (test code = 2.1 mg/dL 1.6-2.6 627) CBC (HEMOGRAM ONLY)2018-11-10 03:25:00 Test Item Value Reference Range Interpretation Comments WHITE BLOOD CELL COUNT (BEAKER) 10.0 K/ L 3.5-10.5 (test code = 775) RED BLOOD CELL COUNT (BEAKER) 4.36 M/ L 3.93-5.22 (test code = 761) HEMOGLOBIN (BEAKER) (test code = 12.4 GM/DL 11.2-15.7 410) HEMATOCRIT (BEAKER) (test code = 39.1 % 34.1-44.9 411) MEAN CORPUSCULAR VOLUME (BEAKER) 89.7 fL 79.4-94.8 (test code = 753) MEAN CORPUSCULAR HEMOGLOBIN 28.4 pg 25.6-32.2 (BEAKER) (test code = 751) MEAN CORPUSCULAR HEMOGLOBIN CONC 31.7 GM/DL 32.2-35.5 L (BEAKER) (test code = 752) RED CELL DISTRIBUTION WIDTH 15.1 % 11.7-14.4 H (BEAKER) (test code = 412) PLATELET COUNT (BEAKER) (test 183 K/CU MM 150-450 code = 756) MEAN PLATELET VOLUME (BEAKER) 10.2 fL 9.4-12.3 (test code = 754) NUCLEATED RED BLOOD CELLS 0 /100 WBC 0-0 (BEAKER) (test code = 413) TSH/FREE T4 IF [id number] 10:50:00 Test Item Value Reference Range Interpretation Comments THYROID STIMULATING HORMONE 0.84 uIU/mL 0.35-4.94 (BEAKER) (test code = 772) RAD, CHEST, 1 VIEW, NON [id number] 08:37:00Reason for exam:->cardiac monitoringShould this be performed [...] opacities in the left lung. Signed: Gregory Jarvis MDReport Verified Date/Time: 11/09/2018 08:37:21 Reading Location: [facility] Radiology Reading Room PHOSPHORUS 2018-11-09 04:02:00 Test Item Value Reference Range Interpretation Comments PHOSPHORUS (BEAKER) (test code = 4.0 mg/dL 2.3-4.7 604) [id number] 04:02:00 Test Item Value Reference Range Interpretation Comments MAGNESIUM (BEAKER) (test code = 1.9 mg/dL 1.6-2.6 627) BASIC METABOLIC [id number] 04:02:00 Test Item Value Reference Range Interpretation Comments SODIUM (BEAKER) 139 meq/L 136-145 (test code = 381) POTASSIUM (BEAKER) 3.4 meq/L 3.5-5.1 L (test code = 379) CHLORIDE (BEAKER) 105 meq/L 98-107 (test code = 382) CO2 (BEAKER) (test 27 meq/L 22-29 code = 355) BLOOD UREA NITROGEN 23 mg/dL 7-21 H (BEAKER) (test code = 354) CREATININE (BEAKER) 1.41 mg/dL 0.57-1.25 H (test code = 358) GLUCOSE RANDOM 124 mg/dL 70-105 H (BEAKER) (test code = 652) CALCIUM (BEAKER) 8.5 mg/dL 8.4-10.2 (test code = 697) EGFR (BEAKER) (test mL/min/1.73 INSUFFIC IENT CLINICAL code = 1092) sq m DATA TO CALCULA TE ESTIMATED GFR. CBC (HEMOGRAM ONLY)2018-11-09 03:45:00 Test Item Value Reference Range Interpretation Comments WHITE BLOOD CELL COUNT (BEAKER) 13.6 K/ L 3.5-10.5 H (test code = 775) RED BLOOD CELL COUNT (BEAKER) 4.60 M/ L 3.93-5.22 (test code = 761) HEMOGLOBIN (BEAKER) (test code = 13.1 GM/DL 11.2-15.7 410) HEMATOCRIT (BEAKER) (test code = 41.2 % 34.1-44.9 411) MEAN CORPUSCULAR VOLUME (BEAKER) 89.6 fL 79.4-94.8 (test code = 753) MEAN CORPUSCULAR HEMOGLOBIN 28.5 pg 25.6-32.2 (BEAKER) (test code = 751) MEAN CORPUSCULAR HEMOGLOBIN CONC 31.8 GM/DL 32.2-35.5 L (BEAKER) (test code = 752) RED CELL DISTRIBUTION WIDTH 15.3 % 11.7-14.4 H (BEAKER) (test code = 412) PLATELET COUNT (BEAKER) (test 195 K/CU MM 150-450 code = 756) MEAN PLATELET VOLUME (BEAKER) 10.2 fL 9.4-12.3 (test code = 754) NUCLEATED RED BLOOD CELLS 0 /100 WBC 0-0 (BEAKER) (test code = 413) RAD, CHEST, 1 VIEW, NON [id number] 08:05:00Reason for exam:->Potential aortic dissectionIs the patient [...] lobe laterally. Signed: Alyssa Leeort Verified Date/Time: 11/08/2018 08:05:30 Reading Location: [facility] Radiology Reading Room TROPONIN [id number] 07:51:00 Test Item Value Reference Range Interpretation Comments TROPONIN I (BEAKER) (test code = [...] acute neurological disease, and persistent tachyarrhythmia.BASIC METABOLIC [id number] 05:45:00 Test Item Value Reference Range Interpretation Comments SODIUM (BEAKER) 138 meq/L 136-145 (test code = 381) POTASSIUM (BEAKER) 3.7 meq/L 3.5-5.1 Specimen slightly (test code = 379) hemolyzed CHLORIDE (BEAKER) 105 meq/L 98-107 (test code = 382) CO2 (BEAKER) (test 22 meq/L 22-29 code = 355) BLOOD UREA NITROGEN 17 mg/dL 7-21 (BEAKER) (test code = 354) CREATININE (BEAKER) 1.07 mg/dL 0.57-1.25 Specimen slightly (test code = 358) hemolyzed GLUCOSE RANDOM 138 mg/dL 70-105 H (BEAKER) (test code = 652) CALCIUM (BEAKER) 9.1 mg/dL 8.4-10.2 (test code = 697) EGFR (BEAKER) (test mL/min/1.73 INSUFFIC IENT CLINICAL code = 1092) sq m DATA TO CALCULA TE ESTIMATED GFR. [id number] 05:42:00 Test Item Value Reference Range Interpretation Comments MAGNESIUM (BEAKER) 2.2 mg/dL 1.6-2.6 Specimen slightly (test code = 627) hemolyzed [id number] 05:42:00 Test Item Value Reference Range Interpretation Comments PHOSPHORUS (BEAKER) 3.8 mg/dL 2.3-4.7 Specimen slightly (test code = 604) hemolyzed HEPATIC FUNCTION [id number] 05:42:00 Test Item Value Reference Range Interpretation Comments TOTAL PROTEIN (BEAKER) 6.9 gm/dL 6.0-8.3 Speci men slightly (test code = 770) hemolyzed ALBUMIN (BEAKER) (test 3.6 g/dL 3.5-5.0 Speci men slightly code = 1145) hemolyzed BILIRUBIN TOTAL 2.3 mg/dL 0.2-1.2 H Specimen sli ghtly (BEAKER) (test code = hemoly zed 377) BILIRUBIN DIRECT 1.3 mg/dL 0.1-0.5 H Specimen sl ightly (BEAKER) (test code = hemoly zed 706) ALKALINE PHOSPHATASE 266 U/L 40-150 H (BEAKER) (test code = 346) AST (SGOT) (BEAKER) 152 U/L 5-34 H Specimen slightly (test code = 353) hemolyzed ALT (SGPT) (BEAKER) 99 U/L 6-55 H Specimen slightly (test code = 347) hemolyzed CBC W/PLT COUNT & AUTO [id number] 05:26:00 Test Item Value Reference Range Interpretation Comments WHITE BLOOD CELL COUNT (BEAKER) 15.1 K/ L 3.5-10.5 H (test code = 775) RED BLOOD CELL COUNT (BEAKER) 5.36 M/ L 3.93-5.22 H (test code = 761) HEMOGLOBIN (BEAKER) (test code = 15.0 GM/DL 11.2-15.7 410) HEMATOCRIT (BEAKER) (test code = 47.2 % 34.1-44.9 H 411) MEAN CORPUSCULAR VOLUME (BEAKER) 88.1 fL 79.4-94.8 (test code = 753) MEAN CORPUSCULAR HEMOGLOBIN 28.0 pg 25.6-32.2 (BEAKER) (test code = 751) MEAN CORPUSCULAR HEMOGLOBIN CONC 31.8 GM/DL 32.2-35.5 L (BEAKER) (test code = 752) RED CELL DISTRIBUTION WIDTH 14.7 % 11.7-14.4 H (BEAKER) (test code = 412) PLATELET COUNT (BEAKER) (test 239 K/CU MM 150-450 code = 756) MEAN PLATELET VOLUME (BEAKER) 10.0 fL 9.4-12.3 (test code = 754) NUCLEATED RED BLOOD CELLS 0 /100 WBC 0-0 (BEAKER) (test code = 413) NEUTROPHILS RELATIVE PERCENT 81 % (BEAKER) (test code = 429) LYMPHOCYTES RELATIVE PERCENT 11 % (BEAKER) (test code = 430) MONOCYTES RELATIVE PERCENT 7 % (BEAKER) (test code = 431) EOSINOPHILS RELATIVE PERCENT 0 % (BEAKER) (test code = 432) BASOPHILS RELATIVE PERCENT 0 % (BEAKER) (test code = 437) NEUTROPHILS ABSOLUTE COUNT 12.22 K/ L 1.56-6.13 H (BEAKER) (test code = 670) LYMPHOCYTES ABSOLUTE COUNT 1.62 K/ L 1.18-3.74 (BEAKER) (test code = 414) MONOCYTES ABSOLUTE COUNT (BEAKER) 1.12 K/ L 0.24-0.36 H (test code = 415) EOSINOPHILS ABSOLUTE COUNT 0.01 K/ L 0.04-0.36 L (BEAKER) (test code = 416) BASOPHILS ABSOLUTE COUNT (BEAKER) 0.06 K/ L 0.01-0.08 (test code = 417) IMMATURE GRANULOCYTES-RELATIVE 0 % 0-1 PERCENT (BEAKER) (test code = 2801) [id number] 05:26:00 Test Item Value Reference Range Interpretation Comments PARTIAL THROMBOPLASTIN TIME 25.2 seconds 22.5-36.0 (BEAKER) (test code = 760) PROTHROMBIN TIME/[id number] 05:25:00 Test Item Value Reference Range Interpretation Comments PROTIME (BEAKER) (test code = 13.5 seconds 11.7-14.7 759) INR (BEAKER) (test code = 370) 1.0 <=5.9 RECOMMENDED COUMADIN/WARFARIN INR THERAPY RANGESSTANDARD DOSE: 2.0 - 3.0 Includes: PROPHYLAXIS forvenous thrombosis, systemic embolization; TREATMENT for venous thrombosis and/or pulmonary embolus.HIGH RISK: Target INR is 2.5-3.5 for patients with mechanical heart valves.CALCIUM, [id number] 05:20:00 Test Item Value Reference Range Interpretation Comments CALCIUM IONIZED (BEAKER) (test 1.13 mmol/L 1.12-1.27 code = 698) PH, BLOOD (BEAKER) (test code = 7.38 7749)
--- NOTE | 2020-04-12 14:27 | RAD REPORT ---
EXAM DESCRIPTION: CT - Abdomen Pelvis W Contrast - 04/12/2020 2:10 pm CLINICAL HISTORY: cancer;Abd pain COMPARISON: Abdomen Pelvis W Contrast dated 10/05/2019 TECHNIQUE: Biphasic, helical CT imaging of the abdomen and pelvis was performed following 100 ml non -ionic IV contrast. No oral contrast administered. All CT scans are performed using dose optimization technique as appropriate and may include automated exposure control or mA/KV adjustment according to patient size. FINDINGS: No acute lung parenchymal finding. No pericardial thickening or effusion. Partially imaged distal thoracic aortic stent noted. Liver size is normal. No focal liver parenchymal lesion. No splenomegaly or focal splenic finding. A mass of the pancreas is not identifiable. Cholecystectomy clips are present. Pneumobilia is present w ithout dilatation. A biliary stent and pancreatic stent are in place. These are new from October 2018 . Etiology for stent placement is not known. Symmetric renal function is seen with no hydronephrosis or suspicious renal mass. No pyelonephritis o r acute parenchymal process. Small renal cysts are present. No urinary bladder abnormality. Uterus is absent. Ovaries are absent as well. No adnexal or pelvic floor abnormality seen. No adrenal abnormal ities. Fluid distended stomach is present. Small hiatal hernia is seen. Stevens of the gastric antrum are thic kened. This is less pronounced than seen previously. No small bowel dilatation. No acute appendicitis findings. Colon is mostly decompressed. Minimal sigmoid diverticulosis without diverticulitis. No fr ee air or pneumatosis. No abnormal fluid collections seen. No mass or bulky lymphadenopathy. Fat todd led left inguinal hernia is present. Disc and bone degenerative changes are present. Dense arterial tree calcifications are present. Mild dilatation of the abdominal aorta present with mural thrombus. Thrombus extends into the right common iliac artery. Significant stenosis present at the right common iliac artery. Findings are similar to comparison. IMPRESSION: No bowel obstruction, free air or surgically emergent finding. Proximal stomach is distended with fluid. There is gastric antrum wall thickening. This is less than previously seen but still outside of normal range. Antritis or antral ulcer disease with possible. Pancreatic duct stent and biliary tree stent have been placed since the September 2019 comparison. No pancreatic mass seen. Infrarenal aortic aneurysm to approximately 3 cm in diameter. 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 Vascular findings are not clearly different from comparison.
--- NOTE | 2020-04-12 15:18 | EDPHYS ---
Physician Documentation [facility] Name: Cait Ying Age: 60 yrs Sex: Female : 1960 Arrival Date: 04/12/2020 Time: 12:51 Bed 20 Private MD: ED Physician Sai Lopez HPI: 04/12 15:40 This 60 yrs old Female presents to ER via EMS with complaints of snw Nausea/Vomiting. 15:40 The patient presents to the emergency department with nausea, vomiting, abdominal pain, snw described as crampy. Onset: The symptoms/episode began/occurred suddenly, 5 day(s) ago, and became persistent s/p chemo. Possible causes: s/p chemo. Severity of symptoms: At their worst the symptoms were moderate severe in the emergency department the symptoms have resolved have improved moderately. It is unknown whether or not the patient has had similar symptoms in the past. The patient has been recently seen by a physician: hemo/onc for uterine ca. Historical: - Allergies: 12:57 No Known Allergies; ah - Home Meds: 12:57 Aspirin Oral [Active]; levothyroxine oral [Active]; metoprolol tartrate 100 mg Oral tab ah 1 tab 2 times per day [Active]; Norvasc Oral [Active]; - PMHx: 12:57 aortic aneurysm; Hypertension; Hypothyroidism; Pancreatitis; uterine cancer; ah - PSHx: 12:57 Hysterectomy; Cholecystectomy; ah - Immunization history:: Adult Immunizations up to date. - Social history:: Smoking status: Patient denies any tobacco usage or history of. Patient/guardian denies using alcohol. ROS: 15:39 Eyes: Negative for injury, pain, redness, and discharge, ENT: Negative for injury, snw pain, and discharge, Neck: Negative for injury, pain, and swelling, Cardiovascular: Negative for chest pain, palpitations, and edema, Respiratory: Negative for shortness of breath, cough, wheezing, and pleuritic chest pain, Back: Negative for injury and pain, : Negative for injury, bleeding, discharge, and swelling, MS/Extremity: Negative for injury and deformity, Skin: Negative for injury, rash, and discoloration, Neuro: Negative for headache, weakness, numbness, tingling, and seizure, Psych: Negative for depression, anxiety, suicide ideation, homicidal ideation, and hallucinations. 15:39 Constitutional: Positive for body aches, chills, malaise. 15:39 Abdomen/GI: Positive for nausea and vomiting, abdominal cramps. Exam: 15:20 Constitutional: This is a well developed, well nourished patient who is awake, alert, snw and in no acute distress. Head/Face: Normocephalic, atraumatic. Eyes: Pupils equal round and reactive to light, extra-ocular motions intact. Lids and lashes normal. Conjunctiva and sclera are non-icteric and not injected. Cornea within normal limits. Periorbital areas with no swelling, redness, or edema. ENT: Nares patent. No nasal discharge, no septal abnormalities noted. Tympanic membranes are normal and external auditory canals are clear. Oropharynx with no redness, swelling, or masses, exudates, or evidence of obstruction, uvula midline. Mucous membranes moist. Neck: Trachea midline, no thyromegaly or masses palpated, and no cervical lymphadenopathy. Supple, full range of motion without nuchal rigidity, or vertebral point tenderness. No Meningismus. Chest/axilla: Normal chest wall appearance and motion. Nontender with no deformity. No lesions are appreciated. Cardiovascular: Regular rate and rhythm with a normal S1 and S2. No gallops, murmurs, or rubs. Normal PMI, no JVD. No pulse deficits. Respiratory: Lungs have equal breath sounds bilaterally, clear to auscultation and percussion. No rales, rhonchi or wheezes noted. No increased work of breathing, no retractions or nasal flaring. Back: No spinal tenderness. No costovertebral tenderness. Full range of motion. Skin: Warm, dry with normal turgor. Normal color with no rashes, no lesions, and no evidence of cellulitis. MS/ Extremity: Pulses equal, no cyanosis. Neurovascular intact. Full, normal range of motion. Neuro: Awake and alert, GCS 15, oriented to person, place, time, and situation. Cranial nerves II-XII grossly intact. Motor strength 5/5 in all extremities. Sensory grossly intact. Cerebellar exam normal. Normal gait. Psych: Awake, alert, with orientation to person, place and time. Behavior, mood, and affect are within normal limits. 15:20 Abdomen/GI: Inspection: distension, that is mild, that is moderate, Bowel sounds: normal, Palpation: mild abdominal tenderness, moderate abdominal tenderness, in all quadrants. Vital Signs: 12:42 BP 179 / 69; Pulse 94; Resp 18; Temp 98.3; Pulse Ox 97% ; Weight 80.74 kg; Height 5 ft. ah 8 in. (172.72 cm); 13:15 BP 183 / 92; Pulse 93; Resp 18; Pulse Ox 97% ; ah 13:30 BP 183 / 97; Pulse 92; Resp 17; Pulse Ox 93% ; ah 14:30 BP 186 / 80; Pulse 96; Resp 18; Pulse Ox 96% ; ah 12:42 Body Mass Index 27.06 (80.74 kg, 172.72 cm) MDM: 14:04 Patient medically screened. snw 15:19 Data reviewed: vital signs, nurses notes, lab test result(s), radiologic studies. Data snw interpreted: Pulse oximetry: on room air is 96 %. Interpretation: acceptable. Counseling: I had a detailed discussion with the patient and/or guardian regarding: the historical points, exam findings, and any diagnostic results supporting the discharge/admit diagnosis, the presence of at least one elevated blood pressure reading (>120/80) during this emergency department visit, lab results, radiology results, the need for outpatient follow up, to return to the emergency department if symptoms worsen or persist or if there are any questions or concerns that arise at home. Response to treatment: the patient's symptoms have markedly improved after treatment. Special discussion: Based on the patient's Hx, exam, and Dx evaluation, there is no indication for emergent surgery or inpatient Tx. It is understood by the patient/guardian that if the Sx's persist or worsen they need to return immediately for re-evaluation. I have referred the patient to see his PCP for further evaluation of high blood pressure. Based on the history and exam findings, there is no indication for further emergent testing or inpatient evaluation. I discussed with the patient/guardian the need to see the linting machine operator/oncologist for further evaluation of the symptoms. I discussed with the patient/guardian the need to see the primary care provider for further evaluation of the symptoms. 04/12 12:57 Order name: CBC with Diff; Complete Time: 14:04 snw 04/12 12:57 Order name: Chem 7; Complete Time: 14:04 snw 04/12 12:57 Order name: CT Abd/Pelvis - IV Contrast Only; Complete Time: 14:32 snw 04/12 12:57 Order name: LFT's; Complete Time: 14:04 snw 04/12 12:57 Order name: Lipase; Complete Time: 14:04 snw 04/12 12:57 Order name: COVID-19 snw 04/12 12:59 Order name: Droplet/Contact Precautions; Complete Time: 13:16 snw Administered Medications: 13:20 Drug: Ativan 1 mg Route: IM; Site: left ventrogluteal; ah 15:08 Follow up: Response: No adverse reaction ah 13:20 Drug: Phenergan 6.25 mg Route: IVP; Site: left antecubital; ah 15:08 Follow up: Response: No adverse reaction ah 13:20 Drug: NS 0.9% 1000 ml Route: IV; Rate: 1 bolus; Site: left antecubital; ah 15:09 Follow up: Response: No adverse reaction; IV Status: Completed infusion ah 15:30 Drug: fentaNYL (PF) 25 mcg Route: IVP; Site: left antecubital; ah 15:47 Follow up: Response: No adverse reaction ah Disposition: 04/13 04:28 Co-signature as Attending Physician, Sai Lopez MD I agree with the assessment and kdr plan of care. Disposition: 04/12/20 15:17 Discharged to Home. Impression: Personal history of antineoplastic chemotherapy, Nausea and vomiting, Malaise and fatigue. - Condition is Stable. - Discharge Instructions: Clear Liquid Diet, Adult, Nausea and Vomiting, Adult, Fatigue, Rehydration, Elderly. - Prescriptions for Phenergan 25 mg Rectal Suppository - insert 1 suppository by RECTAL route every 6 hours As needed; 12 suppository. - Medication Reconciliation Form, Thank You Letter, Antibiotic Education, Prescription Opioid Use form. - Follow up: Emergency Department; When: As needed; Reason: Worsening of condition. Follow up: Private Physician; When: 5 - 6 days; Reason: Recheck today's complaints, Continuance of care, Re-evaluation by your physician. Signatures: Dispatcher [employer] Sai Amador MD MD kdr Therrien, Shelly, FNP-C [employer]-Alicia Lora, RN RN Corrections: (The following items were deleted from the chart) 04/12 15:48 15:17 04/12/2020 15:17 Discharged to Home. Impression: Personal history of antineoplastic chemotherapy; Nausea and vomiting; Malaise and fatigue. Condition is Stable. Forms are Medication Reconciliation Form, Thank You Letter, Antibiotic Education, Prescription Opioid Use. Follow up: Emergency Department; When: As needed; Reason: Worsening of condition. Follow up: Private Physician; When: 5 - 6 days; Reason: Recheck today's complaints, Continuance of care, Re-evaluation by your physician. snw
--- NOTE | 2020-04-12 15:18 | ER ---
Nurse's Notes [facility] Name: Cait Ying Age: 60 yrs Sex: Female : 1960 Arrival Date: 04/12/2020 Time: 12:51 Bed 20 Private MD: Diagnosis: Personal history of antineoplastic chemotherapy;Nausea and vomiting;Malaise and fatigue Presentation: 04/12 12:42 Chief complaint: EMS states: Nausea and vomiting since Tuesday, unable to hold anything ah down and body aches. BGL 159, vitals per EMS 144/94, 96, 18, 97%, 98.4. Coronavirus screen: Proceed with normal triage. Ebola Screen: No symptoms or risks identified at this time. Initial Sepsis Screen: Does the patient have a suspected source of infection? No. Patient's initial sepsis screen is negative. Initial Sepsis Screen: Does the patient meet any 2 criteria? No. Patient's initial sepsis screen is negative. Risk Assessment: Do you want to hurt yourself or someone else? Patient reports no desire to harm self or others. Onset of symptoms was April 09, 2020. 12:42 Method Of Ar[facility]: [facility] 12:42 Acuity: [facility] 3 15:11 Care prior to arrival: Medication(s) given: Normal saline infusion, 200 ml Tylenol, ah 1000 mg, zofran 4 mg, IV initiated. 20 GA, in the left antecubital area, Glucose check: 159. Historical: - Allergies: 12:57 No Known Allergies; - Home Meds: 12:57 Aspirin Oral [Active]; levothyroxine oral [Active]; metoprolol tartrate 100 mg Oral tab ah 1 tab 2 times per day [Active]; Norvasc Oral [Active]; - PMHx: 12:57 aortic aneurysm; Hypertension; Hypothyroidism; Pancreatitis; uterine cancer; - PSHx: 12:57 Hysterectomy; Cholecystectomy; - Immunization history:: Adult Immunizations up to date. - Social history:: Smoking status: Patient denies any tobacco usage or history of. Patient/guardian denies using alcohol. Screenin:07 Abuse screen: Denies threats or abuse. Nutritional screening: No deficits noted. Tuberculosis screening: No symptoms or risk factors identified. Fall Risk None identified. Assessment: 13:00 General: Appears uncomfortable, Behavior is cooperative, Reports chills for 12-24 ah hours, feeling ill for 1-2 days. Pain: Complains of pain in right lower quadrant and left lower quadrant. Neuro: Level of Consciousness is awake, alert, Oriented to person, place, time, situation. Cardiovascular: Capillary refill < 3 seconds Patient's skin is warm and dry. Respiratory: Airway is patent Respiratory effort is even, unlabored, Respiratory pattern is regular, symmetrical. GI: Pt is actively vomiting Reports nausea, vomiting, since Tuesday. Derm: Skin is intact, is healthy with good turgor. 14:00 Reassessment: Pt lying in bed. Dry heaving has stopped. Pt states that nausea is better ah but still feels achy. 15:23 Reassessment: Called upon request for ride home. states he is on his ss way. Vital Signs: 12:42 BP 179 / 69; Pulse 94; Resp 18; Temp 98.3; Pulse Ox 97% ; Weight 80.74 kg; Height 5 ft. ah 8 in. (172.72 cm); 13:15 BP 183 / 92; Pulse 93; Resp 18; Pulse Ox 97% ; ah 13:30 BP 183 / 97; Pulse 92; Resp 17; Pulse Ox 93% ; ah 14:30 BP 186 / 80; Pulse 96; Resp 18; Pulse Ox 96% ; ah 12:42 Body Mass Index 27.06 (80.74 kg, 172.72 cm) ED Course: 12:51 Patient arrived in ED. ah 12:51 Mica Patel FNP-C is [facility]. sn 12:51 Sai Lopez MD is Attending Physician. snw 12:51 Alicia Reis, PAT is Primary Nurse. ah 12:56 Triage completed. ah 14:10 CT completed. Patient tolerated procedure well. Patient moved back from CT. bq 14:10 CT Abd/Pelvis - IV Contrast Only In Process Unspecified. EDMS 15:08 Patient has correct armband on for positive identification. Bed in low position. Call light in reach. Side rails up X 1. Pulse ox on. NIBP on. Door closed. Lights dimmed. Warm blanket given. 15:12 Maintain EMS IV. Dressing intact. Good blood return noted. Site clean \T\ dry. Gauge \T\ ah site: 20 g L ac. 15:48 No provider procedures requiring assistance completed. IV discontinued, intact, bleeding controlled, No redness/swelling at site. Pressure dressing applied. Administered Medications: 13:20 Drug: Ativan 1 mg Route: IM; Site: left ventrogluteal; 15:08 Follow up: Response: No adverse reaction 13:20 Drug: Phenergan 6.25 mg Route: IVP; Site: left antecubital; 15:08 Follow up: Response: No adverse reaction 13:20 Drug: NS 0.9% 1000 ml Route: IV; Rate: 1 bolus; Site: left antecubital; 15:09 Follow up: Response: No adverse reaction; IV Status: Completed infusion 15:30 Drug: fentaNYL (PF) 25 mcg Route: IVP; Site: left antecubital; 15:47 Follow up: Response: No adverse reaction Outcome: 15:17 Discharge ordered by . snw 15:47 Discharged to home via wheelchair. 15:47 Condition: good 15:47 Discharge instructions given to patient, Instructed on discharge instructions, follow up and referral plans. medication usage, Demonstrated understanding of instructions, follow-up care, medications, Prescriptions given X 1. 15:48 Patient left the ED. Addendum: 04/15/2020 18:00 Addendum: Other attempted to contact pt regarding negative COVID-19 swab results. Left d m5 message. 04/16/2020 10:31 Addendum: Other attempted to contact pt regarding negative COVID swab results. left d m5 message. Signatures: Dispatcher [employer] Maira Harrison, RN RN dm5 Mica Patel, SQL SERVER ARCHITECT-C SQL SERVER ARCHITECT-Demariow Rocio Womack Shelby, RN Alicia Chavez RN PAT
[2020-04-12] MEDS ORDERED: FENTANYL CITR 100 MCG/2 ML ONE (15:40)
[2020-04-12 15:55] VITALS: BP 186/80; O2SAT 96
== END 2020-04-12 15:48 | disposition home or self-care (01) ==
LOC: ER 12:43
DX: R53.81 Other malaise (principal); R53.83 Other fatigue; Z92.21 Personal history of antineoplastic chemotherapy; Z85.42 Personal history of malignant neoplasm of other parts of uterus; I10 Essential (primary) hypertension; E03.9 Hypothyroidism, unspecified; Z79.82 Long term (current) use of aspirin
CPT/HCPCS: 96361; 85025; 80048; 36415; 80076; 83690; 74177; 96375; 96372; 96374; 99284; U0001; Q9967; J2550; J3010; J7030

== ENCOUNTER 2021-06-06 22:08 | Inpatient (IN) | payer OTHER ==
--- OUTSIDE RECORDS SUMMARY | 2021-06-06 22:13 | XMS REPORT | Continuity of Care Document ---
:1960 Author Organization [facility] t Address [address] [place] [address] Care Team Providers Name Role Phone [phone] Primary Care Physician Unavailable SYSTEM, NOT IN Attending Clinician Unavailable Shravan GALLOWAY Attending Clinician Zaira GALLOWAY Attending Clinician ZAIRA Attending Clinician Unavailable Chano ROJO Attending Clinician Madisyn STEWART, L Attending Clinician Gee GALLOWAY Attending Clinician Nathalie ROJO Attending Clinician Ana GALLOWAYiv, K Attending Clinician Unavailable Cass MOE C Attending Clinician Unavailable CHANO Attending Clinician Unavailable NATHALIE Attending Clinician Unavailable KEDAR COOK Attending Clinician Unavailable KEDAR COOK Admitting Clinician Unavailable Payers Payer Name Policy Type Policy Effective Date Expiration Date Sour ce Number AETNA MEDICAREAETNA [id number] 2019 MD Sapphire wadsworth MEDICARE 00:00:00 [id number] -PresentMedicare Problems Condition Condition Condition Status Onset Resolution Last Treating Co mments Source Name Details Category Date Date Treatment Clinician Date Fatigue Fatigue Disease Active 2019-10 MD 0-12 Anderso 00:00: n 00 Nausea Nausea Disease Active 2019-10 MD without without 0-12 Anderso vomiting vomiting 00:00: n 00 Thrombocyt Thrombocyt Disease Active 2019-0 M D openia openia 8-25 Anderso 00:00: n 00 Smoker Smoker Disease Active 8-25 Anderso 00:00: n 00 Drug-induc Drug-induc Disease Active 2019-0 M D ed ed 825 Anderso polyneurop polyneurop 00:00: n athy athy 00 Encounter Encounter Disease Active for for 04-27 Anderso examinatio examinatio 00:00: n n prior to n prior to 00 antineopla antineopla stic stic chemothera chemothera py py Ex-smoker Ex-smoker Disease Active 6-15 Anderso 00:00: n 00 Other Other Disease Active Overview: MD specified specified 01-09 Formattin A nderso preoperati preoperati 00:00: g of this n ve ve 00 note examinatio examinatio might be n n different from the original. Outside records received from [facility] in [place], [place] and sent for scanning. Also sent to Dr Cotto in [facility] for review.1. Cardiac clearance letter dated 01/08/[address] Dru Perez addressed to Dr Meneses:"Jaleel Ying is currently under my care for preop clearance for an abnl EKG. 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 ECHO 01/07/2020 : Conclusio ns:LV systolic function normal with EF 60-65%LA size is normal.RV is normal in size.RA size is normal.RV SP is normal at <35mmHg.3 . Carotid Doppler 01/07/2020 : Conclusio ns:Mild stenosis <50% in the R ICA.Mild plaque in the left bulb area.No significa nt L ICA stenosis4 . EKG 11/07/2018 : SR, rate 72, prolonged QT Dissection Dissection Disease Active 2019-0 M D of of 3-06 Anderso abdominal abdominal 00:00: n aortic aortic 00 aneurysm aneurysm Thrombosis Thrombosis Disease Active Last M D of right of right 2-25 Assessmen And erso iliac iliac 00:00: t & Plan: n artery artery 00 Formattin g of this note might be different from the original. Review of outside imaging shows that this is not a new finding and is represent ative of marked atheroscl erotic disease. She does not have signs of limb ischemia by history or exam today, so I do not believe she needs urgent reimaging or urgent consultat ion with vascular surgery. Role of systemic anticoagu lation for this is the purview of vascular surgery, but my understan ding of the literatur e is that antiplate let therapy and statin is probably sufficien t.I recommend that she be evaluated by cardiolog y and/or vascular surgery prior to her cancer surgery. The patient reports that she has an appointme nt with her outside cardiolog ist on 01/04/20. She is also seeing [facility] today. Anxiety Anxiety Disease Active 2020-0 depression depression 12-18 An derso 00:00: n 00 Hypothyroi Hypothyroi Disease Active 2020-0 M D dism dism 12-14 Anderso 00:00: n 00 Hypertensi Hypertensi Disease Active 2020-0 M D on on 12-14 Anderso 00:00: n 00 Anxiety Anxiety Disease Active 2020-0 MD 12-14 Anderso 00:00: n 00 Postmenopa Postmenopa Disease Active 2020-0 M D usal usal 12-14 Anderso bleeding bleeding 00:00: n 00 Chronic Chronic Disease Active 2020-0 pancreatit pancreatit 12-14 An derso is is 00:00: n 00 Coronary Coronary Disease Active 2020-0 arterioscl arterioscl 12-14 An derso erosis erosis 00:00: n 00 History of History of Disease Active 2020-0 M D thoracoabd thoracoabd 12-14 An derso ominal ominal 00:00: n aortic aortic 00 aneurysm aneurysm Smokes Smokes Disease Active 2020-0 MD tobacco tobacco 12-14 Anderso daily daily 00:00: n 00 Family Family Disease Active 2020-0 MD history of history of 12-14 An derso malignant malignant 00:00: n neoplasm neoplasm 00 of breast of breast History of History of Disease Active 2020-0 M D drug abuse drug abuse 12-14 An derso 00:00: n 00 Malignant Malignant Disease Active 2020-0 MD neoplasm neoplasm 12-14 Aj o of of 00:00: n endometriu endometriu 00 m m Hypothyroi Hypothyroi Disease Active [facility] Acute Acute Disease Active injury of injury of 18 Gildardo morgan kidney kidney 00:00: n 00 Dissection Dissection Disease Active [facility] of aorta, of aorta, -16 [facility] - Type B, Type B, 00:00: Medical desending desending 00 Cent er thoracic thoracic aorta to aorta to the level the level of of diaphragma diaphragma tic hiatus tic hiatus HTN HTN Disease Active [facility] (hypertens (hypertens 1-16 Ana kes - ion) ion) 00:00: Medical chronic chronic 00 Center arterial arterial Other Other Disease Active acute acute Anderso postoperat postoperat n jem pain jem pain Allergies, Adverse Reactions, Alerts This patient has no known allergies or adverse reactions. Family History Family Member Diagnosis Comments Start Date Stop Date Source Natural brother Coronary artery disease MD Mathews Maternal cousin Breast cancer Natural mother Hypertension Bubba son Natural sister Breast cancer MD Gildardo dykes Natural sister Coronary artery disease MD Mathews Family member Bleeding Disorder MD Desirae koroma Family member Diabetes MD Mathews Family member Stroke MD Mathews Family member VTE MD Mathews Social History Social Habit Start Date Stop Date Quantity Comments Source History SDOH MD Mathews Alcohol Std Drinks History SDOH MD Mathews Alcohol Binge Cigarettes smoked 2020-12-30 2020-12-30 MD Gildardo dykes current (pack per 00:00:00 00:00:00 day) - Reported Cigarette 2020-12-30 2020-12-30 MD Mathews pack-years 00:00:00 00:00:00 Tobacco use and 2020-12-30 2020-12-30 Never used MD Rocha on exposure 00:00:00 00:00:00 Alcohol intake 2020-12-30 2020-12-30 Lifetime MD Sudhir milligan 00:00:00 00:00:00 non-drinker (finding) History of tobacco 2020-01-06 Current smoker MD Mathews use 00:00:00 Tobacco Comment 2019-12-28 2019-12-28 currently smoke MD Desirae koroma 00:00:00 00:00:00 1/3 ppd. pt states that she is also vaping to help quit smoking. History SDOH 2019-12-17 2019-12-17 1 MD Mathews Alcohol Frequency 00:00:00 00:00:00 Sex [birth year] At [birth year] MD Rocha on 00:00:00 00:00:00 Smoking Status Start Date Stop Date Source Former smoker 2020-12-30 00:00:00 2020-12-30 00:00:00 MD Mac son Medications Ordered Filled Start Stop Current Ordering Indication Dosage Frequency Signature Comments Components Source Medication Medication Date Date Medication? Clinician (SIG) Name Name HYDROcodone Yes 1{tbl} Take 1 MD -acetaminop 3-09 tablet by And erso hen (NORCO) 14:31: mouth n 10 mg-325 13 every 6 mg per (six) tablet hours as needed. levothyroxi 2019-10 Yes 200ug Take 200 M D ne 1-16 mcg by Anderso (SYNTHROID, 14:46: mouth n LEVOTHROID) 22 daily. 200 mcg tablet levothyroxi 2019-10 Yes 25ug Take 25 MD ne 1-16 mcg by Anderso (SYNTHROID, 14:46: mouth n LEVOTHROID) 22 daily. 25 mcg tablet aspirin 81 2019-10 Yes myocardial 81mg Take 81 mg MD mg EC 1-16 infarction by mouth Gildardo rso tablet 14:46: prevention daily. n 22 ALBUTEROL No Inhale by SULFATE 8-24 08-24 mouth as Anderso INHALATION 15:03: 00:00 needed. n 48 :00 budesonide- Centrilobul 2{puff} Inhale 2 MD formoteroL 6-09 06-10 ar puffs by Gildardo rso (Symbicort) 00:00: 04:59 emphysema mouth n 160-4.5 00 :00 twice mcg/actuati daily. on inhaler ondansetron Yes Malignant Take 1 tab MD (Zofran) 8 5-21 neoplasm of every 8 Anderso mg tablet 00:00: endometrium hours for n 00 3 days on days 2, 3, and 4 after chemo, then take 1 tab every 8 hours as needed for nausea or vomiting. prochlorper Yes Malignant 10mg Take 1 MD azine 5-21 neoplasm of tablet (10 A nderso (Compazine) 00:00: endometrium mg) by n 10 mg 00 mouth tablet every 6 (six) hours as needed for nausea or vomiting. HYDROcodone 2020- No Other 1{tbl} Take 1 MD -acetaminop 3-24 10-12 specified tablet by Andersconrad hen (NORCO) 00:00: 00:00 preoperativ mouth n 10 mg-325 00 :00 e every 4 mg per examination (four) tablet hours. meloxicam Yes 1{tbl} Take 1 MD (MOBIC) 7.5 1-29 tablet by And erso mg tablet 00:00: mouth n 00 daily. gabapentin Yes 300mg Take 300 MD (NEURONTIN) 1-29 mg by Anderso 300 mg 00:00: mouth n capsule 00 twice daily. tiZANidine Yes 1{tbl} Take 1 MD (ZANAFLEX) 1-29 tablet by Gildardo rso 4 mg tablet 00:00: mouth n 00 twice daily. metoprolol 2018-10 Yes 50mg Take 50 mg M D tartrate 2-24 by mouth Anderso (LOPRESSOR) 00:00: twice n 50 mg 00 daily. tablet amLODIPine 2018-10 Yes 10mg Take 10 mg M D (NORVASC) 2-24 by mouth Aj o 10 mg 00:00: daily. n tablet 00 amLODIPine Yes 10mg QD Take [facility] ([facility] 1-[facility] tablet (10 [facility] - 10 MG 00:00: mg total) Medical tablet 00 by mouth Center daily. nebivolol Yes 5mg QD Take [address] [facility] [address] (BYSTOLIC) 1-24 tablet (5 [facility] - 5 MG tablet 00:00: mg total) M edical 00 by mouth Center daily. levothyroxi Yes hypothyroid 25ug Take [address] ne 1-23 ism mcg by Javier - (SYNTHROID, 11:37: mouth Medic al LEVOTHROID) 25 Every Center 25 MCG morning on tablet an empty stomach. Immunizations Ordered Immunization Filled Immunization Date Status Commen ts Source Name Name [employer] SARS-CoV-2 2020-12-20 Completed MD Gildardo dykes Vaccination 00:00:00 Pfizer SARS-CoV-2 2020-11-29 Completed MD Ewing rson Vaccination 00:00:00 Vital Signs Vital Name Observation Time Observation Value Comments Source WEIGHT 2020-04-28 00:00:00 80.6 kg Systolic blood pressure 2021-04-06 18:21:13 126 mm[Hg] MD Mathews Diastolic blood pressure 2021-04-06 18:21:13 70 mm[Hg] MD Mathews Heart rate 2021-04-06 18:21:13 61 /min MD Bubba lee Body temperature 2021-04-06 18:21:13 37.11 Zohreh MD Desirae koroma Respiratory rate 2021-04-06 18:21:13 18 /min MD Desirae koroma Body weight 2021-04-06 18:21:13 82.7 kg MD Bubba lee BMI 2021-04-06 18:21:13 27.63 kg/m2 MD Bubba lee Oxygen saturation in 2020-06-16 15:01:12 97 /min MD Mathews Arterial blood by Pulse oximetry Procedures Procedure Date / Time Performed Performing Clinician [facility] e CT CHEST ABDOMEN PELVIS W 2021-03-27 20:46:12 Peter Menard MD CONTRAST POC CREATININE 2021-03-27 17:57:00 Peter Menard MD CANCER ANTIGEN 125 2021-03-27 16:22:00 Peter Menard MD on CT CHEST ABDOMEN PELVIS W 2020-12-25 22:10:18 Peter Menard MD CONTRAST POC CREATININE 2020-12-25 21:48:00 Peter Menard MD CANCER ANTIGEN 125 2020-12-25 19:13:00 Peter Menard MD on CANCER ANTIGEN 125 2020-09-08 13:35:37 Vi Hong MD on COMPLETE BLOOD COUNT W/ 2020-09-08 13:35:37 iV Hong MD DIFFERENTIAL BASIC METABOLIC PANEL, CALCIUM 2020-09-08 13:35:37 Vi Hong MD TOTAL BILIRUBIN TOTAL 2020-09-08 13:35:37 Vi Hong MD ALANINE AMINOTRANSFERASE 2020-09-08 13:35:37 Vi Hong MD ASPARTATE AMINOTRANSFERASE 2020-09-08 13:35:37 Vi Hong MAGNESIUM LEVEL 2020-09-08 13:35:37 Vi Hong MD Results CBC 2020-09-08 13:35:37 Vi Hong MD MANUAL DIFFERENTIAL 2020-09-08 13:35:37 Vi Hong MD Bubba son GLUCOSE LEVEL 2020-09-08 13:35:37 Vi Hong MD BLOOD UREA NITROGEN 2020-09-08 13:35:37 Vi Hong MD Bubba son ELECTROLYTE PANEL 2020-09-08 13:35:37 Vi Hong MD SERUM CREATININE 2020-09-08 13:35:37 Vi Hong MD .GLOMERULAR FILTRATION RATE 2020-09-08 13:35:37 Vi Hong MD CALCIUM LEVEL TOTAL 2020-09-08 13:35:37 Vi Hong MD Bubba son CT CHEST ABDOMEN PELVIS W 2020-09-05 18:46:39 Vi Hong MD CONTRAST POC CREATININE 2020-09-05 16:48:00 Vi Hong MD CANCER ANTIGEN 125 2020-08-11 14:50:00 Vi Hongers on COMPLETE BLOOD COUNT W/ 2020-08-11 14:50:00 Vi Hong MDrson DIFFERENTIAL BASIC METABOLIC PANEL, CALCIUM 2020-08-11 14:50:00 Vi Hong MD TOTAL BILIRUBIN TOTAL 2020-08-11 14:50:00 Vi Hong MD ALANINE AMINOTRANSFERASE 2020-08-11 14:50:00 Vi Hong MD ASPARTATE AMINOTRANSFERASE 2020-08-11 14:50:00 Vi Hong MAGNESIUM LEVEL 2020-08-11 14:50:00 Vi Hong MD Results CBC 2020-08-11 14:50:00 Vi Hong MD MANUAL DIFFERENTIAL 2020-08-11 14:50:00 Vi Hong MD Bubba son GLUCOSE LEVEL 2020-08-11 14:50:00 Vi Hong MD ELECTROLYTE PANEL 2020-08-11 14:50:00 Vi Hong MDo n SERUM CREATININE 2020-08-11 14:50:00 Vi Hong MD .GLOMERULAR FILTRATION RATE 2020-08-11 14:50:00 Vi Hong MD CALCIUM LEVEL TOTAL 2020-08-11 14:50:00 Vi Hong MD Bubba son BLOOD UREA NITROGEN 2020-08-11 14:50:00 Vi Hong MD Bubba son CANCER ANTIGEN 125 2020-08-04 12:25:00 Vi Hong MD on COMPLETE BLOOD COUNT W/ 2020-08-04 12:25:00 Vi Hong MD DIFFERENTIAL BASIC METABOLIC PANEL, CALCIUM 2020-08-04 12:25:00 Vi Hong MD TOTAL BILIRUBIN TOTAL 2020-08-04 12:25:00 Vi Hong MD ALANINE AMINOTRANSFERASE 2020-08-04 12:25:00 Vi Hong MD ASPARTATE AMINOTRANSFERASE 2020-08-04 12:25:00 Vi Hong MAGNESIUM LEVEL 2020-08-04 12:25:00 Vi Hong MD Results CBC 2020-08-04 12:25:00 Vi Hong MD MANUAL DIFFERENTIAL 2020-08-04 12:25:00 Vi Hong MD Bubba son GLUCOSE LEVEL 2020-08-04 12:25:00 Vi Hong MD ELECTROLYTE PANEL 2020-08-04 12:25:00 Vi Hong MDo n SERUM CREATININE 2020-08-04 12:25:00 Vi Hong MD .GLOMERULAR FILTRATION RATE 2020-08-04 12:25:00 Vi Hong MD CALCIUM LEVEL TOTAL 2020-08-04 12:25:00 Vi Hong MD Bubba son BLOOD UREA NITROGEN 2020-08-04 12:25:00 Vi Hong MD Bubba son CANCER ANTIGEN 125 2020-07-07 12:14:00 Vi Hong MD on COMPLETE BLOOD COUNT W/ 2020-07-07 12:14:00 Vi Hong MD DIFFERENTIAL BASIC METABOLIC PANEL, CALCIUM 2020-07-07 12:14:00 Vi Hong MD TOTAL BILIRUBIN TOTAL 2020-07-07 12:14:00 Vi Hong MD ALANINE AMINOTRANSFERASE 2020-07-07 12:14:00 Vi Hong MD ASPARTATE AMINOTRANSFERASE 2020-07-07 12:14:00 Vi Hong MAGNESIUM LEVEL 2020-07-07 12:14:00 Vi Hong MD Results CBC 2020-07-07 12:14:00 Vi Hong MD MANUAL DIFFERENTIAL 2020-07-07 12:14:00 Vi Hong MD Bubba rosa GLUCOSE LEVEL 2020-07-07 12:14:00 Vi Hong MD BLOOD UREA NITROGEN 2020-07-07 12:14:00 [facility] 2020-07-07 12:14:00 Vi Hong MD Anderso n SERUM CREATININE 2020-07-07 12:14:00 Vi Hong MD .GLOMERULAR FILTRATION RATE 2020-07-07 12:14:00 Vi Hong MD CALCIUM LEVEL TOTAL 2020-07-07 12:14:00 Vi Hong MD Bubba rosa CANCER ANTIGEN 125 2020-06-26 14:04:45 Vi Hong MD on COMPLETE BLOOD COUNT W/ 2020-06-26 14:04:45 Vi Hong MD DIFFERENTIAL BASIC METABOLIC PANEL, CALCIUM 2020-06-26 14:04:45 Vi Hong MD TOTAL BILIRUBIN TOTAL 2020-06-26 14:04:45 Vi Hong MD ALANINE AMINOTRANSFERASE 2020-06-26 14:04:45 Vi Hong MD ASPARTATE AMINOTRANSFERASE 2020-06-26 14:04:45 Vi Hong MAGNESIUM LEVEL 2020-06-26 14:04:45 Vi Hong MD Results CBC 2020-06-26 14:04:45 Vi Hong MD MANUAL DIFFERENTIAL 2020-06-26 14:04:45 Vi Hong MD Bubba rosa GLUCOSE LEVEL 2020-06-26 14:04:45 Vi Hong MD BLOOD UREA NITROGEN 2020-06-26 14:04:45 [facility]LECTR[facility]EL 2020-06-26 14:04:45 Vi Hong MD Anderso n SERUM CREATININE 2020-06-26 14:04:45 Vi Hong MD .GLOMERULAR FILTRATION RATE 2020-06-26 14:04:45 Vi Hong MD CALCIUM LEVEL TOTAL 2020-06-26 14:04:45 Vi Hong MD Bubba rosa CANCER ANTIGEN 125 2020-06-16 14:04:35 Vi Hogn MD on COMPLETE BLOOD COUNT W/ 2020-06-16 14:04:35 Vi Hong MD DIFFERENTIAL BASIC METABOLIC PANEL, CALCIUM 2020-06-16 14:04:35 Vi Hong MD TOTAL BILIRUBIN TOTAL 2020-06-16 14:04:35 Vi Hong MD ALANINE AMINOTRANSFERASE 2020-06-16 14:04:35 Vi Hong MD ASPARTATE AMINOTRANSFERASE 2020-06-16 14:04:35 Vi Hong MAGNESIUM LEVEL 2020-06-16 14:04:35 Vi Hong MD Results CBC 2020-06-16 14:04:35 Vi Hong MD MANUAL DIFFERENTIAL 2020-06-16 14:04:35 Vi Hong MD [facility] GLUCOSE LEVEL 2020-06-16 14:04:35 Vi Hong MD BLOOD UREA NITROGEN 2020-06-16 14:04:35 Vi Hong MD [facility] ELECTROLYTE PANEL 2020-06-16 14:04:35 Vi Hong MD [facility] n SERUM CREATININE 2020-06-16 14:04:35 Vi Hong MD .GLOMERULAR FILTRATION RATE 2020-06-16 14:04:35 Vi Hong MD CALCIUM LEVEL TOTAL 2020-06-16 14:04:35 Vi Hong MD [facility] Plan of Care Planned Activity Planned Date Details Comments Source Future Scheduled 2020-10-[address] [facility] - Test 00:00:00 (12+) [code = [facility] DEPRESSION SCREENING (12+)] Future Scheduled 2020-06-[address] [facility] - Test 00:00:00 (#1) [code = [facility] INFLUENZA VACCINE (#1)] Future Scheduled 2008-01-23 SHINGLES VACCINES ([address] [facility] - Test 00:00:00 of 2) [code = [facility] SHINGLES VACCINES (1 of 2)] Future Scheduled [address] [facility] - Test 00:00:00 (procedure) [code = [facility] 30513690] Future Scheduled [address] [facility] - Test 00:00:00 [facility] cervix (procedure) [code = 827564876] Future Scheduled 1977 DTAP/TDAP/TD VACCINES [facility] Test 00:00:00 (1 - Tdap) [code = Medical C enter DTAP/TDAP/TD VACCINES (1 - Tdap)] Future Scheduled 1976-01-23 HEPATITIS C SCRE[facility]ING [facility] - Test 00:00:00 [code = [facility] SCREENING] Future Scheduled [address] [facility] - Test 00:00:00 [facility] breast (procedure) [code = 597784385] Future Scheduled [address] [facility] - Test 00:00:00 malignant neoplasm of [facility] colon (procedure) [code = 922993585] Encounters Start End Encounter Admission Attending Care Care Encounter Source Date/Time Date/Time Type Type Clinicians Facility Department ID 2020-04-17 Outpatient [facility] MDA [id number] 16:23:21 ZACHARY milligan 2021-05-22 2021-05-22 Telephone [facility] [id number] 00:00:00 00:00:00 [facility] [id number] [facility] [id number] 2021-05-21 2021-05-[id number] 00:00:00 00:00:00 [facility] [id number] [facility] [id number] 2021-04-06 2021-04-06 Outpatient JEFF JOSHIFERLLUVIA MDA [id number] 13:13:00 13:13:00 REX milligan 2020-05-19 2020-05-19 Outpatient JEFF MENARDLLUVIA MDA [id number] MD 00:00:00 00:00:00 PETER milligan 2020-05-19 2020-05-19 Outpatient JEFF CHANOLLUVIA MDA [id number] 00:00:00 00:00:00 PETER milligan 2020-05-19 2020-05-19 Outpatient JEFF ZAIRALLUVIA MDA [id number] 00:00:00 00:00:00 REX milligan 2020-05-16 2020-05-16 Outpatient JEFF MENARD MDA MDA [id number] 00:00:00 00:00:00 PETER milligan 2020-05-16 2020-05-16 Outpatient JEFF MENARD MDA MDA [id number] 00:00:00 00:00:00 PETER Ajdebra milligan 2020-04-28 2020-04-28 Outpatient VI CHEN MDA MDA [id number] 08:48:06 17:50:40 Aj milligan 2020-04-28 2020-04-28 Outpatient JEFF MENESES MDA MDA [id number] MD 07:34:01 08:59:05 REX milligan 2020-04-28 2020-04-28 Outpatient VI CHEN MDA MDA [id number] 07:04:44 07:11:29 Aj milligan 2020-04-21 2020-04-21 Outpatient JEFF MENESES MDA MDA [id number] MD 09:00:18 23:59:00 REX milligan 2020-04-14 2020-04-14 Outpatient JEFF MENESES MDA MDA [id number] MD 07:18:12 23:59:00 REX milligan 2020-04-07 2020-04-07 Outpatient JEFF MENESES MDA MDA [id number] MD 09:14:52 23:59:00 REX milligan Results Test Description Test Time Test Comments Results Result [facility] Comments CT Chest Abdomen 2021-03-27 Previously MD Gildardo dykes Pelvis with 22:08:47 described enlarging Contrast aortocaval lymph node has decreased in size in interval. Small subcentimeter right common iliac lymph nodes are not significantly changed which were enlarged on prior exams. No significant interval change in subcentimeter pulmonary nodules some of which have groundglass attenuation. These can be followed. Other findings as above. Interface, Radiology Results In - 03/27/2021 5:10 PM CDT FULL RESULT:Examination: CT CHEST ABDOMEN PELVIS W CONTRAST, 03/27/2021 3:46 PMClinical History: Malignant neoplasm of endometriumIndicatio n: COVID-19 Not Suspected, hx of Stage IIIC2 Endometrial Cancer-> 6 months post-chemo completion. Prior CT noted increased aortocaval node. Please evaluate for recurrent/metastatic diseaseComparison: 12/25/2020Technique: CT of the chest, abdomen, and pelvis was performed with intravenous contrast.Findings: Chest: No significant interval change in subcentimeter groundglass nodular densities and solid nodules. Few are calcified. There is diffuse mild poorly defined groundglass attenuation in both lungs which is also unchanged. No new suspicious pulmonary nodules.No pleural effusions. Endograft extending from the proximal aortic arch through the mid descending thoracic aorta. Port ends at the right atrium. The right and left main pulmonary arteries are enlarged suggesting pulmonary hypertension.Borderl ine enlarged precarinal lymph node measuring 0.9 cm short axis (46 series 3) is not significantly changed in interval. No enlarged hilar or axillary lymph nodes. No suspicious bone lesions.Abdomen/Pelv is: No suspicious liver lesions. Mild intrahepatic ductal dilatation is again noted. Not significantly changed relative to the prior exam. There is a common bile duct stent and a pancreatic duct stent. Pancreas and spleen are unremarkable. Thickening of both adrenals is unchanged and may be secondary to hyperplasia. A malrotated right kidney. Both kidneys are lobulated with no hydronephrosis. Small hypodensities at the kidneys commonly represent cysts.Extensive atherosclerotic changes in the abdominal aorta and iliac vessels. There is mild aneurysmal enlargement of the infrarenal abdominal aorta measuring up to 3.2 cm. Occlusive thrombus is noted in the proximal right common iliac artery which is unchanged relative to the previous exam.Previously described enlarging aortocaval lymph node has slightly decreased in size in interval measuring 0.6 x 0.6 cm (204). Previously 0.8 x 0.8 cm. No enlarged para-aortic or pelvic lymph nodes. Previously described right common iliac lymph nodes remain small. For example a 0.5 x 0.5 cm node (254) and a 0.6 x 0.4 cm node (252).Hysterectomy change. The vaginal cuff is unchanged in appearance. Diverticulosis in the colon. Small left fat-containing inguinal hernia. No suspicious bone lesions.IMPRESSION:P reviously described enlarging aortocaval lymph node has decreased in size in interval. Small subcentimeter right common iliac lymph nodes are not significantly changed which were enlarged on prior exams.No significant interval change in subcentimeter pulmonary nodules some of which have groundglass attenuation. These can be followed.Other findings as above. POC Creatinine 2021-03-27 18:04:47 Test Item Value Reference Range Interpretation Comme nts POC Crea (test code = 1.2 mg/dL 0.6-1.3 Medica tions, especially 35888-8) hydroxyurea or supplements, such as ascorba te, can interfere with test results causing a false ly and significantly h igher result than expected. If a problem is suspected wi th a patient's resul t, a sample should be sent to the laboratory for confirmatory testing. Method description: The i-STAT is a n analyzer used for in vit ro quantification of various analytes in who le blood. The device uses a s jaye disposable cart ridge which contains microf abricated sensors, a dana bration solution, fluid ics system, and a waste nidhi mber. Each test cartridge contains chemically sens itive biosensors on a silicon chip that are config ured to perform specifi c tests. The microfabricated sensors measure analyte concentration b y an electrochemical assay. POC eGFR-AA (test code = 54 See_Comment L Nor mal eGFR >= 60 94274-1) mL/min/1.73 m2 The eGFR is calculated usin g the CKD-EPI equation. The e GFR declines with age. eGFR <60 mL/min/1.73 m2 is considered as "decreased" This equation should only be used for patients 18 and older. According to th e [employer]'s Kidney Disease Outcome Quality Initiative (KDO QI) classification and 2012 Kidney Disease Improving Global Outcomes (KDIGO) Clinical Practi ce Guideline, the stage of CK D should be categorized bas ed on estimated GFR. Stage Description GFR mL/min/1.73 m21 Kidney ivana ge with normal or high GFR >=902 Kidney damage w ith mild decrease in GFR 60-893a Mild to moderat e decrease in GFR 45-593b Moderate to severe decrease in GFR 30-444 Severe d ecrease in GFR 15-295 K idney failure <15 (or giovanni lysis) [Automated mess age] The system which ge nerated this result transmit brianne reference range: >=60 mL/ min/1.73 m2. The reference r tahmina was not used to interpr et this result as elvis l/abnormal. POC eGFR-JENNIFER (test code = 48 See_Comment L No rmal eGFR >= 60 52538-4) mL/min/1.73 m2 The eGFR is calculated usin g the CKD-EPI equation. The e GFR declines with age. eGFR <60 mL/min/1.73 m2 is considered as "decreased" This equation should only be used for patients 18 and older. According to th e [employer] on's Kidney Disease Outcome Quality Initiative (KDO QI) classification and 2012 Kidney Disease Improving Global Outcomes (KDIGO) Clinical Practi ce Guideline, the stage of CK D should be categorized bas ed on estimated GFR. Stage Description GFR mL/min/1.73 m21 Kidney ivana ge with normal or high GFR >=902 Kidney damage w ith mild decrease in GFR 60-893a Mild to moderat e decrease in GFR 45-593b Moderate to severe decrease in GFR 30-444 Severe d ecrease in GFR 15-295 K idney failure <15 (or giovanni lysis) [Automated mess age] The system which ge nerated this result transmit brianne reference range: >=60 mL/ min/1.73 m2. The reference r tahmina was not used to interpr et this result as elvis l/abnormal. POC Clean Dev (test code = Yes 6672) Performing Lab (test code = [place] [address]) [place] [facility], [address], [place] [address]; Lab Dire ctor: Leora chery MD Lab Interpretation (test Abnormal code = 79087-9) MD Bhakta [id number] 17:08:45 Test Item Value Reference Range Interpretation Comments CA 125 (test code 15.9 U/mL See_Comment Results gr eater than = 3959) 11,500.0 U/mL m ay not be reliable due to matrix effect with ext ended dilution as it exceeds the cured meats supervisor's recommended limit. Caution should be exercised when interpreting burton ch values and done in con junction with clinical context.Referen ce intervals are n ot available for m reji patients. Resul ts should be interpreted in conjunction wit h clinical context. Testin g Performed at [facility], [address], [address], [place] [address] [Automat ed message] The system [employer] generated this result tra nsmitted reference range : <=38.0. The reference r tahmina was not used to int erpret this result as elvis l/abnormal. MD AndersonRAD, CHEST, 1 VIEW, NON [id number] 10:37:00Reason for exam:- >post opShould this be performed at the bedside?->YesFINAL REPORT Chest x-ray Clinical History: post op Comparison: November 14 9 Views: 1 Chest x-ray:The cardiac and mediastinal silhouettes are prominent. There is no evidence of a pneumothorax. There is evidence of a small left pleural effusion. There is no evidence ofovert cardiac failure. The visible regional skeleton is intact. There is evidence of a left lower lobe retrocardiac space focal parenchymal opacity. Endovascular changes are visualized overlying the thoracic aorta. A right internal jugular catheter has been removed. Impression: Interval removal of a right internal jugular catheter. Decreased pulmonary vascular congestion. Signed: Alyssa Lee MDReport Verified Date/Time: 11/15/2018 10:37:06 Reading Location: [facility] Radiology Reading Room BASIC METABOLIC [id number] 05:55:00 Test Item Value Reference Range Interpretation Comments SODIUM (BEAKER) 137 meq/L 136-145 (test code = 381) POTASSIUM (BEAKER) 3.9 meq/L 3.5-5.1 (test code = 379) CHLORIDE (BEAKER) 102 meq/L 98-107 (test code = 382) CO2 (BEAKER) (test 25 meq/L 22-29 code = 355) BLOOD UREA NITROGEN 14 mg/dL 7-21 (BEAKER) (test code = 354) CREATININE (BEAKER) 0.91 mg/dL 0.57-1.25 (test code = 358) GLUCOSE RANDOM 102 mg/dL 70-105 (BEAKER) (test code = 652) CALCIUM (BEAKER) 9.3 mg/dL 8.4-10.2 (test code = 697) EGFR (BEAKER) (test mL/min/1.73 INSUFFIC IENT CLINICAL code = 1092) sq m DATA TO CALCULA TE ESTIMATED GFR. [id number] 05:34:00 Test Item Value Reference Range Interpretation Comments PHOSPHORUS (BEAKER) (test code = 3.2 mg/dL 2.3-4.7 604) [id number] 05:34:00 Test Item Value Reference Range Interpretation Comments MAGNESIUM (BEAKER) (test code = 1.8 mg/dL 1.6-2.6 627) [id number] 05:18:00 Test Item Value Reference Range Interpretation Comments PARTIAL THROMBOPLASTIN TIME 37.7 seconds 22.5-36.0 H (BEAKER) (test code = 760) PROTHROMBIN TIME/[id number] 05:17:00 Test Item Value Reference Range Interpretation [...] 413) CTA, CHEST, ABDOMEN - PELVIS, FOR [id number] 20:11:00Reason for exam:- >s/p StentAddendum BeginsREPORT STATUS:A Addendum: November 14, 2018 at 2005 hours I have reviewed the CT images for this study and I concur with the nonvascular imaging findings as dictated. Signed: IsbellMartina MDReport Verified Date/Time: 11/14/2018 20:11:33 Reading Location: [place] [address] Angio Body Reading RoomAddendum EndsFINAL REPORT CT [...] some eccentric calcific and noncalcific atherosclerosis identifiedwith kbxz-ow-ifwxgxhj disease present. The distal left common femoral [...] dictated regarding the non-vascular findings by the [employer] Monitoring Technician Radiologist. Signed: Mahad Muñoz MDReport Verified Date/Time: 11/12/2018 09:28:12 Reading Location: [place] [address] Cardiology MRI RAD, CHEST, 1 VIEW, NON [id number] 08:35:00Reason for exam:->cardiac monitoringShould this be performed [...] No pulmonary edema. No fracture. Signed: Beti Hall MDReport Verified Date/Time: 11/14/2018 08:35:31 Reading Location: [facility] Radiology Reading Room BASIC METABOLIC [id number] 05:24:00 Test Item Value Reference Range Interpretation [...] m DATA TO CALCULA TE ESTIMATED GFR. [id number] 05:22:00 Test Item Value Reference Range Interpretation Comments PHOSPHORUS (BEAKER) (test code = 2.9 mg/dL 2.3-4.7 604) [id number] 05:22:00 Test Item Value Reference Range Interpretation Comments MAGNESIUM (BEAKER) (test code = 1.7 mg/dL 1.6-2.6 627) PROTHROMBIN [id number] 05:07:00 Test Item Value Reference Range Interpretation Comments PROTIME (BEAKER) (test code = 13.1 seconds 11.7-14.7 759) INR (BEAKER) (test code = 370) 1.0 <=5.9 RECOMMENDED COUMADIN/WARFARIN INR THERAPY RANGESSTANDARD DOSE: 2.0 - 3.0 Includes: PROPHYLAXIS forvenous thrombosis, systemic embolization; TREATMENT for venous thrombosis and/or pulmonary embolus.HIGH RISK: Target INR is 2.5-3.5 for patients with mechanical heart valves.[id number] 05:07:00 Test Item Value Reference Range Interpretation [...] 0-0 (BEAKER) (test code = 413) T4, [id number] 12:30:00 Test Item Value Reference Range Interpretation Comments FREE T4 (BEAKER) (test code = 655) 0.93 ng/dL 0.70-1.48 TSH/FREE T4 IF [id number] 11:19:00 Test Item Value Reference Range Interpretation Comments THYROID STIMULATING HORMONE 4.97 uIU/mL 0.35-4.94 H (BEAKER) (test code = 772) RAD, CHEST, 1 VIEW, NON [id number] 05:20:00Reason for exam:->post opShould this be performed [...] Escobar Verified Date/Time: 11/13/2018 05:20:43 Reading Location: [facility] B1 C013T [employer] on[employer] Reading Room BASIC METABOLIC [id number] 05:01:00 Test Item Value Reference Range Interpretation [...] m DATA TO CALCULA TE ESTIMATED GFR. [id number] 04:59:00 Test Item Value Reference Range Interpretation Comments PHOSPHORUS (BEAKER) (test code = 2.8 mg/dL 2.3-4.7 604) [id number] 04:59:00 Test Item Value Reference Range Interpretation Comments MAGNESIUM (BEAKER) (test code = 2.0 mg/dL 1.6-2.6 627) PROTHROMBIN [id number] 03:58:00 Test Item Value Reference Range Interpretation Comments PROTIME (BEAKER) (test code = 13.6 seconds 11.7-14.7 759) INR (BEAKER) (test code = 370) 1.0 <=5.9 RECOMMENDED COUMADIN/WARFARIN INR THERAPY RANGESSTANDARD DOSE: 2.0 - 3.0 Includes: PROPHYLAXIS forvenous thrombosis, systemic embolization; TREATMENT for venous thrombosis and/or pulmonary embolus.HIGH RISK: Target INR is 2.5-3.5 for patients with mechanical heart valves.[id number] 03:58:00 Test Item Value Reference Range Interpretation [...] = 413) RAD, CHEST, 1 VIEW, NON [id number] 04:32:00Reason for exam:->cardiac monitoringShould this be performed [...] Escobar Verified Date/Time: 11/12/2018 04:32:55 Reading Location: [address] Transitional Reading Room Electronicall y signed by: JIAN ESCOBAR MD on 11/12/2018 04:32 AMBASIC METABOLIC [id number] 03:54:00 Test Item Value Reference Range Interpretation [...] m DATA TO CALCULA TE ESTIMATED GFR. [id number] 03:53:00 Test Item Value Reference Range Interpretation Comments PHOSPHORUS (BEAKER) (test code = 3.1 mg/dL 2.3-4.7 604) [id number] 03:53:00 Test Item Value Reference Range Interpretation Comments MAGNESIUM (BEAKER) (test code = 2.0 mg/dL 1.6-2.6 627) PROTHROMBIN [id number] 03:48:00 Test Item Value Reference Range Interpretation Comments PROTIME (BEAKER) (test code = 14.2 seconds 11.7-14.7 759) INR (BEAKER) (test code = 370) 1.1 <=5.9 RECOMMENDED COUMADIN/WARFARIN INR THERAPY RANGESSTANDARD DOSE: 2.0 - 3.0 Includes: PROPHYLAXIS forvenous thrombosis, systemic embolization; TREATMENT for venous thrombosis and/or pulmonary embolus.HIGH RISK: Target INR is 2.5-3.5 for patients with mechanical heart valves.[id number] 03:48:00 Test Item Value Reference Range Interpretation [...] = 413) RAD, CHEST, 1 VIEW, NON [id number] 06:15:00Reason for exam:->cardiac monitoringShould this be performed [...] MDReport Verified Date/Time: 11/11/2018 06:15:46 Reading Location: [address] Transitional Reading Room C METABOLIC [id number] 05:43:00 Test Item Value Reference Range Interpretation [...] m DATA TO CALCULA TE ESTIMATED GFR. [id number] 05:31:00 Test Item Value Reference Range Interpretation Comments PHOSPHORUS (BEAKER) (test code = 2.0 mg/dL 2.3-4.7 L 604) [id number] 05:31:00 Test Item Value Reference Range Interpretation Comments MAGNESIUM (BEAKER) (test code = 1.8 mg/dL 1.6-2.6 627) [id number] 05:22:00 Test Item Value Reference Range Interpretation Comments PARTIAL THROMBOPLASTIN TIME 34.4 seconds 22.5-36.0 (BEAKER) (test code = 760) PROTHROMBIN [id number] 05:21:00 Test Item Value Reference Range Interpretation Comments PROTIME (BEAKER) (test code = 13.1 seconds 11.7-14.7 759) INR (BEAKER) (test code = 370) 1.0 <=5.9 RECOMMENDED COUMADIN/WARFARIN INR THERAPY RANGESSTANDARD DOSE: 2.0 - 3.0 Includes: PROPHYLAXIS forvenous thrombosis, systemic embolization; TREATMENT for venous thrombosis and/or pulmonary embolus.HIGH RISK: Target INR is 2.5-3.5 for patients with mechanical heart valves.BLOOD GAS, [id number] 05:05:00 Test Item Value Reference Range Interpretation [...] (BEAKER) (test code = 413) BASIC METABOLIC [id number] 18:59:00 Test Item Value Reference Range Interpretation [...] m DATA TO CALCULA TE ESTIMATED GFR. [id number] 18:50:00 Test Item Value Reference Range Interpretation [...] 0-0 (BEAKER) (test code = 413) CALCIUM, [id number] 18:32:00 Test Item Value Reference Range Interpretation Comments CALCIUM IONIZED (BEAKER) (test 1.09 mmol/L 1.12-1.27 L code = 698) PH, BLOOD (BEAKER) (test code = 7.42 1810) BLOOD GAS, [id number] 18:32:00 Test Item Value Reference Range Interpretation [...] (BEAKER) (test code = 1819) 100.0 % [id number] 17:09:00 Test Item Value Reference Range Interpretation Comments ACTIVATED CLOTTING TIME 131 sec TEST ED AT [place] [address] ([facility]) (test code = [facility] [place] [address]) [address] [id number] 17:09:00 Test Item Value Reference Range Interpretation Comments ACTIVATED CLOTTING TIME 230 sec TEST ED AT [place] [address] ([facility]) (test code = [facility] [place] [address]) [address] HGB/HCT (H&H) - STAT [id number] 16:27:00 Test Item Value Reference Range Interpretation Comments HEMOGLOBIN (BEAKER) (test code = 12.4 g/dL 12.0-15.0 410) HEMATOCRIT (BEAKER) (test code = 36.0 % 36.0-45.0 411) SODIUM NA-STAT [id number] 16:27:00 Test Item Value Reference Range Interpretation Comments SODIUM (BEAKER) (test code = 381) 133 meq/L 135-148 L BLOOD GAS, [id number] 16:25:00 Test Item Value Reference Range Interpretation [...] (test code = 1819) 78.0 % GLUCOSE-STAT [id number] 16:25:00 Test Item Value Reference Range Interpretation Comments GLUCOSE RANDOM (BEAKER) (test code 115 mg/dL 70-110 H = 652) POTASSIUM-STAT [id number] 16:24:00 Test Item Value Reference Range Interpretation Comments POTASSIUM (BEAKER) (test code = 3.8 meq/L 3.6-5.5 379) CALCIUM, [id number] 14:56:00 Test Item Value Reference Range Interpretation Comments CALCIUM IONIZED (BEAKER) (test 1.06 mmol/L 1.12-1.27 L code = 698) PH, BLOOD (BEAKER) (test code = 7.41 1810) BLOOD GAS, [id number] 14:56:00 Test Item Value Reference Range Interpretation [...] code = 1819) 95.0 % SODIUM NA-STAT [id number] 14:56:00 Test Item Value Reference Range Interpretation Comments SODIUM (BEAKER) (test code = 381) 134 meq/L 135-148 L GLUCOSE-STAT [id number] 14:55:00 Test Item Value Reference Range Interpretation Comments GLUCOSE RANDOM (BEAKER) (test code 103 mg/dL 70-110 = 652) POTASSIUM-STAT [id number] 14:55:00 Test Item Value Reference Range Interpretation Comments POTASSIUM (BEAKER) (test code = 3.6 meq/L 3.6-5.5 379) HGB/HCT (H&H) - STAT [id number] 14:55:00 Test Item Value Reference Range Interpretation Comments HEMOGLOBIN (BEAKER) (test code = 13.1 g/dL 12.0-15.0 410) HEMATOCRIT (BEAKER) (test code = 39.0 % 36.0-45.0 411) RAD, CHEST, 1 VIEW, NON [id number] 04:46:00Reason for exam:->cardiac monitoringShould this be performed [...] [place] Verified Date/Time: 11/10/2018 04:46:58 Reading Location: [address] Reading Room BASIC METABOLIC [id number] 03:57:00 Test Item Value Reference Range Interpretation [...] m DATA TO CALCULA TE ESTIMATED GFR. [id number] 03:45:00 Test Item Value Reference Range Interpretation Comments PHOSPHORUS (BEAKER) (test code = 3.3 mg/dL 2.3-4.7 604) [id number] 03:45:00 Test Item Value Reference Range Interpretation [...] (test code = 413) TSH/FREE T4 IF [id number] 10:50:00 Test Item Value Reference Range Interpretation Comments THYROID STIMULATING HORMONE 0.84 uIU/mL 0.35-4.94 (BEAKER) (test code = 772) RAD, CHEST, 1 VIEW, NON [id number] 08:37:00Reason for exam:->cardiac monitoringShould this be performed [...] MDReport Verified Date/Time: 11/09/2018 08:37:21 Reading Location: [facility] Radiology Reading Room PHOSPHORUS 2018-11-09 04:02:00 Test Item Value Reference Range Interpretation Comments PHOSPHORUS (BEAKER) (test code = 4.0 mg/dL 2.3-4.7 604) [id number] 04:02:00 Test Item Value Reference Range Interpretation Comments MAGNESIUM (BEAKER) (test code = 1.9 mg/dL 1.6-2.6 627) BASIC METABOLIC [id number] 04:02:00 Test Item Value Reference Range Interpretation [...] = 413) RAD, CHEST, 1 VIEW, NON [id number] 08:05:00Reason for exam:->Potential aortic dissectionIs the patient [...] laterally. Signed: Alyssa Lee MDReport Verified Date/Time: 11/08/2018 08:05:30 Reading Location: [facility] Radiology Reading Room TROPONIN [id number] 07:51:00 Test Item Value Reference Range Interpretation [...] acute neurological disease, and persistent tachyarrhythmia.BASIC METABOLIC [id number] 05:45:00 Test Item Value Reference Range Interpretation [...] m DATA TO CALCULA TE ESTIMATED GFR. [id number] 05:42:00 Test Item Value Reference Range Interpretation Comments MAGNESIUM (BEAKER) 2.2 mg/dL 1.6-2.6 Specimen slightly (test code = 627) hemolyzed [id number] 05:42:00 Test Item Value Reference Range Interpretation Comments PHOSPHORUS (BEAKER) 3.8 mg/dL 2.3-4.7 Specimen slightly (test code = 604) hemolyzed HEPATIC FUNCTION [id number] 05:42:00 Test Item Value Reference Range Interpretation [...] 347) hemolyzed CBC W/PLT COUNT & AUTO [id number] 05:26:00 Test Item Value Reference Range Interpretation [...] 0-1 PERCENT (BEAKER) (test code = 2801) [id number] 05:26:00 Test Item Value Reference Range Interpretation Comments PARTIAL THROMBOPLASTIN TIME 25.2 seconds 22.5-36.0 (BEAKER) (test code = 760) PROTHROMBIN [id number] 05:25:00 Test Item Value Reference Range Interpretation Comments PROTIME (BEAKER) (test code = 13.5 seconds 11.7-14.7 759) INR (BEAKER) (test code = 370) 1.0 <=5.9 RECOMMENDED COUMADIN/WARFARIN INR THERAPY RANGESSTANDARD DOSE: 2.0 - 3.0 Includes: PROPHYLAXIS forvenous thrombosis, systemic embolization; TREATMENT for venous thrombosis and/or pulmonary embolus.HIGH RISK: Target INR is 2.5-3.5 for patients with mechanical heart valves.CALCIUM, [id number] 05:20:00 Test Item Value Reference Range Interpretation Comments CALCIUM IONIZED (BEAKER) (test 1.13 mmol/L 1.12-1.27 code = 698) PH, BLOOD (BEAKER) (test code = 7.38 1810)
[2021-06-06 23:43] LABS: Absolute Lymphocytes (CBC) 2.5 K/uL (0.7-4.9); Basophils % 0.8 % (0-1.3); Hematocrit 38.7 % (36.0-45.0); Lymphocytes % 34.4 % (15.3-44.8); MPV 7.1 fL (7.6-11.3); RBC Red Blood Cell Count 4.27 M/uL (3.86-4.86)
[2021-06-06 23:44] LABS: Protime INR 0.93
[2021-06-07 00:05] LABS: ALT/SGPT 72 U/L (12-78); AST/SGOT 50 U/L (15-37); Albumin 2.9 g/dL (3.4-5.0); Alkaline Phosphatase 408 U/L (45-117); BUN Blood Urea Nitrogen 22 mg/dL (7-18); Bicarbonate 32 mmol/L (21-32); Bilirubin Direct < 0.1 mg/dL (0-0.2); Bilirubin Total 0.2 mg/dL (0.2-1.0); Glucose Level 107 mg/dL (74-106); Magnesium 2.1 mg/dL (1.8-2.4); NT PRO-BNP 1002 pg/mL (<125); Potassium 4.5 mmol/L (3.5-5.1); Protein, Total 6.6 g/dL (6.4-8.2); Sodium Level 142 mmol/L (136-145); Troponin (Emerg Dept Use Only) < 0.02 ng/mL (0.0-0.045)
[2021-06-07] MEDS ORDERED: ALBUTEROL 2.5 MG/3 ML NEB SOL ONE (00:22)
[2021-06-07 02:40] LABS: Urine Blood Negative (Negative); Urine Glucose Negative (Negative); Urine Protein 1+ (Negative); Urine pH 5.5 (5.0-7.0)
[2021-06-07] MEDS ORDERED: MECLIZINE HCL 12.5 MG TAB ONE ×2 (02:55→18:12)
--- NOTE | 2021-06-07 04:03 | ER ---
Nurse's Notes [facility] Name: Cait Ying Age: 61 yrs Sex: Female : 1960 Arrival Date: 06/06/2021 Time: 22:50 Bed 2 Private MD: Diagnosis: Bradycardia, unspecified;Dizziness and giddiness Presentation: 06/06 23:28 Chief complaint: EMS states: Reported feeling dizzy at around 5 PM and started having ea on and off pain between shoulders. Coronavirus screen: At this time, the client does not indicate any symptoms associated with coronavirus-19. Ebola Screen: No symptoms or risks identified at this time. Initial Sepsis Screen: Does the patient meet any 2 criteria? No. Patient's initial sepsis screen is negative. Risk Assessment: Do you want to hurt yourself or someone else? Patient reports no desire to harm self or others. Onset of symptoms was June 06, 2021. 23:28 Method Of Arrival: EMS: [facility] ea 23:28 Acuity: ONEYDA 3 ea Historical: - Allergies: 23:53 No Known Allergies; ea - Home Meds: 23:53 Aspirin Oral [Active]; levothyroxine oral [Active]; ea - PMHx: 23:53 aortic aneurysm; Hypertension; Hypothyroidism; Pancreatitis; uterine cancer; ea - Immunization history:: Adult Immunizations up to date. - Social history:: Smoking status: unknown. Screenin:27 Abuse screen: Denies threats or abuse. Nutritional screening: No deficits noted. ea Tuberculosis screening: No symptoms or risk factors identified. Fall Risk IV access (20 points). Assessment: 23:30 General: Appears in no apparent distress. uncomfortable, Behavior is calm, cooperative, jb4 appropriate for age. Pain: Complains of pain in chest Pain radiates to back Pain currently is 8 out of 10 on a pain scale. Quality of pain is described as heavy, pressure. Neuro: Level of Consciousness is awake, alert, obeys commands, Oriented to person, place, time, situation. Cardiovascular: Patient's skin is warm and dry. Rhythm is sinus bradycardia. Respiratory: Airway is patent Respiratory effort is even, unlabored, Respiratory pattern is regular, symmetrical. GI: No signs and/or symptoms were reported involving the gastrointestinal system. : No signs and/or symptoms were reported regarding the genitourinary system. EENT: No signs and/or symptoms were reported regarding the EENT system. Derm: Skin is intact, Skin is pink, warm \T\ dry. Musculoskeletal: Circulation, motion, and sensation intact. Range of motion: intact in all extremities. 06/07 00:30 Reassessment: Patient appears in no apparent distress at this time. Patient and/or jb4 family updated on plan of care and expected duration. Pain level reassessed. Patient is alert, oriented x 3, equal unlabored respirations, skin warm/dry/pink. 01:30 Reassessment: Patient appears in no apparent distress at this time. Patient and/or jb4 family updated on plan of care and expected duration. Pain level reassessed. Patient is alert, oriented x 3, equal unlabored respirations, skin warm/dry/pink. Vital Signs: 06/06 23:30 BP 124 / 60; Pulse 46; Resp 13; Temp 97.2; Pulse Ox 89% on R/A; Weight 80.74 kg (R); jb4 Height 5 ft. 8 in. (172.72 cm) (R); Pain 8/10; 23:41 Pulse Ox 94% on 1.5 lpm NC; jb4 06/07 01:15 BP 134 / 90; Pulse 50; Resp 11; Pulse Ox 94% on 1.5 lpm NC; jb4 06/06 23:30 Body Mass Index 27.06 (80.74 kg, 172.72 cm) jb4 06/06 23:30 Placed on 1.5L NC, pt's home dose jb4 ED Course: 22:50 Patient arrived in ED. bp1 23:22 Roscoe Motley MD is Attending Physician. mh7 23:27 Wendi Wood, PAT is Primary Nurse. ea 23:27 Patient has correct armband on for positive identification. Bed in low position. Call ea light in reach. Side rails up X2. quality assurance monitor body on. Pulse ox on. NIBP on. 23:52 Triage completed. ea 23:52 Arm band placed on right wrist. Patient placed in an exam room, on a stretcher, on ea campus monitor, on pulse oximetry. 23:55 XRAY Chest (1 view) In Process Unspecified. EDMS 06/07 01:12 CT Head Brain wo Cont In Process Unspecified. EDMS 01:32 CT Chest For PE Angio In Process Unspecified. EDMS 04:02 Homer Valero DO is Hospitalizing Provider. 7 13:29 Primary Nurse role handed off by Wendi Wood RN eb Administered Medications: 00:10 Drug: Albuterol 2.5 mg Route: Inhalation; jb4 02:42 Drug: Meclizine 25 mg Route: PO; em Outcome: 04:02 Decision to Hospitalize by Provider. 7 18:08 Patient left the ED. hb Signatures: Dispatcher [employer] EDMS Len Nair, RN RN Raya Blunt RN RN Lc Villatoro RN RN jb Wendi Wood, RN RN Odette Briceño Brittany bp1 Holmes, Maurice, MD MD mh7 Corrections: (The following items were deleted from the chart) 06/06 23:46 23:30 BP 124 / 60; Pulse 46bpm; Resp 13bpm; Pulse Ox 89% RA; Placed on 1.5L NC, pt's jb4 home dose; jb4
--- NOTE | 2021-06-07 04:03 | EDPHYS ---
Physician Documentation [facility] Name: Cait Ying Age: 61 yrs Sex: Female : 1960 Arrival Date: 06/06/2021 Time: 22:50 Bed 2 Private MD: ED Physician Roscoe Motley HPI: 06/06 23:50 This 61 yrs old Female presents to ER via Unassigned with complaints of mh7 Dizziness. 23:51 The patient presents with dizziness, lightheadedness, sense of spinning. Onset: The mh7 symptoms/episode began/occurred today, at 13:30. Context: occurred at home, occurred while the patient was sitting, just prior to the episode the patient experienced no apparent symptoms. Modifying factors: The symptoms are alleviated by nothing, the symptoms are aggravated by standing up, changing position. Associated signs and symptoms: Pertinent positives: chest pain, near-syncope, shortness of breath, Pertinent negatives: abdominal pain, agitation, ataxia, blurred vision, combativeness, confusion, diaphoresis, focal weakness, head injury, headache, nausea, numbness, palpitations, seizure, syncope, tingling, vomiting. Severity of symptoms: At their worst the symptoms were moderate today, in the emergency department the symptoms have improved moderately. Historical: - Allergies: 23:53 No Known Allergies; ea - Home Meds: 23:53 Aspirin Oral [Active]; levothyroxine oral [Active]; ea - PMHx: 23:53 aortic aneurysm; Hypertension; Hypothyroidism; Pancreatitis; uterine cancer; ea - Immunization history:: Adult Immunizations up to date. - Social history:: Smoking status: unknown. ROS: 23:51 Constitutional: Negative for fever, chills, and weight loss, Eyes: Negative for injury, mh7 pain, redness, and discharge, ENT: Negative for injury, pain, and discharge, Neck: Negative for injury, pain, and swelling, Abdomen/GI: Negative for abdominal pain, nausea, vomiting, diarrhea, and constipation, Back: Negative for injury and pain, : Negative for injury, bleeding, discharge, and swelling, MS/Extremity: Negative for injury and deformity, Skin: Negative for injury, rash, and discoloration, Neuro: Negative for headache, weakness, numbness, tingling, and seizure, Psych: Negative for depression, anxiety, suicide ideation, homicidal ideation, and hallucinations, Allergy/Immunology: Negative for hives, rash, and allergies, Endocrine: Negative for neck swelling, polydipsia, polyuria, polyphagia, and marked weight changes, Hematologic/Lymphatic: Negative for swollen nodes, abnormal bleeding, and unusual bruising. Exam: 23:51 Constitutional: This is a well developed, well nourished patient who is awake, alert, mh7 and in no acute distress. Head/Face: Normocephalic, atraumatic. Eyes: Pupils equal round and reactive to light, extra-ocular motions intact. Lids and lashes normal. Conjunctiva and sclera are non-icteric and not injected. Cornea within normal limits. Periorbital areas with no swelling, redness, or edema. Neck: Trachea midline, no thyromegaly or masses palpated, and no cervical lymphadenopathy. Supple, full range of motion without nuchal rigidity, or vertebral point tenderness. No Meningismus. Chest/axilla: Normal chest wall appearance and motion. Nontender with no deformity. No lesions are appreciated. 23:51 Abdomen/GI: Soft, non-tender, with normal bowel sounds. No distension or tympany. No guarding or rebound. No evidence of tenderness throughout. Back: No spinal tenderness. No costovertebral tenderness. Full range of motion. Skin: Warm, dry with normal turgor. Normal color with no rashes, no lesions, and no evidence of cellulitis. MS/ Extremity: Pulses equal, no cyanosis. Neurovascular intact. Full, normal range of motion. Neuro: Awake and alert, GCS 15, oriented to person, place, time, and situation. Cranial nerves II-XII grossly intact. Motor strength 5/5 in all extremities. Sensory grossly intact. Cerebellar exam normal. Normal gait. Psych: Awake, alert, with orientation to person, place and time. Behavior, mood, and affect are within normal limits. 23:51 Cardiovascular: Rate: bradycardic, Rhythm: regular, Pulses: no pulse deficits are appreciated, Heart sounds: normal, normal S1and S2, Edema: is not appreciated, JVD: is not appreciated. 23:51 Respiratory: the patient does not display signs of respiratory distress, Respirations: normal, Breath sounds: wheezing: expiratory that is mild, is scattered, Respiratory rate: 16 Vital Signs: 23:30 BP 124 / 60; Pulse 46; Resp 13; Temp 97.2; Pulse Ox 89% on R/A; Weight 80.74 kg (R); 4 Height 5 ft. 8 in. (172.72 cm) (R); Pain 8/10; 23:41 Pulse Ox 94% on 1.5 lpm NC; [facility] 06/07 01:15 BP 134 / 90; Pulse 50; Resp 11; Pulse Ox 94% on 1.5 lpm NC; [facility] 06/06 23:30 Body Mass Index 27.06 (80.74 kg, 172.72 cm) [facility] 06/06 23:30 Placed on 1.5L NC, pt's home dose [facility] MDM: 06/07 04:00 Differential diagnosis: cardiac arrhythmia, hypovolemia, idiopathic dizziness, mh7 near-syncope, sepsis, syncope, vertigo. Data reviewed: vital signs, nurses notes, old medical records, lab test result(s), cardiac enzymes, CBC, electrolytes, urinalysis, EKG, radiologic studies, CT scan, plain films. Data interpreted: Pulse oximetry: on room air is 94 %. Interpretation: normal. Counseling: I had a detailed discussion with the patient and/or guardian regarding: the historical points, exam findings, and any diagnostic results supporting the discharge/admit diagnosis, lab results, radiology results, the need for further work-up and treatment in the hospital. Response to treatment: the patient's symptoms have mildly improved after treatment. 04:02 Patient medically screened. [facility] 06/06 23:28 Order name: Basic Metabolic Panel; Complete Time: 00:29 06/06 23:28 Order name: CBC with Diff; Complete Time: 23:55 06/06 23:28 Order name: LFT's; Complete Time: 00:29 06/06 23:28 Order name: Magnesium; Complete Time: 00:29 06/06 23:28 Order name: NT PRO-BNP; Complete Time: 00:29 06/06 23:28 Order name: PT-INR; Complete Time: 23:55 06/06 23:28 Order name: Troponin (emerg Dept Use Only); Complete Time: 00:29 06/06 23:56 Order name: Influenza Screen (a \T\ B); Complete Time: 01:27 [facility] 06/07 01:13 Order name: SARS-COV-2 RT PCR; Complete Time: 01:27 [facility] 06/07 02:37 Order name: Troponin (emerg Dept Use Only); Complete Time: 03:21 [facility] 06/07 02:40 Order name: Urine Dipstick-Ancillary; Complete Time: 03:09 [facility] 06/07 06:22 Order name: Phosphorus [facility] 06/07 06:22 Order name: Troponin I [facility] 06/06 23:28 Order name: XRAY Chest (1 view) 06/06 23:28 Order name: EKG; Complete Time: 23:29 06/06 23:28 Order name: Cardiac monitoring; Complete Time: 23:44 06/06 23:28 Order name: EKG - Nurse/Tech; Complete Time: 23:44 06/06 23:28 Order name: IV Saline Lock; Complete Time: 23:44 06/06 23:28 Order name: Labs collected and sent; Complete Time: 23:44 06/06 23:28 Order name: O2 Per Protocol; Complete Time: 23:44 06/07 00:32 Order name: CT Head Brain wo Cont [facility] 06/07 00:32 Order name: CT Chest For PE Angio [facility] 06/07 04:24 Order name: CONS Physician Consult [facility] 06/07 06:22 Order name: Lipid Profile [facility] 06/07 06:22 Order name: T4 Free [facility] 06/07 06:22 Order name: Magnesium [facility] 06/07 06:22 Order name: Thyroid Stimulating Hormone [facility] 06/06 23:28 Order name: O2 Sat Monitoring; Complete Time: 23:44 06/06 23:38 Order name: Urine Dipstick-Ancillary (obtain specimen); Complete Time: 02:42 [facility] 06/07 02:42 Order name: EKG - Nurse/Tech; Complete Time: 05:43 em Administered Medications: 00:10 Drug: Albuterol 2.5 mg Route: Inhalation; jb4 02:42 Drug: Meclizine 25 mg Route: PO; em Disposition Summary: 06/07/21 04:02 Hospitalization Ordered Hospitalization Status: Inpatient Admission [facility] Provider: Homer Valero Julia Condition: Stable [facility] Problem: new [facility] Symptoms: have improved [facility] Bed/Room Type: Standard mh7 Location: Telemetry/MedSurg (Inpatient)(06/07/21 17:01) dw Room Assignment: 232(06/07/21 17:01) Diagnosis - Bradycardia, unspecified mh7 - Dizziness and giddiness mh7 Forms: - Medication Reconciliation Form mh7 - SBAR form mh7 Signatures: Dispatcher [employer] EDCT Katy Cleveland RN Liliana Birmingham RN Len Johnson RN Lc Reyez RN RN jb4 Wendi Wood RN RN ea Holmes, Maurice, MD MD 7 Corrections: (The following items were deleted from the chart) 00:22 08 23:56 CORONAVIRUS+MR.LAB.BRZ ordered. [facility] 06/07 04:05 04:02 Telemetry/MedSurg (Inpatient) [facility] 04:05 04:02 [facility] 17:01 04:05 [facility] ER HOLD [facility] 17:01 04:05 ERHOLD- [facility] 17:01 17:01 [facility]
--- NOTE | 2021-06-07 05:11 | P.HP ---
Certification for Inpatient Patient admitted to: Observation With expected LOS: <2 Midnights Patient will require the following post-hospital care: None Practitioner: I am a practitioner with admitting privileges, knowledge of patient current condition, hospital course, and medical plan of care. Services: Services provided to patient in accordance with Admission requirements found in Title 42 Section 412.3 of the Code of Federal Regulations Patient History Date of Service: 06/07/21 Reason for admission: near syncope, bradycardia History of Present Illness: Ms. Ying is a 61 yo F with HTN, hypothyroidism, aortic aneurysm with mesh repair in 2019, uterine cancer in remission, and pancreatitis with pending pancreatic stent removal on who presents with near syncopal episode. Today she has back pain between her shoulders and some dizziness, lightheadedness, and feeling of the room sitting while spinning. She got up to go the bathroom when her legs gave out and she fell. She says she bumped her head, but did not pass out. She also reports SOB. EKG shows bradycardia to the 50s. She takes 100mg of metoprolol BID, and norco 7.5 QID as well as tizanidine once daily. CT chest showed no PE, hyperinflated lungs with likely areas of scarring and atelectasis. CT head showed no evidence of acute intracranial abnormality, right mastoid air cells show mild opacification which may represent fluid/effusion or mastoiditis. BUN 22, GFR 50. AST 50, alk phos 408. albumin 2.9. BNP 1002. Allergies No Known Allergies Allergy (Verified 12/04/19 12:44) Home Medications: Levothyroxine Sodium 200 mcg PO DAILY 03/05/14 Amlodipine [Norvasc] 10 mg PO [id number] 12/04/19 Aspirin [Aspirin EC 81 MG] 81 mg PO DAILY 12/04/19 Gabapentin 300 mg PO BID 12/04/19 Hydrocodone Bit/Acetaminophen [Hydrocodon-Acetaminoph 7.5-325] 1 each PO Q6HP PRN 12/04/19 Meloxicam [Mobic] 7.5 mg PO DAILY 12/04/19 Metoprolol Tartrate [Lopressor] 50 mg PO BID 12/04/19 Sertraline HCl 50 mg PO DAILY 12/04/19 Tizanidine HCl 4 mg PO BID 12/04/19 - Past Medical/Surgical History Diabetic: No -: HTN -: HYPOTHYROIDISM -: aortic aneurysm 2019 -: pancreatitis - pancreatic stent -: uterine ca - remission -: CHOLECYSTECTOMY -: hysterectomy -: aortic mesh - Social History Smoking Status: Current every day smoker Alcohol use: No CD- Drugs: No Caffeine use: Yes Place of Residence: Home Review of Systems 10-point ROS is otherwise unremarkable Respiratory: Shortness of Breath Cardiovascular: Light Headedness, As per HPI Gastrointestinal: Nausea Physical Examination - Physical Exam General: Alert, In no apparent distress HEENT: Atraumatic, PERRLA, Mucous membr. moist/pink, EOMI, Sclerae nonicteric Neck: Supple, 2+ carotid pulse no bruit, No LAD, Without JVD or thyroid abnormality Respiratory: Normal air movement, Crackles/rales Cardiovascular: Normal S1 S2, Irregular heart rate/rhythm Gastrointestinal: Normal bowel sounds, No tenderness Musculoskeletal: No tenderness Integumentary: No rashes Neurological: Normal speech, Normal strength at 5/5 x4 extr, Normal tone, Normal affect Lymphatics: No axilla or inguinal lymphadenopathy - Studies Laboratory Data (last 24 hrs) 06/06/21 23:30: PT 10.7, INR 0.93 06/06/21 23:30: WBC 7.20, Hgb 12.9, Hct 38.7, Plt Count 215 06/06/21 23:30: Sodium 142, Potassium 4.5, BUN 22 H, Creatinine 1.10, Glucose 107 H, Magnesium 2.1, Total Bilirubin 0.2, AST 50 H, ALT 72, Alkaline Phosphatase 408 H Microbiology Data (last 24 hrs): 06/07/21 00:01 Nasopharnyx Influenza Type A Antigen Screen - Final 06/07/21 00:01 Nasopharnyx Influenza Type B Antigen Screen - Final Assessment and Plan - Problems (Diagnosis) (1) Bradycardia Current Visit: Yes Status: Acute (2) Near syncope Current Visit: Yes Status: Acute (3) History of aortic aneurysm repair Current Visit: Yes Status: Chronic (4) History of uterine cancer Current Visit: Yes Status: Chronic (5) History of pancreatitis Current Visit: Yes Status: Chronic (6) Hypothyroidism Current Visit: Yes Status: Chronic Qualifiers: Hypothyroidism type: unspecified Qualified Code(s): E03.9 - Hypothyroidism, unspecified (7) HTN (hypertension) Current Visit: Yes Status: Chronic Qualifiers: Hypertension type: primary hypertension Qualified Code(s): I10 - Essential (primary) hypertension - Plan cardiology consulted on tele, trend troponins, repeat EKG in the AM orthostatic VS in AM hold metoprolol and norco ECHO pending, lipid and thyroid panel pending O2 as needed, breathing tx as needed meclizine and zofran PRN DVT ppx Discharge Plan: Home Plan to discharge in: 24 Hours - Advance Directives Does patient have a Living Will: No Does patient have a Durable POA for Healthcare: No - Code Status/Comfort Care Code Status Assessed: Yes (full code ) Critical Care: No Time Spent Managing Pts Care (In Minutes): 70
[2021-06-07] MEDS ORDERED: ONDANSETRON 4 MG/2 ML VIAL IV PRN (05:17)
[2021-06-07] MEDS ORDERED: ACETAMINOPHEN 500 MG TAB PO PRN (05:17)
[2021-06-07] MEDS ORDERED: ALBUTEROL 2.5 MG/3 ML NEB SOL NEB PRN (05:17)
[2021-06-07] MEDS ORDERED: ONDANSETRON 4 MG/2 ML VIAL ONE ×2 (05:33→18:12)
[2021-06-07 06:21] LABS: HDL Cholesterol 47 mg/dL (40-60); LDL Cholesterol, Calculated 144 (<130); Magnesium 2.1 mg/dL (1.8-2.4); Phosphorus 3.4 mg/dL (2.5-4.9); Troponin I < 0.02 ng/mL (0.0-0.045)
[2021-06-07 08:03] VITALS: BMI 27.0
--- NOTE | 2021-06-07 08:20 | RAD REPORT ---
EXAM DESCRIPTION: RAD - Chest Single View - 06/06/2021 11:55 pm CLINICAL HISTORY: CHEST PAIN COMPARISON: Chest Pa And Lat (2 Views) dated 02/16/2020; Chest Single View dated 12/14/2018; Chest Sin gle View dated 11/07/2018; CHEST SINGLE VIEW dated 03/05/2014 FINDINGS: No evidence of edema or pneumonia. The heart size is within normal limits.No acute osseous abnormality. No significant pleural effusions or pneumothorax. Right IJ approach Port-A-Cath with ti p overlying the right atrium. Prior aortic stent graft placement. IMPRESSION: No acute cardiopulmonary disease.
--- NOTE | 2021-06-07 13:37 | CON ---
Date of Consultation: 06/07/2021 Reason For Consultation: Near syncope and bradycardia. History Of Present Illness: A 61-year-old female with history of hypertension and aortic aneurysm, s tatus post repair in 2019. She has hypothyroidism, uterine cancer, presented with episode of dizzine ss. She was coming out of the bathroom, felt lightheaded and faint like, but she did not actually lo se her consciousness. Upon evaluation, she was in sinus bradycardia with no heart block and she was taken a large dose of metoprolol at home. Denies having any chest pain and no other complaints. Past Medical History: As outlined above in the HPI. Medications: Refer to reconciliation sheet for detailed list. Allergies: NO KNOWN DRUG ALLERGIES. Family History: No premature coronary artery disease or cancer. Social History: She does not smoke or drink. Does not use any drugs. Review of Systems: All systems reviewed and negative except as mentioned in HPI. Physical Examination: Vital Signs: Temperature is 97.7, pulse 55, breathing at 18, blood pressure 135/62, saturating 94% o n room air. General: Pleasant middle-aged female, in no apparent distress. Head and Neck: Pupils are reactive to light. Intact eye movements. No JVD. No cervical lymphadeno sanya. Neck: Supple. Thyroid is not enlarged. Lungs: Clear to auscultation bilaterally. No rhonchi, rales, or crackles. No accessory muscle use. Heart: Regular rate and rhythm. No extra sounds. Abdomen: Soft, nontender. Bowel sounds positive. No organomegaly. No masses or hernia. No rigidi ty or rebound. Extremities: No edema, clubbing, or cyanosis. Intact pulses. Skin: No rash noted. Neurologic: Alert, awake, oriented x3. No acute focal deficits appreciated. Investigations: Troponins x3 are negative. NT-proBNP is . Creatinine is 1.1 and hemoglob in is 12.9. CTA PE protocol is negative. Assessment And Recommendations: 1.Near syncope. The patient has sinus bradycardia. Recommend to discontinue metoprolol and monitor on telemetry overnight and tomorrow to do a walking challenge with continuous monitoring of heart ra te if heart rate picks up in response to activities that will rule out bradycardia as the cause of he r syncope. Please obtain an echocardiogram. Cardiac enzymes already negative. 2.Sinus bradycardia, likely due to metoprolol. Hold it for tonight and obtain echocardiogram and we will re-evaluate tomorrow. SR/MODL Voice ID: [id number] Report ID: [id number]
--- NOTE | 2021-06-07 15:18 | P.PN ---
Date of Service: 06/07/21 Patient has no complain. Blood pressure is stable. Heart rate in the 50s. Cardiology input appreciated. Troponin negative Obtain echo tomorrow Obtain orthostatics vitals.
[2021-06-07] MEDS: HYDROCODONE/APAP 7.5/325 MG TAB PO PRN (17:47)
[2021-06-07] MEDS: MECLIZINE HCL 12.5 MG TAB PO PRN (17:47)
[2021-06-07] MEDS ORDERED: HYDROCODONE/APAP 7.5/325 MG TAB ONE (18:08)
[2021-06-07] MEDS: GABAPENTIN 300 MG CAP PO SCH (21:10)
[2021-06-07] MEDS: TIZANIDINE 4 MG TABLET PO SCH (21:10)
[2021-06-08] MEDS: HYDROCODONE/APAP 7.5/325 MG TAB PO PRN ×2 (04:02→15:26)
[2021-06-08 06:20] LABS: Absolute Lymphocytes (CBC) 1.8 K/uL (0.7-4.9); Basophils % 1.3 % (0-1.3); Hematocrit 37.6 % (36.0-45.0); Lymphocytes % 28.9 % (15.3-44.8); MPV 7.2 fL (7.6-11.3); RBC Red Blood Cell Count 4.14 M/uL (3.86-4.86)
[2021-06-08 06:34] LABS: Albumin 2.7 g/dL (3.4-5.0); Bilirubin Total 0.3 mg/dL (0.2-1.0); Potassium 4.8 mmol/L (3.5-5.1); Protein, Total 6.2 g/dL (6.4-8.2)
[2021-06-08] MEDS: GABAPENTIN 300 MG CAP PO SCH (08:49)
[2021-06-08] MEDS: TIZANIDINE 4 MG TABLET PO SCH (08:50)
[2021-06-08] MEDS ORDERED: LEVOTHYROXINE SOD 0.1 MG TAB PO SCH (09:00)
[2021-06-08] MEDS ORDERED: ASPIRIN EC 81 MG TAB PO SCH (09:00)
[2021-06-08 10:28] VITALS: O2SAT 94
--- NOTE | 2021-06-08 11:01 | RAD REPORT ---
EXAM DESCRIPTION: CT - Chest For Pe Angio - 06/07/2021 6:35 am CLINICAL HISTORY: The patient is 61 years old and is Female; Chest pain;SOB TECHNIQUE: Axial computed tomographic angiography images of the chest with intravenous contrast. S agittal and coronal reformatted images were created and reviewed. This CT exam was performed using one or more of the following dose reduction techniques: automated exposure control, adjustment of t he mA and/or kV according to patient size, and/or use of iterative reconstruction technique. MIP reconstructed images were created and reviewed. COMPARISON: No relevant prior studies available. FINDINGS: PULMONARY ARTERIES: There are no obvious filling defects identified within the pulmonary arteries to suggest pulmonary embolism. AORTA: Evidence of a endovascular stent in the level of the aortic arch is noted. No thoracic aortic aneurysm. LUNGS: The lungs are hyperinflated. The lungs are hyperinflated with areas of likely atelectas is and scarring. Nonspecific. Air trapping noted throughout the lungs. There is no lobar consolidatio n. PLEURAL SPACE: Unremarkable. No significant effusion. No pneumothorax. HEART: Unremarkable. No cardiomegaly. No significant pericardial effusion. No evidence of RV dysfunction. BONES/JOINTS: No acute fracture. No dislocation. SOFT TISSUES: Unremarkable. LYMPH NODES: Unremarkable. No enlarged lymph nodes. LIVER: The visualized liver is heterogeneous with several peripheral foci of high attenuation wh ich may be secondary to multiple transient hepatic attenuation differences versus small hemangiomas. GALLBLADDER AND BILE DUCTS: Surgical clips are present in the right upper quadrant, consistent w ith previous cholecystectomy. TUBES, LINES AND DEVICES: A right chest port is present with the tip in the SVC. IMPRESSION: 1. No evidence of pulmonary embolism. 2. Hyperinflated lungs with likely areas of scarring and atelectasis. Electronically signed by: Divya Coello MD 06/07/2021 1:43 AM CDT Due to temporary technical issues with the PACS/Fluency reporting system, reports are being signed by the in house radiologist without review as a courtesy to ensure prompt reporting. The interpreting r adiologist is fully responsible for the content of the report.
--- NOTE | 2021-06-08 11:01 | RAD REPORT ---
EXAM DESCRIPTION: CT - Head Brain Wo Cont - 06/07/2021 6:34 am CLINICAL HISTORY: Dizziness, headache COMPARISON: CT Head/Brain Without Contrast 03/05/2014 TECHNIQUE: Head/brain axial images acquired without contrast. Coronal and sagittal reformats created . Exam performed according to departmental dose-optimization program which includes automated exposur e control, adjustment of mA and/or kV according to patient size, and/or use of iterative reconstructi on technique. FINDINGS: No midline shift, mass effect, intracranial hemorrhage, or hydrocephalus. Brain parenchyma unremarkable. Paranasal sinuses clear. Right mastoid air cells show mild opacification. No skull fracture or significant skull lesion. Calcified atherosclerotic intracranial internal carotid and vertebral arteries. IMPRESSION: 1. No CT evidence of acute intracranial abnormality. 2. Right mastoid air cells show mild opacification may represent fluid/effusion or mastoiditis. Electronically signed by: Vinny Echeverria MD 06/07/2021 1:40 AM CDT Due to temporary technical issues with the PACS/Fluency reporting system, reports are being signed by the in house radiologist without review as a courtesy to ensure prompt reporting. The interpreting r adiologist is fully responsible for the content of the report.
[2021-06-08] MEDS: MECLIZINE HCL 12.5 MG TAB PO PRN (11:59)
--- NOTE | 2021-06-08 13:23 | ECHO ---
HEIGHT: 5 ft 8 in WEIGHT: 178 lb 0.02 oz DATE OF STUDY: 06/08/[address]: Jeff Rahman 2-DIMENSIONAL: YES M.MODE: YES DOPPLER: YES COLOR FLOW: YES TDS: NO PORTABLE: NO DEFINITY: NO BUBBLE STUDY: NO DIAGNOSIS: NEAR SYNCOPE CARDIAC HISTORY: CATHERIZATION: NO SURGERY: NO PROSTHETIC VALVE: NO PACEMAKER: NO MEASUREMENTS (cm) DIASTOLIC (NORMALS) SYSTOLIC (NORMALS) IVSd 1.0 (0.6-1.2) LA Diam 2.9 (1.9-4.0) LVEF 55-60% LVIDd 4.9 (3.5-5.7) LVIDs 3.0 (2.0-3.5) %FS 38% LVPWd 1.1 (0.6-1.2) Ao Diam 2.9 (2.0-3.7) 2 DIMENSIONAL ASSESSMENT: RIGHT ATRIUM: NORMAL LEFT ATRIUM: NORMAL RIGHT VENTRICLE: NORMAL LEFT VENTRICLE: NORMAL TRICUSPID VALVE: NORMAL MITRAL VALVE: NORMAL PULMONIC VALVE: NORMAL AORTIC VALVE: NORMAL PERICARDIAL EFFUSION: NONE AORTIC ROOT: NORMAL LEFT VENTRICULAR WALL MOTION: NORMAL. DOPPLER/COLOR FLOW: NORMAL. COMMENTS: NORMAL LEFT VENTRICULAR EJECTION FRACTION 55-60%. NORMAL WALL MOTION. TECHNOLOGIST: REECE GOODRICH
--- NOTE | 2021-06-08 13:31 | P.DS ---
Admission Date: 06/07/21 Discharge Date: 06/08/21 Disposition: ROUTINE DISCHARGE Discharge Condition: FAIR Reason for Admission: near syncope, bradycardia Brief History of Present Illness: 61 yo F with HTN, hypothyroidism, aortic aneurysm with mesh repair in 2019, uterine cancer in remission, and pancreatitis with pending pancreatic stent removal on who presents with near syncopal episode. She also reported back pain between her shoulders and some dizziness, lightheadedness, and feeling of the room spinning. She got up to go the bathroom when her legs gave out and she fell. She says she bumped her head, but did not pass out. EKG showed bradycardia to the 50s. She takes 100mg of metoprolol BID, and norco 7.5 QID as well as tizanidine once daily. CT chest showed no PE, hyperinflated lungs with likely areas of scarring and atelectasis. CT head showed no evidence of acute intracranial abnormality, right mastoid air cells show mild opacification which may represent fluid/effusion or mastoiditis. BUN 22, GFR 50. AST 50, alk phos 408. albumin 2.9. BNP 1002. Patient hospitalized for further management. Hospital Course: Patient admitted to the medical floor. Troponin trended negative. Patient was seen in consultation by cardiology, echocardiogram was done which was unremarkable. Patient was still bradycardic with exercise. She is on metoprolol which has been discontinued. She was normotensive throughout the hospital stay and her amlodipine has been on hold. Patient noted to desaturate to 84% on room air, and was needing more than 3 L for ambulation. CTA thorax done on admission shows hyperinflated lungs, scarring and atelectasis indicating emphysema. Patient will be discharged with home oxygen. She is currently asymptomatic, vertigo resolved. Patient cleared for discharge by cardiology-Dr. Perez. Vital Signs/Physical Exam: Temp Pulse Resp BP Pulse Ox 97.3 F 57 16 138/64 94 06/08/21 11:59 06/08/21 11:59 06/08/21 11:59 06/08/21 11:59 06/08/21 11:59 General: Alert, In no apparent distress, Oriented x3 HEENT: Mucous membr. moist/pink Neck: Supple, JVD not distended Respiratory: Clear to auscultation bilaterally, Normal air movement Cardiovascular: No edema, Regular rate/rhythm, Normal S1 S2 Gastrointestinal: Soft and benign, Non-distended, No tenderness Musculoskeletal: No swelling Integumentary: No rashes, No erythema Neurological: Normal strength at 5/5 x4 extr Laboratory Data at Discharge: WBC 6.10 K/uL (4.3-10.9) D 06/08/21 05:57 Hgb 12.4 g/dL (12.0-15.0) 06/08/21 05:57 Hct 37.6 % (36.0-45.0) 06/08/21 05:57 Plt Count 190 K/uL (152-406) 06/08/21 05:57 PT 10.7 SECONDS (9.5-12.5) 06/06/21 23:30 INR 0.93 06/06/21 23:30 Sodium 144 mmol/L (136-145) 06/08/21 05:57 Potassium 4.8 mmol/L (3.5-5.1) 06/08/21 05:57 BUN 18 mg/dL (7-18) 06/08/21 05:57 Creatinine 0.90 mg/dL (0.55-1.3) 06/08/21 05:57 Glucose 87 mg/dL (74-106) 06/08/21 05:57 Phosphorus 3.4 mg/dL (2.5-4.9) 06/07/21 05:32 Magnesium 2.1 mg/dL (1.8-2.4) 06/07/21 05:32 Total Bilirubin 0.3 mg/dL (0.2-1.0) 06/08/21 05:57 AST 21 U/L (15-37) 06/08/21 05:57 ALT 47 U/L (12-78) 06/08/21 05:57 Alkaline Phosphatase 326 U/L (45-117) H 06/08/21 05:57 Troponin I < 0.02 ng/mL (0.0-0.045) 06/07/21 05:32 Triglycerides 139 mg/dL (<150) 06/07/21 05:32 Cholesterol 219 mg/dL (<200) H 06/07/21 05:32 HDL Cholesterol 47 mg/dL (40-60) 06/07/21 05:32 Cholesterol/HDL Ratio 4.66 06/07/21 05:32 Home Medications: Levothyroxine Sodium 200 mcg PO DAILY 03/05/14 Aspirin [Aspirin EC 81 MG] 81 mg PO DAILY 12/04/19 Gabapentin 300 mg PO BID 12/04/19 Hydrocodone Bit/Acetaminophen [Hydrocodon-Acetaminoph 7.5-325] 1 each PO Q6HP PRN 12/04/19 Tizanidine HCl 4 mg PO BID 12/04/19 Gabapentin 300 mg PO BID 06/07/21 Albuterol Inhaler [Ventolin Inhaler*] 2 puff IH Q6H PRN #1 hfa.aer.ad 06/08/21 Meclizine HCl [Antivert*] 12.5 mg PO Q6H PRN #30 tab 06/08/21 New Medications: Meclizine HCl [Antivert*] 12.5 mg PO Q6H PRN #30 tab PRN Reason: Dizziness Albuterol Inhaler [Ventolin Inhaler*] 2 puff IH Q6H PRN #1 hfa.aer.ad PRN Reason: Shortness Of Breath Diet: AHA Activity: Fall precautions Followup: Unknown,U [Primary Care Provider] -
[2021-06-08 16:06] VITALS: BP 151/67; TEMP 97.3
--- NOTE | 2021-06-08 19:16 | P.PN ---
Subjective Date of Service: 06/08/21 Chief Complaint: near syncope, bradycardia Patient has no complain. Patient noted to be hypoxic on room air and with ambulation. She stated she has used oxygen before. Physical Examination - Vital Signs Temperature: 97.3 F Blood Pressure: 151/67 Pulse: 60 Respirations: 16 Pulse Ox (%): 96 - Physical Exam General: Alert, In no apparent distress HEENT: Mucous membr. moist/pink Neck: JVD not distended Respiratory: Diminished, Other (No crackles or wheezes) Cardiovascular: Regular rate/rhythm, Normal S1 S2 Gastrointestinal: Soft and benign, Non-distended, No tenderness Musculoskeletal: No swelling Integumentary: No rashes Neurological: Normal strength at 5/5 x4 extr - Studies Laboratory Data (last 24 hrs) 06/08/21 05:57: Sodium 144, Potassium 4.8, BUN 18, Creatinine 0.90, Glucose 87, Total Bilirubin 0.3, AST 21, ALT 47, Alkaline Phosphatase 326 H 06/08/21 05:57: WBC 6.10 D, Hgb 12.4, Hct 37.6, Plt Count 190 Assessment And Plan - Current Problems (Diagnosis) (1) Near syncope Current Visit: Yes Status: Acute (2) Chronic respiratory failure with hypoxia Current Visit: Yes Status: Acute (3) Bradycardia Current Visit: Yes Status: Acute (4) HTN (hypertension) Current Visit: Yes Status: Chronic Qualifiers: Hypertension type: primary hypertension Qualified Code(s): I10 - Essential (primary) hypertension (5) History of aortic aneurysm repair Current Visit: Yes Status: Chronic (6) History of pancreatitis Current Visit: Yes Status: Chronic (7) Hypothyroidism Current Visit: Yes Status: Chronic Qualifiers: Hypothyroidism type: unspecified Qualified Code(s): E03.9 - Hypothyroidism, unspecified (8) Emphysema lung Current Visit: Yes Status: Acute - Plan Patient still bradycardic with heart rate between 50-60. Vertigo and dizziness resolved. Blood pressure stable. Amlodipine and metoprolol are on hold. Echocardiogram is normal. Bronchodilators. Patient will need home oxygen-up to 4 L with ambulation. Patient has chronic ALP elevation.
--- NOTE | 2021-06-08 20:29 | PN ---
Date of Progress Note: 06/08/2021 Ms. Ying is 61, was admitted by Dr. Parikh and was seen by Dr. Swain for significant bradycardia. Metoprolol 50 b.i.d. was held. She also has a history of neuropathy and hypothyroidism for which sh e takes Norvasc and Synthroid. Her BNP was 1002. Her TSH was normal. Her heart rate today is in th e 60s. I will continue to hold her beta-obdulio, continue Norvasc. Echocardiogram remains pending, but as far as I am concerned, if her echo is normal, she can go home today and we will see her in the office in the near future. If her blood pressure goes up, we will have to probably treat her with a n CHARIS inhibitor or an ARB to avoid bradycardia. JENNIFER/IMMANUEL Voice ID: [id number] Report ID: [id number]
== END 2021-06-08 20:02 | disposition left against medical advice (07) | DRG 309 ==
LOC: ER 22:08 → ERHOLD 06-07 04:26 → 2ND 06-07 17:34 → OBSVTOIN 06-08 18:48
PROVIDERS: ADMIT Internal Medicine; ATTEND Internal Medicine
DX: R00.1 Bradycardia, unspecified (principal); K86.1 Other chronic pancreatitis; J96.11 Chronic respiratory failure with hypoxia; R55 Syncope and collapse; I10 Essential (primary) hypertension; E03.9 Hypothyroidism, unspecified; J43.9 Emphysema, unspecified; Z85.42 Personal history of malignant neoplasm of other parts of uterus; Z53.29 Procedure and treatment not carried out because of patient's decision for other reasons; Z20.822 Contact with and (suspected) exposure to COVID-19
CPT/HCPCS: 36415; 70450; 71045; 71275; 80048; 80053; 80061; 80076; 81003; 83735; 83880; 84100; 84439; 84443; 84484; 85025; 85610; 87804; 93005; 93306; 94760; 99285; G0378; J2405; Q9967; U0003

== ENCOUNTER 2025-02-02 19:12 | Inpatient (IN) | payer OTHER ==
[2025-02-02] MEDS ORDERED: LORazepam 2 MG/ML VIAL ONE ×2 (19:20→19:39)
[2025-02-02 19:35] LABS: Absolute Basophils 0.1 K/uL (0-0.5); Absolute Monocytes 1.4 K/uL (0.1-1.3); Absolute Neutrophil 18.3 K/uL (1.8-8.0); Basophils % 0.6 % (0-1.3); Hematocrit 50.9 % (36.0-45.0); Lymphocytes % 4.9 % (15.3-44.8); MCH 29.4 pg (27.0-35.0); MCHC 33.3 g/dL (32.0-36.0); MCV 88.1 fL (80-100); MPV 7.9 fL (7.6-11.3); Monocytes % 6.5 % (3.3-12.3); Nucleated Red Blood Cells % 0.1 % (0-0); Platelets 260 thou/uL (152-406); RBC Red Blood Cell Count 5.78 M/uL (3.86-4.86); Red Cell Distribution Width 15.1 % (12.1-15.2)
[2025-02-02 19:39] LABS: PT Prothrombin Time 10.8 SECONDS (10-13.0); PTT, Activated Partial Thromb 21.7 SECONDS (27.2-37.4); Protime INR 0.94
[2025-02-02] MEDS ORDERED: ETOMIDATE 20 MG/10 ML VIAL IV ONE ×2 (19:54→23:28)
[2025-02-02 20:09] LABS: Albumin 4.1 g/dL (3.4-5.0); Anion Gap 10.8 mEq/L (5.0-15.0); Globulin 4.3 g/dL (2.3-3.5); Potassium 2.8 mEq/L (3.5-5.1); Protein, Total 8.4 g/dL (6.4-8.2); Thyroid Stimulating Hormone 3.02 uIU/mL (0.358-3.740)
[2025-02-02 20:11] LABS: Blood Morphology Comment NOT SEEN (NOT SEEN); Platelet Estimate ADEQ; White Blood Cell Scan OK (OK)
--- NOTE | 2025-02-02 20:18 | RAD REPORT ---
EXAM: CT brain without contrast HISTORY: Confusion/alteration of consciousness COMPARISON: 2020 TECHNIQUE: Multiple contiguous axial images were obtained and a CT of the brain without contrast.. Sagittal and coronal reconstruction performed. Automated exposure control, adjustment of the mA and/or kV according to patient size, and/or iterative reconstruction. Unless otherwise specified, incidental f indings do not require dedicated imaging follow-up FINDINGS: An intracranial bleed is not seen Ventricles are normal caliber No extra-axial fluid collection noted No significant hypodensity within the brain No fluid within the visualized sinuses or mastoids noted. IMPRESSION: No acute intracranial abnormality noted. If the patient continues to have symptoms to suggest an acute intracranial abnormality then MRI of th e brain would be recommended.
--- NOTE | 2025-02-02 20:46 | RAD REPORT ---
Procedure: Chest Single View HISTORY: Vomiting. Aortic surgery COMPARISON: 2020 FINDINGS: The lungs appear clear of acute infiltrate. Lungs are mildly hyperaerated. No significant pleural effusion noted. The heart is mildly to moderately enlarged. Aortic stent in place. Central venous catheter with its t ip in the SVC. Prominence of the central pulmonary arteries may indicate pulmonary arterial hypertension IMPRESSION: No acute abnormality is displayed.
[2025-02-02] MEDS ORDERED: VANCOMYCIN 1 GM/VIAL ONE (21:46)
[2025-02-02] MEDS ORDERED: NA CHLORIDE 0.9% 250 ML ONE (21:46)
[2025-02-02] MEDS ORDERED: NA CHLORIDE 0.9% 1,000 ML ONE (21:47)
[2025-02-02] MEDS ORDERED: NA CHLORIDE 0.9% 100 ML ONE (21:47)
[2025-02-02] MEDS ORDERED: CEFEPIME 1 GM/VIAL ONE (21:47)
[2025-02-02 22:46] LABS: Specific Gravity > 1.030 (1.005-1.030); Urine Bacteria <20 /HPF (<20); Urine Bilirubin NEGATIVE (Negative); Urine Blood 3+ (OVER) (Negative); Urine Clarity Extremely Turbid (Clear); Urine Color Orange (Yellow); Urine Crystals Unidentified Few /HPF (None Seen); Urine Culture Reflex Order NOT NEEDED; Urine Glucose TRACE (Negative); Urine Ketones TRACE (Negative); Urine Microscopic Reflex YN ORDER UMIC; Urine Mucus 2+ /HPF (None Seen); Urine Nitrite NEGATIVE (Negative); Urine Protein 3+ (Negative); Urine RBC >50 /HPF (None Seen); Urine Urobilinogen Normal (Normal); Urine Yeast (Budding) Few /HPF (None Seen)
[2025-02-02] MEDS ORDERED: ACETAMINOPHEN 650MG/RECT SUPP PR PRN (23:38)
[2025-02-02] MEDS: VANCOMYCIN 1 GM in NA CHLORIDE 0.9% 250 ML IVPB SCH (23:41)
--- NOTE | 2025-02-02 23:50 | P.HP ---
Patient History Date of Service: 02/03/25 Reason for admission: Severe sepsis History of Present Illness: 65-year-old Female with severe peripheral arterial disease, hypothyroidism, hypertension, aortic aneurysm with mesh repair 2019, uterine cancer in remission CAD presenting with altered mental status for the last several days. There is no family at bedside and patient is not able to elicit a history. Per chart review her mental status declined over the last few days and abruptly even more so over the last 4 hours. Patient is not able to communicate with family members or staff patient is writhing and moaning. Allergies No Known Allergies Allergy (Verified 10/31/23 14:35) Home Medications: Levothyroxine Sodium 200 mcg PO DAILY 03/05/14 Aspirin [Aspirin EC 81 MG] 81 mg PO DAILY 12/04/19 Gabapentin 300 mg PO BID 12/04/19 Hydrocodone Bit/Acetaminophen [Hydrocodon-Acetaminoph 7.5-325] 1 each PO Q6HP PRN 12/04/19 Tizanidine HCl 4 mg PO BID 12/04/19 Gabapentin 300 mg PO BID 06/07/21 Albuterol Inhaler [Ventolin Inhaler*] 2 puff IH Q6H PRN #1 hfa.aer.ad 06/08/21 Meclizine HCl [Antivert*] 12.5 mg PO Q6H PRN #30 tab 06/08/21 - Past Medical/Surgical History Diabetic: No -: HTN -: HYPOTHYROIDISM -: aortic aneurysm 2019 -: pancreatitis - pancreatic stent -: uterine ca - remission -: CHOLECYSTECTOMY -: hysterectomy -: aortic mesh - Social History Alcohol use: No CD- Drugs: No Caffeine use: Yes Review of Systems is unable to be obtained Physical Examination - Physical Exam General: Alert, Confused HEENT: Normocephalic Neck: Supple Respiratory: Clear to auscultation bilaterally Cardiovascular: No edema Capillary refill: <2 Seconds Gastrointestinal: Normal bowel sounds Musculoskeletal: No clubbing Integumentary: No rashes Neurological: Abnormal speech Lymphatics: No axilla or inguinal lymphadenopathy - Studies Laboratory Data (last 24 hrs) 02/02/25 02/02/25 02/02/25 19:18 19:18 19:18 WBC 20.80 H Hgb 17.0 H Hct 50.9 H Plt Count 260 PT 10.8 INR 0.94 APTT 21.7 L Sodium 138 Potassium 2.8 L BUN 14 Creatinine 1.42 H Glucose 173 H Total Bilirubin 1.0 AST 22 ALT 33 Alkaline Phosphatase 215 H Assessment and Plan - Plan Severe sepsis Acute metabolic encephalopathy Hypertensive urgency Acute kidney injury Hypokalemia Leukocytosis Prolonged QT Agitation Admit to ICU Blood cultures, CSF cultures, and procalcitonin pending, Continue cefepime and vancomycin Lumbar puncture completed by ER team, pending result Consider MRI of the brain in the a.m. if patient can remain calm Trend lactic acid Replace electrolytes per protocol Avoid nephrotoxin Start Precedex for agitation, may need restraints DVT prophylaxis with heparin - Advance Directives Does patient have a Living Will: No Does patient have a Durable POA for Healthcare: No
--- NOTE | 2025-02-02 23:54 | EDPHYS ---
Physician Documentation [facility] Name: Cait Ying Age: 65 yrs Sex: Female : 1960 Arrival Date: 02/02/2025 Time: 19:12 Bed 3 Private MD: ED Physician Jeannie Evans HPI: 02/02 19:23 This 65 yrs old Female presents to ER via Unassigned with complaints of sp3 altered mental status. 19:23 65 year old female with h/o aortic aneurysm, Hypertension, Hypothyroidism, sp3 Pancreatitis, uterine cancer, now presents via EMS for altered mental status episode over the last several days worsening over the last 3 to 4 hours as reported by family. History, physical and ROS limited secondary to patient not communicating. She has purposeful movements and moaning and occasionally answers in 3-4 word sentences.. Historical: - Allergies: 19:40 Unable to obtain; lg3 - PMHx: 19:40 aortic aneurysm; aortic aneurysm; Hypertension; Hypothyroidism; Pancreatitis; uterine lg3 cancer; - PSHx: 19:40 Unable to Obtain; lg3 - Immunization history:: Adult Immunizations unknown. - Infectious Disease History:: unable to obtain. - Social history:: Smoking status: unknown. ROS: 19:24 Unable to obtain ROS due to altered mental status, sp3 Exam: 19:24 Head/face: Patient with no signs of trauma. Moves all 4 extremities without gross sp3 focal motor deficit. Right eye lateral gaze with proptosis unknown if new or old. 4 mm pupils bilaterally. Patient does answer in 3-4 word sentences occasionally. Vital signs are normal. Patient not tachycardic. Abdomen is soft, patient is not actively bleeding and skin has no visible rash or other abnormality. Lungs are clear bilaterally.. 19:24 Unable to obtain exam due to altered mental status, 22:11 ECG was reviewed by the Attending Physician. EKG demonstrates normal sinus rhythm at 83 sp3 bpm with QTc of 520, normal QRS, normal axis, nonspecific diffuse ST/T changes without evidence of acute ischemia. Vital Signs: 19:15 BP 189 / 97; Pulse 77; Resp 18 S; Temp 98.9(A); Pulse Ox 90% on R/A; Weight 81.65 kg lg3 (R); Height 5 ft. 6 in. (R); 20:20 BP 118 / 83; Pulse 90; Pulse Ox 97% ; jj7 21:00 BP 201 / 89; Pulse 71; Resp 16; Pulse Ox 96% on 3 lpm NC; jj7 22:00 BP 200 / 88; Pulse 90; Resp 16; Pulse Ox 97% on 3 lpm NC; jj7 23:00 BP 200 / 103; Pulse 77; Resp 18; Pulse Ox 92% on 3 lpm NC; j7 02/03 00:00 BP 194 / 104; Pulse 86; Resp 17; Pulse Ox 95% on 3 lpm NC; jj7 01:00 BP 189 / 107; Pulse 84; Resp 17; Pulse Ox 96% on 3 lpm NC; 7 02/02 19:15 Body Mass Index 29.05 (81.65 kg, 167.64 cm) lg3 Procedures: 02/02 23:56 Lumbar Puncture: Patient placed in sitting position. Prepped with Betadine. Draped sp3 using sterile technique. clear fluid. Puncture site dressed with 4x4s, Patient tolerated well. Procedural sedation: Pre-procedure assessment: ASA physical classification: I - healthy, no underlying organic disease, Monitoring during procedure: environmental monitoring technician, continuous pulse oximetry, nurse at bedside at all times, Medications employed: Etomidate. MDM: 19:13 Medical Screening Exam initiated sp3 19:25 Data reviewed: vital signs, nurses notes, EMS record, old medical records, lab test sp3 result(s), EKG, radiologic studies. ED course: 65-year-old female with altered mental status with PMH above. Differential diagnosis includes DOUGH PUNCHER pathology including bleed or TIA/CVA spectrum, UTI, electrolyte abnormality, dehydration, ACS, among others. Workup include CT scan of the head, full sepsis workup, chest x-ray, UA and general supportive care. Disposition probable admission versus transfer depending on workup and final disposition.. 23:51 ED course: Lumbar puncture completed. Cell counts and cultures glucose and protein all sp3 pending. Antibiotics had already been administered. Discussed with Dr. Yanez who will be seeing patient in the ICU. Moderate sedation using etomidate documented.. 02/02 19:13 Order name: Blood Culture Adult (2) sp3 02/02 19:13 Order name: CBC with Diff; Complete Time: 20:44 sp3 02/02 19:13 Order name: CMP; Complete Time: 20:44 sp3 02/02 19:13 Order name: Lactate w/ 2H reflex if indic.; Complete Time: 22:52 sp3 02/02 19:13 Order name: Protime (+inr); Complete Time: 20:44 sp3 02/02 19:13 Order name: Ptt, Activated; Complete Time: 20:44 sp3 02/02 19:13 Order name: Urinalysis w/ reflexes; Complete Time: 22:52 sp3 02/02 19:42 Order name: Troponin High Sensitivity; Complete Time: 20:44 EDMS 02/02 19:43 Order name: Thyroid Stimulating Hormone; Complete Time: 20:44 EDMS 02/02 20:11 Order name: CBC Smear Scan; Complete Time: 20:44 EDMS 02/02 21:54 Order name: Ghost Lactate-NO COLLECT Timer; Complete Time: 01:31 EDMS 02/02 23:44 Order name: Procalcitonin EDMS 02/02 23:44 Order name: CBC with Automated Diff EDMS 02/02 23:44 Order name: Comprehensive Metabolic Panel EDMS 02/02 23:44 Order name: Lactate w/ 2H reflex if indic. EDMS 02/02 23:54 Order name: Csf Culture 3 02/02 23:54 Order name: Fluid Cell Count,Body 3 02/02 23:54 Order name: Spinal Fluid Profile 3 02/03 00:27 Order name: CSF SPECIMEN [facility] 02/03 01:15 Order name: Lactate Sepsis 2 HR Follow-up; Complete Time: 01:31 EDMS 02/03 01:27 Order name: Body Fluid Cell Count; Complete Time: 01:31 EDMS 02/02 19:13 Order name: Chest Single View XRAY; Complete Time: 20:47 3 02/02 19:13 Order name: CT Head Brain wo Cont; Complete Time: 20:44 3 02/02 19:13 Order name: Cardiac monitoring; Complete Time: 19:47 3 02/02 19:13 Order name: EKG - Nurse/Tech; Complete Time: 20:58 3 02/02 19:13 Order name: IV Saline Lock - Large Bore; Complete Time: 19:48 3 02/02 19:13 Order name: Labs collected and sent; Complete Time: 19:48 sp3 02/02 19:13 Order name: O2 Per Protocol; Complete Time: 19:47 sp3 02/02 19:13 Order name: O2 Sat Monitoring; Complete Time: 19:47 sp3 02/02 19:13 Order name: Vital Signs; Complete Time: 19:47 sp3 02/02 19:14 Order name: NPO; Complete Time: 19:47 sp3 02/02 21:49 Order name: [place]; Complete Time: 22:05 sp3 Administered Medications: 19:22 Drug: Ativan IVP 2 mg IVP once Route: IVP; Site: left antecubital; bm8 20:24 Follow up: Response: No adverse reaction; RASS: Restless (+1) lg3 19:46 Drug: Ativan IVP 2 mg IVP once Route: IVP; Site: left antecubital; bm8 20:24 Follow up: Response: RASS: Restless (+1) lg3 19:54 Drug: Etomidate IVP 10 mg IVP once Route: IVP; Site: left antecubital; lg3 20:24 Follow up: Response: RASS: Deep sedation (-4) lg3 22:05 Drug: Cefepime IVPB 1 grams IVPB at 200 ml/hr once over 30 mins; (mix in NS 100 mL) jj7 Route: IVPB; Rate: 200 ml/hr; Infused Over: 30 mins; Site: left antecubital; 22:40 Follow up: IV Status: Completed infusion j7 22:05 Drug: NS 0.9% IV 1000 ml IV at 1 bolus Per protocol; to be given as a bolus over 60 jj7 minutes Route: IV; Rate: 1 bolus; Site: left antecubital; 02/03 01:04 Follow up: IV Status: Completed infusion jj7 02/02 22:36 Drug: vancoMYCIN IVPB 1 grams IVPB once over 2 hrs Route: IVPB; Infused Over: 2 hrs; jj7 Site: left antecubital; 02/03 00:36 Follow up: IV Status: Completed infusion jj7 02/02 23:34 Drug: Etomidate IVP 10 mg IVP once Route: IVP; Site: left antecubital; cp4 02/03 00:06 Follow up: Response: No adverse reaction 4 02/02 23:38 Drug: Etomidate IVP 5 mg IVP once Route: IVP; Site: left antecubital; cp4 02/03 00:06 Follow up: Response: No adverse reaction cp4 01:22 Drug: NS 0.9% IV 1000 ml IV at 1 bolus Per protocol; to be given as a bolus over 60 cp4 minutes Route: IV; Rate: 1 bolus; Site: left antecubital; 01:23 Follow up: IV Status: Infusion continued upon admission cp4 01:38 Follow up: IV Status: Infusion continued upon admission jj7 Disposition: 02/02 23:51 Critical Care:. sp3 Disposition Summary: 02/02/25 23:53 Hospitalization Ordered Notes: Hospitalization Status: Inpatient Admission sp3 Provider: Hadley Yanez sp3 Location: Intensive Care Unit sp3 Condition: Stable sp3 Problem: new sp3 Symptoms: have worsened sp3 Bed/Room Type: Standard sp3 Room Assignment: 6-(02/03/25 00:06) [facility] Diagnosis - Septic shock, altered mental status, leukocytosis, lumbar puncture by physician, sp3 moderate sedation Forms: - Medication Reconciliation Form sp3 - SBAR form sp3 - Leadership Thank You Letter sp3 Critical care time excluding procedures: 23:51 Critical care time: Bedside Care: 20 minutes, Consultation: 10 minutes, Family sp3 Intervention: 10 minutes. Total time: 40 minutes Signatures: Dispatcher [employer] EDDnaielle Collado, RN RN lg3 Jeannie Evans MD MD sp3 Teri Lamb, RN RN ha1 Meet Rahman RN RN Chely Al 4 Tere Portillo [facility] Bhavesh Cordero, RN RN bm8 Corrections: (The following items were deleted from the chart) 19:14 19:14 BLOOD CULTURE*+BA.LAB.BRZ ordered. EDMS EDMS 19:14 19:14 CBC+H.LAB.BRZ ordered. EDMS EDMS 19:14 19:14 COMPREHENSIVE METABOLIC PANEL+C.LAB.BRZ ordered. EDMS EDMS 19:14 19:14 LACTATE+C.LAB.BRZ ordered. EDMS EDMS 19:14 19:14 PROTIME (+INR)+COAG.LAB.BRZ ordered. EDMS EDMS 19:14 19:14 PTT, ACTIVATED+COAG.LAB.BRZ ordered. EDMS EDMS 19: 19:14 Urinalysis+U.LAB.BRZ ordered. EDMS EDMS :14 19:14 Chest Single View+RAD.RAD.BRZ ordered. EDMS EDMS : 19:14 Head Brain Wo Cont+CT.RAD.BRZ ordered. EDMS EDMS :43 19:27 Troponin High Sensitivity+C.LAB.BRZ ordered. EDMS EDMS :43 19:27 THYROID STIMULAT HORMONE+C.LAB.BRZ ordered. EDMS EDMS 02/03 00:06 02/02 23:53 sp3 kmf
--- NOTE | 2025-02-02 23:54 | ER ---
Nurse's Notes [facility] Name: Cait Ying Age: 65 yrs Sex: Female : 1960 Arrival Date: 02/02/2025 Time: 19:12 Bed 3 Private MD: Diagnosis: Septic shock, altered mental status, leukocytosis, lumbar puncture by physician, moderate sedation Presentation: 02/02 19:15 Chief complaint: EMS states: per family, AMS X3 days. nausea/vomiting X2 days. lg3 Coronavirus screen: At this time, unable to obtain information related to travel outside the [place] Ebola Screen: No symptoms or risks identified at this time. Initial Sepsis Screen: Does the patient meet any 2 criteria? No. Patient's initial sepsis screen is negative. Does the patient have a suspected source of infection? No. Patient's initial sepsis screen is negative. Risk Assessment: Do you want to hurt yourself or someone else? Patient reports no desire to harm self or others. Onset of symptoms is unknown. 19:15 Method Of Arrival: EMS: [facility] 19:15 Acuity: ONEYDA 3 lg3 Triage Assessment: 19:40 General: Appears unkempt, Behavior is agitated, combative, restless, uncooperative. lg3 Pain: Noted to be confused, restless. EENT: No deficits noted. Neuro: [place]ley Agitation-Sedation Scale (RASS): +2 Agitated Level of Consciousness is awake, confused, Oriented to none Facial symmetry appears normal. Cardiovascular: No deficits noted. Heart tones S1 S2 present. Respiratory: Airway is patent Respiratory effort is even, unlabored, Respiratory pattern is regular, symmetrical, Breath sounds are clear bilaterally. GI: Abdomen is flat, non-distended, Stools are reported to be diarrhea. : No signs and/or symptoms were reported regarding the genitourinary system. Derm: Skin is intact, is healthy with good turgor, Skin is dry, Skin is normal, Skin temperature is warm. Musculoskeletal: Circulation, motion, and sensation intact. Historical: - Allergies: 19:40 Unable to obtain; lg3 - PMHx: 19:40 aortic aneurysm; aortic aneurysm; Hypertension; Hypothyroidism; Pancreatitis; uterine lg3 cancer; - PSHx: 19:40 Unable to Obtain; lg3 - Immunization history:: Adult Immunizations unknown. - Infectious Disease History:: unable to obtain. - Social history:: Smoking status: unknown. Screenin:15 [facility] ED Fall Risk Assessment (Adult) History of falling in the last 3 months, lg3 including since admission Yes- single mechanical fall (1 pt) Confusion or Disorientation Yes (5 pts) Intoxicated or Sedated No (0 pts) Impaired Gait Yes (1 pt) Mobility Assist Device Used Yes (1 pt) Altered Elimination Yes (1 pt) Score/Fall Risk Level 3 or more points = High Risk Oriented to surroundings, Maintained a safe environment, Educated pt \T\ family on fall prevention, incl call for assistance when getting out of bed, Assessed \T\ reinforced patient's understanding of fall precautions, Provided non-skid footwear. Abuse screen: Denies threats or abuse. Denies injuries from another. Nutritional screening: No deficits noted. Tuberculosis screening: No symptoms or risk factors identified. Assessment: 19:15 General: see triage assessment. lg3 19:57 General: post etomidate administration, pt began foaming at the mouth and gurgling. lg3 respirations became shallow and labored. O2 saturation remained at 94%. provider notified and at bedside . 02/03 00:37 Reassessment: ATTEMPTED REPORT TO ICU. Vital Signs: 02/02 19:15 BP 189 / 97; Pulse 77; Resp 18 S; Temp 98.9(A); Pulse Ox 90% on R/A; Weight 81.65 kg lg3 (R); Height 5 ft. 6 in. (R); 20:20 BP 118 / 83; Pulse 90; Pulse Ox 97% ; jj7 21:00 BP 201 / 89; Pulse 71; Resp 16; Pulse Ox 96% on 3 lpm NC; j7 22:00 BP 200 / 88; Pulse 90; Resp 16; Pulse Ox 97% on 3 lpm NC; j7 23:00 BP 200 / 103; Pulse 77; Resp 18; Pulse Ox 92% on 3 lpm NC; j7 02/03 00:00 BP 194 / 104; Pulse 86; Resp 17; Pulse Ox 95% on 3 lpm NC; jj7 01:00 BP 189 / 107; Pulse 84; Resp 17; Pulse Ox 96% on 3 lpm NC; j7 02/02 19:15 Body Mass Index 29.05 (81.65 kg, 167.64 cm) lg3 ED Course: 02/02 19:13 Patient arrived in ED. sp3 19:13 Jeannie Evans MD is Attending Physician. sp3 19:15 Patient has correct armband on for positive identification. Placed in gown. Bed in low lg3 position. Call light in reach. Side rails up X2. Client placed on continuous cardiac and pulse oximetry monitoring. NIBP monitoring applied. laboratory monitor on. Door closed. Noise minimized. Warm blanket given. Pillow given. Cleaned of incontinence. Linen changed. One-on-one care X 30 minutes. 19:15 Initial lab(s) drawn, by ED staff, sent to lab. Urine collected: straight cath lg3 specimen, mart colored, Amount Returned: 10mL. Straight cath inserted, using sterile technique, 14 Fr. Specimen obtained. Returned mart urine. Patient tolerated poorly. Inserted saline lock: 22 gauge in left antecubital area, using aseptic technique. Blood collected. Flushed with 10 mL NS. Oxygen administration via nasal cannula \T\ 3L/min Response to oxygen therapy: symptoms improved. 19:38 Danielle Flanagan, RN is Primary Nurse. lg3 19:40 Triage completed. lg3 19:40 Arm band placed on right wrist. lg3 20:11 CT Head Brain wo Cont In Process Unspecified. EDMS 20:23 Chest Single View XRAY In Process Unspecified. EDMS 21:00 First set of blood cultures drawn by ED staff. vk 21:18 Second set of blood cultures drawn by ED staff. vk 22:00 Franklin cath inserted, using sterile technique, 16 Fr., by dc, balloon inflated, to jj7 gravity drainage, clamped. urine specimen collected. 22:07 Urinalysis w/ reflexes Sent. vk 22:07 Blood Culture Adult (2) Sent. vk 23:34 Assist provider with lumbar puncture: Set up LP tray. Performed by Jeannie Evans MD CSF jj7 is clear. Sample collected. Sample sent to lab. Puncture site dressed with 4X4s, Procedure was successful. Patient tolerated well. 23:51 Hadley Yanez MD is Hospitalizing Provider. sp3 02/03 00:05 Csf Culture Sent. cp4 00:05 Fluid Cell Count,Body Sent. cp4 00:05 Spinal Fluid Profile Sent. cp4 01:25 Patient admitted, IV remains in place. jj7 Administered Medications: 02/02 19:22 Drug: Ativan IVP 2 mg IVP once Route: IVP; Site: left antecubital; bm8 20:24 Follow up: Response: No adverse reaction; RASS: Restless (+1) lg3 19:46 Drug: Ativan IVP 2 mg IVP once Route: IVP; Site: left antecubital; bm8 20:24 Follow up: Response: RASS: Restless (+1) lg3 19:54 Drug: Etomidate IVP 10 mg IVP once Route: IVP; Site: left antecubital; lg3 20:24 Follow up: Response: RASS: Deep sedation (-4) lg3 22:05 Drug: Cefepime IVPB 1 grams IVPB at 200 ml/hr once over 30 mins; (mix in NS 100 mL) jj7 Route: IVPB; Rate: 200 ml/hr; Infused Over: 30 mins; Site: left antecubital; 22:40 Follow up: IV Status: Completed infusion j7 22:05 Drug: NS 0.9% IV 1000 ml IV at 1 bolus Per protocol; to be given as a bolus over 60 jj7 minutes Route: IV; Rate: 1 bolus; Site: left antecubital; 02/03 01:04 Follow up: IV Status: Completed infusion j7 02/02 22:36 Drug: vancoMYCIN IVPB 1 grams IVPB once over 2 hrs Route: IVPB; Infused Over: 2 hrs; jj7 Site: left antecubital; 02/03 00:36 Follow up: IV Status: Completed infusion j7 02/02 23:34 Drug: Etomidate IVP 10 mg IVP once Route: IVP; Site: left antecubital; cp4 02/03 00:06 Follow up: Response: No adverse reaction 4 02/02 23:38 Drug: Etomidate IVP 5 mg IVP once Route: IVP; Site: left antecubital; cp4 02/03 00:06 Follow up: Response: No adverse reaction 4 01:22 Drug: NS 0.9% IV 1000 ml IV at 1 bolus Per protocol; to be given as a bolus over 60 cp4 minutes Route: IV; Rate: 1 bolus; Site: left antecubital; 01:23 Follow up: IV Status: Infusion continued upon admission cp4 01:38 Follow up: IV Status: Infusion continued upon admission jj7 Medication: 01:25 VIS not applicable for this client. jj7 Outcome: 02/02 23:53 Decision to Hospitalize by Provider. sp3 02/03 01:25 Admitted to ICU accompanied by nurse, accompanied by tech, via stretcher, room 6, jj7 Report called to JERSEY STEWART Condition: stable 01:40 Patient left the ED. jj7 Signatures: Dispatcher [employer] EDMS Danielle Flanagan, RN RN lg3 Jeannie Evans MD MD sp3 Meet Rahman RN RN jj7 Chely Hinds cp4 Arlene Vega Brad, RN RN bm8
[2025-02-03 00:27] LABS: Body Fluid Source CSF; Fluid Total Volume 3 ml; Tube # #2
[2025-02-03 00:41] LABS: CSF Glucose 85 mg/dL (40-70)
[2025-02-03] MEDS ORDERED: NA CHLORIDE 0.9% 1,000 ML ONE (01:10)
[2025-02-03 01:27] LABS: Appearance CLEAR (CLEAR); Body Fluid Source CSF; Body Fluid WBC 2 /mm^3; Color of Supernate Not Xanthochromic (Not Xantho); Color of fluid Colorless (COLORLESS); Tube # #2
[2025-02-03 01:46] LABS: Appearance CLEAR (CLEAR); Color of Supernate Not Xanthochromic (Not Xantho); Color of fluid Colorless (COLORLESS)
[2025-02-03 01:47] LABS: Body Fluid WBC 2 /mm^3
[2025-02-03 02:40] VITALS: BMI 29.0
[2025-02-03] MEDS: NA CHLORIDE 0.9% 1,000 ML IV SCH (02:48)
[2025-02-03] MEDS: HEPARIN 5000 UNIT/ML 1 ML VIAL SQ SCH (02:48)
[2025-02-03] MEDS: VANCOMYCIN 1 GM in NA CHLORIDE 0.9% 250 ML IVPB ONE (02:49)
[2025-02-03] MEDS: LORazepam 2 MG/ML VIAL IV PRN (03:00)
[2025-02-03] MEDS: DEXMEDETOMIDINE HCL 200 MCG in NA CHLORIDE 0.9% 98 ML IV SCH (03:35)
[2025-02-03 05:51] LABS: Absolute Basophils 0.1 K/uL (0-0.5); Absolute Lymphocytes (CBC) 1.8 K/uL (0.7-4.9); Absolute Monocytes 1.8 K/uL (0.1-1.3); Basophils % 0.6 % (0-1.3); Hematocrit 44.1 % (36.0-45.0); Hemoglobin 14.8 g/dL (12.0-15.0); Lymphocytes % 10.2 % (15.3-44.8); MCHC 33.5 g/dL (32.0-36.0); MCV 89.6 fL (80-100); Monocytes % 10.4 % (3.3-12.3); Neutrophils % 78.8 % (41.7-73.7); Platelets 194 thou/uL (152-406); RBC Red Blood Cell Count 4.92 M/uL (3.86-4.86); Red Cell Distribution Width 14.6 % (12.1-15.2)
[2025-02-03 06:25] LABS: Albumin/Globulin Ratio 0.9 (1.1-1.8); Anion Gap 8.3 mEq/L (5.0-15.0); Bilirubin Total 1.1 mg/dL (0.2-1.0); Globulin 3.3 g/dL (2.3-3.5); Protein, Total 6.3 g/dL (6.4-8.2)
[2025-02-03 06:27] LABS: Potassium 2.3 mEq/L (3.5-5.1)
[2025-02-03] MEDS: KCL 20 MEQ/100 mL IVPB 20 MEQ/100 ML BAG IV SCH (07:46)
--- NOTE | 2025-02-03 09:37 | P.PN ---
Subjective Date of Service: 02/03/25 Chief Complaint: Severe sepsis Obtunded, sedated, not following commands. Sitter at bedside Review of Systems is unable to be obtained Physical Examination - Vital Signs Temperature: 97.5 F Blood Pressure: 140/61 Pulse: 53 Respirations: 23 Pulse Ox (%): 96 - Physical Exam General: Confused Neck: Supple Respiratory: Diminished Cardiovascular: Regular rate/rhythm Gastrointestinal: Normal bowel sounds Musculoskeletal: No clubbing, No swelling Neurological: Other (Sedated, unable to be assessed) - Studies Laboratory Data (last 24 hrs) 02/02/25 02/02/25 02/02/25 19:18 19:18 19:18 WBC 20.80 H Hgb 17.0 H Hct 50.9 H Plt Count 260 PT 10.8 INR 0.94 APTT 21.7 L Sodium 138 Potassium 2.8 L BUN 14 Creatinine 1.42 H Glucose 173 H Total Bilirubin 1.0 AST 22 ALT 33 Alkaline Phosphatase 215 H Assessment And Plan - Plan 1. Acute metabolic encephalopathy, likely secondary to polypharmacy - On multiple sedating meds including tizanidine, hydrocodone, gabapentin which have all been held -CT of head and chest x-ray unremarkable - Currently on Precedex due to agitation 2. Marked leukocytosis, - No overt evidence of infection, may be secondary to silent aspiration -Initial WBC of 20K, trending down, currently at 17.8 K - On empiric antibiotics vancomycin and cefepime 3. Hypokalemia - Potassium of 2.3 - On replacement protocol 4. Acute renal failure secondary prerenal azotemia -Resolved with IV fluids - Initial creatinine 1.4 on admission, currently at 0.9 5. DVT prophylaxis - Subcu heparin
[2025-02-03] MEDS: HYDRALAZINE HCL 20 MG/ML VIAL IV PRN (11:24)
[2025-02-03 12:16] LABS: Blood O2 Saturation 54.2 % (92-98.5)
[2025-02-03 12:17] LABS: Arterial Blood Carboxyhemoglob 1.2 % (0-1.5); Blood Gas Oxyhemoglobin 53.1 % (94-97); Blood Gas THB 14.8 g/dl (12-18)
--- NOTE | 2025-02-03 16:14 | RAD REPORT ---
EXAM: XR Abdomen 1 View (KUB) HISTORY: [facility] MAIN abdominal pain COMPARISON: None FINDINGS: Single view of the abdomen shows a nonspecific, nonobstructive bowel gas pattern. No suspi cious calcifications are seen. The bones are unremarkable. IMPRESSION: Unremarkable exam
--- NOTE | 2025-02-03 16:42 | RAD REPORT ---
EXAMINATION: ONE VIEW CHEST XR CLINICAL INDICATION: Female, 65 years old.,PICC TECHNIQUE: Frontal chest projection is submitted. Examination is limited by patient positioning and t echnique. COMPARISON: 02/02/2025 FINDINGS: Right arm PICC has been placed with catheter tip at the distal SVC level. Port-A-Cath and aortic sten t graft in place. Defibrillator pad overlying the left lower chest limits evaluation. The lungs are well inflated and clear. No pneumothorax or sizable effusion. The heart is normal in size. Mediastin al contours are unremarkable. IMPRESSION: Satisfactory right arm PICC positioning. No acute intrathoracic abnormalities.
[2025-02-03] MEDS: VANCOMYCIN 1.5 GM in NA CHLORIDE 0.9% 500 ML IVPB SCH (19:29)
[2025-02-03] MEDS: Mupirocin NASAL 2 APPL/1 GM TUBE NAS SCH ×2 (21:00→21:05)
[2025-02-03] MEDS: CEFEPIME 2 GM in NA CHLORIDE 0.9% 100 ML IV SCH (21:05)
[2025-02-04 05:17] LABS: Absolute Basophils 0.1 K/uL (0-0.5); Absolute Lymphocytes (CBC) 1.8 K/uL (0.7-4.9); Absolute Monocytes 1.1 K/uL (0.1-1.3); Absolute Neutrophil 11.8 K/uL (1.8-8.0); Basophils % 0.6 % (0-1.3); Hematocrit 41.9 % (36.0-45.0); Hemoglobin 14.1 g/dL (12.0-15.0); Lymphocytes % 12.1 % (15.3-44.8); MCH 29.8 pg (27.0-35.0); MCHC 33.7 g/dL (32.0-36.0); MCV 88.4 fL (80-100); MPV 7.8 fL (7.6-11.3); Monocytes % 7.3 % (3.3-12.3); Nucleated Red Blood Cells % 0.1 % (0-0); Platelets 166 thou/uL (152-406); RBC Red Blood Cell Count 4.74 M/uL (3.86-4.86); Red Cell Distribution Width 14.6 % (12.1-15.2)
[2025-02-04 05:30] LABS: Anion Gap 8.9 mEq/L (5.0-15.0); Magnesium 1.3 mg/dL (1.6-2.4); Potassium 2.9 mEq/L (3.5-5.1)
[2025-02-04] MEDS: KCL 20 MEQ/100 mL IVPB 20 MEQ/100 ML BAG IV SCH (07:25)
[2025-02-04] MEDS: Magnesium Sulfate 2gm IVPB 2 G/50 ML BAG IV ONE (07:25)
[2025-02-04] MEDS: ENALAPRILAT 1.25 MG/ML VIAL IV SCH (08:46)
--- NOTE | 2025-02-04 10:51 | EKG ---
Test Date: 2025-02-02 Test Time: 20:53:54 Transportation Coordinator: BECKIE MEASUREMENT RESULTS: Intervals: Rate: 83 DC: 154 QRSD: 90 QT: 442 QTc: 519 [place]: P: 64 DC: 154 QRS: 83 T: 76 INTERPRETIVE STATEMENTS: Normal sinus rhythm T wave abnormality, consider anterior ischemia Prolonged QT Abnormal ECG Compared to ECG 06/07/2021 02:50:52 T-wave abnormality now present Possible ischemia now present Prolonged QT interval now present Sinus bradycardia no longer present First degree AV block no longer present Myocardial infarct finding no longer present Electronically Signed On 02-04-25 10:48:18 CDT by Law Reeder
--- NOTE | 2025-02-04 12:48 | P.PN ---
Subjective Date of Service: 02/04/25 Chief Complaint: Severe sepsis Subjective: No pain or shortness of breath or nausea. Confused, history may not be reliable. Looks comfortable in the bed. Objective: General appearance: Alert and comfortable CVS: Normal S1 and S2 Lungs: Clear to auscultation bilaterally Abdomen: Soft, bowel sounds present, no tenderness Extremities: No lower extremity edema ANIMAL TECHNICIAN: Alert but confused, spontaneously moving in the bed, follows commands, moves all 4 extremities Physical Examination - Vital Signs Temperature: 98.0 F Blood Pressure: 163/51 Pulse: 69 Respirations: 30 Pulse Ox (%): 95 Assessment And Plan - Plan 1. Acute metabolic encephalopathy, likely secondary to polypharmacy - On multiple sedating meds including tizanidine, hydrocodone, gabapentin which have all been held -CT of head and chest x-ray unremarkable - Currently on Precedex due to agitation - MRI brain pending, requested neurology consult. 2. Marked leukocytosis, - may be secondary to silent aspiration - WBC improving, check CT abdomen and pelvis - On empiric antibiotics vancomycin and cefepime 3. Hypokalemia, hypomagnesemia - Replace per protocol 4. Acute renal failure secondary prerenal azotemia -Resolved with IV fluids 5. Hypertension: IV medications for now as she is n.p.o. at this time. Plan discussed with nursing staff and patient's son at bedside, all questions answered.
[2025-02-04 13:21] LABS: Anion Gap 12.6 mEq/L (5.0-15.0); Potassium 3.6 mEq/L (3.5-5.1)
--- NOTE | 2025-02-04 13:49 | RAD REPORT ---
EXAM: Chest Abdomen Pelvis W Cont CLINICAL INDICATION: Female, 65 years leukocytosis, unclear source of infection TECHNIQUE: CT chest, abdomen and pelvis was performed, with IV contrast, as per department protocol. Axial, sagittal and coronal reconstructions were obtained. One or more of the following dose reduction techniques were used: Automated exposure control, adjustment of the mA and/or kV according to the patient size, and/or iterative reconstruction. Unless otherwise specified, incidental findings do not require dedicated imaging follow-up. [id number]. COMPARISON: Chest CT 06/07/2021, yesterday chest radiograph FINDINGS: ---THORAX--- LOWER NECK AND CHEST WALL: Visualized thyroid gland and soft tissues are normal. Right upper chest wa ll Port-A-Cath LUNGS AND AIRWAYS: Airways are clear. No evidence of airspace or interstitial process.Motion artifact limits evaluation for pulmonary nodule detection. PLEURA: No pleural effusion. No pneumothorax. MEDIASTINUM AND LYMPH NODES: No mediastinal mass or fluid collection. Normal size mediastinal, hilar, and axillary lymph nodes. Moderate distal esophageal thickening which could reflect esophagitis. THORACIC AORTA: Thoracic aortic stent graft. PULMONARY ARTERIES: Enlarged main pulmonary arteries could indicate pulmonary artery hypertension. Un able to evaluate for pulmonary emboli due to either protocol or lack of contrast. HEART: Mild cardiomegaly. No coronary calcifications.No significant pericardial effusion. ---ABDOMEN/PELVIS--- UPPER GI: No significant abnormality. LIVER: Hepatic steatosis, but otherwise unremarkable. GALLBLADDER/BILE DUCTS: Cholecystectomy. Mild extra-hepatic biliary ductal dilatation is likely relat ed to the post-cholecystectomy state. Consider correlating with LFT's.? PANCREAS: No mass, ductal dilation, or lisa-pancreatic fluid. SPLEEN: Unremarkable. ADRENALS: No adrenal masses. KIDNEYS AND URETERS: No hydronephrosis.Low density and/or too small to characterize renal lesions whi ch are statistically benign.No renal calculi.No ureteral calculi. ABDOMINAL AORTA AND OTHER VESSELS: Infrarenal abdominal aortic aneurysm measuring 3.1 cm. 36 month fo llow-up is recommended. Clinically stenosed versus occluded right common iliac artery which is ectatic. PERITONEUM: Small volume of pelvic free fluid which is nonspecific.. LYMPH NODES: No pathologic lymphadenopathy. ABDOMINAL WALL: Unremarkable SMALL BOWEL/COLON: Small bowel has normal course and caliber. No colonic wall thickening or pericolon ic inflammatory changes.Normal appendix. Mild diverticulosis without diverticulitis. Scattered air-fluid levels present in the colon. URINARY BLADDER: Decompressed by Franklin catheter, not well assessed. REPRODUCTIVE ORGANS: Uterus surgically absent. No adnexal abnormality. ---COMBINED--- MUSCULOSKELETAL: No acute or suspicious osseous abnormality. ADDITIONAL FINDINGS: None. IMPRESSION: No acute findings or source of infection identified within the chest, abdomen, or pelvis. Ancillary findings as noted above.
[2025-02-04] MEDS ORDERED: VANCOMYCIN 1.5 GM in NA CHLORIDE 0.9% 500 ML IVPB SCH (15:00)
[2025-02-04] MEDS: VANCOMYCIN 1.25 GM in NA CHLORIDE 0.9% 250 ML IVPB SCH (16:24)
[2025-02-04 21:15] LABS: C.diff Antigen/Toxin Ag neg : Tox neg (NEG : NEG); CDIFF INTERNAL NEG CONTROL White Background (WHITE BKGD); STOOL CONSISTENCY Liquid/Semi-Solid
[2025-02-05] MEDS: KCL 20 MEQ/100 mL IVPB 20 MEQ/100 ML BAG IV SCH ×2 (00:39→08:13)
[2025-02-05 05:46] LABS: Absolute Lymphocytes (CBC) 1.4 K/uL (0.7-4.9); Absolute Monocytes 1.1 K/uL (0.1-1.3); Absolute Neutrophil 9.4 K/uL (1.8-8.0); Basophils % 0.4 % (0-1.3); Eosinophils % 0.1 % (0-4.4); Hematocrit 39.5 % (36.0-45.0); Hemoglobin 13.2 g/dL (12.0-15.0); Lymphocytes % 11.5 % (15.3-44.8); MCH 30.2 pg (27.0-35.0); MCHC 33.5 g/dL (32.0-36.0); MCV 90.1 fL (80-100); MPV 8.2 fL (7.6-11.3); Monocytes % 9.1 % (3.3-12.3); Neutrophils % 78.9 % (41.7-73.7); Nucleated Red Blood Cells % 0.1 % (0-0); Platelets 154 thou/uL (152-406); RBC Red Blood Cell Count 4.38 M/uL (3.86-4.86); Red Cell Distribution Width 14.6 % (12.1-15.2)
[2025-02-05 06:09] LABS: Anion Gap 12.4 mEq/L (5.0-15.0); Magnesium 1.7 mg/dL (1.6-2.4); Potassium 3.4 mEq/L (3.5-5.1)
[2025-02-05] MEDS: MAGNESIUM SULFATE 1 gm IVPB 1 GM/100 ML BAG IV ONE (08:14)
[2025-02-05] MEDS: ACETAMINOPHEN 325 MG TABLET PO ONE (12:11)
[2025-02-05] MEDS: LOPERAMIDE HCL 2 MG CAPSULE PO STA (13:12)
[2025-02-05] MEDS: GABAPENTIN 300 MG CAP PO SCH (14:33)
[2025-02-05] MEDS: TIZANIDINE 4 MG TABLET PO PRN (14:33)
[2025-02-05] MEDS: ONDANSETRON 4 MG/2 ML VIAL IV PRN (14:50)
[2025-02-05] MEDS: METOPROLOL TARTRATE 5 MG/5 ML INJ IV STA (15:46)
[2025-02-05] MEDS: FENTANYL CITR 100 MCG/2 ML IV ONE (15:46)
[2025-02-05] MEDS: DIAZEPAM 10 MG/2 ML INJ SYRINGE IV ONE (15:46)
--- NOTE | 2025-02-05 15:52 | P.PN ---
Subjective Date of Service: 02/05/25 Patient is complaining of multiple things including headache and generalized pain with nausea and vomiting. Patient did not want to get MRI of her brain. Patient can be downgraded as she is out of the window for critical illness. Will continue with further workup and try to stabilize her and will start doing some physical therapy. Review of Systems 10-point ROS is otherwise unremarkable Physical Examination - Vital Signs Temperature: 97.9 F Blood Pressure: 185/61 Pulse: 78 Respirations: 22 Pulse Ox (%): 96 - Physical Exam General: Alert, In no apparent distress, Oriented x3 Respiratory: Clear to auscultation bilaterally Cardiovascular: Regular rate/rhythm, Normal S1 S2 Gastrointestinal: Normal bowel sounds, Soft and benign, Non-distended Musculoskeletal: No clubbing, No swelling Neurological: Other (No focal deficits) Assessment & Plan - Problems (Diagnosis) (1) Acute metabolic encephalopathy Current Visit: Yes Status: Acute (2) HTN (hypertension) Current Visit: No Status: Chronic Qualifiers: Hypertension type: primary hypertension Qualified Code(s): I10 - Essential (primary) hypertension (3) History of aortic aneurysm repair Current Visit: No Status: Chronic (4) History of pancreatitis Current Visit: No Status: Chronic (5) History of uterine cancer Current Visit: No Status: Chronic (6) Hypothyroidism Current Visit: No Status: Chronic Qualifiers: Hypothyroidism type: unspecified Qualified Code(s): E03.9 - Hypothyroidism, unspecified (7) MAXI (acute kidney injury) Current Visit: Yes Status: Acute (8) Leukocytosis Current Visit: Yes Status: Acute (9) Hypokalemia Current Visit: Yes Status: Acute (10) Hypomagnesemia Current Visit: Yes Status: Acute - Plan 1. Altered mental status; this could be related to polypharmacy; however, completing further workup and try to get MRI of the brain although the patient refused today. EEG is pending as well. Continue with medication for control to prevent withdrawal symptoms. Out of bed and ambulate and start working with physical therapy. Working on discharge planning at this time. 2. Leukocytosis; status post antibiotic therapy. Concern for aspiration. 3. Electrolyte abnormality; patient is hypokalemia and hypomagnesemic; replacement as ordered 4. Acute renal failure; resolved with IV fluids 5. Hypertension: Continue antihypertensives. Plan discussed with nursing staff and patient's son at bedside, all questions answered. Discharge Plan: Home Plan to discharge in: Greater than 2 days - Advance Directives Does patient have a Living Will: No Does patient have a Durable POA for Healthcare: No - Code Status/Comfort Care Code Status Assessed: Yes Code Status: Full Code Critical Care: No Time Spent Managing PTS Care (In Minutes): 35
--- NOTE | 2025-02-05 21:51 | CON ---
Date of Consultation: 02/05/2025 Time Of Service: 1 p.m. Reason For Consultation: The consultation was called because of confusion or altered mental status. History Of Present Illness: Ms. Ying is a 65-year-old patient, admitted to the hospital and in the ICU with sepsis and UTI. She has hypothyroidism; uterine cancer, that is in remission; and severe p eripheral arterial disease. She came to [facility] on 02/02/2025 with worsening confusion, was diagnosed with severe sepsis. She was put on antibiotic protocol along with management of electr olytes and ICU admission. Since her admission, today is day 3 and when I evaluated the patient, she actually had returned towards the baseline level of functioning. She did have an earlier CT scan of her head done on the , and the study revealed no acute ischemic or hemorrhagic findings and they suggested just possibility of an MRI if additional workup is needed. She did have EEG and the result s are pending. Today, white blood cell count has decreased to 11.9 from 28.8 on the ; neutrophil s from 88 down to 78.9; normal hemoglobin and hematocrit; normal platelet count. Her INR is 0.94. A rterial blood gas from the did show elevated pCO2 of 50 and low pO2 of 29.6; a repeat was not do ne. Earlier today, her potassium was down to 3.4, normal sodium at 141, normal creatinine of 0.75, n ormal BUN. She did have earlier lactic acid on the of 2.7, consistent with sepsis and on the later, 1.2. Procalcitonin on the of 0.08. She has slightly elevated AST of 74, alkaline amadeo sphatase is elevated to 151. Her urinalysis did show extreme turbidity, 5 to 10 casts, few budding y easts, greater than 50 red blood cells, 3+ blood, ketones trace, glucose trace. CSF studies were don e showing glucose up to 85.2 and protein 32 with white blood cells 2, red blood cells 5, CSF is clear and non-xanthochromic. She was on vancomycin with a vancomycin trough level today of 14.6. C diffi cile toxin negative. Past Medical History: As noted above. Allergies: NO KNOWN DRUG ALLERGIES. Home Medications: Synthroid 200 mcg daily, aspirin 81 mg daily, gabapentin 300 mg twice daily, [place] 7.5/325 every 6 hours as needed, tizanidine 4 mg twice daily, albuterol nebulizer, and Antivert. Family History: Noncontributory. Social History: No alcohol, tobacco, or IV drug use. Review of Systems: Currently, she has mild weakness and mild myalgias/arthralgias. Denies any known rash. No other pos itives other than the diffuse or generalized weakness. Currently, she is in ICU, but able to communi herman effectively and follow commands appropriately. Physical Examination: Vital Signs: Blood pressure 120/53, pulse 52, respiratory rate is 17 to 20, temperature is 97.9, oxy gen saturation 98%. Oxygen is up to 3 L. Weight 179 pounds. Height 5 feet 6 inches. General: Ms. Ying is lying in ICU bed. HEENT: She appears normocephalic, atraumatic. Extremities: Has IV going. Some bruising in the arms. Otherwise, no significant issues such as clu bbing, cyanosis, or edema. Lungs: Good air movement. Abdomen: Soft. Neurologic: Cranial nerves, she has no focal cranial nerve deficits. Equal excursions on smiling. Sensation intact in the face. Strength: No focal deficits in upper and lower extremities, at least 4/5 proximally and distally. Sensation intact. No extension noted left to right. Coordination is s low, but intact. She will be ambulated with physical therapy at a later time. Assessment: Ms. Ying is a 65-year-old patient with likely toxic metabolic encephalopathy that is r esolving. She is doing much better at this point compared to where she was reported to be. She is s till on cefepime and vancomycin per her primary team. She has gabapentin for neuropathic pain. She has deep venous thrombosis prophylaxis on board. She is receiving IV fluids and has Apresoline for p ressure control. Plan: At this point, she is improving in terms of clearing her encephalopathy, which again is likely toxic metabolic in etiology. We will follow up on EEG, which was done earlier today and that will b e reviewed. She has no obvious signs of seizures, but the EEG may show slow activity in the frontal region, which could reflect the metabolic toxic encephalopathy. The pat ient will be followed while in the ICU. LB/MODL Voice ID: [id number] Report ID: [id number]
[2025-02-05] MEDS: HYDROCODONE/APAP 10/325 TAB PO PRN (22:04)
[2025-02-06 05:53] LABS: Absolute Basophils 0.1 K/uL (0-0.5); Absolute Eosinophils 0.1 K/uL (0-0.5); Absolute Lymphocytes (CBC) 1.9 K/uL (0.7-4.9); Absolute Neutrophil 6.9 K/uL (1.8-8.0); Basophils % 0.5 % (0-1.3); Eosinophils % 1.2 % (0-4.4); Hematocrit 40.4 % (36.0-45.0); Hemoglobin 13.4 g/dL (12.0-15.0); Lymphocytes % 19.1 % (15.3-44.8); MCH 30.1 pg (27.0-35.0); MCHC 33.2 g/dL (32.0-36.0); MCV 90.7 fL (80-100); MPV 8.5 fL (7.6-11.3); Neutrophils % 69.2 % (41.7-73.7); Nucleated Red Blood Cells % 0.2 % (0-0); Platelets 165 thou/uL (152-406); RBC Red Blood Cell Count 4.45 M/uL (3.86-4.86); Red Cell Distribution Width 14.6 % (12.1-15.2)
[2025-02-06 06:48] LABS: Albumin 2.4 g/dL (3.4-5.0); Albumin/Globulin Ratio 0.8 (1.1-1.8); Anion Gap 9.7 mEq/L (5.0-15.0); Bilirubin Total 0.6 mg/dL (0.2-1.0); Globulin 3.1 g/dL (2.3-3.5); Magnesium 1.8 mg/dL (1.6-2.4); Potassium 3.7 mEq/L (3.5-5.1); Protein, Total 5.5 g/dL (6.4-8.2)
[2025-02-06 06:51] LABS: Thyroid Stimulating Hormone 12.9 uIU/mL (0.358-3.740)
[2025-02-06] MEDS: MAGNESIUM SULFATE 1 gm IVPB 1 GM/100 ML BAG IV ONE (08:26)
[2025-02-06] MEDS: KCL 20 MEQ/100 mL IVPB 20 MEQ/100 ML BAG IV SCH (08:29)
[2025-02-07 05:20] LABS: Absolute Eosinophils 0.2 K/uL (0-0.5); Absolute Lymphocytes (CBC) 1.2 K/uL (0.7-4.9); Absolute Monocytes 0.8 K/uL (0.1-1.3); Absolute Neutrophil 6.4 K/uL (1.8-8.0); Basophils % 0.5 % (0-1.3); Eosinophils % 1.9 % (0-4.4); Hematocrit 37.3 % (36.0-45.0); Hemoglobin 12.6 g/dL (12.0-15.0); Lymphocytes % 14.3 % (15.3-44.8); MCH 30.2 pg (27.0-35.0); MCHC 33.8 g/dL (32.0-36.0); MCV 89.5 fL (80-100); MPV 7.9 fL (7.6-11.3); Neutrophils % 74.3 % (41.7-73.7); Nucleated Red Blood Cells % 0.1 % (0-0); Platelets 147 thou/uL (152-406); RBC Red Blood Cell Count 4.16 M/uL (3.86-4.86); Red Cell Distribution Width 14.4 % (12.1-15.2)
[2025-02-07 05:52] LABS: Anion Gap 10.3 mEq/L (5.0-15.0); Potassium 3.3 mEq/L (3.5-5.1)
[2025-02-07] MEDS: AMLODIPINE 10 MG TAB PO ONE (12:28)
[2025-02-07] MEDS: CEFDINIR 300 MG CAP PO SCH (20:25)
[2025-02-07] MEDS: LOSARTAN POTASSIUM 50 MG TABLET PO SCH (20:26)
[2025-02-08 06:10] LABS: Absolute Basophils 0.1 K/uL (0-0.5); Absolute Eosinophils 0.1 K/uL (0-0.5); Absolute Lymphocytes (CBC) 1.7 K/uL (0.7-4.9); Absolute Neutrophil 5.7 K/uL (1.8-8.0); Basophils % 0.9 % (0-1.3); Eosinophils % 1.6 % (0-4.4); Hematocrit 39.3 % (36.0-45.0); Hemoglobin 13.6 g/dL (12.0-15.0); Lymphocytes % 19.5 % (15.3-44.8); MCH 30.6 pg (27.0-35.0); MCHC 34.5 g/dL (32.0-36.0); MCV 88.5 fL (80-100); MPV 8.3 fL (7.6-11.3); Monocytes % 11.4 % (3.3-12.3); Neutrophils % 66.6 % (41.7-73.7); Nucleated Red Blood Cells % 0.1 % (0-0); Platelets 173 thou/uL (152-406); RBC Red Blood Cell Count 4.44 M/uL (3.86-4.86); Red Cell Distribution Width 14.1 % (12.1-15.2)
--- NOTE | 2025-02-08 07:07 | P.PN ---
Date of Service: 02/06/25 Subjective Patient is clinically improving. Neurologically much better. Clinical symptoms have improved and she is working with physical therapy. Still not participating well. Physical Examination - Vital Signs Reviewed - Physical Exam General: Alert, In no apparent distress, Oriented x3 Respiratory: Clear to auscultation bilaterally Cardiovascular: Regular rate/rhythm, Normal S1 S2 Gastrointestinal: Normal bowel sounds, Soft and benign, Non-distended Musculoskeletal: No clubbing, No swelling Neurological: Generalized weakness Assessment & Plan - Problems (Diagnosis) (1) Acute metabolic encephalopathy Current Visit: Yes Status: Acute (2) HTN (hypertension) Current Visit: No Status: Chronic Qualifiers: Hypertension type: primary hypertension Qualified Code(s): I10 - Essential (primary) hypertension (3) History of aortic aneurysm repair Current Visit: No Status: Chronic (4) History of pancreatitis Current Visit: No Status: Chronic (5) History of uterine cancer Current Visit: No Status: Chronic (6) Hypothyroidism Current Visit: No Status: Chronic Qualifiers: Hypothyroidism type: unspecified Qualified Code(s): E03.9 - Hypothyroidism, unspecified (7) MAXI (acute kidney injury) Current Visit: Yes Status: Acute (8) Leukocytosis Current Visit: Yes Status: Acute (9) Hypokalemia Current Visit: Yes Status: Acute (10) Hypomagnesemia Current Visit: Yes Status: Acute - Plan Continue with POC as mentioned below: 1. Altered mental status; this could be related to polypharmacy; however, completing further workup and try to get MRI of the brain although the patient refused today. EEG is pending as well. Continue with medication for control to prevent withdrawal symptoms. Out of bed and ambulate and start working with physical therapy. Working on discharge planning at this time. 2. Leukocytosis; status post antibiotic therapy. Concern for aspiration. 3. Electrolyte abnormality; patient is hypokalemia and hypomagnesemic; replacement as ordered 4. Acute renal failure; resolved with IV fluids 5. Hypertension: Continue antihypertensives. Plan discussed with nursing staff and patient's son at bedside, all questions answered. Discharge Plan: Home Plan to discharge in: Greater than 2 days - Advance Directives Does patient have a Living Will: No Does patient have a Durable POA for Healthcare: No - Code Status/Comfort Care Code Status Assessed: Yes Code Status: Full Code Critical Care: No Time Spent Managing PTS Care (In Minutes): 25
--- NOTE | 2025-02-08 07:09 | P.PN ---
Date of Service: 02/07/25 Subjective Patient is doing well with no new complaints. Patient's clinical symptoms are improving. Physical Examination - Vital Signs Reviewed - Physical Exam General: Alert, In no apparent distress, Oriented x3 Respiratory: Clear to auscultation bilaterally Cardiovascular: Regular rate/rhythm, Normal S1 S2 Gastrointestinal: Normal bowel sounds, Soft and benign, Non-distended Musculoskeletal: No clubbing, No swelling Neurological: Generalized weakness Assessment & Plan - Problems (Diagnosis) (1) Acute metabolic encephalopathy Current Visit: Yes Status: Acute (2) HTN (hypertension) Current Visit: No Status: Chronic Qualifiers: Hypertension type: primary hypertension Qualified Code(s): I10 - Essential (primary) hypertension (3) History of aortic aneurysm repair Current Visit: No Status: Chronic (4) History of pancreatitis Current Visit: No Status: Chronic (5) History of uterine cancer Current Visit: No Status: Chronic (6) Hypothyroidism Current Visit: No Status: Chronic Qualifiers: Hypothyroidism type: unspecified Qualified Code(s): E03.9 - Hypothyroidism, unspecified (7) MAXI (acute kidney injury) Current Visit: Yes Status: Acute (8) Leukocytosis Current Visit: Yes Status: Acute (9) Hypokalemia Current Visit: Yes Status: Acute (10) Hypomagnesemia Current Visit: Yes Status: Acute - Plan Continue with POC as mentioned below: 1. Altered mental status; most likely this was metabolic. Patient neurologic status has improved. She is participating with physical therapy. Will get her out of bed and ambulate and work on discharge planning. 2. Leukocytosis; status post antibiotic therapy. Concern for aspiration. Currently she is eating well without any abnormalities. 3. Electrolyte abnormality; patient is hypokalemia and hypomagnesemic; replacement as ordered 4. Acute renal failure; resolved with IV fluids 5. Hypertension: Continue antihypertensives. Plan discussed with nursing staff and patient's son at bedside, all questions answered. Discharge Plan: Home Plan to discharge in: Greater than 2 days - Advance Directives Does patient have a Living Will: No Does patient have a Durable POA for Healthcare: No - Code Status/Comfort Care Code Status Assessed: Yes Code Status: Full Code Critical Care: No Time Spent Managing PTS Care (In Minutes): 25
[2025-02-08] MEDS: POTASSIUM 25 MEQ EFFERV TAB PO ONE (07:58)
[2025-02-08] MEDS: LOSARTAN POTASSIUM 50 MG TABLET PO ONE (07:59)
[2025-02-08] MEDS: AMLODIPINE 10 MG TAB PO SCH (07:59)
[2025-02-08 09:47] VITALS: O2SAT 98
[2025-02-08 10:28] VITALS: BP 184/84; TEMP 97.4
--- NOTE | 2025-02-11 08:58 | EEG ---
CHART: [id number] TEST ID#: [id number] DATE OF STUDY: 02/05/2025 THE EEG WAS RECORDED PORTABLE IN THE ICU ON A 17 CHANNEL MACHINE. ELECTRODES WERE APPLIED IN THE USUAL MANNER USING THE INTERNATIONAL 10-20 SYSTEM. THE WAKING BACKGROUND RHYTHM IN THIS RECORD CONSISTS OF FAIRLY WELL DEVELOPED AND FAIRLY WELL ORGANIZED WAVES OF 9 HZ., MAXIMAL IN THE POSTERIOR HEAD REGIONS WHICH ATTENUATE NORMALLY WITH EYE OPENING. EXCESS LOW VOLTAGE 18-22 HZ ACTIVITY IS EXPRESSED IN ALL REGIONS. MODERATE VOLTAGE 1.5-3 HZ ACTIVITY IS OCCASIONALLY EXPRESSED IN THE FRONTAL REGIONS. THERE ARE NO FOCAL OR LATERALIZING FEATURES. NO EPILEPTIFORM ACTIVITY APPEARS. SLEEP OCCURRED NATURALLY. IN ADDITION, NORMAL SLEEP PATTERNS ARE PRESENT. HYPERVENTILATION WAS NOT PERFORMED. PHOTIC STIMULATION PRODUCED POOR DRIVING BILATERALLY. IMPRESSION: THIS IS A MILDLY ABNORMAL AWAKE AND ASLEEP ROUTINE EEG DUE TO OCCASIONAL FRONTAL SLOW (DELTA) ACTIVITY. THIS IS A NON-SPECIFIC FINDING INDICATING THE PRESENCE OF A MILD DIFFUSE DISTRUBANCE IN CEREBRAL ACTIVITY. THE PRESENCE OF EXCESS OF EXCESS FAST ACTIVITY IS LIKELY A MEDICATION EFFECT.
== END 2025-02-08 13:29 | disposition home or self-care (01) | DRG 871 ==
LOC: ER 19:12 → ERHOLD 23:38 → 3RD-ICU 02-03 00:47 → 2ND 02-06 13:15
PROVIDERS: ADMIT Family Medicine; ATTEND Hospitalist
PROC: 009U3ZX Drainage of Spinal Canal, Percutaneous Approach, Diagnostic (ICD-10-PCS; principal; 2025-02-02)
PROC: 02HV33Z Insertion of Infusion Device into Superior Vena Cava, Percutaneous Approach (ICD-10-PCS; 2025-02-03)
PROC: 4A033R1 Measurement of Arterial Saturation, Peripheral, Percutaneous Approach (ICD-10-PCS; 2025-02-03)
PROC: 0T9B70Z Drainage of Bladder with Drainage Device, Via Natural or Artificial Opening (ICD-10-PCS; 2025-02-08)
DX: A41.9 Sepsis, unspecified organism (principal); G92.8 Other toxic encephalopathy; R65.21 Severe sepsis with septic shock; N17.9 Acute kidney failure, unspecified; N39.0 Urinary tract infection, site not specified; E87.6 Hypokalemia; I10 Essential (primary) hypertension; E03.9 Hypothyroidism, unspecified; I16.0 Hypertensive urgency; E83.42 Hypomagnesemia; I73.9 Peripheral vascular disease, unspecified; I25.10 Atherosclerotic heart disease of native coronary artery without angina pectoris; T40.2X5A Adverse effect of other opioids, initial encounter; T42.8X5A Adverse effect of antiparkinsonism drugs and other central muscle-tone depressants, initial encounter; T42.6X5A Adverse effect of other antiepileptic and sedative-hypnotic drugs, initial encounter; R00.1 Bradycardia, unspecified; R45.1 Restlessness and agitation; R94.31 Abnormal electrocardiogram [ECG] [EKG]; Z78.1 Physical restraint status; Z85.42 Personal history of malignant neoplasm of other parts of uterus; Z85.07 Personal history of malignant neoplasm of pancreas; Z79.82 Long term (current) use of aspirin; Z90.49 Acquired absence of other specified parts of digestive tract; Z79.899 Other long term (current) drug therapy; Z79.890 Hormone replacement therapy; Z90.710 Acquired absence of both cervix and uterus
CPT/HCPCS: 36415; 36569; 36600; 51702; 62270; 70450; 71045; 71260; 74018; 74177; 80048; 80053; 80202; 81001; 82140; 82607; 82805; 82945; 82947; 83605; 83735; 84132; 84145; 84157; 84439; 84443; 84484; 85025; 85610; 85730; 87040; 87070; 87324; 89050; 92526; 92610; 93005; 95819; 96365; 96366; 96375; 97110; 97116; 97161; 99285; J0360; J0692; J1644; J2405; J3010; J3360; J3370; J3475; J3480; J7030; J7040; J7050; Q9967

== ENCOUNTER 2025-07-16 22:26 | Emergency (ER) | payer OTHER ==
--- OUTSIDE RECORDS SUMMARY | 2025-07-16 22:30 | XMS REPORT | Clinical Summary ---
Author Name Unknown Organization [facility] Address [address] [place] [address] Care Team Providers Care Die Designer Name Role Phone Adriana Jaimes MD Unavailable [phone] Rivera Perez MDiv Unavailable [email or web address] Lauren Villavicencio MD Unavailable Raymundo Lux MD Unavailable [phone] Ariel Guthrie MD Unavailable [phone] Amol Cotto MD Unavailable Alexandre Dallas MD Primary Care Provider [phone] Ramin Padilla MD Primary Care Provider [phone] Allergies Active Allergy Reactions Criticality Noted Date Comments Paclitaxel Shortness Of Breath,Itching High 03/18/2020 Inusion stopped, hydrocortisone 100mg & diphenhydramine 25mg given. Symptoms resolved, infusion restarted at 1/2 rate and increase rate as tolerated until completion. Medications * This document contains information received from the source organization and may not represent a complete record from that organization. levothyroxine (SYNTHROID, LEVOTHROID) 200 mcg tablet Take 175 mcg by mouth daily. Active amLODIPine (NORVASC) 10 mg tablet Take 1 tablet (10 mg) by mouth daily. 10/16/2019 Active gabapentin (NEURONTIN) 300 mg capsule Take 1 capsule (300 mg) by mouth twice daily. 11/21/2019 Active tiZANidine (ZANAFLEX) 4 mg tablet Take 1 tablet (4 mg) by mouth twice daily. 11/21/2019 Active aspirin 81 mg EC tabletIndication s:myocardial infarction prevention Take 1 tablet (81 mg) by mouth daily. Active HYDROcodone-acet aminophen (NORCO) 10 mg-325 mg per tablet Take 1 tablet by mouth every 6 (six) hours as needed. Active fluticasone-umec lidin-vilanter (Trelegy Ellipta) 200-62.5-25 mcg dsdvIndications: Chronic obstructive pulmonary disease, not otherwise specified Inhale 1 puff by mouth daily. 180 each 3 08/13/2022 Active meloxicam (MOBIC) 7.5 mg tablet Take 1 tablet (7.5 mg) by mouth daily. 02/02/2023 Active atorvastatin (Lipitor) 40 mg tabletIndication s:Abdominal aortic aneurysm <Infrarenal abdominal aorta>,Hypertens ion,Atherosclero tic heart disease of [place] coronary artery with angina pectoris, not otherwise specified Take 1 tablet (40 mg) by mouth at bedtime. 90 tablet 3 05/05/2023 Active lisinopril (ZestriL) 10 mg tabletIndication s:Abdominal aortic aneurysm <Infrarenal abdominal aorta>,Hypertens ion,Atherosclero tic heart disease of [place] coronary artery with angina pectoris, not otherwise specified Take 1 tablet (10 mg) by mouth every morning. 90 tablet 3 05/05/2023 Active furosemide (Lasix) 20 mg tabletIndication s:Abdominal aortic aneurysm <Infrarenal abdominal aorta>,Hypertens ion,Atherosclero tic heart disease of [place] coronary artery with angina pectoris, not otherwise specified Take 1 tablet (20 mg) by mouth daily. 90 tablet 3 05/05/2023 Active clopidogrel (PLAVIX) 75 mg tablet Take 1 tablet (75 mg) by mouth daily. Active pantoprazole (PROTONIX) 40 mg EC tablet Take 1 tablet (40 mg) by mouth every morning before breakfast. Active atorvastatin (LIPITOR) 20 mg tablet Take 1 tablet (20 mg) by mouth at bedtime. Active lisinopril (PRINIVIL,ZESTRI L) 20 mg tablet Take 1 tablet (20 mg) by mouth every morning. Active potassium chloride (KLOR-CON) 10 mEq CR tablet Take 1 tablet (10 mEq) by mouth twice daily. Active metoprolol tartrate (LOPRESSOR) 25 mg tablet Take 1 tablet (25 mg) by mouth twice daily. Active colchicine (COLCRYS) 0.6 mg tablet Take 1 tablet (0.6 mg) by mouth twice daily. Active Active Problems Patient Care Coordination No te Formatting of this note migh t be different from the original. Patient declined covid test for bronchoscopy on 08/27/22 Problem Noted Date Diagnosed Date Elevated cancer antigen 125 (CA 125) 04/16/2024 Abdominal aortic aneurysm 05/05/2023 Hemorrhoid with bleeding 02/21/2023 Enlarged lymph node 08/19/2022 Overview (08/19/2022): Added automatically from request for surgery [id number] Abnormal findings on diagnostic imaging of lung 08/13/2022 Assessment & Plan (08/13/2022 2:11 PM CDT): Right Hilar lymph node and precarinal lymph node have increase in size. They are amenable to biopsy. We will proceed with Bronchocopy with EBUS for diagnosis. The patient is having preoperative labs drawn today COVID testing was done. We will proceed with EBUS on Tuesday . Emphysema 08/13/2022 Chronic obstructive pulmonary disease 08/13/2022 Assessment & Plan (08/13/2022 2:19 PM CDT): GOLD 2B Will restart LAMA/LABA./ICS with trelegy. She was instructed to use daily. She will continue to use albuterol as needed for Shortness of breath, wheezing or cough. We dicussed the daily inhaler is for maintance therapy with a goal of halting the progression of COPD and improving overall symptoms. We will repeat PFT 6MWT after the procedure 6-8 weeks. Mediastinal lymphadenopathy 08/06/2022 Overview (08/06/2022): Added automatically from request for surgery [id number] Fatigue 08/04/2020 Nausea without vomiting 08/04/2020 Thrombocytopenia 06/17/2020 Smoker 06/17/2020 Drug-induced polyneuropathy 06/17/2020 Encounter for examination pr ior to antineoplastic chemotherapy 04/27/2020 Ex-smoker 04/07/2020 Other specified preoperative examination 020 Overview (01/10/2020): Outside records received from [facility] in [place], [place] and sent for scanning. [facility]. 1. Cardiac clearance letter dated 01/08/[address] Dru Perez addressed to Dr Padilla: "Cait Ying is currently under my care for preop clearance for an abnl EKG. Ms Ying has had recent normal echo and carotid doppler. I am able to determine she is at LOW-RISK for a cardiac event during the proposed obstetrician gynecologist surgery." 2. ECHO 01/07/2020: Conclusions: LV systolic function normal with EF 60-65% LA size is normal. RV is normal in size. RA size is normal. RVSP is normal at <35mmHg. 3. Carotid Doppler 01/07/2020: Conclusions: Mild stenosis <50% in the R ICA. Mild plaque in the left bulb area. No significant L ICA stenosis 4. 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 She does not have signs of limb ischemia by history or exam today, so I do not believe she needs urgent reimaging or urgent consultation with vascular surgery. Role of systemic anticoagulation for this is the purview of vascular surgery, but my understanding of the literature is that antiplatelet therapy and statin is probably sufficient. I recommend that she be evaluated by cardiology and/or vascular surgery prior to her cancer surgery. The patient reports that she has an appointment with her outside table keeper on 01/04/20. She is also seeing [facility] today. Anxiety depression 12/18/2019 Hypothyroidism 12/14/2019 Hypertension 12/14/2019 Assessment & Plan (05/05/2023 2:20 PM CDT): Today: EKG: NSR NST TTE Lipid panel A1C Vascular surgery consult HTN Continue amlodipine 10mg daily Add lisinopril 10mg daily Start Lasix 20mg daily Anxiety 12/14/2019 Postmenopausal bleeding 12/14/2019 Chronic pancreatitis 12/14/2019 Coronary arteriosclerosis 12/14/2019 Assessment & Plan (05/05/2023 2:19 PM CDT): Continue asa 81 Start atorvastatin 40mg daily Ordered Carotid U/S History of thoracoabdominal aortic aneurysm 11/25 Smokes tobacco daily 12/14/2019 Assessment & Plan (08/13/2022 2:12 PM CDT): She was encouraged to refrain from smoking as much as possible prior to bronchoscopy. A referral to smoking cessation will be placed. Family history of malignant neoplasm of breast 0 12/14/2019 History of drug abuse 12/14/2019 Malignant neoplasm of endometrium 12/14/2019 Cancer Staging:Clinical stage from 02/04/2020:Stage IIIC2(Primary) - Signed by Peter Madden PA on 02/04/2020 Acute injury of kidney 11/10/2018 Other acute postoperative pain Encounters Date Type Department Care Team Description 07/01/2025 Orders Only MD [facility] - Gynecology [id number] [address] [facility] [address]rd [place] [address] lAexandre Dallas MD 05/20/2025 11:00 AM CDT Follow-Up MD [facility] in [place] - Gynecology [address] [place] [address] Ramin Padilla MD Malignant neoplasm of endometrium (Primary Dx) 05/20/2025 Travel 05/17/2025 8:55 AM CDT Ancillary Procedure CT Imaging [address] [facility], [address]th [place] [address] Martina Peterson APRN Malignant neoplasm of endometrium 05/17/2025 7:31 AM CDT - 05/17/2025 11:59 PM CDT Hospital Encounter [facility] [address] [place] [address] Martina Peterson APRN Malignant neoplasm of endometrium Discharge Disposition: Home 03/25/2025 Telephone Gynecologic Oncology Center [address] [place] [address], [address]th [place] [address] Ramin Padilla MD Appointment (Team, /Patient wants to reschedule for 6 month FU; requesting to complete CT & labs in C and FU in . 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 Follow-Up MD [facility] in [place] - [address] [address] Vi Hong PA Shafer, Aaron, MD Malignant neoplasm of endometrium 11/05/2024 Travel 10/08/2024 Telephone MD [facility] in [address] [address] Tabitha Huynh RN 07/30/2024 Orders Only MD [facility] in [address] [address] Alexandre Dallas MD after 07/16/2024 Immunizations Immunization Administration Dates Next Due Pfizer SARS-CoV-2 Vaccination (Purple Cap) 12/20,11/29/2020 SARS-CoV-2 (COVID-19) Vaccination, Unspecified 0 12/20/2020,11/29/2020 Surgical History Surgery Date Site/Laterality Comments SECTION, LOW TRANSVERSE 10/24/1983 - 10/23/1984 CHOLECYSTECTOMY 10/24/2005 - 10/23/2006 Laparoscopic FEMUR SURGERY 10/24/2005 - 10/23/2006 osteomyolitis, a week post her cholecystectomy COLONOSCOPY by 1999, was normal MAMMOGRAM HISTORICAL by 1994; she stated that was normal BILE DUCT STENT PLACEMENT 08/24/2019 - 09/22/2019 pnacrease duct OTHER SURGICAL HISTORY 10/24/2018 - 11/23/2018 sp stent in aorta for AAA MT LAPAROSCOPY TOT HYSTERECTOMY >250 G W/TUBE/OVAR 01/11/2020 Bilateral Procedure: ROBOTIC ASSISTED TOTAL HYSTERECTOMY WITH BILATERAL SALPINGO-OOPHORECTOMY, SENTINEL LYMPH NODE MAPPING AND BIOPSY; Surgeon: Ramin Padilla MD; Location: MAIN OR; Service: [facility] - GYNECOLOGIC ONCOLOGY MT LAPS SURG BILATERAL TOTAL PELVIC LMPHADECTOMY 01/11/2020 Bilateral Procedure: ROBOTIC ASSISTED PELVIC LYMPHADENECTOMY; Surgeon: Ramin Padilla MD; Location: MAIN OR; Service: [facility] - GYNECOLOGIC ONCOLOGY ABDOMINAL SURGERY 06/11/2021 Pancreatic stent removal MT [facility] EBUS GUIDED SAMPL 3/> NODE STATION/STRUX 08/27/2022 N/A Procedure: BRONCHOSCOPY WITH EBUS 3 OR MORE NODES; Surgeon: Melissa Brennan MD; Location: MAIN PULM PROC; Service: PULMONARY Medical History Medical History Date Comments Hypertension Back pain 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 pt states lost vision and still has residual vision loss in the right eye. pt was started on aspirin 81 mg daily. Chronic back pain Tobacco use Postoperative nausea and vomiting Disorder of coronary artery Cancer Disorder of thyroid gland Emphysema 08/13/2022 Family History Medical History Relation Name Comments Coronary artery disease Brother 1 CABG 57 Coronary artery disease Brother 2 sten ts 57 Breast cancer Maternal Cousin 2 Breast cancer Maternal Cousin 3 Breast cancer Maternal Cousin 4 Ovarian cancer Maternal Cousin 5 Endometrial cancer Maternal Cousin 6 Ovarian cancer Maternal Cousin 7 Hypertension Mother Breast cancer Sister 1 Coronary artery disease Sister 1 sten ts at 66 Bleeding Disorder Neg Hx Diabetes Neg Hx Stroke Neg Hx VTE Neg Hx Relation Name Status Comments Brother 1 Alive Brother 2 Alive Brother 3 Alive Daughter Alive Already doing s creening Father (Age 66) d. heart a ttack Maternal Aunt 1 (Age 70s) Maternal Aunt 2 (Age 70s) Maternal Cousin 1 Alive Maternal Cousin 2 Alive Maternal Cousin 3 Maternal Cousin 4 Alive Maternal Cousin 5 Alive Maternal Cousin 6 Alive Maternal Cousin 7 Alive Maternal Grandfather (Age 75-80) Maternal Grandmother (Age 80s) Maternal Uncle 1 Alive Maternal Uncle 2 Alive Maternal Uncle 3 Alive Maternal Uncle 4 Alive Maternal Uncle 5 Alive Maternal Uncle 6 Alive Maternal Uncle 7 Alive Maternal Uncle 8 Alive Mother (Age 76) d. kidney issues SE/BSO - bleeding and pain Paternal Aunt 1 Alive Paternal Aunt 2 Alive Paternal Aunt 3 Alive Paternal Aunt 4 Paternal Grandfather (Age 98) Paternal Grandmother (Age 80s) Paternal Uncle 1 Paternal Uncle 2 Alive Paternal Uncle 3 Alive Sister 1 Alive Sister 2 Alive Son 1 Alive Son 2 Alive Social History Tobacco Use Types Packs/Day Years Used Date Smoking Tobacco: Former Cigarettes 1 41.2 1 979 - 01/06/2020 Smokeless Tobacco: Never Tobacco Cessation:Ready to Q uit: Yes; Counseling Given: Yes Comments:currently smoke 1/3 ppd. pt states that she is also vaping to help quit smoking. 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 Gender Identity Not on file Sexual Orientation Not on file Occupation Industry Job Start Date Job End Date on disability, was NA Not on file Not on file Not on file Obstetrics History Para Term AB IAB SAB Ectopic Multiple Livin g Live Births 2 2 3 Date Outcome GA Total Labor Labor/2nd/3rd Weight Sex Type Anes PTL Luisana A1 A5 Name Clin Para Para Comments A set of Twin Last Filed Vital Signs Vital Sign Reading Time Taken Comments Blood Pressure 101/69 05/20/2025 10:57 AM CDT Pulse 71 05/20/2025 10:57 AM CDT Temperature 36.8 °C (98.2 °F) 05/20/2025 10:57 AM C DT Respiratory Rate 18 05/20/2025 10:57 AM CDT Oxygen Saturation - - Inhaled Oxygen Concentration - - Weight 68.7 kg (151 lb 7.3 oz) 05/20/2025 10:57 AM CDT Height 173 cm (5' 8.11") 11/05/2024 10:25 AM FLAME BRAZING MACHINE OPERATOR Body Mass Index 22.95 11/05/2024 10:25 AM FLAME BRAZING MACHINE OPERATOR Plan of Treatment Upcoming Encounters Date Type Department Care Team (Late st Contact Info) Description 11/18/2025 9:15 AM FLAME BRAZING MACHINE OPERATOR Appointment Diagnostic Imaging in [place] - [address] [address] Gretchen Gottlieb PA [address] [place] [address] [id number] [email or web address] 11/18/2025 9:45 AM FLAME BRAZING MACHINE OPERATOR Ancillary Procedure Diagnostic Imaging in [address] [address] Gretchen Gottlieb PA [address] [place] [id number] [email or web address] 11/18/2025 1:30 PM FLAME BRAZING MACHINE OPERATOR Follow-Up MD [facility] in [place] - Gynecology [address] [place] [address] Ramin Padilla MD [address] [place], [place] [id number] [email or web address] Health Maintenance Due Date Last Done Comments Pneumococcal Vaccine: 50+ Ye ars (1 of 2 - PCV) 1977 COVID-19 Vaccine (2024-2 6 season) 2025 12/20/2020, 12/20/2020, 11/29/2020, Additional history exists Influenza Vaccine (#1) 2025 Medical Devices Implanted Type Area Farm Equipment Engineer Device Identifier Shelf Expiration Date Model / Serial / Lot Stent Pancreatic Advanix 5fr X 5cml-10/09/2019 Implanted:Qty: 1 on 10/09/2019 by Dominic Cheney MD Implant 06/25/2020 / [id number] / [employer] Slim 6fr - [id number] Implanted:Qty: 1 on 02/29/2020 at [facility] [place] [employer] 01/21/2021 [id number] / / [id number] Advantix Biliary Duodenal Bend Stent 10f X 7 Cm-10/09/2019 Implanted:Qty: 1 on 10/09/2019 by Dominic Cheney MD Stent Aorta 05/14/2021 / [id number] / Procedures Procedure Name Priority Date/Time Associated Diagnosis Comments CT CHEST ABDOMEN PELVIS W CONTRAST Routine 05/17/2025 9:12 AM CDT Malignant neoplasm of endometrium POC CREATININE Routine 05/17/2025 8:11 AM CDT CANCER ANTIGEN 125 Routine 05/17/2025 8: 10 AM CDT Malignant neoplasm of endometrium CANCER ANTIGEN 125 Routine 11/05/2024 10 :12 AM 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 Punctate pulmonary nodule in the left upper lobe is not clearly present on the previous exam. This is nonspecific and can be followed. Small subcentimeter nodule in the left pelvis not clearly present on the previous exam. This is nonspecific and could represent a small lymph node. Recommend close follow-up. ACTIONABLE ITEMS/RECOMMENDATIONS*: None. *An Actionable Finding is a finding that may be unrelated to the original reason for imaging but potentially actionable, meaning further investigation may be necessary. The Actionable Findings Vigilance Unit (AFVU) assists medical providers with responding to additional radiologic findings that are unexpected and potentially actionable. Narrative 05/17/2025 10:38 AM CDT FULL RESULT: Examination: CT CHEST ABDOMEN PELVIS W CONTRAST on 05/17/2025 9:12 AM. Clinical History: Malignant neoplasm of endometrium. 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 Comparison: CT chest/abdomen/pelvis 04/13/2024. Technique: CT CHEST ABDOMEN PELVIS W CONTRAST. Findings: CHEST: Lungs and Pleura: Punctate nodule at the left upper lobe (55 series 302) not clearly present on the previous exam. Few other subcentimeter pulmonary nodules some of which have groundglass attenuation are not significantly changed in interval and are annotated on series 302. Probable mucous/debris in the intrathoracic trachea (24). No pleural effusion. Cardiomediastinum: The heart is normal in size. No pericardial effusion. No thyroid tissue identified. Small hiatal hernia. Port ends in the right atrium. Density across aortic arch is redemonstrated. Lymph nodes: 1 cm precarinal lymph node (45) not significantly changed in the interval. No new enlarged lymph nodes. ABDOMEN AND PELVIS: Hepatobiliary: Few tiny hypodensities are not significant changed. These are too small to characterize and may represent small cysts. No suspicious hepatic lesion. Stable prominence of the intra and extrahepatic bile ducts likely related to cholecystectomy. Spleen: No splenomegaly. Pancreas: No mass or ductal dilatation. Adrenal Glands: Stable thickening of the right adrenal. Left adrenal unremarkable. Kidneys, Ureters, Bladder: Cyst at the left kidney. Small hypodensity at the right kidney too small to characterize commonly representing a cyst. No suspicious renal lesion. No bladder mass. Gastrointestinal Tract: No obstruction. Diverticulosis of the colon. Pelvic Organs: Hysterectomy change. No pelvic mass. Peritoneum/Retroperitoneum: No ascites. Small subcentimeter calcified nodule in the left anterior pelvis was present on exam dating back to 2022. There is another punctate noncalcified nodule (244) and the left pelvis not clearly identified on the previous exam. Lymph Nodes: No lymphadenopathy. Vessels: Abdominal aorta is enlarged measuring up to 3.2 x 3.0 cm. There is extensive mural thrombus narrowing the functional lumen. There is pneumatosis with occlusion of the right common iliac artery with the right common femoral artery reconstituted distally. MUSCULOSKELETAL: Small fat-containing left inguinal hernia. No suspicious skeletal lesion. Procedure Note Gabriel Garcia MD - 05/17/2025 FULL RESULT: Examination: CT CHEST ABDOMEN PELVIS W CONTRAST on 05/17/2025 9:12 AM. Clinical History: Malignant neoplasm of endometrium. Indication: stage III C2 grade 3 endometrioid endometrialadenocarcinoma. Comparison: CT chest/abdomen/pelvis 04/13/2024. Technique: CT CHEST ABDOMEN PELVIS W CONTRAST. Findings: CHEST: Lungs and Pleura: Punctate nodule at the left upper lobe (55 series 302)not clearly present on the previous exam. Few other subcentimeterpulmonary nodules some of which have groundglass attenuation are notsignificantly changed in interval and are annotated on series 302.Probable mucous/debris in the intrathoracic trachea (24). No pleuraleffusion. Cardiomediastinum: The heart is normal in size. No pericardial effusion.No thyroid tissue identified. Small hiatal hernia. Port ends in the rightatrium. Density across aortic arch is redemonstrated. Lymph nodes: 1 cm precarinal lymph node (45) not significantly changed inthe interval. No new enlarged lymph nodes. ABDOMEN AND PELVIS: Hepatobiliary: Few tiny hypodensities are not significant changed. Theseare too small to characterize and may represent small cysts. No suspicioushepatic lesion. Stable prominence of the intra and extrahepatic bile ductslikely related to cholecystectomy. Spleen: No splenomegaly. Pancreas: No mass or ductal dilatation. Adrenal Glands: Stable thickening of the right adrenal. Left adrenalunremarkable. Kidneys, Ureters, Bladder: Cyst at the left kidney. Small hypodensity atthe right kidney too small to characterize commonly representing a cyst.No suspicious renal lesion. No bladder mass. Gastrointestinal Tract: No obstruction. Diverticulosis of the colon. Pelvic Organs: Hysterectomy change. No pelvic mass. Peritoneum/Retroperitoneum: No ascites. Small subcentimeter calcifiednodule in the left anterior pelvis was present on exam dating back [id number]. There is another punctate noncalcified nodule (244) and the leftpelvis not clearly identified on the previous exam. Lymph Nodes: No lymphadenopathy. Vessels: Abdominal aorta is enlarged measuring up to 3.2 x 3.0 cm. Thereis extensive mural thrombus narrowing the functional lumen. There ispneumatosis with occlusion of the right common iliac artery with the rightcommon femoral artery reconstituted distally. MUSCULOSKELETAL: Small fat-containing left inguinal hernia. No suspicious skeletallesion. IMPRESSION: No definite evidence for metastatic disease in the chest, abdomen, andpelvis. Punctate pulmonary nodule in the left upper lobe is not clearly present onthe previous exam. This is nonspecific and can be followed. Small subcentimeter nodule in the left pelvis not clearly present on theprevious exam. This is nonspecific and could represent a small lymph node.Recommend close follow-up. ACTIONABLE ITEMS/RECOMMENDATIONS*: None. *An Actionable Finding is a finding that may be unrelated to the originalreason for imaging but potentially actionable, meaning furtherinvestigation may be necessary. The Actionable Findings Vigilance Unit(AFVU) assists medical providers with responding to additional radiologicfindings that are unexpected and potentially actionable. Martina Peterson APRN [facility] [place] ORDERABLES Final Result * (ABNORMAL) POC Creatinine (05/17/2025 8:11 AM CDT) POC Creatinine 1.1 0.6 - 1.3 mg/dL 05/17/2025 8:15 AM CDT [facility] Comment:Medications, especia lly hydroxyurea or supplements, such as ascorbate, can interfere with test results causing a falsely and significantly higher result than expected. If a problem is suspected with a patient's result, a sample should be sent to the laboratory for confirmatory testing. POC eGFR 55(L) >=60 mL/min/1.7 3 sq. m 05/17/2025 8:15 AM CDT [facility] Comment: The eGFRcr is calculated with the 2020 CKD-EPI creatinine equation using creatinine, patient's age, and sex for adults 18 years of age and older. Other factors, especially muscle mass, may affect accuracy and need to be considered. According to the Kidney Disease: Improving Global Outcomes (KDIGO) CKD Work Group 2012 Clinical Practice Guideline, chronic kidney disease (CKD) is defined as the abnormalities of kidney structure or function, present for more than 3 months, with implications for health. CKD should be classified by cause, GFR category, and albuminuria category. KDIGO guidelines provide the following GFR categories. Stage / Description / GFR mL/min/1.73 m2: G1* / Normal or high / >= 90 G2* / Mildly decreased / 60-89 G3a / Mildly to moderately decreased / 45-59 G3b / Moderately to severely decreased / 30-44 G4 / Severely decreased / 15-29 G5 / Kidney failure / <15 *In the absence of evidence of kidney damage, neither G1 nor G2 fulfill criteria for CKD. Blood 05/17/2025 8:11 AM CDT 05/17/2025 8:15 AM CDT Narrative [facility] - 05/17/2025 8:15 AM CDT Method description: The i-STAT is an analyzer used for in vitro quantification of various analytes in whole blood. The device uses a single disposable cartridge which contains microfabricated sensors, a calibration solution, fluidics system, and a waste chamber. Each test cartridge contains chemically sensitive biosensors on a silicon chip that are configured to perform specific tests. The microfabricated sensors measure analyte concentration by an electrochemical assay. us Martina Peterson APRN POCT ORDERABLES - DEVICE Final R esult [facility] [address] [place] [address] * Cancer Antigen 125 (05/17/2025 8:10 AM CDT) Only the most recent of2 resultswithin the time period is included. Cancer Antigen 125 22.1 <=38.0 U/mL 05/17/2025 9:19 AM CDT [facility] Blood Peripheral blood specimen / Unknown Port / Unknown 05/17/2025 8:10 AM CDT 05/17/2025 8:41 AM CDT Narrative [facility] - 05/17/2025 9:19 AM CDT Results greater than 11,500.0 U/mL may not be reliable due to matrix effect with extended dilution as it exceeds the supervisor fabrication's recommended limit. Caution should be exercised when interpreting such values and done in conjunction with clinical context. This test is measured by electrochemiluminescence immunoassay on Sophia Rabia immunoassay analyzers. Results obtained in different methods are not interchangeable. Reference intervals are not available for male patients. Results should be interpreted in conjunction with clinical context. us Martina Peterson APRN LAB BLOOD ORDERABLES Final Resul t [facility] [address] [place] [address], [place] after 07/16/2024 Insurance [facility] MEDICARE ADVANTAGE [facility] MEDICARE ADVANTAGE Advance Directives * Full Code (Latest Code Status on File) Date Activated Date Inactivated Comments 03/25/2025 2:00 PM Update based on Advanced Directive Documentation * Full Code Date Activated Date Inactivated Comments 01/11/2020 3:39 PM 01/15/2020 2:13 PM * Full Code Date Activated Date Inactivated Comments 01/11/2020 11:19 AM 01/11/2020 11:33 AM Care Teams Die Designer Relationship Specialty Start Date End Date Adriana Jaimes MD [email or web address] PCP - External Referring Obstetrics/Gynecology 12/11/19 Alexandre Dallas MD [address] [place] [phone] [email or web address] PCP - General Gynecological Oncology 08/29/23 11/03/24 Ramin Padilla MD [address] [place] [address] [phone] [email or web address] PCP - General Gynecological Oncology 11/04/24 Rivera Perez MDiv [address] [place] [phone] [email or web address] [facility] 08/11/20 Lauren Villavicencio MD [address] [place] [phone] [email or web address] Consulting Physician Thoracic Surgery 06/07/23 Raymundo Lux MD [address] [place] [phone] [email or web address] Consulting Physician Cardiology 05/05/23 Ariel Guthrie MD [address] [place] [phone] [email or web address] Consulting Physician Pulmonary Medicine 04/01/20 Amol Cotto MD [address] [place] [phone] [email or web address] Consulting Physician Internal Medicine 12/28/19
[2025-07-16] MEDS ORDERED: MORPHINE 4 MG/ML SYR ONE (22:50)
[2025-07-16] MEDS ORDERED: ONDANSETRON 4 MG/2 ML VIAL ONE (22:50)
[2025-07-16 23:17] LABS: PT Prothrombin Time 12.2 SECONDS (10-13.0); Protime INR 1.08
[2025-07-16 23:19] LABS: Absolute Lymphocytes (CBC) 0.7 K/uL (0.7-4.9); Hematocrit 44.2 % (36.0-45.0); Hemoglobin 14.8 g/dL (12.0-15.0); MCH 29.4 pg (27.0-35.0); MCHC 33.5 g/dL (32.0-36.0); MCV 87.8 fL (80-100); MPV 8.2 fL (7.6-11.3); Nucleated RBC Absolute Count 0.0 (0-0); Nucleated Red Blood Cells % 0.1 % (0-0); RBC Red Blood Cell Count 5.04 M/uL (3.86-4.86); White Blood Count 9.30 thou/uL (4.3-10.9)
[2025-07-16 23:32] LABS: ALT/SGPT < 14 U/L (13-56); AST/SGOT 18 U/L (15-37); Albumin 3.7 g/dL (3.4-5.0); Albumin/Globulin Ratio 0.8 (1.1-1.8); Alkaline Phosphatase 133 U/L (45-117); Anion Gap 10.3 mEq/L (5.0-15.0); BUN Blood Urea Nitrogen 14 mg/dL (7-18); Bilirubin Indirect, Calculated 0.4 mg/dL (0.2-0.8); Globulin 4.4 g/dL (2.3-3.5); Glucose Level 173 mg/dL (74-106); Lipase 17 U/L (13-75); Magnesium 1.8 mg/dL (1.6-2.4); NT PRO-BNP 2390 pg/mL (<125); Potassium 3.3 mEq/L (3.5-5.1); Troponin High Sensitivity 5.7 pg/mL (<58.9)
[2025-07-17 00:07] LABS: Influenza A Ag Negative; Influenza B Ag Negative; SARS-CoV-2 Antigen Rapid Res Negative (Negative)
[2025-07-17 00:11] LABS: Differential Total Cells Count 100; Segmented Neutrophils 76 % (40-80)
[2025-07-17 00:12] LABS: Blood Morphology Comment NOT SEEN (NOT SEEN)
--- NOTE | 2025-07-17 01:19 | RAD REPORT ---
EXAM: CT Abdomen and Pelvis With Intravenous Contrast CLINICAL HISTORY: The patient is 65 years old and is Female; h/o pancreatitis; Abd pain TECHNIQUE: Axial computed tomography images of the abdomen and pelvis with intravenous contrast. Sagittal an d coronal reformatted images were created and reviewed. This CT exam was performed using one or more of the following dose reduction techniques: automated exposure control, adjustment of the mA a nd/or kV according to patient size, and/or use of iterative reconstruction technique. COMPARISON: No relevant prior studies available. FINDINGS: LUNG BASES: Unremarkable. No mass. No consolidation. ABDOMEN: LIVER: The liver is enlarged and mildly fatty. GALLBLADDER AND BILE DUCTS: Surgical clips are present in the right upper quadrant, consistent wi th previous cholecystectomy. Intra and extrahepatic biliary dilatation is noted with the common bile duct measuring up to 1.2 cm. PANCREAS: The pancreas is atrophic. SPLEEN: Unremarkable. ADRENALS: Unremarkable. No mass. KIDNEYS AND URETERS: The kidneys have a lobular contour. Exophytic left renal cyst is noted. No f ollow-up imaging is recommended. There is no hydronephrosis or hydroureter of either kidney. No obstructing renal or ureteral calculus is seen. STOMACH AND BOWEL: The stomach is distended with fluid and air. The small bowel is decompressed. The majority of the colon is also decompressed. Scattered colonic diverticula are noted without surrounding inflammation. There is no mucosal thickening or evidence of obstruction. PELVIS: APPENDIX: The appendix is normal in caliber without surrounding inflammation. BLADDER: The bladder is moderately distended. REPRODUCTIVE: The patient is status post hysterectomy. ABDOMEN and PELVIS: INTRAPERITONEAL SPACE: Unremarkable. No free air. No significant fluid collection. BONES/JOINTS: No acute fracture. SOFT TISSUES: The soft tissues are normal. VASCULATURE: Abdominal aortic aneurysm measuring 4.0 cm is present with moderate peripheral mural thrombus and atherosclerotic plaque. LYMPH NODES: Unremarkable. No enlarged lymph nodes. IMPRESSION: 1. Biliary dilatation. This may be related to postcholecystectomy state. However, if clinically ind icated, ultrasound and/or MRCP could be performed for further evaluation. 2. Colonic diverticulosis. 3. Abdominal aortic aneurysm measuring 4 cm. Recommend CTA or MRA, as appropriate, in 12 months and r eferral to vascular specialist. Reference: Journal of Vascular Surgery 67.1 (2018): 2-77. J Am Ronny Radiol 2013;10:789-794. Electronically signed by: Divya Coello MD 07/17/2025 12:34 AM CDT RP Due to temporary technical issues with the PACS/Egoscue reporting system, reports are being sandra d by the in-house radiologist without review as a courtesy to ensure prompt reporting the interpreting radiologist is fully responsible for the content of the report. Transcribed Date/Time: 07/17/2025 1:19 AM
[2025-07-17] MEDS ORDERED: ONDANSETRON 4 MG/2 ML VIAL ONE (01:42)
--- NOTE | 2025-07-17 03:58 | ER ---
Nurse's Notes [facility] Name: Cait Ying Age: 65 yrs Sex: Female : 1960 Arrival Date: 07/16/2025 Time: 22:26 Bed 2 Private MD: Diagnosis: Vomiting, diarrhea, low back pain Presentation: 07/16 22:37 Chief complaint: Patient states: pt to ed c/o n/v/d since yesterday. pt has not been mf3 able to keep anything down and is also c/o body aches. Coronavirus screen: Client denies travel out of the [place] in the last 14 days. At this time, the client does not indicate any symptoms associated with coronavirus-19. Ebola Screen: No symptoms or risks identified at this time. Initial Sepsis Screen: Does the patient meet any 2 criteria? No. Patient's initial sepsis screen is negative. Does the patient have a suspected source of infection? No. Patient's initial sepsis screen is negative. Risk Assessment: Do you want to hurt yourself or someone else? Patient reports no desire to harm self or others. Onset of symptoms was July 15, 2025. 22:37 Method Of Arrival: EMS: [facility] 22:37 Acuity: ONEYDA 3 3 Triage Assessment: 22:40 General: Appears distressed, uncomfortable, Behavior is cooperative, appropriate for 3 age, agitated. Pain: Pain currently is 10 out of 10 on a pain scale. Historical: - Allergies: 22:40 none; mf3 - PMHx: 22:40 aortic aneurysm; Hypothyroidism; Pancreatitis; Hypertension; uterine cancer; mf3 - Immunization history:: Adult Immunizations up to date. - Infectious Disease History:: Denies. - Social history:: Smoking status: Patient reports the use of cigarette tobacco products, smokes one-half pack cigarettes per day. Screenin:45 [facility] ED Fall Risk Assessment (Adult) History of falling in the last 3 months, mf3 including since admission No falls in past 3 months (0 pts). Abuse screen: Denies threats or abuse. Denies injuries from another. Nutritional screening: No deficits noted. Tuberculosis screening: No symptoms or risk factors identified. Never had TB. 07/17 04:07 [facility] ED Fall Risk Assessment (Adult) Confusion or Disorientation No (0 pts) cp4 Intoxicated or Sedated No (0 pts) Impaired Gait Yes (1 pt) Mobility Assist Device Used No (0 pt) Altered Elimination No (0 pt) Score/Fall Risk Level 0 - 2 = Low Risk Oriented to surroundings, Maintained a safe environment, Assessed \T\ reinforced patient's understanding of fall precautions, Hourly rounding (assess needs \T\ fall precautionary measures) done. Assessment: 07/16 22:45 General: Appears distressed, uncomfortable, Behavior is cooperative, appropriate for [facility] age, agitated, anxious. Pain: Pain currently is 10 out of 10 on a pain scale. Cardiovascular: Capillary refill < 3 seconds. Respiratory: Airway is patent Trachea midline Respiratory effort is even, labored. GI: Abdomen is flat. GI: Reports diarrhea, nausea. : No signs and/or symptoms were reported regarding the genitourinary system. EENT:. Derm: Skin is intact, Skin is dry, Skin is pink, warm \T\ dry. Vital Signs: 22:37 BP 188 / 68; Pulse 59; Resp 18; Temp 98.7; Pulse Ox 94% ; Weight 74.84 kg; Height 5 ft. 3 7 in. ; Pain 10/10; 23:38 BP 189 / 80; Pulse 68; Resp 17; Pulse Ox 97% on 3 lpm NC; 3 07/17 00:30 BP 204 / 77; Pulse 62; Resp 18; Pulse Ox 97% on 3 lpm NC; 3 01:30 BP 162 / 89; Pulse 55; Resp 18; Pulse Ox 97% on 3 lpm NC; 3 02:30 BP 203 / 83; Pulse 56; Resp 18; Pulse Ox 96% on 3 lpm NC; 3 04:06 BP 180 / 73; Pulse 70; Resp 17; Pulse Ox 98% on R/A; cp4 07/16 22:37 Body Mass Index 25.84 (74.84 kg, 170.18 cm) [facility] 07/16 22:37 Pain Scale: Adult 3 Vitals: 07/16 23:38 Cardiac Rhythm Assessment Sinus chaim. 3 Xenia Coma Score: 22:45 Eye Response: spontaneous(4). Motor Response: obeys commands(6). Verbal Response: mf3 oriented(5). Total: 15. ED Course: 22:29 Patient arrived in ED. rv1 22:31 Jeannie Evans MD is Attending Physician. sp3 22:36 Magdalena Regalado, RN is Primary Nurse. mf3 22:40 Triage completed. mf3 22:40 Arm band placed on. mf3 22:45 Patient has correct armband on for positive identification. Bed in low position. Call mf3 light in reach. Side rails up X2. Provided Education on: pt educated on POC. 22:45 No provider procedures requiring assistance completed. Inserted saline lock: 18 gauge 3 in left antecubital area, using aseptic technique. Blood collected. Flushed with 10 mL NS. 22:52 XRAY Chest (1 view) In Process Unspecified. EDMS 22:59 Basic Metabolic Panel Sent. mf3 22:59 CBC with Diff Sent. mf3 22:59 LFT's Sent. mf3 22:59 Magnesium Sent. mf3 22:59 NT PRO-BNP Sent. mf3 22:59 PT-INR Sent. mf3 22:59 Troponin HS Sent. mf3 23:00 Lipase Sent. mf3 23:28 COVID-19 Ag + Flu A+B Ag Sent. kj2 23:38 COVID-19 Ag + Flu A+B Ag Sent. 3 07/17 00:15 CT Abd/Pelvis - IV Contrast Only In Process Unspecified. EDMS 03:51 US Abdomen Limited In Process Unspecified. EDMS 04:07 intact, bleeding controlled, No redness/swelling at site. Pressure dressing applied. cp4 Administered Medications: 07/16 22:59 Drug: morphine IVP or IV 4 mg IVP once over 4 mins Route: IVP; Infused Over: 4 mins; [facility] Site: left antecubital; 07/17 04:09 Follow up: Response: No adverse reaction; Pain is decreased cp4 07/16 22:59 Drug: Ondansetron IVP 4 mg IVP once; over 2 minutes Route: IVP; Site: left antecubital; 3 07/17 01:58 Follow up: Response: No adverse reaction; Nausea unchanged tb4 01:57 Drug: Ondansetron IVP 4 mg IVP once; over 2 minutes Route: IVP; Site: left antecubital; tb4 04:09 Follow up: Response: No adverse reaction; Nausea is decreased cp4 Medication: 07/16 22:45 VIS not applicable for this client. mf3 Outcome: 07/17 03:57 Discharge ordered by . sp3 04:07 Discharged to home via wheelchair, cp4 04:07 Condition: stable 04:07 Discharge instructions given to patient, Instructed on discharge instructions, follow up and referral plans. medication usage, Demonstrated understanding of instructions, follow-up care, medications, Prescriptions given X 1, 04:14 Patient left the ED. cp4 Signatures: Dispatcher [employer] EDMS Jeannie Evans MD MD sp3 Ariella Willis1 Chely Hinds cp4 Antonia Green, RN RN kj2 Cristina Jerome RN RN tb4 Magdalena Regalado RN RN mf3
--- NOTE | 2025-07-17 03:58 | EDPHYS ---
Physician Documentation [facility] Name: Cait Ying Age: 65 yrs Sex: Female : 1960 Arrival Date: 07/16/2025 Time: 22:26 Bed 2 Private MD: ED Physician Jeannie Evans HPI: 07/16 22:44 This 65 yrs old Female presents to ER via EMS with complaints of abdominal sp3 pain and vomiting. 22:44 65-year-old female with history of pancreatitis, prior uterine cancer, hypertension, sp3 history of aortic aneurysm, hypothyroidism presents to the ED for recurrent epigastric abdominal pain and vomiting x 7 over the last 48 hours with continued dry heaving in the ED. Patient denies any fever, chest pain, shortness of breath, back pain or flank pain, dysuria, visualized hematuria, PRINC[employer]AL [employer] SOFTWARE ENGINEER symptoms, rash, syncope, bleeding, melena, or any other signs or symptoms on ROS at this time.. Historical: - Allergies: 22:40 none; mf3 - PMHx: 22:40 aortic aneurysm; Hypothyroidism; Pancreatitis; Hypertension; uterine cancer; mf3 - Immunization history:: Adult Immunizations up to date. - Infectious Disease History:: Denies. - Social history:: Smoking status: Patient reports the use of cigarette tobacco products, smokes one-half pack cigarettes per day. ROS: 22:47 Constitutional: Negative for fever, chills, and weight loss, Eyes: Negative for injury, sp3 pain, redness, and discharge, Neck: Negative for injury, pain, and swelling, Cardiovascular: Negative for chest pain, palpitations, and edema, Respiratory: Negative for shortness of breath, cough, wheezing, and pleuritic chest pain, Back: Negative for injury and pain, MS/Extremity: Negative for injury and deformity, Skin: Negative for injury, rash, and discoloration, Neuro: Negative for headache, weakness, numbness, tingling, and seizure, Psych: Negative for depression, anxiety, suicide ideation, homicidal ideation, and hallucinations, Allergy/Immunology: Negative for hives, rash, and allergies, Endocrine: Negative for neck swelling, polydipsia, polyuria, polyphagia, and marked weight changes, Hematologic/Lymphatic: Negative for swollen nodes, abnormal bleeding, and unusual bruising, 22:47 All other systems are negative, Exam: 22:47 Constitutional: This is a well developed, well nourished patient who is awake, alert, sp3 and in no acute distress. Head/Face: Normocephalic, atraumatic. Eyes: Pupils equal round and reactive to light, extra-ocular motions intact. Lids and lashes normal. Conjunctiva and sclera are non-icteric and not injected. Cornea within normal limits. Periorbital areas with no swelling, redness, or edema. Neck: Trachea midline, no thyromegaly or masses palpated, and no cervical lymphadenopathy. Supple, full range of motion without nuchal rigidity, or vertebral point tenderness. No Meningismus. Chest/axilla: Normal chest wall appearance and motion. Nontender with no deformity. No lesions are appreciated. Cardiovascular: Regular rate and rhythm with a normal S1 and S2. No gallops, murmurs, or rubs. Normal PMI, no JVD. No pulse deficits. Respiratory: Lungs have equal breath sounds bilaterally, clear to auscultation and percussion. No rales, rhonchi or wheezes noted. No increased work of breathing, no retractions or nasal flaring. Back: No spinal tenderness. No costovertebral tenderness. Full range of motion. Skin: Warm, dry with normal turgor. Normal color with no rashes, no lesions, and no evidence of cellulitis. MS/ Extremity: Pulses equal, no cyanosis. Neurovascular intact. Full, normal range of motion. Neuro: Awake and alert, GCS 15, oriented to person, place, time, and situation. Cranial nerves II-XII grossly intact. Motor strength 5/5 in all extremities. Sensory grossly intact. Cerebellar exam normal. Normal gait. Psych: Awake, alert, with orientation to person, place and time. Behavior, mood, and affect are within normal limits. 22:47 Abdomen/GI: Epigastric tenderness noted to palpation without peritoneal signs, rebound or guarding., 23:18 ECG was reviewed by the Attending Physician. EKG demonstrates normal sinus rhythm at 60 sp3 bpm with normal axis, poor R wave progression nonspecific diffuse ST/T changes without evidence of acute ischemia. Vital Signs: 22:37 BP 188 / 68; Pulse 59; Resp 18; Temp 98.7; Pulse Ox 94% ; Weight 74.84 kg; Height 5 ft. mf3 7 in. ; Pain 10/10; 23:38 BP 189 / 80; Pulse 68; Resp 17; Pulse Ox 97% on 3 lpm NC; mf3 07/17 00:30 BP 204 / 77; Pulse 62; Resp 18; Pulse Ox 97% on 3 lpm NC; mf3 01:30 BP 162 / 89; Pulse 55; Resp 18; Pulse Ox 97% on 3 lpm NC; mf3 02:30 BP 203 / 83; Pulse 56; Resp 18; Pulse Ox 96% on 3 lpm NC; mf3 04:06 BP 180 / 73; Pulse 70; Resp 17; Pulse Ox 98% on R/A; cp4 07/16 22:37 Body Mass Index 25.84 (74.84 kg, 170.18 cm) 3 07/16 22:37 Pain Scale: Adult mf3 Holli Coma Score: 07/16 22:45 Eye Response: spontaneous(4). Motor Response: obeys commands(6). Verbal Response: mf3 oriented(5). Total: 15. MDM: 22:31 Medical Screening Exam initiated sp3 22:48 Data reviewed: vital signs, nurses notes, old medical records, lab test result(s), EKG, sp3 radiologic studies. ED course: 65-year-old female with PMH above now with epigastric abdominal pain and vomiting. Differential diagnosis includes acute on chronic pancreatitis, gastritis, biliary pathology, colitis, acute coronary syndrome, esophagitis, other intrathoracic pathology, musculoskeletal, among others. I am not highly suspicious of sepsis, shock, pathology, PRINCIPAL SYSTEM SOFTWARE ENGINEER pathology, or any other concerning process at this time. CT scan of the abdomen pelvis will also assess for aortic aneurysm. Further workup will include general labs, UA and general supportive care. Disposition pending workup and patient course.. 07/17 03:56 ED course: Full workup negative. Ultrasound demonstrates CBD at 1 cm but no other sp3 abnormalities. This is likely postcholecystectomy baseline for her. Blood pressure elevated we will reassess. Pain is improved but not totally gone. Patient states pain is now mainly in her lower back which is chronic in nature.. 07/16 22:43 Order name: Basic Metabolic Panel; Complete Time: 23:58 sp3 07/16 22:43 Order name: CBC with Diff; Complete Time: 00:56 sp3 07/16 22:43 Order name: LFT's; Complete Time: 23:58 3 07/16 22:43 Order name: Magnesium; Complete Time: 23:58 3 07/16 22:43 Order name: NT PRO-BNP; Complete Time: 23:58 3 07/16 22:43 Order name: PT-INR; Complete Time: 23:58 3 07/16 22:43 Order name: Troponin HS; Complete Time: 23:58 3 07/16 22:43 Order name: Lipase; Complete Time: 23:58 3 07/16 22:55 Order name: COVID-19 Ag + Flu A+B Ag; Complete Time: 00:56 3 07/16 23:26 Order name: Manual Differential; Complete Time: 00:56 EDMS 07/16 22:43 Order name: XRAY Chest (1 view) 3 07/16 22:43 Order name: CT Abd/Pelvis - IV Contrast Only 3 07/17 00:56 Order name: US Abdomen Limited 3 07/16 22:43 Order name: Cardiac monitoring; Complete Time: 22:59 3 07/16 22:43 Order name: EKG - Nurse/Tech; Complete Time: 23:03 3 07/16 22:43 Order name: IV Saline Lock; Complete Time: 22:59 3 07/16 22:43 Order name: Labs collected and sent; Complete Time: 22:59 3 07/16 22:43 Order name: O2 Per Protocol; Complete Time: 22:59 3 07/16 22:43 Order name: O2 Sat Monitoring; Complete Time: 22:59 3 Administered Medications: 07/16 22:59 Drug: morphine IVP or IV 4 mg IVP once over 4 mins Route: IVP; Infused Over: 4 mins; [facility] Site: left antecubital; 07/17 04:09 Follow up: Response: No adverse reaction; Pain is decreased 4 07/16 22:59 Drug: Ondansetron IVP 4 mg IVP once; over 2 minutes Route: IVP; Site: left antecubital; 3 07/17 01:58 Follow up: Response: No adverse reaction; Nausea unchanged tb4 01:57 Drug: Ondansetron IVP 4 mg IVP once; over 2 minutes Route: IVP; Site: left antecubital; tb4 04:09 Follow up: Response: No adverse reaction; Nausea is decreased cp4 Disposition Summary: 07/17/25 03:57 Discharge Ordered Notes: Location: Home sp3 Condition: Stable sp3 Diagnosis - Vomiting, diarrhea, low back pain sp3 Followup: sp3 - With: Private Physician - When: Upon discharge from the Emergency Department - Reason: Continuance of care Discharge Instructions: - Discharge Summary Sheet sp3 - Abdominal Aortic Aneurysm sp3 - Viral Gastroenteritis, Adult, [id number] sp3 Forms: - Medication Reconciliation Form sp3 - Antibiotic Education sp3 - Prescription Opioid Use sp3 - Patient Portal Instructions sp3 - Leadership Thank You Letter sp3 Prescriptions: - ondansetron 4 mg Oral Tablet,disintegrating - take 1 tablet ORAL route every 8 hours as needed for nausea and vomiting; 20 sp3 tablet; Refills: 0, Product Selection Permitted Signatures: Dispatcher [employer] EDMS Jeannie Evans MD MD sp3 Demetrice Villegas, RN RN vc1 Cristina Jerome RN RN tb4 Magdalena Regalado RN RN mf3 Chely Hinds 4 Corrections: (The following items were deleted from the chart) 07/16 22:43 22:43 BASIC METABOLIC PANEL+C.LAB.BRZ ordered. EDMS EDMS 22:43 22:43 CBC+H.LAB.BRZ ordered. EDMS EDMS 22:43 22:43 HEPATIC FUNCTION+C.LAB.BRZ ordered. EDMS EDMS 22:43 22:43 MAGNESIUM+C.LAB.BRZ ordered. EDMS EDMS 22:43 22:43 PROBNP+C.LAB.BRZ ordered. EDMS EDMS 22:43 22:43 PROTIME (+INR)+COAG.LAB.BRZ ordered. EDMS EDMS 22:43 22:43 Troponin High Sensitivity+C.LAB.BRZ ordered. EDMS EDMS 22:43 22:43 LIPASE+C.LAB.BRZ ordered. EDMS EDMS 22:43 22:43 UA Rfx Solo Cult if indicated+U.LAB.BRZ ordered. EDMS EDMS 22:44 22:44 Chest Single View+RAD.RAD.BRZ ordered. EDMS EDMS 22:44 22:44 Abdomen Pelvis W Con+CT.RAD.BRZ ordered. EDMS EDMS
[2025-07-17 04:32] VITALS: TEMP 98.7
[2025-07-17 04:41] VITALS: BP 180/73; O2SAT 98
--- NOTE | 2025-07-17 06:02 | RAD REPORT ---
TIME OF STUDY: 07/16/2025 10:43 PM CDT REASON FOR EXAM: MALAISE COMPARISON: None. FINDINGS: AP view of the chest was obtained, chest 1 view. Lungs: The lungs are adequately inflated. Confluent interstitial opacities are noted in the lung base s, greater on the right. A right IJ Port-A-Cath is noted. The patient is status post EVAR of the aortic arch and proximal descending aorta. Pleura: No pneumothorax. There is no pleural effusion. Heart and Mediastinum: Normal cardiomediastinal silhouette and great vessels.. Bones: No acute bony abnormality.. IMPRESSION: 1. Confluent interstitial markings in the lung bases. This may be due to atelectasis, fibrosis and/or consolidation from pneumonia. Electronically signed by: Jackson Fox MD 07/16/2025 11:21 PM CDT RP Due to temporary technical issues with the PACS/[employer] reporting system, reports are being sandra d by the in-house radiologist without review as a courtesy to ensure prompt reporting the interpreting radiologist is fully responsible for the content of the report. Transcribed Date/Time: 07/17/2025 6:01 AM
--- NOTE | 2025-07-17 06:54 | RAD REPORT ---
EXAM DESCRIPTION: Abdomen Exam Limited CLINICAL HISTORY: RUQ biliary dilatation on CT;Abd pain COMPARISON: 07/17/2025 TECHNIQUE: Real-time sonographic images of the right upper abdomen were obtained using a curved multi hertz transducer. Technically challenging exam due to patient motion and tolerance. FINDINGS: Pancreas: Not well-visualized due to overlying structures. Vascular: Not well-visualized due to overlying structures. Liver: Nodular contour. Hepatopedal flow in the portal vein. Findings confirmed with color and spec tral Doppler imaging. The common bile duct measures 0.9 cm. Gallbladder: Prior cholecystectomy. Right Kidney: Not well-visualized on this study IMPRESSION: 1. Mild dilation of the common bile duct measuring 0.9 cm. This may be related to prior cholecystec jeff. If there is concern for biliary obstruction MRCP would provide additional characterization. 2. Nodular contour of the liver. This could be seen with cirrhosis. Electronically signed by: Jesus He DO 07/17/2025 05:07 AM CDT RP [id number] Due to temporary technical issues with the PACS/[employer] reporting system, reports are being sandra d by the in-house radiologist without review as a courtesy to ensure prompt reporting the interpreting radiologist is fully responsible for the content of the report. Transcribed Date/Time: 07/17/2025 6:54 AM
== END 2025-07-17 04:14 | disposition home or self-care (01) ==
LOC: ER 22:26
DX: R11.10 Vomiting, unspecified (principal); R19.7 Diarrhea, unspecified; M54.50 Low back pain, unspecified; R10.13 Epigastric pain; Z11.52 Encounter for screening for COVID-19; F17.210 Nicotine dependence, cigarettes, uncomplicated
CPT/HCPCS: 93005; 85025; 80048; 36415; 83735; 85610; 80076; 84484; 83690; 83880; 74177; 71045; 76705; 96375; 96374; 99284; 87428; Q9967; J2405 ×2